=== PATIENT | male | born 1955 | race Caucasian/White ===

== ENCOUNTER 2023-03-04 07:37 | Outpatient (OUT) | payer MEDICARE, OTHER, SELFPAY ==
[2023-03-04 08:17] LABS: Calcium 8.6 mg/dL (8.5-10.1); Carbon Dioxide 27.1 mmol/L (21.0-32.0); Chloride 106 mmol/L (98-107); Estimated GFR (African America >60 (>=60); Estimated GFR (Non-African Ame >60 (>=60); Sodium 141 mmol/L (136-145); Uric Acid 5.5 mg/dL (3.5-7.2)
[2023-03-04 10:19] LABS: Calcium Urine Random 12.5 mg/dL (5.1-21.0); Creatinine Urine Random 100.63 mg/dL (20.00-300.00); Sodium Urine Random 119 mmol/L (30-90)
[2023-03-04 10:38] LABS: Calcium 24 Hour Urine 171.9 mg/24hr (100.0-300.0); Sodium 24 Hour Urine 164 mmol/24h (40-220); Total Volume 24 Hour Urine 1375 mL/24hr
[2023-03-05 07:08] LABS: Uric Acid, Urine 35.6 mg/dL (Not Estab.); Uric Acid,Urine 24hr 489.5 mg/24 hr (182.4-936.8)
[2023-03-05 09:12] LABS: Magnesium,Urine 24hr 82.5 mg/24 hr (12.0-293.0); Phosphorus, Urine 68.1 mg/dL (Not Estab.); Phosphorus,Urine 24h 936 mg/24 hr (390-1425)
[2023-03-05 11:12] LABS: PTH, Intact 25 pg/mL (15-65)
[2023-03-06 17:07] LABS: Citric Acid, U, 24hr 304 mg/24 hr (320-1240); Citric Acid, Urine 221 mg/L (Undefined); Oxalates, Urine 14 mg/L (Undefined); Oxalates, Urine 24hr 19 mg/24 hr (7-44)
== END 2023-03-04 07:38 | disposition home or self-care (01) ==
LOC: LAB 07:39
PROVIDERS: PCP Internal Medicine; Visit Provider Urology
DX: N20.0 Calculus of kidney (principal)
CPT/HCPCS: 36415; 82310; 82340; 82374; 82435; 82507; 82565; 82570; 83735; 83945; 83970; 84105; 84132; 84295; 84300; 84520; 84550; 84560

== ENCOUNTER 2023-04-15 10:35 | Outpatient (OUT) | payer MEDICARE, OTHER, SELFPAY ==
--- NOTE | 2023-04-15 10:41 | XR_ITS ---
The [address] [address] Patient Name: RADHAMES MARQUEZ MRN: [id number] date: 1955 Sex: M Assigned Patient Location: [facility] Current Patient Location: [facility] Accession/Order Number: [id number] Exam Date: 04/15/2023 10:43 Report Date: 04/15/2023 11:15 At the request of: ELDON CHAUDHARI Procedure: XR abdomen 1V EXAMINATION: XR abdomen 1V HISTORY: Kidney stone N20.0 COMPARISON: XR KUB 09/13/2022, 08/07/2022 FINDINGS: KIDNEY/URETER - RIGHT: 2 adjacent stones within inferior pole, largest is 5 mm. Right ureteral stent has been removed. KIDNEY/URETER - LEFT: 4 mm stone within superior pole of kidney. PELVIS: New collection of several calcifications within right pelvis. BOWEL: No abnormal dilation or deviation. BONES: No acute abnormality. Degenerative changes and moderate curvature of lumbar spine. OTHER: Negative. No abnormal gaseous collections. XR/XR abdomen 1V IMPRESSION: 1. Grossly stable bilateral nephrolithiasis. 2. New calcifications within lower right pelvis near the expected course of ureter; distal ureteral stones? Electronically authenticated by: TITUS TELLEZ Date: 04/15/2023 11:15
== END 2023-04-15 10:36 | disposition home or self-care (01) ==
LOC: RAD 10:36
PROVIDERS: PCP Internal Medicine; Visit Provider Urology
DX: N20.0 Calculus of kidney (principal)
CPT/HCPCS: 74018

== ENCOUNTER 2023-04-15 14:20 | Emergency (ER) | payer MEDICARE, OTHER, SELFPAY ==
[2023-04-15 14:53] VITALS: BP 129/77; PULSE 62; RESP 20; TEMP 36.6; O2SAT 95; BMI 25.3
--- NOTE | 2023-04-15 14:58 | XR_ITS ---
The [address] [address] Patient Name: RADHAMES MARQUEZ MRN: [id number] date: 1955 Sex: M Assigned Patient Location: ER Current Patient Location: ED.MAIN Accession/Order Number: [id number] Exam Date: 04/15/2023 16:40 Report Date: 04/15/2023 17:17 At the request of: KATHE LOO Procedure: XR hand LT min 3V TECHNIQUE: EXAM: XR hand LT min 3V HISTORY: injury COMPARISON: None. TECHNIQUE: 3 views of the left hand. FINDINGS: Mildly displaced fracture of the fifth distal phalangeal base and head/neck with surrounding soft tissue edema. No dislocation. XR/XR hand LT min 3V IMPRESSION: Mildly displaced fracture of the fifth distal phalangeal base and head/neck with surrounding soft tissue edema. Electronically authenticated by: RILEY ROONEY Date: 04/15/2023 17:17
--- NOTE | 2023-04-15 16:10 | ED.UPPEXIN1 ---
Documented by User: ZACKARY Gonzalez 04/15/23 17:22 HPI - Extremity Injury (Upper) General Chief Complaint: Extremity Injury, Upper Stated Complaint: UPPER EXTREMITY INJURY, LEFT HAND Time Seen by Provider: 04/15/23 16:06 Source: patient Mode of arrival: walk-in Limitations: no limitations History of Present Illness HPI narrative: patient is a 67-year-old male who presents to the emergency department for the evaluation of a laceration to the left 5th digit that occurred at home approximately two hours ago. Patient states a piece of sheet metal cut him on the left 5th finger. Last tetanus is greater than five years ago. Bleeding is well-controlled at this time. He is right-hand dominant. No medications taken prior to arrival. laceration occurred over the DIP joint of the dorsum of the left 5th finger, there is fingernail involvement. Related Data Home Medications Medication Instructions Recorded Confirmed nabumetone 750 mg tablet 750 mg PO BID 04/15/23 04/15/23 simvastatin 40 mg tablet 40 mg PO DAILY 04/15/23 04/15/23 tamsulosin 0.4 mg capsule 0.4 mg PO Q24H 04/15/23 04/15/23 Previous Rx's Medication Instructions Recorded cephalexin 500 mg capsule 500 mg PO Q8H 10 days #30 caps 04/15/23 hydrocodone 5 mg-acetaminophen 325 1 tab PO Q6H PRN pain #12 tabs 04/15/23 mg tablet ondansetron 4 mg disintegrating 4 mg PO Q6H PRN nausea and 04/15/23 tablet vomiting #12 tabs Allergies Allergy/AdvReac Type Severity Reaction Status Date / Time No Known Drug Allergies Allergy Verified 04/15/23 14:52 Review of Systems ROS Constitutional Denies: fever or chills Ears, nose, mouth, and throat Denies: throat pain Respiratory Denies: cough Gastrointestinal Denies: nausea or vomiting Genitourinary Denies: painful urination Musculoskeletal Reports: extremity pain; Denies: back pain Integumentary/Breast Denies: rash Neurological Denies: headache PFSH PFSH Social History Smoking status: Former smoker Exam Narrative Exam Narrative: Gen.: Awake, alert, in no distress Head: Normocephalic, atraumatic ENT: Moist mucous membranes Respiratory: No respiratory distress Extremities: 1 cm laceration adjacent to the left 5th fingernail with some extension to the fingernail, patient is unable to extend the fingertip at the DIP joint. No active bleeding at this time. Psych: Normal mood and affect Neuro: No focal neuro deficit Skin: Warm, dry Constitutional Vital Signs, click to edit/add: Last Vital Signs Temp 97.8 F 04/15/23 14:53 Pulse 62 04/15/23 14:53 Resp 20 04/15/23 14:53 BP 129/77 04/15/23 14:53 Pulse Ox 95 04/15/23 14:53 O2 Del Method Room Air 04/15/23 14:53 Course Vital Signs Vital signs: Vital Signs Temperature 97.8 F 04/15/23 14:53 Pulse Rate 62 04/15/23 14:53 Respiratory Rate 04/15/23 14:53 Blood Pressure 129/77 04/15/23 14:53 Pulse Oximetry 95 04/15/23 14:53 Oxygen Delivery Method Room Air 04/15/23 14:53 Temperature 97.8 F 04/15/23 14:53 Pulse Rate 04/15/23 14:53 Respiratory Rate 04/15/23 14:53 Blood Pressure 129/77 04/15/23 14:53 Pulse Oximetry 95 04/15/23 14:53 Oxygen Delivery Method Room Air 04/15/23 14:53 MDM - Extremity Injury (Upper) MDM Narrative Medical decision making narrative: x-ray show a fracture of the distal phalanx of the left 5th finger, the laceration was repaired without difficulty. Please see procedure note for details. Patient will be started on antibiotics, pain medication and referred to orthopedics for an open fracture of the left 5th finger. Sutures removed in 7-10 days with PCP or orthopedics. Laceration repair: Done under sterile conditions. The use of Shur-Clens prep the area. digital block with lidocaine 1% was used, approximately 5 cc. The wound was irrigated copiously with normal saline. The wound was explored there was no evidence of foreign material. the fingernail was able to be pushed back under the cuticle with improved alignment of the fingertip. The laceration was approximated with 3-0 nylon. Four simple interrupted sutures were placed, including one suture through the fingernail and nailbed to tack the fingernail in place. Patient tolerated the procedure well. The patient was neurovascularly intact post. the patient had bacitracin applied to the laceration and a dry sterile dressing was placed with finger splint. The patient will need to follow-up in the next 7-10 days for removal Medical Records Attestation: I reviewed the patient's medical records. Imaging Data XR finger: Radiologist's impression: Procedure: XR hand LT min 3V TECHNIQUE: EXAM: XR hand LT min 3V HISTORY: injury COMPARISON: None. TECHNIQUE: 3 views of the left hand. FINDINGS: Mildly displaced fracture of the fifth distal phalangeal base and head/neck with surrounding soft tissue edema. No dislocation. IMPRESSION: Mildly displaced fracture of the fifth distal phalangeal base and head/neck with surrounding soft tissue edema. Electronically authenticated by: RILEY ROONEY Date: 04/15/2023 17:17 Discharge Plan Discharge Chief Complaint: Extremity Injury, Upper Clinical Impression: Open fracture of distal phalanx of left little finger, Laceration of left little finger Patient Disposition: Home, Self-Care Time of Disposition Decision: 17:13 Condition: Good Prescriptions / Home Meds: New hydrocodone-acetaminophen 5-325 mg tablet 1 tab PO Q6H PRN (Reason: pain) Qty: 12 0RF Rx Instructions: DX S62.608 cephalexin 500 mg capsule 500 mg PO Q8H 10 Days Qty: 30 0RF ondansetron 4 mg tablet,disintegrating 4 mg PO Q6H PRN (Reason: nausea and vomiting) Qty: 12 0RF No Action simvastatin 40 mg tablet 40 mg PO DAILY tamsulosin 0.4 mg capsule 0.4 mg PO Q24H nabumetone 750 mg tablet 750 mg PO BID Instructions: Finger Fracture (ED), Finger Laceration (ED) Additional Instructions: [facility] ortho - [facility] ([phone]) [place] [facility] [place][phone][place] Sutures removed in 7-10 days with PCP or ortho Stand Alone Forms: Portal Instructions Referrals: Javi Seymour DO [Primary Care Provider] - 1 week Discharge Date/Time: 04/15/23 17:27 Documented by User: Mega Vigil MD 04/15/23 21:08 HPI - Extremity Injury (Upper) General Chief Complaint: Extremity Injury, Upper Stated Complaint: UPPER EXTREMITY INJURY, LEFT HAND Time Seen by Provider: 04/15/23 16:06 Related Data Home Medications Medication Instructions Recorded Confirmed nabumetone 750 mg tablet 750 mg PO BID 04/15/23 04/15/23 simvastatin 40 mg tablet 40 mg PO DAILY 04/15/23 04/15/23 tamsulosin 0.4 mg capsule 0.4 mg PO Q24H 04/15/23 04/15/23 Previous Rx's Medication Instructions Recorded cephalexin 500 mg capsule 500 mg PO Q8H 10 days #30 caps 04/15/23 hydrocodone 5 mg-acetaminophen 325 1 tab PO Q6H PRN pain #12 tabs 04/15/23 mg tablet ondansetron 4 mg disintegrating 4 mg PO Q6H PRN nausea and 04/15/23 tablet vomiting #12 tabs Allergies Allergy/AdvReac Type Severity Reaction Status Date / Time No Known Drug Allergies Allergy Verified 04/15/23 14:52 PFSH PFSH Social History Smoking status: Former smoker Exam Constitutional Vital Signs, click to edit/add: Last Vital Signs Temp 97.8 F 04/15/23 14:53 Pulse 62 04/15/23 14:53 Resp 20 04/15/23 14:53 BP 129/77 04/15/23 14:53 Pulse Ox 95 04/15/23 14:53 O2 Del Method Room Air 04/15/23 14:53 Course Vital Signs Vital signs: Vital Signs Temperature 97.8 F 04/15/23 14:53 Pulse Rate 62 04/15/23 14:53 Respiratory Rate 20 04/15/23 14:53 Blood Pressure 129/77 04/15/23 14:53 Pulse Oximetry 95 04/15/23 14:53 Oxygen Delivery Method Room Air 04/15/23 14:53 Temperature 97.8 F 04/15/23 14:53 Pulse Rate 62 04/15/23 14:53 Respiratory Rate 20 04/15/23 14:53 Blood Pressure 129/77 04/15/23 14:53 Pulse Oximetry 95 04/15/23 14:53 Oxygen Delivery Method Room Air 04/15/23 14:53 MDM - Extremity Injury (Upper) MDM Narrative Medical decision making narrative: x-ray show a fracture of the distal phalanx of the left 5th finger, the laceration was repaired without difficulty. Please see procedure note for details. Patient will be started on antibiotics, pain medication and referred to orthopedics for an open fracture of the left 5th finger. Sutures removed in 7-10 days with PCP or orthopedics. Laceration repair: Done under sterile conditions. The use of Shur-Clens prep the area. digital block with lidocaine 1% was used, approximately 5 cc. The wound was irrigated copiously with normal saline. The wound was explored there was no evidence of foreign material. the fingernail was able to be pushed back under the cuticle with improved alignment of the fingertip. The laceration was approximated with 3-0 nylon. Four simple interrupted sutures were placed, including one suture through the fingernail and nailbed to tack the fingernail in place. Patient tolerated the procedure well. The patient was neurovascularly intact post. the patient had bacitracin applied to the laceration and a dry sterile dressing was placed with finger splint. The patient will need to follow-up in the next 7-10 days for removal I, Dr Vigil, have reviewed the above progress note and course of action in the ER; agree with the above. I have personally seen and evaluated this patient, gone over history and physical, and discussed disposition and treatment plan with the patient. Discharge Plan Discharge Chief Complaint: Extremity Injury, Upper Clinical Impression: Open fracture of distal phalanx of left little finger, Laceration of left little finger Patient Disposition: Home, Self-Care Time of Disposition Decision: 17:13 Condition: Good Prescriptions / Home Meds: New hydrocodone-acetaminophen 5-325 mg tablet 1 tab PO Q6H PRN (Reason: pain) Qty: 12 0RF Rx Instructions: DX S62.608 cephalexin 500 mg capsule 500 mg PO Q8H 10 Days Qty: 30 0RF ondansetron 4 mg tablet,disintegrating 4 mg PO Q6H PRN (Reason: nausea and vomiting) Qty: 12 0RF No Action simvastatin 40 mg tablet 40 mg PO DAILY tamsulosin 0.4 mg capsule 0.4 mg PO Q24H nabumetone 750 mg tablet 750 mg PO BID Instructions: Finger Fracture (ED), Finger Laceration (ED) Additional Instructions: Follow [facility] ortho - [facility] ([phone]) or [facility] [place][phone]) Sutures removed in 7-10 days with PCP or ortho Stand Alone Forms: Portal Instructions Referrals: Javi Seymour DO [Primary Care Provider] - 1 week Discharge Date/Time: 04/15/23 17:27
[2023-04-15] MEDS: BACITRACIN 0.9 GM PACKET 1 PACKET TOPICAL (16:43)
[2023-04-15] MEDS: ADACEL DIPH,PERTUSS(ACELL),TET VAC/PF 0.5 ML ADULT SYRINGE IM (16:44)
[2023-04-15] MEDS: LIDOCAINE HCL 1% PF 20 MG/2 ML VIAL 10 ML INJ (17:13)
== END 2023-04-15 17:27 | disposition home or self-care (01) ==
PROVIDERS: Emergency Provider Emergency Medicine; PCP Internal Medicine
DX: N20.0 Calculus of kidney (principal); S62.637B Displaced fracture of distal phalanx of left little finger, initial encounter for open fracture; W26.8XXA Contact with other sharp object(s), not elsewhere classified, initial encounter; Z23 Encounter for immunization; Z79.899 Other long term (current) drug therapy; Z87.891 Personal history of nicotine dependence
CPT/HCPCS: 12001; 73130; 74018; 90471; 90715; 99284

== ENCOUNTER 2023-12-11 07:46 | Outpatient (OUT) | payer MEDICARE, OTHER, SELFPAY ==
[2023-12-11 09:24] LABS: Prostate Specific Antigen Scrn 4.56 ng/mL (<=4.00)
== END 2023-12-11 07:47 | disposition home or self-care (01) ==
LOC: LAB 07:47
PROVIDERS: PCP Internal Medicine; Visit Provider Internal Medicine
DX: Z12.5 Encounter for screening for malignant neoplasm of prostate (principal)
CPT/HCPCS: 36415; G0103

== ENCOUNTER 2024-02-05 14:30 | Emergency (ER) | payer MEDICARE, OTHER, SELFPAY ==
[2024-02-05 14:38] VITALS: BP 110/58; PULSE 68; TEMP 36.8; O2SAT 96; BMI 24.8
--- NOTE | 2024-02-05 14:50 | ED.GENADUL1 ---
HPI HPI - General Adult General Chief complaint: Abdominal Pain Stated complaint: LOWER LEFT BACK PAIN Time Seen by Provider: 02/05/24 14:39 Source: patient Mode of arrival: walk-in Limitations: no limitations History of Present Illness HPI narrative: Patient is a very pleasant 68-year-old male who presents to the emergency department for the evaluation of left flank pain that has been present for the last month intermittently but states it seems to be getting more frequent and more painful. He does have a history of kidney stones and previous lithotripsy. Dr. Grace is his urologist. Patient denies fevers, chills, nausea, vomiting, urinary symptoms. He states when the pain begins it is in the left low back radiating into the left lower quadrant. He has had no testing related to the symptoms recently. No medications taken prior to arrival. At time of my evaluation, the patient's pain is well-controlled and he denies the need for any pain medication at this time. Related Data Home Medications ?Medication ?Instructions ?Recorded ?Confirmed nabumetone 750 mg tablet 750 mg PO BID 04/15/23 02/05/24 simvastatin 40 mg tablet 40 mg PO DAILY 04/15/23 02/05/24 tamsulosin 0.4 mg capsule 0.4 mg PO Q24H 04/15/23 02/05/24 Previous Rx's ?Medication ?Instructions ?Recorded hydrocodone 5 mg-acetaminophen 325 1 tab PO Q6H PRN pain #12 tabs 04/15/23 mg tablet Allergies Allergy/AdvReac Type Severity Reaction Status Date / Time No Known Drug Allergies Allergy Verified 04/15/23 14:52 Opioid HPI Opioid Management Most Recent Opioid Data: No Data to Display Review of Systems ROS Constitutional Denies: fever or chills Ears, nose, mouth, and throat Denies: throat pain or nasal congestion Cardiovascular Denies: chest pain Respiratory Denies: shortness of breath Gastrointestinal Denies: nausea or vomiting Musculoskeletal Denies: back pain Integumentary/Breast Denies: rash Neurological Denies: headache Hematologic/Lymphatic Denies: easy bruising or easy bleeding PFSH PFSH Social History Smoking status: Former smoker Exam Narrative Exam Narrative: Gen.: Awake, alert, in no distress Head: Normocephalic, atraumatic ENT: Moist mucous membranes Respiratory: No respiratory distress, lungs clear bilaterally Cardio: Regular rate and rhythm Gastrointestinal: Abdomen is soft, nondistended and nontender to palpation Back: No midline lumbar tenderness, no CVA tenderness. Extremities: Moves extremities equally Psych: Normal mood and affect Neuro: No focal neuro deficit Skin: Warm, dry, intact Constitutional Vital Signs, click to edit/add: Last Vital Signs Temp 98.3 F 02/05/24 14:38 Pulse 68 02/05/24 14:38 Resp 20 02/05/24 14:38 BP 110/58 02/05/24 14:38 Pulse Ox 96 02/05/24 14:38 O2 Del Method Room Air 02/05/24 14:38 Course Vital Signs Vital signs: Vital Signs Temperature 98.3 F 02/05/24 14:38 Pulse Rate 68 02/05/24 14:38 Respiratory Rate 02/05/24 14:38 Blood Pressure 110/58 02/05/24 14:38 Pulse Oximetry 96 02/05/24 14:38 Oxygen Delivery Method Room Air 02/05/24 14:38 Temperature 98.3 F 02/05/24 14:38 Pulse Rate 68 02/05/24 14:38 Respiratory Rate 02/05/24 14:38 Blood Pressure 110/58 02/05/24 14:38 Pulse Oximetry 96 02/05/24 14:38 Oxygen Delivery Method Room Air 02/05/24 14:38 Medical Decision Making MDM Narrative Medical decision making narrative: Patient declined medication for pain in the ER. Labs are stable, patient is not diabetic, urine specimen with no evidence of UTI. I discussed the case with Dr. Grace, the patient has a 6 mm obstructing stone at the left proximal ureter. He requested the patient be n.p.o. after midnight and come to the hospital as an outpatient for surgical procedure for tomorrow. Patient was prescribed Vicodin this morning by his primary care provider. He will continue to take Vicodin until midnight, nothing to eat or drink after midnight, Dr. Grace office will contact the patient tomorrow morning with further instructions for surgery time. His will drive him to the hospital. Medical Records Medical records reviewed: Yes I reviewed the patient's medical records Lab Data Lab results reviewed: Yes I reviewed the patient's lab results Labs: Lab Results 02/05/24 02/05/24 Range/Units 14:54 15:54 WBC 12.0 H (4.0-11.0) 10^3/uL RBC 4.44 L (4.70-6.10) 10^6/uL Hgb 14.8 (14.0-18.0) g/dL Hct 43.1 (42.0-54.0) % MCV 97.1 H (80.0-94.0) fL MCH 33.3 (25.9-34.0) pg MCHC 34.3 (29.9-35.2) g/dL RDW 13.1 (11.0-15.0) % Plt Count 230 (150-450) 10^3/uL MPV 9.8 (9.5-13.5) fL Neut % (Auto) 86.6 H (43.0-75.0) % Lymph % (Auto) 8.1 L (20.5-60.0) % Towner % (Auto) 4.5 (1.7-12.0) % Eos % (Auto) 0.2 L (0.9-7.0) % Baso % (Auto) 0.3 (0.2-2.0) % Neut # (Auto) 10.4 H (1.4-6.5) 10^3/uL Lymph # (Auto) 1.0 L (1.2-3.8) 10^3/uL Towner # (Auto) 0.5 (0.3-0.8) 10^3/uL Eos # (Auto) 0.0 (0.0-0.7) 10^3/uL Baso # (Auto) 0.0 (0.0-0.1) 10^3/uL Abs Immat Gran (auto) 0.03 (0.00-0.03) 10^3/uL Imm/Tot Granulo (auto) 0.3 (0.0-0.5) % Sodium 142 (136-145) mmol/L Potassium 3.5 (3.5-5.1) mmol/L Chloride 106 (98-107) mmol/L Carbon Dioxide 25.6 (21.0-32.0) mmol/L Anion Gap 13.9 BUN 14.0 (7.0-18.0) mg/dL Creatinine 1.22 (0.70-1.30) mg/dL Est GFR ( Amer) >60 (>=60) Est GFR (Non-Af Amer) 59 L (>=60) BUN/Creatinine Ratio 11.5 Glucose 126 H (74-106) mg/dL Lactate 1.5 (0.4-2.0) mmol/L Calcium 9.3 (8.5-10.1) mg/dL Total Bilirubin 0.8 (0.2-1.0) mg/dL AST 21 (15-37) U/L ALT 27 (16-63) U/L Alkaline Phosphatase 89 (46-116) U/L Total Protein 7.5 (6.4-8.2) g/dL Albumin 3.7 (3.4-5.0) g/dL Globulin 3.8 g/dL Albumin/Globulin Ratio 1.0 Urine Color Yellow (YELLOW) Urine Clarity Clear (CLEAR) Urine pH 6.0 (5.0-9.0) Ur Specific [place] 1.020 (1.005-1.025) Urine Protein Negative (NEG/TRACE) mg/dL Urine Glucose (UA) Negative (NEGATIVE) mg/dL Urine Ketones Negative (NEGATIVE) mg/dL Urine Occult Blood Moderate A (NEGATIVE) Urine Nitrite Negative (NEGATIVE) Urine Bilirubin Negative (NEGATIVE) Urine Urobilinogen 0.2 (0.2-1.0) EU/dL Ur Leukocyte Esterase Negative (NEGATIVE) Urine RBC 2-5 A (0-2) #/HPF Urine WBC 0-2 A (NONE SEEN) #/HPF Ur Squamous Epith Cells Rare (NONE/RARE) #/LPF Urine Crystals None seen (None Seen) #/HPF Urine Bacteria None seen (NONE SEEN) #/HPF Urine Casts None seen (NONE SEEN) #/LPF Urine Mucus None seen (NONE SEEN) Ur Culture Indicated? No Imaging Data CT scan - abdomen: Attestation: I have reviewed the pertinent imaging results. Radiologist's impression: ITS Impressions Abdomen/Pelvis CT 02/05/24 15:12 IMPRESSION: Obstructing 6 mm left proximal ureteral stone resulting in mild hydronephrosis. Electronically authenticated by: SHARMAINE NUNN Date: 02/05/2024 15:40 Discharge Plan Discharge Stand Alone Forms: Portal Instructions Chief Complaint: Abdominal Pain Clinical Impression: Flank pain, Left ureteral stone Patient Disposition: Home, Self-Care Time of Disposition Decision: 16:12 Condition: Good Prescriptions / Home Meds: No Action simvastatin 40 mg tablet 40 mg PO DAILY tamsulosin 0.4 mg capsule 0.4 mg PO Q24H nabumetone 750 mg tablet 750 mg PO BID hydrocodone-acetaminophen 5-325 mg tablet 1 tab PO Q6H PRN (Reason: pain) Qty: 12 0RF Rx Instructions: DX S62.608 Print Language: [place] Instructions: Ureteral Stones (ED) Additional Instructions: Dr. Grace office will call you tomorrow am to give you your surgery time: -DO NOT eat or drink anything after midnight tonight -DO NOT take any ibuprofen or aspirin You MUST have a ride with you to take you home after your procedure Referrals: Javi Seymour DO [Primary Care Provider] - 1 week Emeka Grace MD [Physician] - 02/06/24
[2024-02-05 15:05] LABS: Basophils Percent Auto 0.3 % (0.2-2.0); Eosinophils Percent Auto 0.2 % (0.9-7.0); Hematocrit 43.1 % (42.0-54.0); Hemoglobin 14.8 g/dL (14.0-18.0); Immature Granulocytes Abs Auto 0.03 10^3/uL (0.00-0.03); Immature Granulocytes Pct Auto 0.3 % (0.0-0.5); Lymphocytes Percent Auto 8.1 % (20.5-60.0); Mean Corpuscular HGB Conc 34.3 g/dL (29.9-35.2); Mean Corpuscular Hemoglobin 33.3 pg (25.9-34.0); Mean Corpuscular Volume 97.1 fL (80.0-94.0); Mean Platelet Volume 9.8 fL (9.5-13.5); Monocytes Absolute Auto 0.5 10^3/uL (0.3-0.8); Monocytes Percent Auto 4.5 % (1.7-12.0); Neutrophils Absolute Auto 10.4 10^3/uL (1.4-6.5); Neutrophils Percent Auto 86.6 % (43.0-75.0); Platelet Count 230 10^3/uL (150-450); Red Blood Count 4.44 10^6/uL (4.70-6.10); Red Cell Distribution Width 13.1 % (11.0-15.0)
[2024-02-05] MEDS: 0.9 % SODIUM CHLORIDE 1,000 ML 999 ML IV (15:05)
--- NOTE | 2024-02-05 15:12 | CT_ITS ---
[address] [address] Patient Name: RADHAMES MARQUEZ MRN: [id number] date: 1955 Sex: M Assigned Patient Location: ER Current Patient Location: ER Accession/Order Number: [id number] Exam Date: 02/05/2024 15:10 Report Date: 02/05/2024 15:40 At the request of: MICHAEL DAVIDSON Procedure: CT abdomen pelvis wo con CT ABDOMEN/PELVIS WITHOUT IV CONTRAST. INDICATION: Left flank pain COMPARISON: 07/06/2022 TECHNIQUE: Contiguous axial images were obtained from the lung bases to the pelvic floor without intravenous or oral contrast. Coronal and sagittal reformations are provided. FINDINGS: LOWER LUNGS: Clear. LIVER/BILIARY TREE: No discrete lesion. No intrahepatic ductal dilatation. GALLBLADDER: No significant gallbladder wall thickening. No radiopaque stone. CBD: Normal CBD. SPLEEN: Normal in size. PANCREAS: No appreciable peripancreatic fluid. No pancreatic ductal dilatation. No discrete lesion. ADRENALS: Normal. KIDNEYS: There is an obstructing 5 x 6 mm stone in the proximal left ureter resulting in mild hydronephrosis. Right nephrolithiasis. . STOMACH AND BOWEL: Stomach is unremarkable. No dilated bowel loops. No bowel wall thickening. APPENDIX: Not visualized. PERITONEAL CAVITY: No fluid. No fat stranding. ABDOMINAL WALL: No subcutaneous stranding. No subcutaneous fluid collection. LYMPH NODES: No mesenteric or retroperitoneal lymphadenopathy by CT criteria. ABDOMINAL AORTA: No aneurysm. PELVIS: There are several stones in the bladder. Prostatomegaly. MUSCULOSKELETAL: No acute osseous abnormality. Stable grade 1 anterolisthesis at L5-S1 secondary to chronic L5 pars defects. CT/CT abdomen pelvis wo con IMPRESSION: Obstructing 6 mm left proximal ureteral stone resulting in mild hydronephrosis. Electronically authenticated by: SHARMAINE NUNN Date: 02/05/2024 15:40
[2024-02-05 15:22] LABS: Alanine Aminotransferase 27 U/L (16-63); Albumin Level 3.7 g/dL (3.4-5.0); Alkaline Phosphatase 89 U/L (46-116); Anion Gap 13.9; Aspartate Amino Transferase 21 U/L (15-37); BUN Creatinine Ratio 11.5; Bilirubin Total 0.8 mg/dL (0.2-1.0); Calcium 9.3 mg/dL (8.5-10.1); Carbon Dioxide 25.6 mmol/L (21.0-32.0); Chloride 106 mmol/L (98-107); Estimated GFR (African America >60 (>=60); Estimated GFR (Non-African Ame 59 (>=60); Globulin 3.8 g/dL; Glucose 126 mg/dL (74-106); Potassium 3.5 mmol/L (3.5-5.1); Sodium 142 mmol/L (136-145); Total Protein 7.5 g/dL (6.4-8.2)
[2024-02-05 15:27] LABS: Lactate/Lactic Acid 1.5 mmol/L (0.4-2.0)
[2024-02-05 15:59] LABS: Bilirubin Urine NEGATIVE (NEGATIVE); Blood Urine MODERATE (NEGATIVE); Clarity Urine CLEAR (CLEAR); Color Urine YELLOW (YELLOW); Glucose Urine UA NEGATIVE (NEGATIVE); Ketones Urine NEGATIVE (NEGATIVE); Leukocyte Esterase Urine NEGATIVE (NEGATIVE); Nitrite Urine NEGATIVE (NEGATIVE); Protein Urine NEGATIVE (NEG/TRACE); Urine Microscopic Indicated YES; Urobilinogen Urine 0.2 EU/dL (0.2-1.0)
[2024-02-05 16:03] LABS: Bacteria Urine NONE SEEN #/HPF (NONE SEEN); Cast Seen? NONE SEEN #/LPF (NONE SEEN); Crystals Seen? None Seen #/HPF (None Seen); Mucus Urine NONE SEEN (NONE SEEN); Squamous Epithelial Cell Urine RARE #/LPF (NONE/RARE); Urine Culture Indicated NO; WBC Urine 0-2 #/HPF (NONE SEEN)
== END 2024-02-05 16:26 | disposition home or self-care (01) ==
PROVIDERS: Physician Assistant; Emergency Provider Emergency Medicine; PCP Internal Medicine
DX: N13.2 Hydronephrosis with renal and ureteral calculous obstruction (principal); Z87.442 Personal history of urinary calculi; Z87.891 Personal history of nicotine dependence; R10.9 Unspecified abdominal pain
CPT/HCPCS: 36415; 74176; 80053; 81001; 83605; 85025; 99285

== ENCOUNTER 2024-02-06 09:32 | Day surgery (SDC) | payer MEDICARE, OTHER, SELFPAY ==
[2024-02-06] VITALS (13 sets, daily range): BP systolic 90–120; BP diastolic 55–77; PULSE 49–62; TEMP 35.9–36.3; O2SAT 93–98; BMI 24.6
--- NOTE | 2024-02-06 09:30 | XR_ITS ---
[address] [address] Patient Name: RADHAMES MARQUEZ MRN: [id number] date: 1955 Sex: M Assigned Patient Location: [facility] Current Patient Location: [facility] Accession/Order Number: [id number] Exam Date: 02/06/2024 09:50 Report Date: 02/06/2024 10:31 At the request of: ELDON CHAUDHARI Procedure: XR abdomen 1V EXAMINATION: XR abdomen 1V HISTORY: preop COMPARISON: 04/15/2023 FINDINGS: KIDNEY/URETER - RIGHT: No visible renal or ureteral calcifications. KIDNEY/URETER - LEFT: 4 mm calcification projects of the left L3 transverse process PELVIS: No visible ureteral calcifications. Any visible calcifications favor phleboliths. BOWEL: No abnormal dilation or deviation. Moderate stool in the transverse colon BONES: No acute abnormality. Rotatory levocurvature with degenerative change OTHER: Negative. No abnormal gaseous collections. XR/XR abdomen 1V IMPRESSION: Suspected left mid ureterolith Electronically authenticated by: QUINCY TOVAR Date: 02/06/2024 10:31
--- NOTE | 2024-02-06 09:30 | ECG_ITS ---
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
[2024-02-06 09:58] LABS: INR 1.02; Prothrombin Time 10.8 sec (9.0-11.6)
[2024-02-06 09:59] LABS: Partial Thromboplastin Time 26.7 sec (22.3-36.2)
[2024-02-06] MEDS: LACTATED RINGER'S SOLUTION 1,000 ML 50 ML IV (10:37)
[2024-02-06] MEDS: CEFAZOLIN SODIUM/DEXTROSE,ISO 1 GM/50 ML IV.SOLN IV (13:01)
--- NOTE | 2024-02-06 13:44 | PM.URSON ---
Urology Surgery Operative Note Operative Note Procedure Date: 02/06/24 Time Out Performed: yes Pre-op Diagnosis: Left ureteral calculus Post-op Diagnosis: same as pre-op Procedures performed: 1. Left ESWL. Anesthesia: General-LMA Primary Surgeon: Emeka Grace Complications: None Estimated blood loss (mL): 0 Findings: Left Proximal ureteral calculus Specimens: None Indications for Procedures: This gentleman has a 6 mm left proximal ureteral calculus that has been causing intermittent pain for the last month. He now presents for left ESWL and possible ureteroscopic stone manipulation and stent placement. He has signed an informed consent for these procedures after risks were explained.Some of these risks include bleeding, perinephric hematoma, infection, anesthesia just to name a few. Detailed description of Procedure: The patient was brought to the Operating Room and placed on Siemens electromagnetic lithotripsy treatment table in the supine position. SCDs were placed on their lower extremities and turned on and functioning during the entire case. Timeout was done by all parties in the room. We all agreed upon the patient's identification and the planned procedures for this patient. General Anesthesia was then administered via LMA. Treatment head was then brought to the patient's correct side. While using flourscopy the Left proximal ureteral stone was identified and lined up into the crosshairs. We then began applying shocks At power level 2.0 and increased to a maximum power level of 3.5. Intermittent fluoroscopy revealed that the stone rather quickly began fragmenting. By 500 shocks into the procedure the stone was over 50% fragmented. We applied a total of 2000 shocks to this stone and our last fluoroscopic image revealed no evidence of formed stone remaining. The procedure was then terminated. He was then transferred to a [facility] bed and wheeled to PACU in stable condition.
== END 2024-02-06 14:48 | disposition home or self-care (01) ==
PROVIDERS: PCP Internal Medicine; Visit Provider Urology
PROC: (CPT 50590; principal; 2024-02-06 11:10)
DX: N20.1 Calculus of ureter (principal); Z87.891 Personal history of nicotine dependence; R31.0 Gross hematuria; N40.1 Benign prostatic hyperplasia with lower urinary tract symptoms; R97.20 Elevated prostate specific antigen [PSA]; R33.9 Retention of urine, unspecified
CPT/HCPCS: 50590; 36415; 74018; 85610; 85730; 93005; J2704

== ENCOUNTER 2024-04-24 10:58 | Outpatient (OUT) | payer MEDICARE, OTHER, SELFPAY ==
--- NOTE | 2024-04-24 11:23 | XR_ITS ---
The [address] [address] Patient Name: RADHAMES MARQUEZ MRN: [id number] date: 1955 Sex: M Assigned Patient Location: LAB Current Patient Location: Accession/Order Number: [id number] Exam Date: 04/24/2024 11:18 Report Date: 04/28/2024 06:33 At the request of: ELDON CHAUDHARI Procedure: XR abdomen 1V EXAMINATION: XR abdomen 1V HISTORY: Kidney Stones, Benign prostatic hyperplasia COMPARISON: XR abdomen 02/06/2024 FINDINGS: KIDNEY/URETER - RIGHT: Several stones within lower pole up to 5 mm in size. KIDNEY/URETER - LEFT: 4 mm stone within lower pole. PELVIS: Numerous pelvic calcifications. New 6 x 5 mm stone within lower right pelvis. BOWEL: No abnormal dilation or deviation. BONES: Degenerative changes of lumbar spine. OTHER: Negative. No abnormal gaseous collections. XR/XR abdomen 1V IMPRESSION: 1. New 6 mm stone within right pelvis; possible distal ureteral stone. 2. Bilateral nephrolithiasis. Electronically authenticated by: TITUS TELLEZ Date: 04/28/2024 06:33
[2024-04-24 14:06] LABS: Prostate Specific Antigen Dx 4.37 ng/mL (<=4.00)
== END 2024-04-24 10:59 | disposition home or self-care (01) ==
LOC: LAB 10:58
PROVIDERS: PCP Internal Medicine; Visit Provider Urology
DX: N40.1 Benign prostatic hyperplasia with lower urinary tract symptoms (principal); N20.0 Calculus of kidney
CPT/HCPCS: 36415; 74018; 84153

== ENCOUNTER 2024-05-22 09:58 | Outpatient (OUT) | payer MEDICARE, OTHER, SELFPAY ==
--- NOTE | 2024-05-22 10:07 | CT_ITS ---
The [address] [address] Patient Name: RADHAMES MARQUEZ MRN: [id number] date: 1955 Sex: M Assigned Patient Location: CT Current Patient Location: CT Accession/Order Number: [id number] Exam Date: 05/22/2024 10:10 Report Date: 05/22/2024 11:09 At the request of: ELDON CHAUDHARI Procedure: CT abdomen pelvis wo con EXAM: CT abdomen pelvis wo con HISTORY: Kidney Stone, Right Ureteral Stone COMPARISON: CT abdomen and pelvis 02/05/2024. TECHNIQUE: Axial soft tissue windows of the abdomen and pelvis with coronal and sagittal reformats. CT dose reduction technique was used including Automated Exposure Control. FINDINGS: Lack of intravenous contrast limits evaluation. ABDOMEN: Stable segment 2 hepatic low-attenuation lesion, small to characterize. There is a similar stable low-attenuation lesion within segment 6. The gallbladder, spleen, pancreas, and adrenal glands are unremarkable. Mild noncystic bilateral perinephric fat stranding. Bilateral renal cysts. The largest is off the upper pole of the left kidney measuring approximately 2.5 cm. There are bilateral nonobstructing renal stones. The largest is within the lower pole of the right kidney measuring approximately 0.6 cm. The bilateral ureters are nondilated. Evaluation of the bowel is limited given the absence of oral contrast. No bowel obstruction. The appendix is not definitely identified. The aorta is normal caliber. Mild atherosclerotic disease. No enlarged abdominal lymph nodes or free abdominal fluid. Small fat-containing umbilicus hernia. Pelvis: The prostate is enlarged with hypertrophy of the median lobe and exerts aspect of the posterior bladder wall. There are bladder is no evidence. The largest measures approximately 0.7 cm. No enlarged pelvic lymph nodes or free pelvic fluid. No aggressive sclerotic or lytic osseous. Grade 2 anterolisthesis of L5 on S1 with bilateral pars interarticularis defects. Levoconvex scoliosis of the lumbar spine with multilevel degenerative spondylosis. Mild bilateral hip osteoarthritis. CT/CT abdomen pelvis wo con IMPRESSION: 1. Nonobstructing bilateral renal stones. 2. Bladder calculi. 3. Other nonemergent findings, as described above. FINDINGS: IMPRESSION: Electronically authenticated by: BLAYNE BAEZ Date: 05/22/2024 11:09
--- OUTSIDE RECORDS SUMMARY | 2024-05-22 10:15 | XMS_ITS | CCD ---
Author Organization [facility] Care Team Providers Care School Resource Officer Name Role Phone JAVI SEYMOUR Primary Care Physician [phone] LOIN, DR HALL Primary Care Unavailable CHAUDHARI, DR COLÓN Consulting Unavailable CHAUDHARI, DR COLÓN Admitting Unavailable CHAUDHARI, DR COLÓN Attending Unavailable BALL, DR HALL Primary Care Unavailable CHAUDHARI, DR COLÓN Admitting Unavailable CHAUDHARI, DR COLÓN Attending Unavailable CHAUDHARI, DR COLÓN Consulting Unavailable RIVERA, KAVYA Consulting Unavailable BALL, DR HALL Primary Care Unavailable CHAUDHARI, DR COLÓN Admitting Unavailable CHAUDHARI, DR COLÓN Attending Unavailable CHAUDHARI, DR COLÓN Consulting Unavailable REQUEST, DR BAL LISTED Attending Unavaila ble REQUEST, DR BAL LISTED Consulting Unavaila ble REQUEST, DR BAL LISTED Admitting Unavaila ble BALL, DR HALL Primary Care Unavailable CHAUDHARI, DR COLÓN Admitting Unavailable BALL, DR HALL Primary Care Unavailable CHAUDHARI, DR COLÓN Attending Unavailable CHAUDHARI, DR COLÓN Consulting Unavailable ALBERT, JEREMIAS Consulting Unavailable LADONNA, PHILLIP Consulting Unavailable KUCHIPUDI, DONNIE Consulting Unavailable BALL, DR HALL Primary Care Unavailable CHAUDHARI, DR COLÓN Admitting Unavailable CHAUDHARI, DR COLÓN Attending Unavailable CHAUDHARI, DR COLÓN Consulting Unavailable WEST, DR QUINCY Serrato Consulting Unavailable PALENCIA, NONA Consulting Unavailable GEMBUS, JHONATAN Consulting Unavailable BALL, DR HALL Primary Care Unavailable CHAUDHARI, DR COLÓN Attending Unavailable CHAUDHARI, DR COLÓN Consulting Unavailable CHAUDHARI, DR COLÓN Admitting Unavailable WEST, DR QUINCY Serrato Consulting Unavailable BALL, DR HALL Primary Care Unavailable CHAUDHARI, DR COLÓN Attending Unavailable CHAUDHARI, DR COLÓN Consulting Unavailable CHAUDHARI, DR COLÓN Admitting Unavailable WEST, DR QUINCY Serrato Consulting Unavailable BALL, DR HALL Primary Care Unavailable BALL, DR HALL Admitting Unavailable BALL, DR HALL Attending Unavailable BALL, DR HALL Consulting Unavailable WEST, DR QUINCY Serrato Consulting Unavailable BALL, DR HALL Primary Care Unavailable CHAUDHARI, DR COLÓN Admitting Unavailable CHAUDHARI, DR COLÓN Attending Unavailable CHAUDHARI, DR COLÓN Consulting Unavailable ZIEBER, DR TITUS Woods Consulting DR JAVI Fernandez Primary Care Unavailable CHAUDHARI, DR COLÓN Attending Unavailable FARA, DR COLÓN Consulting Unavailable FARA, DR COLÓN Admitting Unavailable Javi Seymour Unavailable Emeka CHAUDHARI Attending Emeka Guallpa Attending Unavailable Emeka CHAUDHARI Attending Unavailable Allergies Allergy Classification Reported Allergen(s) Allergy Type Date of Onset Reaction(s) Facility (1 source) patient allergy list reviewed by nurse or physicia Propensity to adverse reactions Comment:Done [facility] Other Medications Current Medications Medication Drug Class(es) Dates Sig (Normalized) Sig (Original) Ocuvite (4 sources) Vitamin C Start: 12-26-2020 Ocuvite Oral, Daily, Refill(s) 0 Start Date: 12/26/20 Status: Ordered Fish Oils (3 sources) Start: 12-26-2020 take 1 mg by mouth three times daily Fish Oil 1200 mg oral capsule mg cap(s), Oral, TID, Refills(s) 0 Start Date: 12/26/20 Status: Ordered nabumetone 750 mg oral tablet (20 sources) Nonsteroidal Anti-inflammatory Drug Start: 11-19-2023 take 1 tablet by mouth twice daily Nabumetone Active 0 .ROUTE .COMPLEX 180 November 19, 2023 5:48pm take 1 tablet by mouth twice a day Start: 10-10-2022 End: 11-19-2023 take 750 mg by mouth twice daily Nabumetone Discontinued 750 MG PO Twice daily November 19, 2023 1:00am November 19, 2023 5:57pm Start: 12-26-2020 Relafen DS mg, Daily, Refills(s) 0 Start Date: 12/26/20 Status: Ordered simvastatin 40 mg oral tablet (20 sources) HMG-CoA Reductase Inhibitor Start: 12-26-2020 take 40 mg by mouth once daily in the evening Simvastatin Active 40 MG PO Every evening November 19, 2023 1:00am tamsulosin hydrochloride 0.4 mg oral capsule (20 sources) alpha-Adrenergic Amanda Start: 12-25-2023 take 1 capsule by mouth once daily at dinner Tamsulosin Active 0 .ROUTE .COMPLEX 90 December 25, 2023 1:26pm take 1 capsule by mouth once daily after EVENING MEAL Start: 12-25-2023 End: 12-25-2023 take 0.4 mg by mouth once daily at bedtime Tamsulosin Discontinued 0.4 MG PO Daily at bedtime December 25, 2023 12:00am December 25, 2023 1:26pm Start: 12-13-2021 End: 11-21-2023 take 0.4 mg by mouth once daily Tamsulosin Discontinue d 0.4 MG PO Daily November 19, 2023 1:00am November 21, 2023 9:45am Completed/Discontinued Medications Medication Drug Class(es) Dates Sig (Normalized) Sig (Original) acetaminophen 325 mg / HYDROcodone bitartrate 5 mg oral tablet (20 sources) Opioid Agonist Start: 11-12-2023 End: 02-17-2024 take 1 tablet by mouth once daily at bedtime Hydrocodone-Acetami nophen Discontinued 1 TAB PO Daily at bedtime November 12, 2023 February 05, 2024 12:51pm Start: 09-20-2023 take 1 tablet by chester th once at bedtime HYDROcodone-Acetaminophen 5-325 MG 1 tablet Orally q HS for 30 days Sep, Active Start: 08-02-2023 take 1 tablet by chester th once at bedtime HYDROcodone-Acetaminophen 5-325 MG 1 tablet Orally q HS start 08/02Jul, Active Start: 06-28-2023 take 1 tablet by chester th once at bedtime HYDROcodone-Acetaminophen 5-325 MG 1 tablet Orally q HS for 30 days start 06/28Jun, Active Start: 05-14-2023 take 1 tablet by chester th once at bedtime HYDROcodone-Acetaminophen 5-325 MG 1 tablet Orally q HS for 30 days start 05/14Apr, Active Start: 03-08-2023 take 1 tablet by chester th once at bedtime HYDROcodone-Acetaminophen 5-325 MG 1 tablet Orally q HS for 30 days start 03/08Feb, Active Start: 01-30-2023 take 1 tablet by chester th once at bedtime HYDROcodone-Acetaminophen 5-325 MG 1 tablet Orally q HS for 30 days start January, Active Start: 12-19-2022 take 1 tablet by chester th once at bedtime HYDROcodone-Acetaminophen 5-325 MG 1 tablet Orally q HS for 30 days start 12/19Dec, Active Start: 11-06-2022 take 1 tablet by chester th once at bedtime HYDROcodone-Acetaminophen 5-325 MG 1 tablet Orally q HS for 30 days start 11/06Oct, Active cephalexin 500 mg oral capsule (10 sources) Cephalosporin Antibacterial Start: 06-11-2023 End: 11-21-2023 take 500 mg by mouth twice daily Cephalexin Discontinued 500 MG PO Twice daily November 19, 2023 1:00am November 21, 2023 9:44am Start: 04-26-2023 cephalexin 500 mg Cap Refills(s) 0 Start Date: 04/26/23 Status: Ordered ciprofloxacin 500 mg oral tablet (2 sources) Quinolone Antimicrobial Start: 06-15-2022 Cipro 500 mg Tab 500 mg = 1 tab(s), Oral, As Directed, Pt to take 1 tab the day before procedure and the 2nd tab the day of procedure once completed., # 2 tab(s), Refills(s) 0, Pharmacy: [id number], 175, cm, 06/15/22 8:46:00 EDT, Height/Length Dosing, 75.1, kg, 0... Start Date: 06/15/22 Status: Ordered predniSONE 20 mg oral tablet (9 sources) Start: 06-11-2023 End: 11-21-2023 take 20 mg by mouth twice daily Prednisone Discontinued 20 MG PO Twice daily November 19, 2023 1:00am November 21, 2023 9:45am traMADol hydrochloride 50 mg oral tablet (20 sources) Opioid Agonist Start: 08-19-2023 End: 02-17-2024 take 50 mg by mouth once daily Tramadol Discontinued 50 MG PO Daily November 19, 2023 1:00am November 19, 2023 5:57pm Start: 05-21-2023 take 1 tablet by chester th every twenty-four hours traMADol HCl 50 MG 1 tablet Orally Once a day for 30 days start 05/21May, Active Start: 09-28-2022 take 1 tablet by chester th every twenty-four hours traMADol HCl 50 MG 1 tablet Orally Once a day Sep, Active Start: 12-26-2020 take 1 mg by mouth every six h ours traMADOL 50 mg Tab mg tab(s), Oral, q6hr, Refills(s) 0 Start Date: 12/26/20 Status: Ordered Problems Active Problems Problem Classification Problem Date Documented Date Episodic/Chronic Calculus of urinary tract (20 sources) Kidney stone; 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: [Calculus of kidney] Onset: 06-15-2022 Episodic Disorders of lipid metabolism (20 sources) Hyperlipidemia; 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: [Hyperlipidemia, unspecified] Onset: 12-20-2017 01-10-2021 Chronic Genitourinary symptoms and ill-defined conditions (4 sources) Post-micturition incontinence 01-10-2021 Chronic Genitourinary symptoms and ill-defined conditions (20 sources) Retention of urine; 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: [Retention of urine, unspecified] Onset: 04-17-2018 Episodic Hyperplasia of prostate (20 sources) Benign prostatic hypertrophy with outflow obstruction; 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: [Benign prostatic hyperplasia with lower urinary tract symptoms] Onset: 06-02-2014 Chronic Immunizations and screening for infectious disease (1 source) Vaccination given; 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: [Encounter for immunization] Episodic Joint disorders and dislocations; trauma-related (20 sources) Traumatic arthropathy of the shoulder region; 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: [Traumatic arthropathy, unspecified shoulder] Onset: 06-02-2014 11-19-2023 Chronic Osteoarthritis (20 sources) Localized, primary osteoarthritis of the shoulder region; 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: [Primary osteoarthritis, left shoulder] Onset: 06-02-2014 11-19-2023 Chronic Other aftercare (1 source) alf (current) use of anticoagulants; 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: [LONG-TERM CURRNT USE ANTICOAGULANTS] Onset: 08-16-2022 Episodic Other aftercare (1 source) Other long-term (current) drug therapy; 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: [OTH LONG-TERM CURRENT DRUG THERAPY] Onset: 08-16-2022 Episodic Other aftercare (2 sources) termination clerk (current) use of opiate analgesic Episodic Other aftercare (1 source) High risk drug monitoring status; 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: [termination clerk (current) use of opiate analgesic] Episodic Other aftercare (1 source) Long-term current use of drug therapy; 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: [Other long-term (current) drug therapy] Episodic Other aftercare (1 source) Drug therapy finding; 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: [alf (current) use of opiate analgesic] 02-27-2024 Episodic Other connective tissue disease (9 sources) Lateral epicondylitis of left humerus; 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: [Lateral epicondylitis, left elbow] Episodic Other connective tissue disease (2 sources) Lateral epicondylitis, left elbow Episodic Other diseases of bladder and urethra (1 source) Unspecified urethral stricture, male, unspecified site; 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: [UNSP URETHRAL STRCT MALE UNSP SITE] Onset: 08-16-2022 Episodic Other injuries and conditions due to external causes (1 source) History of fall; 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: [History of falling] Episodic Other injuries and conditions due to external causes (1 source) Injury of unspecified nerve at shoulder and upper arm level, right arm, initial encounter; 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: [Injury of unspecified nerve at shoulder and upper arm level, right arm, initial encounter] Episodic Other non-traumatic joint disorders (1 source) Lower limb joint arthritis; 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: [Osteoarthrosis, unspecified whether generalized or localized, lower leg] Onset: 02-01-2015 Chronic Other non-traumatic joint disorders (2 sources) Pain in right shoulder Episodic Other nutritional; endocrine; and metabolic disorders (20 sources) Overweight; 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: [Overweight] Episodic Other nutritional; endocrine; and metabolic disorders (1 source) Overweight; 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: [Overweight (BMI 25.0-29.9)] Episodic Other screening for suspected conditions (not mental disorders or infectious disease) (20 sources) Raised prostate specific antigen; 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: [Elevated prostate specific antigen [PSA]] Onset: 06-26-2015 Resolved: 08-11-2021 Episodic Poisoning by nonmedicinal substances (1 source) Toxic effect of venom of bees, accidental (unintentional), initial encounter Episodic Skin and subcutaneous tissue infections (1 source) Cellulitis of right upper limb Episodic Spondylosis; intervertebral disc disorders; other back problems (20 sources) Spondylitis; 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, lumbar region] Resolved: 08-11-2021 Chronic Sprains and strains (1 source) Strain of muscle(s) and tendon(s) of the rotator cuff of unspecified shoulder, initial encounter Episodic Substance-related disorders (20 sources) Tobacco user; 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: [Nicotine dependence, cigarettes, in remission] Chronic Unclassified (1 source) CONTACT W/AND (SUSP) EXPOS COVID-19; 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: [CONTACT W/AND (SUSP) EXPOS COVID-19] Onset: 09-13-2022 Past or Other Problems Problem Classification Problem Date Documented Date Episodic/Chronic Bacterial infection; unspecified site (1 source) Bacterial infectious disease; 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: [Bacterial infection, unspecified, in conditions classified elsewhere and of unspecified site] Onset: 7 Episodic E Codes: Adverse effects of medical drugs (1 source) Lipid-lowering drug adverse reaction; 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: [Adverse effect of antihyperlipidemic and antiarteriosclerotic drugs, initial encounter] Onset: 8 Episodic Inflammatory conditions of male genital organs (1 source) Chronic prostatitis; 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: [Chronic prostatitis] Resolved: 1 Chronic Other connective tissue disease (1 source) Myalgia/myositis - multiple; 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: [Unspecified myalgia and myositis] Onset: 8 Episodic Other connective tissue disease (1 source) Full thickness rotator cuff tear; 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: [Complete rotator cuff tear or rupture of left shoulder, not specified as traumatic] Onset: 4 Episodic Other connective tissue disease (1 source) Lateral epicondylitis; 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: [Lateral epicondylitis, right elbow] Onset: 6 Episodic Other lower respiratory disease (1 source) Cough; 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: [Cough, unspecified] Resolved: 1 Episodic Other non-traumatic joint disorders (1 source) Shoulder joint pain; 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: [Pain in joint, shoulder region] Onset: 6 Episodic Other non-traumatic joint disorders (1 source) Arthralgia of the upper arm; 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: [Pain in joint, upper arm] Onset: 6 Episodic Other nutritional; endocrine; and metabolic disorders (1 source) Body mass index 25-29 - overweight; 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: [Body mass index (BMI) 26.0-26.9, adult] Onset: 7 Episodic Other upper respiratory infections (1 source) Acute maxillary sinusitis; 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: [Acute maxillary sinusitis, unspecified] Onset: 7 Episodic Screening and history of mental health and substance abuse codes (2 sources) Personal history of nicotine dependence; 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: [History of tobacco use] Onset: 7 Episodic Results Test Name Value Interpretation Reference Range Facility ECG 12-Leadon 02-07-2024 ECG 12-Lead [id number]# 1.00TIFF Normal [facility] Lab Reportson 02-07-2024 Lab Reports [id number]# 1.00TIFF Normal [facility] Operative Reporton Operative Report [id number] #1.00TIFF Normal [facility] Consent for Procedure/Surger yon 02-06-2024 Consent for Procedure/Surgery [id number]# 1.00TIFF Normal [facility] ED Note-Physicianon 02-06-20 ED Note-Physician [id number] #1.00TIFF Normal [facility] Lab Reportson 02-06-2024 Lab Reports [id number]# 1.00TIFF Normal [facility] RAD - CT Reporton 02-06-2024 RAD - CT Report [id number] #1.00TIFF Normal [facility] RAD - MISCon 02-06-2024 RAD - MISC [id number] #1.00TIFF Normal [facility] XR KUB 1 VIEWon 09-13-2022 XR KUB 1 VIEW EXAMINATION: XR KUB 1 VIEW HISTORY: Urolithiasis COMPARISON: No relevant comparison available. FINDINGS: KIDNEY/URETER - RIGHT: Right ureteral stent. Stable lower pole nephrolithiasis KIDNEY/URETER - LEFT: No visible renal or ureteral calcifications. PELVIS: No visible ureteral calcifications. Any visible calcifications favor phleboliths. BOWEL: No abnormal dilation or deviation. BONES: No acute abnormality. Rotatory levocurvature and degenerative change OTHER: Negative. No abnormal gaseous collections. IMPRESSION: Right nephrolithiasis with ureteral stent Electronically authenticated by: QUINCY TOVAR Date: 2022-09-13 11:13 Normal [facility] Covid-19 PCR (CVDTBH)on 08-17 SARS-CoV-2 (COVID-19) RNA MARY+probe Ql (Unsp spec) Not detected Normal NOT DETECTED [facility] Comment on above: Result Comment: This test is not yet approved or cleared by the [place] FDA. When there are no FDA-approved or cleared tests available, and other criteria are met, FDA can make tests available under an emergency access mechanism called an Emergency Use Authorization (EUA). The EUA for this test is supported by the Economic Geographer of Health and Human Service's (HHS's) declaration that circumstances exist to justify the emergency use of in vitro diagnostics for the detection and/or diagnosis of the virus that causes COVID-19. This EUA will remain in effect (meaning this test can be used) for the duration of the COVID-19 declaration justifying emergency of IVDs, unless it is terminated or revoked by FDA (after which the test may no longer be used). When diagnostic testing is negative, the possibility of a false negative should be considered in the context of a patient's recent exposures and the presence of clinical signs and symptoms consistent with SARS-CoV-2. Performed By: #### C VDTB #### [facility] [address] [place] [address] Dr. Paramjit Cheng CBC AUTO DIFFon 08-30-2022 BASO # 0.0 103/ul Normal 0.0-0.1 [facility] Comment on above: Performed By: #### C BC #### [facility] [address] [place] [address] Dr. Paramjit Cheng Basophils/100 WBC (Bld) 0.6 % Normal 0.2-2.0 [facility] Comment on above: Performed By: #### C BC #### [facility] [address] [place] [address] Dr. Paramjit Cheng EO # 0.2 103/ul Normal 0.0-0.7 [facility] Comment on above: Performed By: #### C BC #### [facility] [address] [place] [address] Dr. Paramjit Cheng Eosinophils/100 WBC (Bld) 3.7 % Normal 0.9-7.0 [facility] Comment on above: Performed By: #### C BC #### [facility] [address] [place] [address] Dr. Paramjit Cheng Erythrocyte distribution width (RBC) [Ratio] 13.2 % Normal 11.0-15.0 [facility] Comment on above: Performed By: #### C BC #### [facility] [address] [place] [address] Dr. Paramjit Cheng Hematocrit (Bld) [Volume fraction] 43.2 % Normal 42.0-54.0 [facility] Comment on above: Performed By: #### C BC #### [facility] [address] [place] [address] Dr. Paramjit Cheng Hemoglobin (Bld) [Mass/Vol] 14.7 g/dL Normal 14.0-18.0 [facility] Comment on above: Performed By: #### C BC #### [facility] [address] [place] [address] Dr. Paramjit Cheng IG # 0.01 10e3/ul Normal 0.00-0.03 [facility] Comment on above: Performed By: #### C BC #### [facility] [address] [place] [address] Dr. Paramjit Cheng IG % 0.2 % Normal 0.0-0.5 [facility] Comment on above: Performed By: #### C BC #### [facility] [address] [place] [address] Dr. Paramjit Cheng LYMPH # 1.7 103/ul Normal 1.2-3.8 [facility] Comment on above: Performed By: #### C BC #### [facility] [address] [place] [address] Dr. Paramjit Cheng Lymphocytes/100 WBC (Bld) 34.9 % Normal 20.5-60.0 [facility] Comment on above: Performed By: #### C BC #### [facility] [address] [place] [address] Dr. Paramjit Cheng MANUAL DIFF REQ NO Normal [facility] Comment on above: Performed By: #### C BC #### [facility] [address] [place] [address] Dr. Paramjit Cheng MCH (RBC) [Entitic mass] 32.3 pg Normal 25.9-34.0 [facility] Comment on above: Performed By: #### C BC #### [facility] [address] [place] [address] Dr. Paramjit Cheng MCHC (RBC) [Mass/Vol] 34.0 g/dL Normal 29.9-35.2 [facility] Comment on above: Performed By: #### C BC #### [facility] [address] [place] [address] Dr. Paramjit Cheng MCV (RBC) [Entitic vol] 94.9 fL Critically high 80.0-94.0 [facility] Comment on above: Performed By: #### C BC #### [facility] [address] [place] [address] Dr. Paramjit Cheng MONO # 0.5 103/ul Normal 0.3-0.8 [facility] Comment on above: Performed By: #### C BC #### [facility] [address] [place] [address] Dr. Paramjit Cheng Monocytes/100 WBC (Bld) 9.3 % Normal 1.7-12.0 [facility] Comment on above: Performed By: #### C BC #### [facility] [address] [place] [address] Dr. Paramjit Cheng NEUT # 2.5 103/ul Normal 1.4-6.5 [facility] Comment on above: Performed By: #### C BC #### [facility] [address] [place] [address] Dr. Paramjit Cheng Neutrophils/100 WBC (Bld) 51.3 % Normal 43.0-75.0 [facility] Comment on above: Performed By: #### C BC #### [facility] [address] [place] [address] Dr. Paramjit Cheng Platelet mean volume (Bld) [Entitic vol] 9.2 fL Critically low 9.5-13.5 [facility] Comment on above: Performed By: #### C BC #### [facility] [address] [address] [address] Paramjit Cheng PLT 251 103/ul Normal 150-450 [facility] Comment on above: Performed By: #### C BC #### [facility] [address] [address] [address] Paramjit Cheng RBC 4.55 106/ul Critically low 4.70-6.10 [facility] Comment on above: Performed By: #### C BC #### [facility] [address] [address] [address] Paramjit Cheng WBC 4.8 103/ul Normal 4.0-11.0 [facility] Comment on above: Performed By: #### C BC #### [facility] [address] [place] [address] Dr. Paramjit Cheng PROF CHEM 8 (BAS METB)on Anion gap [Moles/Vol] 13.7 mmol/L Normal [facility] Comment on above: Performed By: #### B MP #### [facility] [address] [place] [address] Dr. Paramjit Cheng Calcium [Mass/Vol] 8.9 mg/dL Normal 8.5-10.1 [facility] Comment on above: Performed By: #### B MP #### [facility] [address] [place] [address] Dr. Paramjit Cheng Chloride [Moles/Vol] 106 mmol/L Normal 98-107 [facility] Comment on above: Performed By: #### B MP #### [facility] [address] [place] [address] Dr. Paramjit Cheng CO2 [Moles/Vol] 27.2 mmol/L Normal 21.0-32.0 [facility] Comment on above: Performed By: #### B MP #### [facility] [address] [place] [address] Dr. Paramjit Cheng Creatinine [Mass/Vol] 0.89 mg/dL Normal 0.70-1.30 [facility] Comment on above: Performed By: #### B MP #### [facility] [address] [address] [address] Paramjit Cheng EGFR-AF ISRAELI >60 Normal >=60 [facility] Comment on above: Performed By: #### B MP #### [facility] [address] [place] [address] Dr. Paramjit Cheng EGFR-NON AF ISRAELI >60 Normal >=60 [facility] Comment on above: Performed By: #### B MP #### [facility] [address] [address] [address] Paramjit Cheng Glucose [Mass/Vol] 87 mg/dL Normal 74-106 [facility] Comment on above: Performed By: #### B MP #### [facility] [address] [place] [address] Dr. Paramjit Cheng Potassium [Moles/Vol] 3.9 mmol/L Normal 3.5-5.1 [facility] Comment on above: Performed By: #### B MP #### [facility] [address] [address] [address] Paramjit Cheng Sodium [Moles/Vol] 143 mmol/L Normal 136-145 [facility] Comment on above: Performed By: #### B MP #### [facility] [address] [address] [address] Paramjit Cheng Urea nitrogen [Mass/Vol] 12.0 mg/dL Normal 7.0-18.0 [facility] Comment on above: Performed By: #### B MP #### [facility] [address] [address] [address] Paramjit Cheng Urea nitrogen/Creatinine [Mass ratio] 13.5 mg/mg Normal [facility] Comment on above: Performed By: #### B MP #### [facility] [address] [address] [address] Paramjit Cheng PROTIMEon 08-30-2022 INR Coag (PPP) [Relative time] 0.97 {INR} Normal [facility] Comment on above: Performed By: #### P TT, PT #### [facility] [address] [place] [address] Dr. Paramjit Cheng INR GUIDELINES SEE BELOW Normal [facility] Comment on above: Result Comment: ROSE RED INR: 2.0 - 3.0 CONDITIONS NOT LISTED BELOW 2.5 - 3.5 FOR PROSTHETIC HEART VALVE REPLACEMENT 2.5 - 3.5 RECURRENT THROMBOSIS Performed By: #### P TT, PT #### [facility] [address] [place] [address] Dr. Paramjit Cheng PT Coag (PPP) [Time] 10.5 s Normal 9.0-11.6 [facility] Comment on above: Performed By: #### P TT, PT #### [facility] [address] [place] [address] Dr. Paramjit Cheng PTTon 08-30-2022 aPTT Coag (Bld) [Time] 25.6 s Normal 22.3-36.2 [facility] Comment on above: Performed By: #### P TT, PT #### [facility] [address] [place] [address] Dr. Paramjit Cheng CALCULI, URINARYon 2,8 Dihydroxyadenine Normal [facility] Comment on above: Performed By: #### C ALCULI #### [facility] [address] [place] [address] Dr. Paramjit Cheng Ammonium Acid Urate Normal [facility] Comment on above: Performed By: #### C ALCULI #### [facility] [address] [place] [address] Dr. Paramjit Cheng Bilirubin Ql (U) Normal [facility] Comment on above: Performed By: #### C ALCULI #### [facility] [address] [place] [address] Dr. Paramjit Cheng Ca Oxalate Dihydrate 20 % Normal [facility] Comment on above: Performed By: #### C ALCULI #### [facility] [address] [place] [address] Dr. Paramjit Cheng Ca Oxalate Dihydrate 30 % Normal [facility] Comment on above: Performed By: #### C ALCULI #### [facility] [address] [place] [address] Dr. Paramjit Cheng CaHPO4 (Brushite) Normal [facility] Comment on above: Performed By: #### C ALCULI #### [facility] [address] [address] [address] Paramjit Cheng Calcium Bilirubinate Normal [facility] Comment on above: Performed By: #### C ALCULI #### [facility] [address] [address] [address] Paramjit Cheng Calcium Carbonate Normal [facility] Comment on above: Performed By: #### C ALCULI #### [facility] [address] [address] [address] Paramjit Cheng Calcium Oxalate Monohydrate 80 % [facility] Comment on above: Performed By: #### C ALCULI #### [facility] [address] [address] [address] Paramjit Cheng Calcium Oxalate Monohydrate 70 % [facility] Comment on above: Performed By: #### C ALCULI #### [facility] [address] [address] [address] Paramjit Cheng Calcium Palmitate [facility] Comment on above: Performed By: #### C ALCULI #### [facility] [address] [address] [address] Paramjit Cheng Calcium Phosphate [facility] Comment on above: Performed By: #### C ALCULI #### [facility] [address] [address] [address] Paramjit Cheng Calcium Stearate Normal [facility] Comment on above: Performed By: #### C ALCULI #### [facility] [address] [address] [address] Paramjit Cheng Carbonate Apatite [facility] Comment on above: Performed By: #### C ALCULI #### [facility] [address] [address] [address] Paramjit Cheng Cellular Material [facility] Comment on above: Performed By: #### C ALCULI #### [facility] [address] [address] [address] Paramjit Cheng Cholesterol [facility] Comment on above: Performed By: #### C ALCULI #### [facility] [address] [place] [address] Dr. Paramjit Cheng Color (U) Brown Normal [facility] Comment on above: Performed By: #### C ALCULI #### [facility] [address] [place] [address] Dr. Paramjit Cheng Comment [facility] Comment on above: Performed By: #### C ALCULI #### [facility] [address] [place] [address] Dr. Paramjit Cheng Comment Comment Normal [facility] Comment on above: Result Comment: Calc ulus received wet. Wet calculi must be dried before analysis, which delays reporting of results. Leaving calculi wet (such as water, saline, blood, urine) may lead to changes in composition. Performed By: #### C ALCULI #### [facility] [address] [place] [address] Dr. Paramjit Cheng Result Comment: Sour ce provided- right [facility] Comment: Comment Normal [facility] Comment on above: Result Comment: Zohreh causey questions regarding Calculi Analysis contact [facility] at: [phone]. Performed By: #### C ALCULI #### [facility] [address] [place] [address] Dr. Paramjit Cheng Composition Comment [facility] Comment on above: Result Comment: Perc entage (Represents the % composition) Performed By: #### C ALCULI #### [facility] [address] [place] [address] Dr. Paramjit Cheng Cystine [facility] Comment on above: Performed By: #### C ALCULI #### [facility] [address] [place] [address] Dr. Paramjit Cheng Disclaimer: Comment [facility] Comment on above: Result Comment: This test was developed and its performance characteristics determined by [facility]. It has not been cleared or approved by the Food and Drug Administration. Performed By: #### C ALCULI #### [facility] [address] [place] [address] Dr. Paramjit Cheng Dried Blood [facility] Comment on above: Performed By: #### C ALCULI #### [facility] [address] [address] [address] Paramjit Cheng Drug or Metabolite Normal [facility] Comment on above: Performed By: #### C ALCULI #### [facility] [address] [address] [address] Paramjit Cheng Hydroxyapatite Normal [facility] Comment on above: Performed By: #### C ALCULI #### [facility] [address] [address] [address] Paramjit Cheng Mg NH4 PO4 (Struvite) [facility] Comment on above: Performed By: #### C ALCULI #### [facility] [address] [address] [address] Paramjit Cheng MgHPO4 ([place]ite) Normal [facility] Comment on above: Performed By: #### C ALCULI #### [facility] [address] [place] [address] Dr. Paramjit Cheng Other component(s) Normal [facility] Comment on above: Performed By: #### C ALCULI #### [facility] [address] [address] [address] Paramjit Cheng PDF . [facility] Comment on above: Performed By: #### C ALCULI #### [facility] [address] [place] [address] Dr. Paramjit Cheng Photo Comment Normal [facility] Comment on above: Result Comment: Phot ograph will follow under a separate cover Performed By: #### C ALCULI #### [facility] [address] [place] [address] Dr. Paramjit Cheng Please note: Comment Normal [facility] Comment on above: Result Comment: Calc diana report will follow via computer, mail or bait painter delivery. Performed By: #### C ALCULI #### [facility] [address] [place] [address] Dr. Paramjit Cheng Size 6x4 Normal [facility] Comment on above: Result Comment: Mult iple pieces received. Dimensions of the largest piece reported. Performed By: #### C ALCULI #### [facility] [address] [address] [address] Paramjit Cheng Size 3x2 Normal [facility] Comment on above: Result Comment: Mult iple pieces received. Dimensions of the largest piece reported. Performed By: #### C ALCULI #### [facility] [address] [address] [address] Paramjit Cheng Sodium Acid Urate [facility] Comment on above: Performed By: #### C ALCULI #### [facility] [address] [address] [address] Paramjit Cheng Source Comment [facility] Comment on above: Result Comment: Urin savage Bladder Performed By: #### C ALCULI #### [facility] [address] [address] [address] Paramjit Cheng Result Comment: Not provided [employer] [facility] Comment on above: Performed By: #### C ALCULI #### [facility] [address] [address] [address] Paramjit Cheng Uric Acid [facility] Comment on above: Performed By: #### C ALCULI #### [facility] [address] [address] [address] Paramjit Cheng Uric Acid Dihydrate Normal [facility] Comment on above: Performed By: #### C ALCULI #### [facility] [address] [address] [address] Paramjit Cheng Weight 636 mg Normal [facility] Comment on above: Performed By: #### C ALCULI #### [facility] [address] [address] [address] Paramjit Cheng Weight 18 mg [facility] Comment on above: Performed By: #### C ALCULI #### [facility] [address] [address] [address] Paramjit Cheng Xanthine [facility] Comment on above: Performed By: #### C ALCULI #### [facility] [address] [address] [address] Paramjit Cheng XR KUB 1 VIEWon 2022 XR KUB 1 VIEW EXAMINATION: XR KUB 1 VIEW HISTORY: Kidney stone follow-up COMPARISON: XR KUB 06/15/2022, CT abdomen pelvis 07/06/2022 FINDINGS: KIDNEY/URETER - RIGHT: Large calcifications project over inferior pole right kidney. Right ureteral stent placement with removal or displacement of previously seen renal pelvis calcification. KIDNEY/URETER - LEFT: No visible renal or ureteral calcifications. PELVIS: No visible ureteral stones. Large bladder calcification now projects over left side of bladder. BOWEL: No abnormal dilation or deviation. BONES: No acute abnormality. OTHER: Negative. No abnormal gaseous collections. IMPRESSION: 1. Right ureteral stent without appreciable ureteral stones. 2. Right nephrolithiasis. Suspect removal of previously seen right renal pelvis calcification. 3. Large bladder calcification. Electronically authenticated by: TITUS TELLEZ Date: 2022 06:37 Normal [facility] Covid-19 PCR (CVDTBH)on 07-17 SARS-CoV-2 (COVID-19) RNA MARY+probe Ql (Unsp spec) Not detected Normal NOT DETECTED [facility] Comment on above: Result Comment: This test is not yet approved or cleared by the [place] FDA. When there are no FDA-approved or cleared tests available, and other criteria are met, FDA can make tests available under an emergency access mechanism called an Emergency Use Authorization (EUA). The EUA for this test is supported by the [place] of Health and Human Service's (HHS's) declaration that circumstances exist to justify the emergency use of in vitro diagnostics for the detection and/or diagnosis of the virus that causes COVID-19. This EUA will remain in effect (meaning this test can be used) for the duration of the COVID-19 declaration justifying emergency of IVDs, unless it is terminated or revoked by FDA (after which the test may no longer be used). When diagnostic testing is negative, the possibility of a false negative should be considered in the context of a patient's recent exposures and the presence of clinical signs and symptoms consistent with SARS-CoV-2. Performed By: #### P TT, PT #### [facility] [address] [address] [address] Paramjit Cheng CBC AUTO DIFFon 11-07-2022 BASO # 0.0 103/ul Normal 0.0-0.1 [facility] Comment on above: Performed By: #### P TT, PT #### [facility] [address] [place] [address] Dr. Paramjit Cheng Basophils/100 WBC (Bld) 0.4 % Normal 0.2-2.0 [facility] Comment on above: Performed By: #### P TT, PT #### [facility] [address] [place] [address] Dr. Paramjit Cheng EO # 0.1 103/ul Normal 0.0-0.7 [facility] Comment on above: Performed By: #### P TT, PT #### [facility] [address] [place] [address] Dr. Paramjit Cheng Eosinophils/100 WBC (Bld) 2.5 % Normal 0.9-7.0 [facility] Comment on above: Performed By: #### P TT, PT #### [facility] [address] [place] [address] Dr. Paramjit Cheng Erythrocyte distribution width (RBC) [Ratio] 13.0 % Normal 11.0-15.0 [facility] Comment on above: Performed By: #### P TT, PT #### [facility] [address] [place] [address] Dr. Paramjit Cheng Hematocrit (Bld) [Volume fraction] 41.7 % Critically low 42.0-54.0 [facility] Comment on above: Performed By: #### P TT, PT #### [facility] [address] [place] [address] Dr. Paramjit Cheng Hemoglobin (Bld) [Mass/Vol] 14.5 g/dL Normal 14.0-18.0 [facility] Comment on above: Performed By: #### P TT, PT #### [facility] [address] [place] [address] Dr. Paramjit Cheng IG # 0.01 10e3/ul Normal 0.00-0.03 [facility] Comment on above: Performed By: #### P TT, PT #### [facility] [address] [place] [address] Dr. Paramjit Cheng IG % 0.2 % Normal 0.0-0.5 [facility] Comment on above: Performed By: #### P TT, PT #### [facility] [address] [place] [address] Dr. Paramjit Cheng LYMPH # 1.6 103/ul Normal 1.2-3.8 [facility] Comment on above: Performed By: #### P TT, PT #### [facility] [address] [place] [address] Dr. Paramjit Cheng Lymphocytes/100 WBC (Bld) 27.6 % Normal 20.5-60.0 [facility] Comment on above: Performed By: #### P TT, PT #### [facility] [address] [place] [address] Dr. Paramjit Cheng MANUAL DIFF REQ NO Normal [facility] Comment on above: Performed By: #### P TT, PT #### [facility] [address] [place] [address] Dr. Paramjit Cheng MCH (RBC) [Entitic mass] 32.8 pg Normal 25.9-34.0 [facility] Comment on above: Performed By: #### P TT, PT #### [facility] [address] [place] [address] Dr. Paramjit Cheng MCHC (RBC) [Mass/Vol] 34.8 g/dL Normal 29.9-35.2 [facility] Comment on above: Performed By: #### P TT, PT #### [facility] [address] [place] [address] Dr. Paramjit Cheng MCV (RBC) [Entitic vol] 94.3 fL Critically high 80.0-94.0 [facility] Comment on above: Performed By: #### P TT, PT #### [facility] [address] [place] [address] Dr. Paramjit Cheng MONO # 0.5 103/ul Normal 0.3-0.8 [facility] Comment on above: Performed By: #### P TT, PT #### [facility] [address] [place] [address] Dr. Paramjit Cheng Monocytes/100 WBC (Bld) 8.0 % Normal 1.7-12.0 [facility] Comment on above: Performed By: #### P TT, PT #### [facility] [address] [place] [address] Dr. Paramjit Cheng NEUT # 3.5 103/ul Normal 1.4-6.5 [facility] Comment on above: Performed By: #### P TT, PT #### [facility] [address] [place] [address] Dr. Paramjit Cheng Neutrophils/100 WBC (Bld) 61.3 % Normal 43.0-75.0 [facility] Comment on above: Performed By: #### P TT, PT #### [facility] [address] [place] [address] Dr. Paramjit Cheng Platelet mean volume (Bld) [Entitic vol] 9.5 fL Normal 9.5-13.5 [facility] Comment on above: Performed By: #### P TT, PT #### [facility] [address] [place] [address] Dr. Paramjit Cheng PLT 252 103/ul Normal 150-450 [facility] Comment on above: Performed By: #### P TT, PT #### [facility] [address] [place] [address] Dr. Paramjit Cheng RBC 4.42 106/ul Critically low 4.70-6.10 [facility] Comment on above: Performed By: #### P TT, PT #### [facility] [address] [place] [address] Dr. Paramjit Cheng WBC 5.6 103/ul Normal 4.0-11.0 [facility] Comment on above: Performed By: #### P TT, PT #### [facility] [address] [place] [address] Dr. Paramjit Cheng PROF CHEM 8 (BAS METB)on Anion gap [Moles/Vol] 9.6 mmol/L Normal [facility] Comment on above: Performed By: #### D ATCBC #### [facility] [address] [address] [address] Paramjit Cheng Calcium [Mass/Vol] 8.6 mg/dL Normal 8.5-10.1 [facility] Comment on above: Performed By: #### D ATCBC #### [facility] [address] [address] [address] Paramjit Cheng Chloride [Moles/Vol] 107 mmol/L Normal 98-107 [facility] Comment on above: Performed By: #### D ATCBC #### [facility] [address] [address] [address] Paramjit Cheng CO2 [Moles/Vol] 28.0 mmol/L Normal 21.0-32.0 [facility] Comment on above: Performed By: #### D ATCBC #### [facility] [address] [place] [address] Dr. Paramjit Cheng Creatinine [Mass/Vol] 0.98 mg/dL Normal 0.70-1.30 [facility] Comment on above: Performed By: #### D ATCBC #### [facility] [address] [address] [address] Paramjit Cheng EGFR-AF ISRAELI >60 Normal >=60 [facility] Comment on above: Performed By: #### D ATCBC #### [facility] [address] [place] [address] Dr. Paramjit Cheng EGFR-NON AF ISRAELI >60 Normal >=60 [facility] Comment on above: Performed By: #### D ATCBC #### [facility] [address] [address] [address] Paramjit Cheng Glucose [Mass/Vol] 90 mg/dL Normal 74-106 [facility] Comment on above: Performed By: #### D ATCBC #### [facility] [address] [address] [address] Paramjit Cheng Potassium [Moles/Vol] 3.6 mmol/L Normal 3.5-5.1 [facility] Comment on above: Performed By: #### D ATCBC #### [facility] [address] [address] [address] Paramjit Cheng Sodium [Moles/Vol] 141 mmol/L Normal 136-145 [facility] Comment on above: Performed By: #### D ATCBC #### [facility] [address] [place] [address] Dr. Paramjit Cheng Urea nitrogen [Mass/Vol] 12.0 mg/dL Normal 7.0-18.0 [facility] Comment on above: Performed By: #### D ATCBC #### [facility] [address] [place] [address] Dr. Paramjit Cheng Urea nitrogen/Creatinine [Mass ratio] 12.2 mg/mg Normal [facility] Comment on above: Performed By: #### D ATCBC #### [facility] [address] [place] [address] Dr. Paramjit Cheng PROTIMEon 07-23-2022 INR Coag (PPP) [Relative time] 1.04 {INR} Normal [facility] Comment on above: Performed By: #### P TT, PT #### [facility] [address] [place] [address] Dr. Paramjit Cheng INR GUIDELINES SEE BELOW Normal [facility] Comment on above: Result Comment: ROSE RED INR: 2.0 - 3.0 CONDITIONS NOT LISTED BELOW 2.5 - 3.5 FOR PROSTHETIC HEART VALVE REPLACEMENT 2.5 - 3.5 RECURRENT THROMBOSIS Performed By: #### P TT, PT #### [facility] [address] [place] [address] Dr. Paramjit Cheng PT Coag (PPP) [Time] 11.2 s Normal 9.0-11.6 [facility] Comment on above: Performed By: #### P TT, PT #### [facility] [address] [place] [address] Dr. Paramjit Cheng PTTon 07-23-2022 aPTT Coag (Bld) [Time] 25.1 s Normal 22.3-36.2 Th [facility] Comment on above: Performed By: #### P TT, PT #### [facility] [address] [place] [address] ABD/PELVIS WO CONon 07-06 CT ABD/PELVIS WO CON EXAMINATION: CT ABD/PELVIS WO CON, 07/06/2022 8:08 AM EDT HISTORY: Blood in urine COMPARISON: 04/25/2022 TECHNIQUE: CT scan of the abdomen and pelvis was performed without IV contrast. CT dose reduction technique was used, including Automated Exposure Control. FINDINGS: LUNG BASES: No visible pulmonary or pleural disease. LIVER: No enlargement, atrophy, abnormal density, or significant focal lesion. BILIARY: No dilatation or calcification. PANCREAS: No lesion, fluid collection, ductal dilatation, or atrophy. SPLEEN: No enlargement or focal lesion. ADRENALS: No mass or enlargement. KIDNEYS: Bilateral nonobstructing nephrolithiasis. 9.7 mm stone at the right ureteral pelvic junction axial image 48 BOWEL/MESENTERY: No visible mass, obstruction, or bowel wall thickening. AORTA/VASCULAR: No aneurysm or dissection. RETROPERITONEUM: No mass or adenopathy. LYMPH NODES: No adenopathy. URINARY BLADDER: Irregular 1.4 x 1.1 cm calcification right posterior urinary bladder. Additional dependent punctate calcifications with soft tissue density in the posterior urinary bladder PELVIC ORGANS: Enlarged heterogeneous prostate gland measuring 5.3 cm transversely ABDOMINAL WALL: No mass or hernia. BONES: No bony lesion or fracture. Levocurvature with degenerative changes OTHER: Negative. IMPRESSION: 9.7 mm right ureteral pelvic junction stone without hydronephrosis. Intermittent ball-valve obstruction should be considered Enlarged heterogeneous prostate gland Urinary bladder right posterior 1.4 cm calcification, consider direct visualization Electronically authenticated by: QUINCY TOVAR Date: 2022-07-06 08:48 Normal [facility] XR KUB 1 VIEWon 06-17-2022 XR KUB 1 VIEW EXAMINATION: XR KUB 1 VIEW HISTORY: Kidney stone COMPARISON: No relevant comparison available. FINDINGS: KIDNEY/URETER - RIGHT: Nephrolithiasis. 7.7 mm calcification projects between the right L2 and L3 transverse processes possibly proximal ureterolith KIDNEY/URETER - LEFT: No visible renal or ureteral calcifications. PELVIS: No visible ureteral calcifications. Any visible calcifications favor phleboliths. BOWEL: No abnormal dilation or deviation. BONES: No acute abnormality. OTHER: Negative. No abnormal gaseous collections. IMPRESSION: Right nephrolithiasis with possible proximal right ureterolith Electronically authenticated by: QUINCY TOVAR Date: 2022-06-17 11:24 Normal [facility] CREATININEon 04-25-2022 Creatinine [Mass/Vol] 0.99 mg/dL Normal 0.70-1.30 [facility] Comment on above: Performed By: #### C APRIL #### [facility] [address] [address] [address] Paramjit Cheng EGFR-AF ISRAELI >60 Normal >=60 [facility] Comment on above: Performed By: #### C APRIL #### [facility] [address] [address] [address] Paramjit Cheng EGFR-NON AF ISRAELI >60 Normal >=60 [facility] Comment on above: Performed By: #### C APRIL #### [facility] [address] [address] [address] ABD/PELV WO W CONon 04-25 CT ABD/PELV WO W CON EXAMINATION: CT ABD/PELV WO W CON, 04/25/2022 6:54 AM EDT HISTORY: [place] hematuria COMPARISON: None. TECHNIQUE: CT scan of the abdomen and pelvis was performed without and with IV contrast. CT dose reduction technique was used, including Automated Exposure Control. FINDINGS: LUNG BASES: No visible pulmonary or pleural disease. LIVER: Scattered subcentimeter hypodensities, cysts are favored BILIARY: No dilatation or calcification. PANCREAS: No lesion, fluid collection, ductal dilatation, or atrophy. SPLEEN: No enlargement or focal lesion. ADRENALS: No mass or enlargement. KIDNEYS: Bilateral renal cortical hypodensities. Cysts are favored. Bilateral nonobstructing nephrolithiasis. No hydronephrosis BOWEL/MESENTERY: No visible mass, obstruction, or bowel wall thickening. AORTA/VASCULAR: No aortic aneurysm. Mild to moderate atherosclerosis RETROPERITONEUM: No mass or adenopathy. LYMPH NODES: No adenopathy. URINARY BLADDER: No visible focal wall thickening, lesion, or calculus. PELVIC ORGANS: Enlarged mildly heterogeneous prostate with calcifications. The prostate measures 5.4 cm transversely. The prostate gland deforming the inferior urinary bladder ABDOMINAL WALL: No mass or hernia. BONES: No bony lesion or fracture. OTHER: Negative. IMPRESSION: Enlarged heterogeneous prostate gland deforming the inferior urinary bladder Bilateral nonobstructing nephroliths. No obstructive uropathy or enhancing urinary system mass Electronically authenticated by: QUINCY TOVAR Date: 2022-04-25 12:01 Normal [facility] CBC AUTO DIFFon 12-01-2021 BASO # 0.0 103/ul Normal 0.0-0.1 [facility] Comment on above: Performed By: #### D ATCBC #### [facility] [address] [address] [address] Paramjit Cheng Basophils/100 WBC (Bld) 0.4 % Normal 0.2-2.0 [facility] Comment on above: Performed By: #### D ATCBC #### [facility] [address] [address] [address] Paramjit Cheng EO # 0.2 103/ul Normal 0.0-0.7 [facility] Comment on above: Performed By: #### D ATCBC #### [facility] [address] [place] [address] Dr. Paramjit Cheng Eosinophils/100 WBC (Bld) 3.8 % Normal 0.9-7.0 [facility] Comment on above: Performed By: #### D ATCBC #### [facility] [address] [address] [address] Paramjit Cheng Erythrocyte distribution width (RBC) [Ratio] 13.7 % Normal 11.0-15.0 [facility] Comment on above: Performed By: #### D ATCBC #### [facility] [address] [place] [address] Dr. Paramjit Cheng Hematocrit (Bld) [Volume fraction] 44.1 % Normal 42.0-54.0 [facility] Comment on above: Performed By: #### D ATCBC #### [facility] [address] [address] [address] Paramjit Cheng Hemoglobin (Bld) [Mass/Vol] 14.9 g/dL Normal 14.0-18.0 [facility] Comment on above: Performed By: #### D ATCBC #### [facility] [address] [address] [address] Paramjit Cheng IG # 0.01 10e3/ul Normal 0.00-0.03 [facility] Comment on above: Performed By: #### D ATCBC #### [facility] [address] [address] [address] Paramjit Cheng IG % 0.2 % Normal 0.0-0.5 [facility] Comment on above: Performed By: #### D ATCBC #### [facility] [address] [address] [address] Paramjit Cheng LYMPH # 2.1 103/ul Normal 1.2-3.8 [facility] Comment on above: Performed By: #### D ATCBC #### [facility] [address] [place] [address] Dr. Paramjit Cheng Lymphocytes/100 WBC (Bld) 37.9 % Normal 20.5-60.0 [facility] Comment on above: Performed By: #### D ATCBC #### [facility] [address] [place] [address] Dr. Paramjit Cheng MCH (RBC) [Entitic mass] 31.9 pg Normal 25.9-34.0 [facility] Comment on above: Performed By: #### D ATCBC #### [facility] [address] [place] [address] Dr. Paramjit Cheng MCHC (RBC) [Mass/Vol] 33.8 g/dL Normal 29.9-35.2 [facility] Comment on above: Performed By: #### D ATCBC #### [facility] [address] [place] [address] Dr. Paramjit Cheng MCV (RBC) [Entitic vol] 94.4 fL Critically high 80.0-94.0 [facility] Comment on above: Performed By: #### D ATCBC #### [facility] [address] [place] [address] Dr. Paramjit Cheng MONO # 0.5 103/ul Normal 0.3-0.8 [facility] Comment on above: Performed By: #### D ATCBC #### [facility] [address] [place] [address] Dr. Paramjit Cheng Monocytes/100 WBC (Bld) 9.7 % Normal 1.7-12.0 [facility] Comment on above: Performed By: #### D ATCBC #### [facility] [address] [address] [address] Paramjit Cheng NEUT # 2.6 103/ul Normal 1.4-6.5 [facility] Comment on above: Performed By: #### D ATCBC #### [facility] [address] [address] [address] Paramjit Cheng Neutrophils/100 WBC (Bld) 48.0 % Normal 43.0-75.0 [facility] Comment on above: Performed By: #### D ATCBC #### [facility] [address] [place] [address] Dr. Paramjit Cheng Platelet mean volume (Bld) [Entitic vol] 9.6 fL Normal 9.5-13.5 [facility] Comment on above: Performed By: #### D ATCBC #### [facility] [address] [place] [address] Dr. Paramjit Cheng PLT 254 103/ul Normal 150-450 [facility] Comment on above: Performed By: #### D ATCBC #### [facility] [address] [place] [address] Dr. Paramjit Cheng RBC 4.67 106/ul Critically low 4.70-6.10 [facility] Comment on above: Performed By: #### D ATCBC #### [facility] [address] [address] [address] Paramjit Cheng WBC 5.5 103/ul Normal 4.0-11.0 [facility] Comment on above: Performed By: #### D ATCBC #### [facility] [address] [address] [address] Paramjit Cheng FLORENTIN- BMP WITH LIPIDon 2021 Anion gap [Moles/Vol] 12.5 mmol/L Normal [facility] Comment on above: Performed By: #### P TT, PT #### [facility] [address] [place] [address] Dr. Paramjit Cheng Calcium [Mass/Vol] 8.8 mg/dL Normal 8.5-10.1 [facility] Comment on above: Performed By: #### P TT, PT #### [facility] [address] [place] [address] Dr. Paramjit Cheng Chloride [Moles/Vol] 104 mmol/L Normal 98-107 [facility] Comment on above: Performed By: #### P TT, PT #### [facility] [address] [address] [address] Paramjit Cheng Cholesterol [Mass/Vol] 220 mg/dL Critically high <=200 [facility] Comment on above: Performed By: #### P TT, PT #### [facility] [address] [address] [address] Paramjit Cheng Cholesterol in HDL [Mass/Vol] 65 mg/dL Critically high 40-60 [facility] Comment on above: Performed By: #### P TT, PT #### [facility] [address] [place] [address] Dr. Paramjit Cheng Cholesterol in LDL [Mass/Vol] 133.0 mg/dL Normal [facility] Comment on above: Performed By: #### P TT, PT #### [facility] [address] [place] [address] Dr. Paramjit Cheng CO2 [Moles/Vol] 27.6 mmol/L Normal 22.0-30.0 [facility] Comment on above: Performed By: #### P TT, PT #### [facility] [address] [place] [address] Dr. Paramjit Cheng Creatinine [Mass/Vol] 0.97 mg/dL Normal 0.66-1.25 [facility] Comment on above: Performed By: #### P TT, PT #### [facility] [address] [place] [address] Dr. Paramjit Cheng EGFR-AF ISRAELI >60 Normal >=60 [facility] Comment on above: Performed By: #### P TT, PT #### [facility] [address] [address] [address] Paramjit Cheng EGFR-NON AF ISRAELI >60 Normal >=60 [facility] Comment on above: Performed By: #### P TT, PT #### [facility] [address] [address] [address] Paramjit Cheng Glucose [Mass/Vol] 98 mg/dL Normal 74-106 [facility] Comment on above: Performed By: #### P TT, PT #### [facility] [address] [address] [address] Paramjit Cheng HDL NORMAL > or = 60 mg/dl - LOW CARDIOVASCULAR RISK <40 mg/dl - HIGH CARDIOVASCULAR RISK Normal [facility] Comment on above: Performed By: #### P TT, PT #### [facility] [address] [address] [address] Paramjit Cheng LDL CALC NORMAL SEE BELOW Normal [facility] Comment on above: Result Comment: <100 mg/dl OPTIMAL 100 - 129 mg/dl NEAR OR ABOVE OPTIMAL 130 - 159 mg/dl BORDERLINE HIGH 160 - 189 mg/dl HIGH >190 mg/dl VERY HIGH Performed By: #### P TT, PT #### [facility] [address] [address] [address] Paramjit Cheng Potassium [Moles/Vol] 4.1 mmol/L Normal 3.4-5.0 [facility] Comment on above: Performed By: #### P TT, PT #### [facility] [address] [address] [address] Paramjit Cheng Sodium [Moles/Vol] 140 mmol/L Normal 137-145 [facility] Comment on above: Performed By: #### P TT, PT #### [facility] [address] [address] [address] Paramjit Cheng Triglyceride [Mass/Vol] 110 mg/dL Normal <=150 [facility] Comment on above: Performed By: #### P TT, PT #### [facility] [address] [address] [address] Paramjit Cheng Urea nitrogen [Mass/Vol] 13.0 mg/dL Normal 7.0-18.0 [facility] Comment on above: Performed By: #### P TT, PT #### [facility] [address] [address] [address] Paramjit Cheng Urea nitrogen/Creatinine [Mass ratio] 13.4 mg/mg Normal [facility] Comment on above: Performed By: #### P TT, PT #### [facility] [address] [address] [address] Paramjit Cheng VLDL CALC 22.0 mg/dL Normal [facility] Comment on above: Performed By: #### P TT, PT #### [facility] [address] [address] [address] Paramjit Cheng Vital Signs Date Time Vital Sign Value Performing Clinician Facility 02-27-2024 14:30-0400 Body height 177.8 cm [facility] 02-27-2024 14:30-0400 Body mass index (BMI) [Ratio] 24.7 kg/m2 [facility] 02-27-2024 14:30-0400 Body weight 78.18 kg [facility] 02-27-2024 14:30-0400 Diastolic blood pressure 60 mm[Hg] [facility] 02-27-2024 14:30-0400 Heart rate 70 /min [facility] 02-27-2024 14:30-0400 Respiratory rate 12 /min [facility] 02-27-2024 14:30-0400 Systolic blood pressure 100 mm[Hg] [facility] 02-11-2024 13:37-0400 Body height 177.8 cm [facility] 02-11-2024 13:37-0400 Body mass index (BMI) [Ratio] 24.7 kg/m2 [facility] 02-11-2024 13:37-0400 Body weight 78.13 kg [facility] 02-11-2024 13:37-0400 Diastolic blood pressure 74 mm[Hg] [facility] 02-11-2024 13:37-0400 Heart rate 66 /min [facility] 02-11-2024 13:37-0400 Respiratory rate 12 /min [facility] 02-11-2024 13:37-0400 Systolic blood pressure 120 mm[Hg] [facility] 11-21-2023 08:47-0500 Body height 177.8 cm [facility] 11-21-2023 08:47-0500 Body mass index (BMI) [Ratio] 24.8 kg/m2 [facility] 11-21-2023 08:47-0500 Body weight 78.52 kg [facility] 11-21-2023 08:47-0500 Diastolic blood pressure 71 mm[Hg] [facility] 11-21-2023 08:47-0500 Heart rate 60 /min [facility] 11-21-2023 08:47-0500 Respiratory rate 12 /min [facility] 11-21-2023 08:47-0500 Systolic blood pressure 119 mm[Hg] [facility] 08-21-2023 08:30-0500 Body height 177.8 cm Javi Ball Other [facility] [employer] Other 08-21-2023 08:30-0500 Body mass index (BMI) [Ratio] 24.82 kg/m2 Javi Ball Other [facility] [employer] Other 08-21-2023 08:30-0500 Body weight 78.47 kg Javi Ball Other [facility] [employer] Other 08-21-2023 08:30-0500 Diastolic blood pressure 71 mm[Hg] Javi Ball Other [facility] [employer] Other 08-21-2023 08:30-0500 Respiratory rate 12 /min Javi Ball Other [facility] [employer] Other 08-21-2023 08:30-0500 Systolic blood pressure 116 mm[Hg] Javi Ball Other [facility] [employer] Other 06-11-2023 15:30-0400 Body height 177.8 cm Javi Ball Other [facility] [employer] Other 06-11-2023 15:30-0400 Body mass index (BMI) [Ratio] 24.96 kg/m2 Javi Ball Other [facility] Other 06-11-2023 15:30-0400 Body weight 78.93 kg Javi Ball Other [facility] Other 06-11-2023 15:30-0400 Diastolic blood pressure 64 mm[Hg] Javi Ball Other [facility] Other 06-11-2023 15:30-0400 Respiratory rate 12 /min Javi Ball Other [facility] Other 06-11-2023 15:30-0400 Systolic blood pressure 122 mm[Hg] Javi Ball Other [facility] Other 05-21-2023 08:30-0400 Body height 177.8 cm Javi Ball Other [facility] Other 05-21-2023 08:30-0400 Body mass index (BMI) [Ratio] 24.68 kg/m2 Javi Ball Other [facility] Other 05-21-2023 08:30-0400 Body weight 78.02 kg Javi Ball Other [facility] Other 05-21-2023 08:30-0400 Diastolic blood pressure 78 mm[Hg] Javi Ball Other [facility] Other 05-21-2023 08:30-0400 Respiratory rate 12 /min Javi Ball Other [facility] Other 05-21-2023 08:30-0400 Systolic blood pressure 119 mm[Hg] Javi Ball Other [facility] Other 04-26-2023 09:06-0400 Blood Pressure Location Emeka CHAUDHARI [facility] 04-26-2023 09:06-0400 Diastolic blood pressure 78 mm[Hg] Emeka CHAUDHARI [facility] 04-26-2023 09:06-0400 Heart rate 74 /min Emeka CHAUDHARI [facility] 04-26-2023 09:06-0400 Respiratory rate 16 /min Emeka CHAUDHARI [facility] 04-26-2023 09:06-0400 Systolic blood pressure 118 mm[Hg] Emeka CHAUDHARI [facility] 02-14-2023 08:30-0400 Body height 177.8 cm Javi Ball Other [facility] [employer] Other 02-14-2023 08:30-0400 Body mass index (BMI) [Ratio] 25.28 kg/m2 Javi Ball Other [facility] [employer] Other 02-14-2023 08:30-0400 Body weight 79.92 kg Javi Ball Other [facility] [employer] Other 02-14-2023 08:30-0400 Diastolic blood pressure 70 mm[Hg] Javi Ball Other [facility] Other 02-14-2023 08:30-0400 Respiratory rate 12 /min Javi Ball Other [facility] Other 02-14-2023 08:30-0400 Systolic blood pressure 115 mm[Hg] Javi Ball Other [facility] Other 11-06-2022 08:30-0500 Body height 177.8 cm Javi Ball Other [facility] Other 11-06-2022 08:30-0500 Body mass index (BMI) [Ratio] 25.51 kg/m2 Javi Ball Other [facility] Other 11-06-2022 08:30-0500 Body weight 80.65 kg Javi Ball Other [facility] Other 11-06-2022 08:30-0500 Diastolic blood pressure 70 mm[Hg] Javi Ball Other [facility] Other 11-06-2022 08:30-0500 Respiratory rate 12 /min Javi Ball Other [facility] Other 11-06-2022 08:30-0500 Systolic blood pressure 102 mm[Hg] Javi Ball Other [facility] Other 06-15-2022 08:43-0400 Blood Pressure Location Emeka CHAUDHARI [facility] 06-15-2022 08:43-0400 Diastolic blood pressure 80 mm[Hg] Emeka CHAUDHARI [facility] 06-15-2022 08:43-0400 Systolic blood pressure 133 mm[Hg] Emeka CHAUDHARI [facility] 04-02-2022 10:11-0400 Blood Pressure Location Emeka CHAUDHARI [facility] 04-02-2022 10:11-0400 Diastolic blood pressure 78 mm[Hg] Emeka [facility]AUDHARI [facility] 04-02-2022 10:11-0400 Heart rate 81 /min [facility]me[facility]HARI [facility] 04-02-2022 10:11-0400 Respiratory rate 16 /min Emeka CHAUDHARI [facility] 04-02-2022 10:11-0400 Systolic blood pressure 117 mm[Hg] Emeka CHAUDHARI [facility] Encounters Encounter Date Encounter Type Care Provider Facility Start: 05-22-2024 ambulatory Emeka CHAUDHARI Fac[facility] [place] Start: 05-01-2024 ambulatory Emeka CHAUDHARI Facili ty:[facility] Start: 02-27-2024 End: 02-27-2024 ambulatory [facility] Work Phone: Start: 02-27-2024 End: 02-27-2024 Patient encounter procedure [facility] Work Phone: Start: 02-11-2024 End: 02-11-2024 ambulatory [facility] Work Phone: Start: 02-11-2024 End: 02-11-2024 Patient encounter procedure [facility] Work Phone: Start: 02-06-2024 End: 02-06-2024 ambulatory Emeka CHAUDHARI Facility:[id number] Start: 11-21-2023 End: 11-21-2023 Patient encounter procedure [facility] Work Phone: Start: 11-19-2023 End: 11-19-2023 ambulatory Javi Seymour Other [facility] Other Start: 11-19-2023 Telephone encounter Javi Ball [facility] Start: 09-20-2023 End: 09-20-2023 ambulatory Javi Ball Other [facility] Other Start: 09-20-2023 Telephone encounter Javi Ball [facility] Start: 08-21-2023 End: 08-21-2023 ambulatory Javi Ball Other [facility] Other Start: 08-21-2023 Office outpatient vi sit 15 minutes Javi Ball [facility] Start: 08-19-2023 End: 08-19-2023 ambulatory Javi Ball Other [facility] Other Start: 08-19-2023 Telephone encounter Javi Ball [facility] Start: 08-02-2023 End: 08-02-2023 ambulatory Javi Ball Other [facility] Other Start: 08-02-2023 Telephone encounter Javi Ball [facility] Start: 06-28-2023 End: 06-28-2023 ambulatory Javi Ball Other [facility] Other Start: 06-28-2023 Telephone encounter Javi Ball [facility] Start: 06-11-2023 End: 06-11-2023 ambulatory Javi Ball Other [facility] Other Start: 06-11-2023 Office outpatient vi sit 15 minutes Javi Ball [facility] Start: 05-21-2023 End: 05-21-2023 ambulatory Javi Ball Other [facility] Other Start: 05-21-2023 Office outpatient vi sit 15 minutes Javi Ball [facility] Start: 05-14-2023 End: 05-14-2023 ambulatory Javi Ball Other [facility] Other Start: 05-14-2023 Telephone encounter Javi Ball [facility] Start: 04-26-2023 End: 04-26-2023 Patient encounter procedure Emeka Woods [facility] Start: 03-08-2023 End: 03-08-2023 ambulatory Javi Seymour Other [facility] Other Start: 03-08-2023 Telephone encounter Javi Seymour [facility] Start: 02-19-2023 End: 02-19-2023 ambulatory Javi Ball Other [facility] Other Start: 02-19-2023 Telephone encounter Javi Seymour [facility] Start: 02-14-2023 End: 02-14-2023 ambulatory Javi Lion Other [facility] Other Start: 02-14-2023 Office outpatient vi sit 15 minutes Javi Lion [facility] Start: 02-12-2023 End: 02-12-2023 ambulatory Javi Ball Other [facility] Other Start: 02-12-2023 Telephone encounter Javi Seymour [facility] Start: 01-19-2023 End: 01-19-2023 ambulatory Javi Ball Other [facility] Other Start: 01-19-2023 Telephone encounter Javi Seymour [facility] Start: 01-08-2023 End: 01-08-2023 ambulatory Javi Ball Other [facility] Other Start: 01-08-2023 Telephone encounter Javi Seymour [facility] Start: 12-19-2022 End: 12-19-2022 ambulatory Javi Ball Other [facility] Other Start: 12-19-2022 Telephone encounter Javi Ball [facility] Start: 11-06-2022 End: 11-06-2022 ambulatory Javi Ball Other [facility] Other Start: 11-06-2022 Patient encounter procedure Javi KRISHNAMURTHY [facility] Start: 10-21-2022 End: 10-21-2022 ambulatory Javi Seymour Other [facility] Other Start: 10-21-2022 Telephone encounter Javi ABARCA Alonso [facility] Start: 10-10-2022 End: 10-10-2022 ambulatory Javi Seymour Other [facility] Other Start: 10-10-2022 Telephone encounter Javi ABARCA Alonso [facility] Start: 09-28-2022 End: 09-28-2022 ambulatory Javi Seymour Other [facility] Other Start: 09-28-2022 Telephone encounter Javi ABARCA Alonso [facility] Start: 09-13-2022 Encounter for preprocedural laboratory examination DR EMEKA CHAUDHARI [facility] Start: 09-13-2022 End: 09-13-[address] JAVI SEYMOUR Facility:[facility] Start: 09-10-2022 End: 09-11-[address] JAVI SEYMOUR Facility:[facility] Start: 09-10-2022 End: 09-11-2022 Encounter for preprocedural laboratory examination DR JAVI SEYMOUR Facility:[facility] Start: 08-30-2022 End: 08-31-[address] JAVI SEYMOUR Facility:[facility] Start: 08-07-2022 End: [address] JAVI SEYMOUR Facility:[facility] Start: 08-06-2022 End: 08-06-2022 Patient encounter procedure Emeka CHAUDHARI [facility] Start: 08-02-2022 End: 08-02-[address] EMEKA CHAUDHARI Facility:[facility] Start: 07-30-2022 End: 07-31-[address] JAVI SEYMOUR Facility:[facility] Start: 07-28-2022 Encounter for preprocedural cardiovascular examination DR EMEKA CHAUDHARI [facility] Start: 07-24-2022 Pre-procedure evalua tion check Javi Lion Other [facility] Other Start: 07-23-2022 End: 07-24-[address] JAVI SEYMOUR Facility:[facility] Start: 07-06-2022 End: 07-07-[address] JAVI SEYMOUR Facility:[facility] Start: 06-15-2022 End: 06-16-[address] JAVI SEYMOUR Facility:[facility] Start: 06-15-2022 End: 06-15-2022 Patient encounter procedure Emeka R FARA [facility] Start: 04-25-2022 End: 04-26-[address] JAVI SEYMOUR Facility:[facility] Start: 04-02-2022 End: 04-02-2022 Patient encounter procedure Emeka R FARA [facility] Start: 12-01-2021 End: 12-02-[address] VALERIANO KERR REQUEST Facility:[facility] Start: 11-02-2021 Adult health examination Joseph Seymour Other [facility] Other Procedures Date Procedure Procedure Detail Performing Clinician Start: 01-10-2021 Transrectal biopsy o f prostate using ultrasound guidance Emeka CHAUDHARI Start: 01-06-2019 Screening for malign ant neoplasm of colon Javi Seymour Other Start: 06-02-2014 General examination of patient Javi Seymour Other Appendectomy Emekalauri CHAUDHARI Arthroscopic repair of rotator cuff Emeka CHAUDHARI Colonoscopy Emekalauri CHAUDHARI Depression screening Herminio Seymour Other Screening for malign ant neoplasm of prostate aJvi Seymour Other Plan of Treatment Date Care Activity Detail Author [facility] Immunizations Immunization Date Immunization Notes Care Provider Soha mcintosh 07-24-2022 influenza virus vaccine, split virus (incl. purified surface antigen) Javi Seymour Other [facility] [employer] Other 07-24-2022 influenza virus vaccine, unspecified formulation [facility] 07-24-2022 influenza, high dose seasonal, preservative-free Javi Seymour Other [facility] [employer] Other 2021 COVID-19 Vaccine Moderna - Documentation Purposes Only Javi Seymour Other [facility] 12-12-2020 SARS-CoV-2 (COVID-19 ) mRNA-1273 vaccine Emeka CHAUDHARI [facility] 11-22-2020 COVID-19 Vaccine Moderna - Documentation Purposes Only Javi Seymour Other [facility] 11-14-2020 SARS-CoV-2 (COVID-19 ) mRNA-1273 vaccine Emeka CHAUDHARI [facility] 10-24-2020 COVID-19 Vaccine Moderna - Documentation Purposes Only Javi Seymour Other [facility] 07-05-2020 influenza virus vaccine, split virus (incl. purified surface antigen) Javi Seymour Other [facility] [employer] Other 07-05-2020 influenza virus vaccine, unspecified formulation [facility] 07-05-2020 pneumococcal polysaccharide vaccine, 23 valent Javi Seymour Other [facility] 07-05-2020 Prevnar 20 Javi Seymour Other [facility] 01-06-2019 pneumococcal conjuga te vaccine, 13 valent Javi Seymour Other [facility] 01-06-2019 pneumococcal Conjuga te, unspecified formulation; 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: [Need for prophylactic vaccination against Streptococcus pneumoniae (pneumococcus)] Javi Seymour Other [facility] Other Payers Date Payer Category Payer Medicare [id number] 1961 Self-pay [id number] 1961 Unknown [id number] 1955 Unknown [id number] 2.16.84 [id number] 1953 Unknown [id number] 2.16.84 [id number] 1953 Unknown [id number] 2.16.84 [id number] 1953 Unknown [id number] 2.16.84 [id number] 1953 Unknown [id number] 2.16.84 [id number] 1953 Unknown [id number] 2.16.84 [id number] 1953 Unknown [id number] 2.16.84 [id number] 1953 Unknown [id number] 2.16.84 [id number] 1953 Unknown [id number] 2.16.84 0.1.867024.3.579.2.593 1953 Unknown [id number] 2.16.84 [id number] 1953 Unknown [id number] 2.16.8 [id number] 1953 Unknown [id number] 2.16.8 [id number] 1953 Unknown [id number] 2.16.8 [id number] Unknown [id number] 2.16.84 [id number] Social History Date Type Detail Facility Start: 04-02-2022 End: 06-15-2022 Tobacco smoking status Ex-smoker (finding) [facility] [employer] Sex Assigned At Male [facility] Start: 1955 Sex Assigned At Male F [facility] Functional Status Date Assessment Result Facility 04-26-2023 Functional Status N/A [facility] 06-15-2022 Functional Status N/A [facility] 04-02-2022 Functional Status N/A [facility] [employer] Clinical Notes 04-02-2022 to 11-19-2023 Note Date & Type Note Facility 11-19-2023 Evaluation note Encounter Date Diagnosis Assessment Notes Nov, Cervical spondylosis (ICD-10 - M47.812) [facility] Other 01-05-2024 Evaluation note* Encounter Date Diagnosis Assessment Notes Treatment Notes Treatment Clinical Notes Sep, Cervical spondylosis (ICD-10 - M47.812) [facility] Other 12-06-2023 Evaluation note* Encounter Date Diagnosis Assessment Notes Treatment Notes Treatment Clinical Notes Aug, Cervical spondylosis (ICD-10 - M47.812) ROM exercises, heat/ice and Tramadol as needed. Aug, Lumbar spondylitis (ICD-10 - M46.96) The patient is instructed to avoid bending, twisting or lifting. They are to use intermittent heat and ice as needed. They may schedule a massage or gentle manipulation. They may safely use Tylenol as needed. Aug, Right shoulder pain (ICD-10 - M25.511) ROM exercises, heat/ice and Tramadol Aug, Rotator cuff strain (ICD-10 - S46.019A) Discussed treatment choices: - PT - subacromial injection - MRI w/ referral to Orthopedics Aug, Elevated PSA (ICD-10 - R97.20) Recheck PSA at Wellness examination. f/u Urology Aug, Benign prostatic hyperplasia with lower urinary tract symptoms (ICD-10 - N40.1) Symptoms tolerable at this time. No change in medical therapy Aug, Nocturia (ICD-10 - R35.1) [facility] Other 12-04-2023 Evaluation note* Encounter Date Diagnosis Assessment Notes Treatment Notes Treatment Clinical Notes Aug, Lumbar spondylitis (ICD-10 - M46.96) [facility] Other 11-17-2023 Evaluation note* Encounter Date Diagnosis Assessment Notes Treatment Notes Treatment Clinical Notes Jul, Lumbar spondylitis (ICD-10 - M46.96) [facility] Other 10-13-2023 Evaluation note* Encounter Date Diagnosis Assessment Notes Treatment Notes Treatment Clinical Notes Jun, Lumbar spondylitis (ICD-10 - M46.96) [facility] Other 09-26-2023 Evaluation note* Encounter Date Diagnosis Assessment Notes Treatment Notes Treatment Clinical Notes May, Bee sting, accidental or unintentional, initial encounter (ICD-10 - T63.441A) Cool compresses and elevation. Monitor for s/s increased pain, swelling May, Cellulitis of right upper extremity (ICD-10 - L03.113) Elevate and begin antibiotics. Monitor for increased swelling, pain or fever [facility] Other 09-05-2023 Evaluation note* Encounter Date Diagnosis Assessment Notes Treatment Notes Treatment Clinical Notes May, Cervical spondylosis (ICD-10 - M47.812) ROM exercises, heat/ice and Tylenol Tramadol and Hydrocodone used for added pain relief May, Lumbar spondylitis (ICD-10 - M46.96) ROM exercises, stretching exercises, heat/ice and Tylenol. Tramadol and Hydrocodone for added pain relief to allow him to continue w ADL and sleep. May, Benign prostatic hyperplasia with lower urinary tract symptoms (ICD-10 - N40.1) Symptoms tolerable Yearly PSA f/u May, Nocturia (ICD-10 - R35.1) May, Acute pain of right shoulder (ICD-10 - M25.511) Ice/heat and ROM exercises. COntinue Tylenol and Tramadol as prescribed Has Orthopedic appt later this month [facility] Other 08-29-2023 Evaluation note* Encounter Date Diagnosis Assessment Notes Treatment Notes Treatment Clinical Notes Apr, Lumbar spondylitis (ICD-10 - M46.96) [facility] Other 08-11-2023 Hospital Discharge instructions Patient Education 04/26/2023 10:07:15 Prostate Cancer Screening Prostate Cancer Screening Prostate cancer screening is testing that is done to check for the presence of prostate cancer in men. The prostate gland is a walnut-sized gland that is located below the bladder and in front of therectum in males. The function of the prostate is to add fluid to semen during ejaculation. Prostatecancer is one of the most common types of cancer in men. Who should have prostate cancer screening? Screening recommendations vary based on age and other risk factors, as well as between the professional organizations who make the recommendations. In general, screening is recommended if: You are age 50 to 70 and have an average risk for prostate cancer. You should talk with your healthcare provider about your need for screening and how often screening should be done. Because most prostate cancers are slow growing and will not cause , screening in this age group is generally reserved for men who have a 10- to 15-year life expectancy. You are younger than age 50, and you have these risk factors: ?Having a father, brother, or uncle who has been diagnosed with prostate cancer. The risk is higherif your family member's cancer occurred at an early age or if you have multiple family members withprostate cancer at an early age. ?Being a male who is Black or is of [place] or sub-Saharan descent. In general, screening is not recommended if: You are younger than age 40. You are between the ages of 40 and 49 and you have no risk factors. You are 70 years of age or older. At this age, the risks that screening can cause are greater than the benefits that it may provide. If you are at high risk for prostate cancer, your health care provider may recommend that you have screenings more often or that you start screening at a younger age. How is screening for prostate cancer done? The recommended prostate cancer screening test is a blood test called the prostate-specific antigen(PSA) test. PSA is a protein that is made in the prostate. As you age, your prostate naturally produces more PSA. Abnormally high PSA levels may be caused by: Prostate cancer. An enlarged prostate that is not caused by cancer (benign prostatic hyperplasia, or BPH). This condition is very common in older men. A prostate gland infection (prostatitis) or urinary tract infection. Certain medicines such as male hormones (like testosterone) or other medicines that raise testosterone levels. A rectal exam may be done as part of prostate cancer screening to help provide information about the size of your prostate gland. When a rectal exam is performed, it should be done after the PSA level is drawn to avoid any effect on the results. Depending on the PSA results, you may need more tests, such as: A physical exam to check the size of your prostate gland, if not done as part of screening. Blood and imaging tests. A procedure to remove tissue samples from your prostate gland for testing (biopsy). This is the only way to know for certain if you have prostate cancer. What are the benefits of prostate cancer screening? Screening can help to identify cancer at an early stage, before symptoms start and when the cancer can be treated more easily. There is a small chance that screening may lower your risk of dying from prostate cancer. The chance is small because prostate cancer is a slow-growing cancer, and most men with prostate cancer from a different cause. What are the risks of prostate cancer screening? The main risk of prostate cancer screening is diagnosing and treating prostate cancer that would never have caused any symptoms or problems. This is called overdiagnosisand overtreatment. PSA screening cannot tell you if your PSA is high due to cancer or a different cause. A prostate biopsy is the only procedure to diagnose prostate cancer. Even the results of a biopsy may not tell you if your cancer needs to be treated. Slow-growing prostate cancer may not need any treatment other than monitoring, so diagnosing and treating it may cause unnecessary stress or other side effects. Questions to ask your health care provider When should I start prostate cancer screening? What is my risk for prostate cancer? How often do I need screening? What type of screening tests do I need? How do I get my test results? What do my results mean? Do I need treatment? Where to find more information The [place] [employer]: www.cancer.org [place] [employer]: www.auanet.org Contact a health care provider if: You have difficulty urinating. You have pain when you urinate or ejaculate. You have blood in your urine or semen. You have pain in your back or in the area of your prostate. Summary Prostate cancer is a common type of cancer in men. The prostate gland is located below the bladder and in front of the rectum. This gland adds fluid to semen during ejaculation. Prostate cancer screening may identify cancer at an early stage, when the cancer can be treated more easily and is less likely to have spread to other areas of the body. The prostate-specific antigen (PSA) test is the recommended screening test for prostate cancer, butit has associated risks. Discuss the risks and benefits of prostate cancer screening with your health care provider. If you are age 70 or older, the risks that screening can cause are greater than the benefits that it may provide. This information is not intended to replace advice given to you by your health care provider. Make sure you discuss any questions you have with your health care provider. Document Revised: 02/26/2022 Document Reviewed: 02/26/2022 [employer] Patient Education 2022 [employer] Follow Up Care 04/02/2022 10:42:42 With:FARA SANDHU, Emeka Woods, URL Address: [facility] [address] , [place] [address]- When:Within 1 Year(s) Comments:w/PSA and KUB [facility] 06-23-2023 Evaluation note* Encounter Date Diagnosis Assessment Notes Treatment Notes Treatment Clinical Notes Feb, Lumbar spondylitis (ICD-10 - M46.96) [facility] Other 06-01-2023 Evaluation note* Encounter Date Diagnosis Assessment Notes Treatment Notes Treatment Clinical Notes Feb, Elevated cholesterol (ICD-10 - E78.00) Instructed on diet and exercise with continued statin therapy.Discussed the beneficial effects of lowering cholesterol in reducing the risk for cerebrovascular and cardiovascular disease. Feb, Cervical spondylosis (ICD-10 - M47.812) ROM exercises, heat/ice and Tramadol as needed. 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 Feb, Lumbar spondylitis (ICD-10 - M46.96) The patient is instructed to avoid bending, twisting or lifting. They are to use intermittent heat and ice as needed. They may schedule a massage or gentle manipulation. They may safely use Tylenol as needed. Feb, Elevated PSA (ICD-10 - R97.20) Stable at 5 s/p TRUS/bx w/o cancer f/u Urology Feb, Benign prostatic hyperplasia with lower urinary tract symptoms (ICD-10 - N40.1) Symptoms tolerable, continue medical treatment Feb, Nocturia (ICD-10 - R35.1) [facility] Other 04-25-2023 Evaluation note* Encounter Date Diagnosis Assessment Notes Treatment Notes Treatment Clinical Notes Dec, Benign prostatic hyperplasia with lower urinary tract symptoms (ICD-10 - N40.1) [facility] Other 04-05-2023 Evaluation note* Encounter Date Diagnosis Assessment Notes Treatment Notes Treatment Clinical Notes Dec, Lumbar spondylitis (ICD-10 - M46.96) [facility] Other 02-21-2023 Evaluation note* Encounter Date Diagnosis Assessment Notes Treatment Notes Treatment Clinical Notes Oct, Medicare annual wellness visit, subsequent (ICD-10 - Z00.00) Personalized health advice was given to the beneficiary including a written plan for screenings discussed and provided. Advanced care planning reviewed and/or information given as requested. Additional counseling was provided here today in regards to, [ ]. The above visit was performed by [ ], under direct supervision of [ ]. Document reviewed and amended by provider signed below. Oct, Lateral epicondyliti s of left elbow (ICD-10 - M77.12) Stretching, ice, Voltaren Gel and splinting Oct, Elevated cholesterol (ICD-10 - E78.00) Diet and exercise with continued statin therapy. Oct, Nocturia (ICD-10 - R35.1) Oct, Benign prostatic hyperplasia with lower urinary tract symptoms (ICD-10 - N40.1) f/u , yearly RADHA and PSA Oct, Elevated PSA (ICD-10 - R97.20) Oct, Cervical spondylosis with myelopathy (ICD-10 - M47.12) ROM exercises, ice/heat and Tramadol Oct, Lumbar spondylitis (ICD-10 - M46.96) The patient is instructed to avoid bending, twisting or lifting. They are to use intermittent heat and ice as needed. They may schedule a massage or gentle manipulation. They may safely use Tylenol as needed. Oct, Chronic prescription opiate use (ICD-10 - Z79.891) Oct, History of nephrolithiasis (ICD-10 - Z87.442) Push fluids Oct, Screening for colon cancer (ICD-10 - Z12.11) [facility] Other 01-13-2023 Evaluation note* Encounter Date Diagnosis Assessment Notes Treatment Notes Treatment Clinical Notes Sep, Cervical spondylosis (ICD-10 - M47.812) [facility] Other 11-17-2022 NoteOP Note OPERATION DATE: 08/02/2022 PREOPERATIVE DIAGNOSIS: Right UPJ calculus, bladder calculus and possible urethral stricture. POSTOPERATIVE DIAGNOSIS: Right UPJ calculus, bladder calculus and urethral stricture. ANESTHESIA: General by LMA. PROCEDURE: 1. Cystoscopy. 2. Right retrograde pyelogram. 3. Rigid ureteral dilation. 4. Right ureteroscopy. 5. Holmium laser lithotripsy of ureteral calculus. 6. Stone basket extraction. 7. Right pyeloscopy. 8. Right retrograde pyelogram. 9. Placement of right sided 6-Paraguayan variable length stent. 10. Cystolitholapaxy of 2 cm stone. INDICATIONS: This gentleman has gross hematuria and was found to have a 2 cm bladder calculus and a 1 cm right UPJ calculus. He now presents for cystoscopy, possible dilation of urethral stricture, cystolitholapaxy, ureteroscopy, pyeloscopy, laser lithotripsy and stent placement. He has signed an informed consent for these procedures after all the risks were explained to him in great detail. PROCEDURE: Patient was brought to the operating room and placed on the operating table in the supine position. SCDs were placed on his lower extremities and turned on and functioning during the entire case. General anesthesia was administered via LMA after a time out was done by all parties in the room. He was then repositioned into the modified dorsolithotomy position. All pressure points were satisfactorily padded. Genitalia were sterilely prepped and draped in the usual fashion. I started by passing a 22-Paraguayan Olympus cystoscope per urethra and I arrived at a significant sequential stricture at the bulb. I passed a wire through the scope and was able to cannulate the strictured area and get it into the bladder. The scope was removed. I then used Padilla sounds and dilated the stricture from 20-Paraguayan up to 30-Paraguayan. The wire was removed and I then passed the cystoscope and was able to get it through the bulb and into the bladder. The bladder calculus was identified on the floor. I then passed a Glidewire through the scope and cannulated the right ureter. The wire was unable to pass up the tight J-hooking. I used an 8-Paraguayan dilator to help, but I could not get it up the ureter. I then removed the scope and wire. I then passed a semi- rigid ureteroscope through the urethra, into the bladder and into the right ureter. I was able to negotiate it through the J-hooking and get it up the ureter. A wire was then passed through the scope, up into the kidney, and the scope was then removed. I then used the 10-Paraguayan dilator to dilate the distal ureter. I then passed an 07/29 Navigator ureteral access sheath over the wire and up to the L5 level. The stylette and wire were then removed. I then passed the flexible ureteroscope through the access sheath in the ureter and got up to the stone. I then used a 200 angstrom Holmium laser fiber and passed it through the scope and made contact with the stone. Laser lithotripsy was done at 10 elise continuously in the dusting mode. I cracked the stone up into multiple pieces and ablated quite a bit of the stone. These pieces slid into the kidney. I then continued laser lithotripsy in the renal pelvis. I then used a Zero-Trip Nitinol basket and engaged pieces and extracted them down and out and these were sent for stone analysis. I went up and down the ureter numerous times, getting pieces out, and then the UPJ became edematous and it was very difficult to pass the scope through it. I did a retrograde pyelogram through the scope and decided that, at this point, it was unsafe to continue and I then passed a Glidewire through the scope and got it up into the kidney and removed the scope and sheath. I then backloaded the cystoscope over the wire and passed it into the bladder and then slid a 6-Paraguayan variable length stent over the wire, up into the kidney. The wire was removed and there were good curls in the kidney and in the bladder. I then passed a nephroscope per urethra, into the bladder, and then used the shock pulse device. I passed the probe through the scope and made contact with the stone. I then fully fragmented the stone and extracted most of the stone with the shock pulse and suction. I then passed a rigid grasper and plucked out the remaining pieces. The [employer] evacuator was used to get blood clots out of the bladder. The nephroscope was removed and the 22-Paraguayan cystoscope was passed back in the bladder. The bladder looked fine. There were no pieces remaining in the bladder. The scope was then removed. The previously strictured area in the urethra was evaluated and it looked fine. I then placed a 20-Paraguayan 2-way Almeida catheter in the bladder. It was irrigated manually and it irrigated clear. 10 cc of fluid was placed in the balloon. He was then transferred to a gurney bed and wheeled to PACU in stable condition. He will be discharged to home with a script for (more content not included)...[id number] Discharge instructions Patient Education 06/15/2022 09:27:58 Hematuria, Adult Hematuria, Adult Hematuria is blood in the urine. Blood may be visible in the urine, or it may be identified with a test. This condition can be caused by infections of the bladder, urethra, kidney, or prostate. Otherpossible causes include: Kidney stones. Cancer of the urinary tract. Too much calcium in the urine. Conditions that are passed from parent to child (inherited conditions). Exercise that requires a lot of energy. Infections can usually be treated with medicine, and a kidney stone usually will pass through your urine. If neither of these is the cause of your hematuria, more tests may be needed to identify the cause of your symptoms. It is very important to tell your health care provider about any blood in your urine, even if it ispainless or the blood stops without treatment. Blood in the urine, when it happens and then stops and then happens again, can be a symptom of a very serious condition, including cancer. There is no pain in the initial stages of many urinary cancers. Follow these instructions at home: Medicines Take ixbs-eur-lkicwzn and prescription medicines only as told by your health care provider. If you were prescribed an antibiotic medicine, take it as told by your health care provider. Do notstop taking the antibiotic even if you start to feel better. Eating and drinking Drink enough fluid to keep your urine clear or pale yellow. It is recommended that you drink 3 4 quarts (2.8 3.8 L) a day. If you have been diagnosed with an infection, it is recommended that you drink cranberry juice in addition to large amounts of water. Avoid caffeine, tea, and carbonated beverages. These tend to irritate the bladder. Avoid alcohol because it may irritate the prostate (men). General instructions If you have been diagnosed with a kidney stone, follow your health care provider's instructions about straining your urine to catch the stone. Empty your bladder often. Avoid holding urine for long periods of time. If you are female: ?After a bowel movement, wipe from front to back and use each piece of toilet paper only once. ?Empty your bladder before and after sex. Pay attention to any changes in your symptoms. Tell your health care provider about any changes or any new symptoms. It is your responsibility to get your test results. Ask your health care provider, or the department performing the test, when your results will be ready. Keep all follow-up visits as told by your health care provider. This is important. Contact a health care provider if: You develop back pain. You have a fever. You have nausea or vomiting. Your symptoms do not improve after 3 days. Your symptoms get worse. Get help right away if: You develop severe vomiting and are unable take medicine without vomiting. You develop severe pain in your back or abdomen even though you are taking medicine. You pass a large amount of blood in your urine. You pass blood clots in your urine. You feel very weak or like you might faint. You faint. Summary Hematuria is blood in the urine. It has many possible causes. It is very important that you tell your health care provider about any blood in your urine, even ifit is painless or the blood stops without treatment. Take pifw-app-zoyqcxr and prescription medicines only as told by your health care provider. Drink enough fluid to keep your urine clear or pale yellow. This information is not intended to replace advice given to you by your health care provider. Make sure you discuss any questions you have with your health care provider. Document Released: 09/02/2006 Document Revised: 01/27/2020 Document Reviewed: 10/05/2017 [employer] Patient Education 2019 [employer]. Follow Up Care 05/10/2022 10:28:16 With:FARA SANDHU, Emeka Woods, URL Address: [address] [place], [place] [id number]- When: Unknown [facility] 07-18-2022 Hospital Discharge instructions Patient Education 04/02/2022 10:32:09 Benign Prostatic Hyperplasia Benign Prostatic Hyperplasia Benign prostatic hyperplasia (BPH) is an enlarged prostate gland that is caused by the normal agingprocess and not by cancer. The prostate is a walnut-sized gland that is involved in the production of semen. It is located in front of the rectum and below the bladder. The bladder stores urine and the urethra is the tube that carries the urine out of the body. The prostate may get bigger as a man gets older. An enlarged prostate can press on the urethra. This can make it harder to pass urine. The build-up of urine in the bladder can cause infection. Back pressure and infection may progress to bladder damage and kidney (renal) failure. What are the causes? This condition is part of a normal aging process. However, not all men develop problems from this condition. If the prostate enlarges away from the urethra, urine flow will not be blocked. If it enlarges toward the urethra and compresses it, there will be problems passing urine. What increases the risk? This condition is more likely to develop in men over the age of 50 years. What are the signs or symptoms? Symptoms of this condition include: Getting up often during the night to urinate. Needing to urinate frequently during the day. Difficulty starting urine flow. Decrease in size and strength of your urine stream. Leaking (dribbling) after urinating. Inability to pass urine. This needs immediate treatment. Inability to completely empty your bladder. Pain when you pass urine. This is more common if there is also an infection. Urinary tract infection (UTI). How is this diagnosed? This condition is diagnosed based on your medical history, a physical exam, and your symptoms. Tests will also be done, such as: A post-void bladder scan. This measures any amount of urine that may remain in your bladder after you finish urinating. A digital rectal exam. In a rectal exam, your health care provider checks your prostate by putting a lubricated, gloved finger into your rectum to feel the back of your prostate gland. This exam detects the size of your gland and any abnormal lumps or growths. An exam of your urine (urinalysis). A prostate specific antigen (PSA) screening. This is a blood test used to screen for prostate cancer. An ultrasound. This test uses sound waves to electronically produce a picture of your prostate gland. Your health care provider may refer you to a specialist in kidney and prostate diseases (urologist). How is this treated? Once symptoms begin, your health care provider will monitor your condition (active surveillance or watchful waiting). Treatment for this condition will depend on the severity of your condition. Treatment may include: Observation and yearly exams. This may be the only treatment needed if your condition and symptoms are mild. Medicines to relieve your symptoms, including: ?Medicines to shrink the prostate. ?Medicines to relax the muscle of the prostate. Surgery in severe cases. Surgery may include: ?Prostatectomy. In this procedure, the prostate tissue is removed completely through an open incision or with a laparoscope or robotics. ?Transurethral resection of the prostate (TURP). In this procedure, a tool is inserted through the opening at the tip of the penis (urethra). It is used to cut away tissue of the inner core of the prostate. The pieces are removed through the same opening of the penis. This removes the blockage. ?Transurethral incision (TUIP). In this procedure, small cuts are made in the prostate. This lessens the prostate's pressure on the urethra. ?Transurethral microwave thermotherapy (TUMT). This procedure uses microwaves to create heat. The heat destroys and removes a small amount of prostate tissue. ?Transurethral needle ablation (TUNA). This procedure uses radio frequencies to destroy and remove a small amount of prostate tissue. ?Interstitial laser coagulation (ILC). This procedure uses a laser to destroy and remove a small amount of prostate tissue. ?Transurethral electrovaporization (TUVP). This procedure uses electrodes to destroy and remove a small amount of prostate tissue. ?Prostatic urethral lift. This procedure inserts an implant to push the lobes of the prostate away from the urethra. Follow these instructions at home: Take burh-aml-puhiisu and prescription medicines only as told by your health care provider. Monitor your symptoms for any changes. Contact your health care provider with any changes. Avoid drinking large amounts of liquid before going to bed or out in public. Avoid or reduce how much caffeine or alcohol you drink. Give yourself time when you urinate. Keep all follow-up visits as told by your health care provider. This is important. Contact a health care provider if: You have unexplained back pain. Your symptoms do not get better with treatment. You develop side effects from the medicine you are taking. Your urine becomes very dark or has a bad smell. Your lower abdomen becomes distended and you have trouble passing your urine. Get help right away if: You have a fever or chills. You suddenly cannot urinate. You feel lightheaded, or very dizzy, or you faint. There are large amounts of blood or clots in the urine. Your urinary problems become hard to manage. You develop moderate to severe low back or flank pain. The flank is the side of your body between the ribs and the hip. These symptoms may represent a serious problem that is an emergency. Do not wait to see if the symptoms will go away. Get medical help right away. Call your local emergency services (911 in the [place] Do not drive yourself to the hospital. Summary Benign prostatic hyperplasia (BPH) is an enlarged prostate that is caused by the normal aging process and not by cancer. An enlarged prostate can press on the urethra. This can make it hard to pass urine. This condition is part of a normal aging process and is more likely to develop in men over the age of 50 years. Get help right away if you suddenly cannot urinate. This information is not intended to replace advice given to you by your health care provider. Make sure you discuss any questions you have with your health care provider. Document Released: 09/02/2006 Document Revised: 07/28/2019 Document Reviewed: 10/07/2017 [employer] Patient Education 2020 [employer] Follow Up Care 09/29/2021 08:39:40 With:Emeka CHAUDHARI MD, URL Address: [facility] [address], [place] [address] [phone] When:Within 1 Year(s) Comments:1 year f/u with PSA [facility] evaluation + Plan note Future Appointments Appointment Date:04/12/2023 08:00:00 AM Scheduled Provider:Emeka CHAUDHARI MD Location:[facility] Appointment Type:URO Office Visit Diagnostic Tests Pending * PSA Total 04/02/22 [facility] evaluation + Plan note Future Appointments Appointment Date:04/12/2023 08:00:00 AM Scheduled Provider:Emeka CHAUDHARI MD Location:[facility] Appointment Type:URO Office Visit Diagnostic Tests Pending * Urine Cytology ([facility]) 06/15/22 [facility] evaluation + Plan note Future Appointments Appointment Date:04/12/2023 08:00:00 AM Scheduled Provider:Emeka CHAUDHARI MD Location:[facility] Appointment Type:URO Office Visit [facility] evaluation + Plan note Future Appointments Appointment Date:05/01/2024 08:15:00 AM Scheduled Provider:Emeka CHAUDHARI MD Location:[facility] Appointment Type:URO Office Visit Diagnostic Tests Pending * PSA Total 04/26/23 [facility] evaluation noteNo [employer] Other evaluation note* Diagnosis Onset Date Resolution Status Benign prostatic hyperplasia with lower urinary tract symptoms acute Cervical spondylosis acute Elevated PSA acute Lumbar spondylosis acute Medicare annual wellness visit, subsequent noneactive Screening PSA (prostate specific antigen) noneactive Cervical spondylosis acute Elevated PSA acute Lumbar spondylosis acute [facility] Work Phone: Evaluation note* Diagnosis Onset Date Resolution Status Cervical spondylosis acute Left ureteral calculus acute Lumbar spondylosis acute Benign prostatic hyperplasia with lower urinary tract symptoms acute Cervical spondylosis acute Lumbar spondylosis acute [facility] Work Phone: History general Narrative - Reported* Type Description Date Medical History Overweight (BMI 25.0-29.9) Medical History Hyperlipidemia type II Medical History Nicotine dependence, cigarettes, in remission Medical History Traumatic arthropathy, unspecifi ed shoulder Medical History Primary osteoarthritis of right knee Medical History Primary osteoarthritis of left s ulder Medical History Cervical spondylosis with myelop athy Surgical History ESWL, cystoscopy, removal of ri ght ureteral stent 09/13/22 Surgical History TOTAL KNEE ARTHROPLASTY right 1 10-30-2020 Surgical History US TRANSRECTAL 01-10-2021 Surgical History fasciotomy right thigh 03-06-20 Surgical History left shoulder arthroscopy 10-05 Hospitalization History see surgical history [facility] Other Hospital course Narrative No data available for this section [facility] Hospital Discharge instructions No data available for this section [facility] progress note No data available for this section [facility] Summary Purpose Family History No Family History Records FoundNo Family History Records Found Advance Directives No Advanced Directives Records Found Advance Directive Response Recorded Date/ Time Advance Directives No October 07, 2023 2:57pm Chief Complaint and Reason for Visit Chief Complaint [facility] Wellness back pain Reason for Visit Benign prostatic hyp erplasia with lower urinary tract symptoms Cervical spondylosis Elevated PSA Lumbar spondylosis Medicare annual wellness visit, subsequent Screening PSA (prostate specific antigen) Cervical spondylosis Elevated PSA Lumbar spondylosis Chief Complaint back pain 3 month follow up Reason for Visit Cervical spondylosis Left ureteral calculus Lumbar spondylosis Benign prostatic hyperplasia with lower urinary tract symptoms Cervical spondylosis Lumbar spondylosis Additional Source Comments Care Team (unrecognized sect ion and content) Team Status: Active Member Role Status Cori Seymour DO Primary Care Provider Active Team Status: Inactive Member Role Status Dates Javi Seymour , Primary Care Provide r, Attending Provider Active Start: November 21, 2023 End: November 21, 2023 Team Status: Inactive Member Role Status Dates Javi Seymour DO Primary Care Provide r, Attending Provider Active Start: February 11, 2024 End: February 11, 2024 Team Status: Inactive Member Role Status Dates Javi Seymour DO Primary Care Provide r, Attending Provider Active Start: February 27, 2024 End: February 27, 2024 (unrecognized sect ion and content) No Status Records FoundNo Status Records Found INFORMATION SOURCE (unrecogn ized section and content) DATE CREATED AUTHOR 09/13/2022 [facility] DATE CREATED AUTHOR AUTHOR'S ORGANIZ ATION 05/21/2024 [facility] REASON FOR VISIT (unrecogniz ed section and content) prescription refillprescript ion refillNo InformationNo InformationWELLNESSWELLNESSrefillrefillNo InformationLab Results3 month Follow upNo InformationNo Informationrefill3 month Follow upsting/swollen armrefillrefillNo Information3 month Follow upRefillNo Information Goals (unrecognized section and content) Goals may be documented in a n alternate section FOR RECORDS PERTAINING TO PATIENTS WHO ARE OR HAVE BEEN ENROLLED IN A CHEMICAL DEPENDENCY/SUBSTANCEABUSE PROGRAM, SOME INFORMATION MAY BE OMITTED. This clinical summary was aggregated from multiple sources. Caution should be exercised in using it in the provision of clinical care. This summary normalizes information from multiple sources, and as a consequence, information in this document may materially change the coding, format and clinical context of patient data. In addition, data may be omitted in some cases. CLINICAL DECISIONS SHOULD BE BASED ON THE PRIMARY CLINICAL RECORDS. [facility]. provides no warranty or guarantee of the accuracy or completeness of information in this document.
== END 2024-05-22 09:59 | disposition home or self-care (01) ==
LOC: CT 10:00
PROVIDERS: PCP Internal Medicine; Visit Provider Urology
DX: N20.0 Calculus of kidney (principal); N20.1 Calculus of ureter
CPT/HCPCS: 74176

== ENCOUNTER 2024-06-04 08:44 | Outpatient (OUT) | payer MEDICARE, OTHER, SELFPAY ==
--- OUTSIDE RECORDS SUMMARY | 2024-06-04 08:52 | XMS_ITS | CCD ---
Author Organization [facility] Care Team Providers Care Weather Anchor Name Role Phone JAVI SEYMOUR Primary Care Physician LION, DR HALL Primary Care Unavailable GRACE, DR COLÓN Consulting Unavailable GRACE, DR COLÓN Admitting Unavailable GRACE, DR COLÓN Attending Unavailable BALL, DR HALL Primary Care Unavailable GRACE, DR COLÓN Admitting Unavailable GRACE, DR COLÓN Attending Unavailable GRACE, DR COLÓN Consulting Unavailable RIVERA, KAVYA Consulting Unavailable BALL, DR HALL Primary Care Unavailable GRACE, DR COLÓN Admitting Unavailable GRACE, DR COLÓN Attending Unavailable GRACE, DR COLÓN Consulting Unavailable REQUEST, DR BAL LISTED Attending Unavaila ble REQUEST, DR BAL LISTED Consulting Unavaila ble REQUEST, DR BAL LISTED Admitting Unavaila ble BALL, DR HALL Primary Care Unavailable GRACE, DR COLÓN Admitting Unavailable BALL, DR HALL Primary Care Unavailable GRACE, DR COLÓN Attending Unavailable GRACE, DR COLÓN Consulting Unavailable ALBERT, JEREMIAS Consulting Unavailable LADONNA, PHILLIP Consulting Unavailable KUCHIPUDI, DONNIE Consulting Unavailable BALL, DR HALL Primary Care Unavailable GRACE, DR COLÓN Admitting Unavailable GRACE, DR COLÓN Attending Unavailable GRACE, DR COLÓN Consulting Unavailable WEST, DR QUINCY Serrato Consulting Unavailable PALENCIA, NONA Consulting Unavailable GEMBUS, JHONATAN Consulting Unavailable BALL, DR HALL Primary Care Unavailable GRACE, DR COLÓN Attending Unavailable GRACE, DR COLÓN Consulting Unavailable GRACE, DR COLÓN Admitting Unavailable WEST, DR QUINCY Serrato Consulting Unavailable BALL, DR HALL Primary Care Unavailable GRACE, DR COLÓN Attending Unavailable GRACE, DR COLÓN Consulting Unavailable GRACE, DR COLÓN Admitting Unavailable WEST, DR QUINCY Serrato Consulting Unavailable BALL, DR HALL Primary Care Unavailable BALL, DR HALL Admitting Unavailable BALL, DR HALL Attending Unavailable BALL, DR HALL Consulting Unavailable WEST, DR QUINCY Serrato Consulting Unavailable BALL, DR HALL Primary Care Unavailable GRACE, DR COLÓN Admitting Unavailable GRACE, DR COLÓN Attending Unavailable GRACE, DR COLÓN Consulting Unavailable ZIEBER, DR TITUS Woods Consulting Unavailable BALL, DR HALL Primary Care Unavailable FARA, DR COLÓN Attending Unavailable FARA, DR COLÓN Consulting Unavailable FARA, DR COLÓN Admitting Javi Clark Unavailable Emeka GRACE Attending Emeka Guallpa Attending Unavailable Emeka GRACE Attending Emeka Guallpa Attending Unavailable Allergies Allergy Classification Reported Allergen(s) Allergy Type Date of Onset Reaction(s) Facility (1 source) patient allergy list reviewed by nurse or physicia Propensity to adverse reactions 4 Comment:Done Lumiy Other Medications Current Medications Medication Drug Class(es) Dates Sig (Normalized) Sig (Original) Ocuvite (5 sources) Vitamin C Start: 12-26-2020 Ocuvite Oral, [...] sources) HMG-CoA Reductase Inhibitor Start: 12-26-2020 take 1 mg by mouth once daily at bedtime simvastatin 40 mg Tab mg tab(s), Oral, Once a day (at bedtime), Refills(s) 0 Start Date: 12/26/20 Status: Ordered tamsulosin hydrochloride 0.4 mg oral capsule (20 sources) alpha-Adrenergic Amanda Start: 12-25-2023 take 1 capsule by mouth once daily at dinner Tamsulosin Active 0 .ROUTE .COMPLEX 90 December 25, 2023 1:26pm take 1 capsule by mouth once daily after EVENING MEAL Start: 12-13-2021 End: 12-25-2023 take 0.4 mg by mouth once daily at bedtime Tamsulosin Discontinued 0.4 MG PO Daily at bedtime December 25, 2023 12:00am December 25, 2023 1:26pm Completed/Discontinued Medications Medication Drug Class(es) Dates Sig [...] completed., # 2 tab(s), Refills(s) 0, Pharmacy: [facility] [employer] [facility] #[id number], 175, cm, 06/15/22 8:46:00 EDT, Height/Length Dosing, [...] Problem Classification Problem Date Documented Date Episodic/Chronic Abdominal pain (2 sources) Abdominal pain; 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: [Unspecified abdominal pain] Onset: 05-22-2024 Episodic Calculus of urinary tract (20 sources) Kidney stone; 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: [Calculus of kidney] Onset: 06-15-2022 Episodic Disorders of lipid metabolism (20 sources) Hyperlipidemia; 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: [Hyperlipidemia, unspecified] Onset: 12-20-2017 01-10-2021 Chronic Genitourinary symptoms and ill-defined conditions (5 sources) Post-micturition incontinence 01-10-2021 Chronic Genitourinary symptoms [...] 06-02-2014 11-19-2023 Chronic Other aftercare (1 source) long term care administrator (current) use of anticoagulants; 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: [SHELTER CURRNT USE ANTICOAGULANTS] Onset: 08-16-2022 Episodic Other aftercare (1 source) Other snf (current) drug therapy; 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: [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 CURRENT DRUG THERAPY] Onset: 08-16-2022 Episodic Other aftercare (2 sources) long term care administrator (current) use of opiate analgesic Episodic Other aftercare (1 source) High risk drug monitoring status; 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: [long term care administrator (current) use of opiate analgesic] Episodic Other aftercare (1 source) Long-term current use of drug therapy; 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: [Other snf (current) drug therapy] Episodic Other aftercare (1 source) Drug therapy finding; 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: [snf (current) use of opiate analgesic] 02-27-2024 Episodic [...] Test Name Value Interpretation Reference Range Facility Ambulatory Visit Summaryon 0 05-22-2024 Ambulatory Visit Summary Ambulatory Visit Summary RADHAMES MARQUEZ :1955 Visit Date:05/22/2024 Ambulatory Visit Instructions Your Diagnosis Kidney stone Right ureteral stone Flank pain Elevated PSA BPH with urinary obstruction Tests Performed CT Abdomen/Pelvis w/o Contrast -- Results Pending -- Please visit your patient portal for your results or contact your primary care physician. Your Care Team Attending Physician - Emeka GRACE MD Primary Care Physician - JAVI SEYMOUR DO This Is Your Medications List Contact prescribing physician if questions or concerns multivitamin with minerals (Ocuvite) nabumetone (Relafen DS) simvastatin (simvastatin 40 mg Tab) tamsulosin (Flomax 0.4 mg Cap) tramadol (traMADOL 50 mg Tab) Procedures Performed ESWL (extracorporeal shockwave lithotripsy) of ureteric calculus (02/06/2024), Transrectal biopsy of prostate using ultrasound (US) guidance (01/10/2021), Appendectomy, Arthroscopic repair of rotator cuff, Colonoscopy, Knee replacement. Discharge Vitals Heart Rate (Peripheral) 61 Respiratory Rate 18 Blood Pressure 116/80 Height 176 cm Height 69 in Weight 78.1 kg Weight 171.82 lb BMI 25.21 What to do next You Need to Schedule the Following Appointments Follow Up with FARA SANDHU, Emeka Woods, LAURI When: Where: [facility] [address] , [place] [address]- [phone] Medications What How Much When Instructions Unchanged multivitamin with minerals (Ocuvite) By Mouth Every day Contact prescribing physician if questions or concerns Unchanged nabumetone (Relafen DS) Every day Contact prescribing physician if questions or concerns Unchanged simvastatin (simvastatin 40 mg Tab) By Mouth Once a day (at bedtime) Contact prescribing physician if questions or concerns Unchanged tamsulosin (Flomax 0.4 mg Cap) 1 Capsules By Mouth Every day Contact prescribing physician if questions or concerns Unchanged tramadol (traMADOL 50 mg Tab) By Mouth Every 6 hours Contact prescribing physician if questions or concerns Allergies No Known Allergies Problems Ongoing - Any problem that you are currently receiving treatment for. Benign localized hyperplasia of prostate with urinary obstruction and lower urinary tract symptoms BPH with urinary obstruction Elevated PSA Flank pain Gross hematuria Hyperlipidemia Incomplete bladder emptying Kidney stone Nocturia Post-void dribbling Urinary hesitancy Patient Survey You may receive a survey via text or e-mail asking about your office visit. Please share your experience with us by completing your survey. We appreciate your feedback and thank you for choosing us for your care. Education Materials Kidney Stones Kidney stones are solid, rock-like deposits that form inside of the kidneys. The kidneys are a pair of organs that make urine. A kidney stone may form in a kidney and move into other parts of the urinary tract, including the tubes that connect the kidneys to the bladder (ureters), the bladder, and the tube that carries urine out of the body (urethra). As the stone moves through these areas, it can cause intense pain and block the flow of urine. Kidney stones are created when high levels of certain minerals are found in the urine. The stones are usually passed out of the body through urination, but in some cases, medical treatment may be needed to remove them. What are the causes? Kidney stones may be caused by: ? A condition in which certain glands produce too much parathyroid hormone (primary hyperparathyroidism) , which causes too much calcium buildup in the blood. ? A buildup of uric acid crystals in the bladder (hyperuricosuria). Uric acid is a chemical that the body produces when you eat certain foods. It usually leaves the body in the urine. ? Narrowing (stricture) of one or both of the ureters. ? A kidney blockage that is present at (congenital obstruction). ? Past surgery on the kidney or the ureters. What increases the risk? The following factors may make you more likely to develop this condition: ? Having had a kidney stone in the past. ? Having a family history of kidney stones. ? Not drinking enough water. ? Eating a diet that is high in protein, salt (sodium), or sugar. ? Being overweight or obese. What are the signs or symptoms? Symptoms of a kidney stone may include: ? Pain in the side of the abdomen, right below the ribs (flank pain). Pain usually spreads (radiates) to the groin. ? Needing to urinate often or urgently. ? Painful urination. ? Blood in the urine (hematuria). ? Nausea. ? Vomiting. ? Fever and chills. How is this diagnosed? This condition may be diagnosed based on: ? Your symptoms and medical history. ? A physical exam. ? Blood tests. ? Urine tests. These may be done before and after the stone passes out of your body thro (more content not included)... [facility]rology Office/Clinic Noteon 05-22-2024 Urology Office/Clinic Note Urology Office/Clinic Note Chief Complaint Patient is here for follow up to KUB and PSA HPI Staff 1 yr w/ KUB and PSA. Previous DX: Gross hematuria, Kidney Stone, Elevated PSA, Benign Localized Hyperplasia of Prostate w/Urinary Obstruction and LUTS, and Incomplete Bladder Emptying. *Tamsulosin 0.4mg QD [facility] ER 02/05/24 CC: Left flank pain CT AP wo con showed obstructing 6mm left proximal ureteral stone with mild hydro. S/p L ESWL 02/06/24. KUB 04/24/24 [facility] showed new 6mm stone in right renal pelvis. -pt was not having any sxs of stone passage per EMR message from 04/28/24. PSA 02/08/23 - 5.45 04/24/24 - 4.37 Dysuria: Denies Incomplete bladder emptying: mild, sometimes has to do double voids (infrequent) Hematuria: Denies Frequency: every 2 hours, mild Urgency: Denies Nocturia: mild, 1 time per night for years Stream: Weak stream, does not stop and start. Sometimes hesitancy if he hold urine too long. Leaking: Denies Post void dripping: Denies Wearing pads/ Depends: Denies Urge incontinence: Denies Stress incontinence: Denies Incontinence without Sensory Awareness: Denies Abdominal pain: Denies Flank pain: Denies Sexual complaints: Denies History of Present Illness Tests reviewed: reviewed UA, KUB, operative report I have reviewed the previous health record information and history for this patient from Dr. Grace. I have reviewed and verified the staff HPI to be accurate for this encounter. Review of Systems PHQ Score Initial Depression Screen Score: 0 SCORE ROS - Provider Constitutional: denies weight loss, denies hot flashes. Eyes: denies eye problems. Gastrointestinal: denies nausea, denies vomiting. Cardiovascular: denies chest pain or angina. Integumentary: no dryness Musculoskeletal: denies musculoskeletal symptoms. ENMT: denies otolaryngeal symptoms. Respiratory: no shortness of breath. Heme/Lymph: denies easy bleeding tendency, denies easy bruising tendency. Psychiatric: no confusion, no anxiety. Genitourinary: See HPI. Physical Exam Vitals & Measurements HR: 61(Peripheral) RR: 18 BP: 116/80 HT: 69 in HT: 176 cm WT: 78.1 kg WT: 171.82 lb BMI: 25.21 General Appearance: alert, no distress, well nourished, well developed male. Genitourinary: normal scrotum, normal testes, normal urethra, normal epididymis, normal vas deferens/spermatic cord. Flank Pain: moderate on right. Bladder: nonpalpable. Assessment/Plan 1. Kidney stone (N20.0: Calculus of kidney) CT 04/25/22 - Bilateral nonobstructing nephrolithiasis CT AP w/o Con 07/06/22 - 9.7mm Rt ureteral stone KUB 08/07/22 - Rt ureteral stent w/o ureteral stones, Rt nephro, large bladder calcification S/p Cysto/Rt ESWL/Rt Stent Removal 09/13/22 KUB 04/15/23 - 2 adjacent stones within the Rt inferior pole, largest being 5mm, and a 4 mm stone within the superior pole of the Lt kidney CT AP wo con 02/05/24 [facility] - Obstructing 5x6 mm L proximal ureteral stone with mild hydro. R nephrolithiasis. KUB 02/06/24 [facility] - 4mm calcification projects over left L3 transverse process. No ureteral calcifications. S/p L ESWL 02/06/24. KUB 04/24/24 [facility] - New 6x5 mm stone in lower R pelvis. 4 mm stone in LLP. Several stones in RLP measuring up to 5mm. -no sxs of stone passage per EMR message from 04/28/24. States he has had a weaker stream recently despite mildly weak stream at baseline. Denies flank pain or gross hematuria. However does have some mildly tender right flank pain upon palpation. Reviewed imaging results. Advised pt it is unclear if stone is in ureter or still in kidney. Discussed STAT imaging study to better evaluate for stone and consideration of intervention. Pt wishes to proceed as he wants to prevent having pain again. Has not eaten/drank since 5am this morning. -Obtain CT AP wo con now. If stone is in ureter, will schedule Cysto with ESWL which may be followed by Right Ureteroscopy, Right Laser Litho, Right Stone Basket, Right possible stent placement. The procedure risks, benefits, alternatives and complications have been discussed with the patient. These include but are not limited to bleeding, pain, infection, ureteral perforation, extravasation, stricture formation, sepsis, obstruction, inability to reach the stone, inability to fragment the stone, and inability to retrieve all stone fragments. The need for ancillary procedures such as stent placement and removal, retrograde urography, and percutaneous nephrostomy were also discussed. The patient also understood that a ureteral stent may be placed and removal of the stent is critical. Failure to follow up for stent removal can result in recurrent UTIs, encrustation of the stent, loss of kidney function and need for nephrectomy. All of their questions and concerns have been addressed. Full informed consent has been obtained. Will order General anesthesia. 2. Right ureteral stone (N20.1: Calculus of ureter) See #1. 3. Flank pain (R10.9: Unspecified abdominal pain) (more content not included)... [facility] Comment on above: Result Comment: Elec tronically Signed By: Emeka GRACE MD\.br\Date and Time Signed: 05/22/24 09:36 EDT\.br\Electronically Co-Signed By: Divine Monae\.br\Date and Time Co-Signed: 05/22/24 09:34 EDT ECG 12-Leadon 02-07-2024 ECG 12-Lead [id number]# 1.00TIFF [facility] Lab Reportson 02-07-2024 Lab Reports [id number]# 1.00TIFF [facility] Operative Reporton Operative Report [id number] #1.00TIFF [facility] Consent for Procedure/Surger yon 02-06-2024 Consent for Procedure/Surgery [id number]# 1.00TIFF [facility] ED Note-Physicianon 02-06-20 ED Note-Physician [id number] #1.00TIFF [facility] Lab Reportson 02-06-2024 Lab Reports [id number]# 1.00TIFF [facility] RAD - CT Reporton 02-06-2024 RAD - CT Report [id number] #1.00TIFF [facility] RAD - MISCon 02-06-2024 RAD - MISC [id number] #1.00TIFF [facility] XR KUB 1 VIEWon 09-13-2022 XR KUB [...] QUINCY TOVAR Date: 2022-09-13 11:13 Normal [facility] 08-17 SARS-CoV-2 (COVID-19) RNA MARY+probe Ql (Unsp spec) Not detected Normal NOT DETECTED [facility] Comment on above: Result Comment: This test is not yet approved or cleared by the [place] FDA. When there are no FDA-approved or cleared tests available, and other criteria are met, FDA can make tests available under an emergency access mechanism called an Emergency Use Authorization (EUA). The EUA for this test is supported by the [employer] of Health and Human Service's (HHS's) declaration [...] SARS-CoV-2. Performed By: #### C VDTB #### [facility] [address] [place] [address] Dr. Paramjit Cheng CBC AUTO DIFFon 08-30-2022 BASO # 0.0 103/ul Normal 0.0-0.1 [facility] Comment on above: Performed By: #### C BC #### [facility] [address] [place] [address] Dr. Paramjit Cheng Basophils/100 WBC (Bld) 0.6 % Normal 0.2-2.0 [facility] Comment on above: Performed By: #### C BC #### [facility] [address] [place] [address] Dr. Paramjit Cheng EO # 0.2 103/ul Normal 0.0-0.7 [facility] Comment on above: Performed By: #### C BC #### [facility] [address] [place] [address] Dr. Paramjit Cheng Eosinophils/100 WBC (Bld) 3.7 % Normal 0.9-7.0 [facility] Comment on above: Performed By: #### C BC #### [facility] [address] [place] [address] Dr. Paramjit Cheng Erythrocyte distribution width (RBC) [Ratio] 13.2 % Normal 11.0-15.0 [facility] Comment on above: Performed By: #### C BC #### [facility] [address] [place] [address] Dr. Paramjit Cheng Hematocrit (Bld) [Volume fraction] 43.2 % Normal 42.0-54.0 [facility] Comment on above: Performed By: #### C BC #### [facility] [address] [place] [address] Dr. Paramjit Cheng Hemoglobin (Bld) [Mass/Vol] 14.7 g/dL Normal 14.0-18.0 [facility] Comment on above: Performed By: #### C BC #### [facility] [address] [place] [address] Dr. Paramjit Cheng IG # 0.01 10e3/ul Normal 0.00-0.03 [facility] Comment on above: Performed By: #### C BC #### [facility] [address] [place] [address] Dr. Paramjit Cheng IG % 0.2 % Normal 0.0-0.5 [facility] Comment on above: Performed By: #### C BC #### [facility] [address] [place] [address] Dr. Paramjit Cheng LYMPH # 1.7 103/ul Normal 1.2-3.8 [facility] Comment on above: Performed By: #### C BC #### [facility] [address] [place] [address] Dr. Paramjit Cheng Lymphocytes/100 WBC (Bld) 34.9 % Normal 20.5-60.0 [facility] Comment on above: Performed By: #### C BC #### [facility] [address] [place] [address] Dr. Paramjit Cheng MANUAL DIFF REQ NO Normal [facility] Comment on above: Performed By: #### C BC #### [facility] [address] [place] [address] Dr. Paramjit Cheng MCH (RBC) [Entitic mass] 32.3 pg Normal 25.9-34.0 [facility] Comment on above: Performed By: #### C BC #### [facility] [address] [place] [address] Dr. Paramjit Cheng MCHC (RBC) [Mass/Vol] 34.0 g/dL Normal 29.9-35.2 [facility] Comment on above: Performed By: #### C BC #### [facility] [address] [place] [address] Dr. Paramjit Cheng MCV (RBC) [Entitic vol] 94.9 fL Critically high 80.0-94.0 [facility] Comment on above: Performed By: #### C BC #### [facility] [address] [address] [address] Paramjit Cheng MONO # 0.5 103/ul Normal 0.3-0.8 [facility] Comment on above: Performed By: #### C BC #### [facility] [address] [place] [address] Dr. Paramjit Cheng Monocytes/100 WBC (Bld) 9.3 % Normal 1.7-12.0 [facility] Comment on above: Performed By: #### C BC #### [facility] [address] [place] [address] Dr. Paramjit Cheng NEUT # 2.5 103/ul Normal 1.4-6.5 [facility] Comment on above: Performed By: #### C BC #### [facility] [address] [place] [address] Dr. Paramjit Cheng Neutrophils/100 WBC (Bld) 51.3 % Normal 43.0-75.0 [facility] Comment on above: Performed By: #### C BC #### [facility] [address] [place] [address] Dr. Paramjit Cheng Platelet mean volume (Bld) [Entitic vol] 9.2 fL Critically low 9.5-13.5 [facility] Comment on above: Performed By: #### C BC #### [facility] [address] [place] [address] Dr. Paramjit Cheng PLT 251 103/ul Normal 150-450 [facility] Comment on above: Performed By: #### C BC #### [facility] [address] [place] [address] Dr. Paramjit Cheng RBC 4.55 106/ul Critically low 4.70-6.10 [facility] Comment on above: Performed By: #### C BC #### [facility] [address] [place] [address] Dr. Paramjit Cheng WBC 4.8 103/ul Normal 4.0-11.0 [facility] Comment on above: Performed By: #### C BC #### [facility] [address] [place] [address] Dr. Paramjit Cheng PROF CHEM 8 (BAS METB)on Anion gap [Moles/Vol] 13.7 mmol/L Normal [facility] Comment on above: Performed By: #### B MP #### [facility] [address] [address] [address] Paramjit Cheng Calcium [Mass/Vol] 8.9 mg/dL Normal 8.5-10.1 [facility] Comment on above: Performed By: #### B MP #### [facility] [address] [address] [address] Paramjit Cheng Chloride [Moles/Vol] 106 mmol/L Normal 98-107 [facility] Comment on above: Performed By: #### B MP #### [facility] [address] [address] [address] Paramjit Cheng CO2 [Moles/Vol] 27.2 mmol/L Normal 21.0-32.0 [facility] Comment on above: Performed By: #### B MP #### [facility] [address] [address] [address] Paramjit Cheng Creatinine [Mass/Vol] 0.89 mg/dL Normal 0.70-1.30 [facility] Comment on above: Performed By: #### B MP #### [facility] [address] [place] [address] Dr. Paramjit Cheng EGFR-AF ARMENIAN >60 Normal >=60 [facility] Comment on above: Performed By: #### B MP #### [facility] [address] [address] [address] Paramjit Cheng EGFR-NON AF ARMENIAN >60 Normal >=60 [facility] Comment on above: Performed By: #### B MP #### [facility] [address] [address] [address] Paramjit Cheng Glucose [Mass/Vol] 87 mg/dL Normal 74-106 [facility] Comment on above: Performed By: #### B MP #### [facility] [address] [place] [address] Dr. Paramjit Cheng Potassium [Moles/Vol] 3.9 mmol/L Normal 3.5-5.1 [facility] Comment on above: Performed By: #### B MP #### [facility] [address] [place] [address] Dr. Paramjit Cheng Sodium [Moles/Vol] 143 mmol/L Normal 136-145 [facility] Comment on above: Performed By: #### B MP #### [facility] [address] [place] [address] Dr. Paramjit Cheng Urea nitrogen [Mass/Vol] 12.0 mg/dL Normal 7.0-18.0 [facility] Comment on above: Performed By: #### B MP #### [facility] Laboratory [address] [place] [address] Dr. Paramjit Cheng Urea nitrogen/Creatinine [Mass ratio] 13.5 mg/mg Normal [facility] Comment on above: Performed By: #### B MP #### [facility] [address] [place] [address] Dr. Paramjit Cheng PROTIMEon 08-30-2022 INR Coag (PPP) [Relative time] 0.97 {INR} Normal [facility] Comment on above: Performed By: #### P TT, PT #### [facility] [address] [place] [address] Dr. Paramjit Cheng INR GUIDELINES SEE BELOW Normal [facility] Comment on above: Result Comment: ROSE RED INR: 2.0 - 3.0 CONDITIONS NOT LISTED BELOW 2.5 - 3.5 FOR PROSTHETIC HEART VALVE REPLACEMENT 2.5 - 3.5 RECURRENT THROMBOSIS Performed By: #### P TT, PT #### [facility] [address] [place] [address] Dr. Paramjit Cheng PT Coag (PPP) [Time] 10.5 s Normal 9.0-11.6 [facility] Comment on above: Performed By: #### P TT, PT #### [facility] [address] [place] [address] Dr. Paramjit Cheng PTTon 08-30-2022 aPTT Coag (Bld) [Time] 25.6 s Normal 22.3-36.2 [facility] Comment on above: Performed By: #### P TT, PT #### [facility] [address] [address] [address] Paramjit Cheng CALCULI, URINARYon 2 2,8 Dihydroxyadenine Normal [facility] Comment on above: Performed By: #### C ALCULI #### [facility] [address] [address] [address] Paramjit Cheng Ammonium Acid Urate Normal [facility] Comment on above: Performed By: #### C ALCULI #### [facility] [address] [address] [address] Paramjit Cheng Bilirubin Ql (U) Normal [facility] Comment on above: Performed By: #### C ALCULI #### [facility] [address] [address] [address] Paramjit Cheng Ca Oxalate Dihydrate 20 % [facility] Comment on above: Performed By: #### C ALCULI #### [facility] [address] [address] [address] Paramjit Cheng Ca Oxalate Dihydrate 30 % Normal [facility] Comment on above: Performed By: #### C ALCULI #### [facility] [address] [address] [address] Paramjit Cheng CaHPO4 (Brushite) [facility] Comment on above: Performed By: #### C ALCULI #### [facility] [address] [address] [address] Paramjit Cheng Calcium Bilirubinate Normal [facility] Comment on above: Performed By: #### C ALCULI #### [facility] [address] [address] [address] Paramjit Cheng Calcium Carbonate [facility] Comment on above: Performed By: #### C ALCULI #### [facility] [address] [address] [address] Paramjit Cheng Calcium Oxalate Monohydrate 80 % Normal [facility] Comment on above: Performed By: #### C ALCULI #### [facility] [address] [address] [address] Paramjit Cheng Calcium Oxalate Monohydrate 70 % Normal [facility] Comment on above: Performed By: #### C ALCULI #### [facility] [address] [address] [address] Paramjit Cheng Calcium Palmitate [facility] Comment on above: Performed By: #### C ALCULI #### [facility] [address] [address] [address] Paramjit Cheng Calcium Phosphate [facility] Comment on above: Performed By: #### C ALCULI #### [facility] [address] [address] [address] Paramjit Cheng Calcium Stearate [facility] Comment on above: Performed By: #### C ALCULI #### [facility] [address] [address] [address] Paramjit Cheng Carbonate Apatite [facility] Comment on above: Performed By: #### C ALCULI #### [facility] [address] [address] [address] Paramjit Cheng Cellular Material [facility] Comment on above: Performed By: #### C ALCULI #### [facility] [address] [address] [address] Paramjit Cheng Cholesterol [facility] Comment on above: Performed By: #### C ALCULI #### [facility] [address] [address] [address] Paramjit Cheng Color (U) Brown Normal [facility] Comment on above: Performed By: #### C ALCULI #### [facility] [address] [address] [address] Paramjit Cheng Comment [facility] Comment on above: Performed By: #### C ALCULI #### [facility] [address] [address] [address] Paramjit Cheng Comment Comment [facility] Comment on above: Result Comment: Calc ulus received wet. Wet calculi must be dried before analysis, which delays reporting of results. Leaving calculi wet (such as water, saline, blood, urine) may lead to changes in composition. Performed By: #### C ALCULI #### [facility] [address] [address] [address] Paramjit Cheng Result Comment: Sour ce provided- right [facility] Comment: Comment Normal [facility] Comment on above: Result Comment: Zohreh causey questions regarding Calculi Analysis [facility] at: [phone]. Performed By: #### C ALCULI #### [facility] [address] [address] [address] Paramjit Cheng Composition Comment Normal [facility] Comment on above: Result Comment: Perc entage (Represents the % composition) Performed By: #### C ALCULI #### [facility] [address] [address] [address] Paramjit Cheng Cystine [facility] Comment on above: Performed By: #### C ALCULI #### [facility] [address] [address] [address] Paramjit Cheng Disclaimer: Comment Normal [facility] Comment on above: Result Comment: This test was developed and its performance characteristics determined by [facility]. It has not been cleared or approved by the Food and Drug Administration. Performed By: #### C ALCULI #### [facility] [address] [address] [address] Paramjit Cheng Dried Blood [facility] Comment on above: Performed By: #### C ALCULI #### [facility] [address] [place] [address] Dr. Paramjit Cheng Drug or Metabolite Normal [facility] Comment on above: Performed By: #### C ALCULI #### [facility] [address] [address] [address] Paramjit Cheng Hydroxyapatite Normal [facility] Comment on above: Performed By: #### C ALCULI #### [facility] [address] [address] [address] Paramjit Cheng Mg NH4 PO4 (Struvite) [facility] Comment on above: Performed By: #### C ALCULI #### [facility] [address] [address] [address] Paramjit Cheng MgHPO4 (New[place]ite) Normal [facility] Comment on above: Performed By: #### C ALCULI #### [facility] [address] [address] [address] Paramjit Cheng Other component(s) Normal [facility] Comment on above: Performed By: #### C ALCULI #### [facility] [address] [address] [address] Paramjit Cheng PDF . Normal [facility] Comment on above: Performed By: #### C ALCULI #### [facility] [address] [address] [address] Paramjit Cheng Photo Comment [facility] Comment on above: Result Comment: Phot ograph will follow under a separate cover Performed By: #### C ALCULI #### [facility] [address] [address] [address] Paramjit Cheng Please note: Comment [facility] Comment on above: Result Comment: Calc diana report will follow via computer, mail or cost and sales record supervisor delivery. Performed By: #### C ALCULI #### [facility] [address] [address] [address] Paramjit Cheng Size 6x4 [facility] Comment on above: Result Comment: Mult iple pieces received. Dimensions of the largest piece reported. Performed By: #### C ALCULI #### [facility] [address] [address] [address] Paramjit Cheng Size 3x2 [facility] Comment on above: Result Comment: Mult iple pieces received. Dimensions of the largest piece reported. Performed By: #### C ALCULI #### [facility] [address] [address] [address] Paramjit Cheng Sodium Acid Urate [facility] Comment on above: Performed By: #### C ALCULI #### [facility] [address] [address] [address] Paramjit Cheng Source Comment [facility] Comment on above: Result Comment: Urin savage Bladder Performed By: #### C ALCULI #### [facility] [address] [address] [address] Paramjit Cheng Result Comment: Not provided Triamterene Normal [facility] Comment on above: Performed By: #### C ALCULI #### [facility] [address] [address] [address] Paramjit Cheng Uric Acid Normal [facility] Comment on above: Performed By: #### C ALCULI #### [facility] [address] [address] [address] Paramjit Cheng Uric Acid Dihydrate Normal [facility] Comment on above: Performed By: #### C ALCULI #### [facility] [address] [address] [address] Paramjit Cheng Weight 636 mg Normal [facility] Comment on above: Performed By: #### C ALCULI #### [facility] [address] [address] [address] Paramjit Cheng Weight 18 mg Normal [facility] Comment on above: Performed By: #### C ALCULI #### [facility] [address] [address] [address] Paramjit Cheng Xanthine Normal [facility] Comment on above: Performed By: #### C ALCULI #### [facility] [address] [address] [address] Paramjit Cheng XR KUB 1 VIEWon [...] by: TITUS TELLEZ Date: 2022 06:37 Normal [facility] Covid-19 PCR (CVDTBH)on 07-17 SARS-CoV-2 (COVID-19) RNA MARY+probe Ql (Unsp spec) Not detected Normal NOT DETECTED [facility] Comment on above: Result Comment: This test is not yet approved or cleared by the [place] FDA. When there are no FDA-approved or cleared tests available, and other criteria are met, FDA can make tests available under an emergency access mechanism called an Emergency Use Authorization (EUA). The EUA for this test is supported by the [place] of Health and Human Service's (HHS's) declaration [...] Performed By: #### P TT, PT #### [facility] [address] [place] [address] Dr. Paramjit Cheng CBC AUTO DIFFon 07-23-2022 BASO # 0.0 103/ul Normal 0.0-0.1 [facility] Comment on above: Performed By: #### P TT, PT #### [facility] [address] [place] [address] Dr. Paramjit Cheng Basophils/100 WBC (Bld) 0.4 % Normal 0.2-2.0 [facility] Comment on above: Performed By: #### P TT, PT #### [facility] [address] [place] [address] Dr. Paramjit Cheng EO # 0.1 103/ul Normal 0.0-0.7 [facility] Comment on above: Performed By: #### P TT, PT #### [facility] [address] [place] [address] Dr. Paramjit Cheng Eosinophils/100 WBC (Bld) 2.5 % Normal 0.9-7.0 [facility] Comment on above: Performed By: #### P TT, PT #### [facility] [address] [place] [address] Dr. Paramjit Cheng Erythrocyte distribution width (RBC) [Ratio] 13.0 % Normal 11.0-15.0 [facility] Comment on above: Performed By: #### P TT, PT #### [facility] [address] [place] [address] Dr. Paramjit Cheng Hematocrit (Bld) [Volume fraction] 41.7 % Critically low 42.0-54.0 [facility] Comment on above: Performed By: #### P TT, PT #### [facility] [address] [place] [address] Dr. Paramjit Cheng Hemoglobin (Bld) [Mass/Vol] 14.5 g/dL Normal 14.0-18.0 [facility] Comment on above: Performed By: #### P TT, PT #### [facility] [address] [place] [address] Dr. Paramjit Cheng IG # 0.01 10e3/ul Normal 0.00-0.03 [facility] Comment on above: Performed By: #### P TT, PT #### [facility] [address] [place] [address] Dr. Paramjit Cheng IG % 0.2 % Normal 0.0-0.5 [facility] Comment on above: Performed By: #### P TT, PT #### [facility] [address] [place] [address] Dr. Paramjit Cheng LYMPH # 1.6 103/ul Normal 1.2-3.8 [facility] Comment on above: Performed By: #### P TT, PT #### [facility] [address] [place] [address] Dr. Paramjit Cheng Lymphocytes/100 WBC (Bld) 27.6 % Normal 20.5-60.0 [facility] Comment on above: Performed By: #### P TT, PT #### [facility] [address] [place] [address] Dr. Paramjit Cheng MANUAL DIFF REQ NO Normal [facility] Comment on above: Performed By: #### P TT, PT #### [facility] [address] [place] [address] Dr. Paramjit Cheng MCH (RBC) [Entitic mass] 32.8 pg Normal 25.9-34.0 [facility] Comment on above: Performed By: #### P TT, PT #### [facility] [address] [place] [address] Dr. Paramjit Cheng MCHC (RBC) [Mass/Vol] 34.8 g/dL Normal 29.9-35.2 [facility] Comment on above: Performed By: #### P TT, PT #### [facility] [address] [place] [address] Dr. Paramjit Cheng MCV (RBC) [Entitic vol] 94.3 fL Critically high 80.0-94.0 [facility] Comment on above: Performed By: #### P TT, PT #### [facility] [address] [place] [address] Dr. Paramjit Cheng MONO # 0.5 103/ul Normal 0.3-0.8 [facility] Comment on above: Performed By: #### P TT, PT #### [facility] [address] [place] [address] Dr. Paramjit Cheng Monocytes/100 WBC (Bld) 8.0 % Normal 1.7-12.0 [facility] Comment on above: Performed By: #### P TT, PT #### [facility] [address] [place] [address] Dr. Paramjit Cheng NEUT # 3.5 103/ul Normal 1.4-6.5 [facility] Comment on above: Performed By: #### P TT, PT #### [facility] [address] [place] [address] Dr. Paramjit Cheng Neutrophils/100 WBC (Bld) 61.3 % Normal 43.0-75.0 [facility] Comment on above: Performed By: #### P TT, PT #### [facility] [address] [place] [address] Dr. Paramjit Cheng Platelet mean volume (Bld) [Entitic vol] 9.5 fL Normal 9.5-13.5 [facility] Comment on above: Performed By: #### P TT, PT #### [facility] [address] [place] [address] Dr. Paramjit Cheng PLT 252 103/ul Normal 150-450 [facility] Comment on above: Performed By: #### P TT, PT #### [facility] [address] [address] [address] Paramjit Cheng RBC 4.42 106/ul Critically low 4.70-6.10 [facility] Comment on above: Performed By: #### P TT, PT #### [facility] [address] [place] [address] Dr. Paramjit Cheng WBC 5.6 103/ul Normal 4.0-11.0 [facility] Comment on above: Performed By: #### P TT, PT #### [facility] [address] [place] [address] Dr. Paramjit Cheng PROF CHEM 8 (BAS METB)on Anion gap [Moles/Vol] 9.6 mmol/L Normal [facility] Comment on above: Performed By: #### D ATCBC #### [facility] [address] [place] [address] Dr. Paramjit Cheng Calcium [Mass/Vol] 8.6 mg/dL Normal 8.5-10.1 [facility] Comment on above: Performed By: #### D ATCBC #### [facility] [address] [place] [address] Dr. Paramjit Cheng Chloride [Moles/Vol] 107 mmol/L Normal 98-107 [facility] Comment on above: Performed By: #### D ATCBC #### [facility] [address] [place] [address] Dr. Paramjit Cheng CO2 [Moles/Vol] 28.0 mmol/L Normal 21.0-32.0 [facility] Comment on above: Performed By: #### D ATCBC #### [facility] [address] [place] [address] Dr. Paramjit hCeng Creatinine [Mass/Vol] 0.98 mg/dL Normal 0.70-1.30 [facility] Comment on above: Performed By: #### D ATCBC #### [facility] [address] [place] [address] Dr. Paramjit Cheng EGFR-AF ARMENIAN >60 Normal >=60 [facility] Comment on above: Performed By: #### D ATCBC #### [facility] [address] [place] [address] Dr. Paramjit Cheng EGFR-NON AF ARMENIAN >60 Normal >=60 [facility] Comment on above: Performed By: #### D ATCBC #### [facility] [address] [place] [address] Dr. Paramjit Cheng Glucose [Mass/Vol] 90 mg/dL Normal 74-106 [facility] Comment on above: Performed By: #### D ATCBC #### [facility] [address] [place] [address] Dr. Paramjit Cheng Potassium [Moles/Vol] 3.6 mmol/L Normal 3.5-5.1 [facility] Comment on above: Performed By: #### D ATCBC #### [facility] [address] [place] [address] Dr. Paramjit Cheng Sodium [Moles/Vol] 141 mmol/L Normal 136-145 [facility] Comment on above: Performed By: #### D ATCBC #### [facility] [address] [place] [address] Dr. Paramjit Cheng Urea nitrogen [Mass/Vol] 12.0 mg/dL Normal 7.0-18.0 [facility] Comment on above: Performed By: #### D ATCBC #### [facility] [address] [place] [address] Dr. Paramjit Cheng Urea nitrogen/Creatinine [Mass ratio] 12.2 mg/mg Normal [facility] Comment on above: Performed By: #### D ATCBC #### [facility] [address] [place] [address] Dr. Paramjit Cheng PROTIMEon 07-23-2022 INR Coag (PPP) [Relative time] 1.04 {INR} Normal [facility] Comment on above: Performed By: #### P TT, PT #### [facility] [address] [place] [address] Dr. Paramjit Cheng INR GUIDELINES SEE BELOW Normal [facility] Comment on above: Result Comment: ROSE RED INR: 2.0 - 3.0 CONDITIONS NOT LISTED BELOW 2.5 - 3.5 FOR PROSTHETIC HEART VALVE REPLACEMENT 2.5 - 3.5 RECURRENT THROMBOSIS Performed By: #### P TT, PT #### [facility] [address] [address] [address] Paramjit Cheng PT Coag (PPP) [Time] 11.2 s Normal 9.0-11.6 [facility] Comment on above: Performed By: #### P TT, PT #### [facility] [address] [place] [address] Dr. Paramjit Cheng PTTon 07-23-2022 aPTT Coag (Bld) [Time] 25.1 s Normal 22.3-36.2 [facility] Comment on above: Performed By: #### P TT, PT #### [facility] [address] [place] [address] ABD/PELVIS WO CONon [...] by: QUINCY TOVAR Date: 2022-07-06 08:48 Normal [facility] XR KUB 1 VIEWon 06-17-2022 XR KUB [...] by: QUINCY TOVAR Date: 2022-06-17 11:24 Normal [facility] CREATININEon 04-25-2022 Creatinine [Mass/Vol] 0.99 mg/dL Normal 0.70-1.30 [facility] Comment on above: Performed By: #### C APRIL #### [facility] [address] [place] [address] Dr. Paramjit Cheng EGFR-AF ARMENIAN >60 Normal >=60 [facility] Comment on above: Performed By: #### C APRIL #### [facility] [address] [address] [address] Paramjit Cheng EGFR-NON AF ARMENIAN >60 Normal >=60 [facility] Comment on above: Performed By: #### C APRIL #### [facility] [address] [place] [address] ABD/PELV WO W [...] QUINCY TOVAR Date: 2022-04-25 12:01 Normal [facility] CBC AUTO DIFFon 12-01-2021 BASO # 0.0 103/ul Normal 0.0-0.1 [facility] Comment on above: Performed By: #### D ATCBC #### [facility] [address] [address] [address] Paramjit Cheng Basophils/100 WBC (Bld) 0.4 % Normal 0.2-2.0 [facility] Comment on above: Performed By: #### D ATCBC #### [facility] [address] [place] [address] Dr. Paramjit Cheng EO # 0.2 103/ul Normal 0.0-0.7 [facility] Comment on above: Performed By: #### D ATCBC #### [facility] [address] [place] [address] Dr. Paramjit Cheng Eosinophils/100 WBC (Bld) 3.8 % Normal 0.9-7.0 [facility] Comment on above: Performed By: #### D ATCBC #### [facility] [address] [place] [address] Dr. Paramjit Cheng Erythrocyte distribution width (RBC) [Ratio] 13.7 % Normal 11.0-15.0 [facility] Comment on above: Performed By: #### D ATCBC #### [facility] [address] [place] [address] Dr. Paramjit Cheng Hematocrit (Bld) [Volume fraction] 44.1 % Normal 42.0-54.0 [facility] Comment on above: Performed By: #### D ATCBC #### [facility] [address] [place] [address] Dr. Paramjit Cheng Hemoglobin (Bld) [Mass/Vol] 14.9 g/dL Normal 14.0-18.0 [facility] Comment on above: Performed By: #### D ATCBC #### [facility] [address] [place] [address] Dr. Paramjit Cheng IG # 0.01 10e3/ul Normal 0.00-0.03 [facility] Comment on above: Performed By: #### D ATCBC #### [facility] [address] [place] [address] Dr. Paramjit Cheng IG % 0.2 % Normal 0.0-0.5 [facility] Comment on above: Performed By: #### D ATCBC #### [facility] [address] [place] [address] Dr. Paramjit Cheng LYMPH # 2.1 103/ul Normal 1.2-3.8 [facility] Comment on above: Performed By: #### D ATCBC #### [facility] [address] [place] [address] Dr. Paramjit Cheng Lymphocytes/100 WBC (Bld) 37.9 % Normal 20.5-60.0 [facility] Comment on above: Performed By: #### D ATCBC #### [facility] [address] [address] [address] Paramjit Cheng MCH (RBC) [Entitic mass] 31.9 pg Normal 25.9-34.0 [facility] Comment on above: Performed By: #### D ATCBC #### [facility] [address] [place] [address] Dr. Paramjit Cheng MCHC (RBC) [Mass/Vol] 33.8 g/dL Normal 29.9-35.2 [facility] Comment on above: Performed By: #### D ATCBC #### [facility] [address] [place] [address] Dr. Paramjit Cheng MCV (RBC) [Entitic vol] 94.4 fL Critically high 80.0-94.0 [facility] Comment on above: Performed By: #### D ATCBC #### [facility] [address] [place] [address] Dr. Paramjit Cheng MONO # 0.5 103/ul Normal 0.3-0.8 [facility] Comment on above: Performed By: #### D ATCBC #### [facility] [address] [place] [address] Dr. Paramjit Cheng Monocytes/100 WBC (Bld) 9.7 % Normal 1.7-12.0 [facility] Comment on above: Performed By: #### D ATCBC #### [facility] [address] [place] [address] Dr. Paramjit Cheng NEUT # 2.6 103/ul Normal 1.4-6.5 [facility] Comment on above: Performed By: #### D ATCBC #### [facility] [address] [place] [address] Dr. Paramjit Cheng Neutrophils/100 WBC (Bld) 48.0 % Normal 43.0-75.0 [facility] Comment on above: Performed By: #### D ATCBC #### [facility] [address] [place] [address] Dr. Paramjit Cheng Platelet mean volume (Bld) [Entitic vol] 9.6 fL Normal 9.5-13.5 [facility] Comment on above: Performed By: #### D ATCBC #### [facility] [address] [address] [address] Paramjit Cheng PLT 254 103/ul Normal 150-450 [facility] Comment on above: Performed By: #### D ATCBC #### [facility] [address] [place] [address] Dr[address] Paramjit Cheng RBC 4.67 106/ul Critically low 4.70-6.10 [facility] Comment on above: Performed By: #### D ATCBC #### [facility] [address] [place] [address] [address] Paramjit Cheng WBC 5.5 103/ul Normal 4.0-11.0 [facility] Comment on above: Performed By: #### D ATCBC #### [facility] [address] [place] [address] [address] Paramjit Cheng FLORENTIN- BMP WITH LIPIDon 2021 Anion gap [Moles/Vol] 12.5 mmol/L Normal [facility] Comment on above: Performed By: #### P TT, PT #### [facility] [address] [place] [address] [address] Paramjit Cheng Calcium [Mass/Vol] 8.8 mg/dL Normal 8.5-10.1 [facility] Comment on above: Performed By: #### P TT, PT #### [facility] [address] [place] [address] [address] Paramjit Cheng Chloride [Moles/Vol] 104 mmol/L Normal 98-107 [facility] Comment on above: Performed By: #### P TT, PT #### [facility] [address] [place] [address] [address] Paramjit Cheng Cholesterol [Mass/Vol] 220 mg/dL Critically high <=200 [facility] Comment on above: Performed By: #### P TT, PT #### [facility] [address] [place] [address] [address] Paramjit Cheng Cholesterol in HDL [Mass/Vol] 65 mg/dL Critically high 40-60 [facility] Comment on above: Performed By: #### P TT, PT #### [facility] [address] [place] [address] [address] Paramjit Cheng Cholesterol in LDL [Mass/Vol] 133.0 mg/dL Normal [facility] Comment on above: Performed By: #### P TT, PT #### [facility] [address] [place] [address] [address] Paramjit Cheng CO2 [Moles/Vol] 27.6 mmol/L Normal 22.0-30.0 [facility] Comment on above: Performed By: #### P TT, PT #### [facility] [address] [place] [address] [address] Paramjit Cheng Creatinine [Mass/Vol] 0.97 mg/dL Normal 0.66-1.25 [facility] Comment on above: Performed By: #### P TT, PT #### [facility] [address] [place] [address] [address] Paramjit Cheng EGFR-AF ARMENIAN >60 Normal >=60 [facility] Comment on above: Performed By: #### P TT, PT #### [facility] [address] [place] [address] [address] Paramjit Cheng EGFR-NON AF ARMENIAN >60 Normal >=60 [facility] Comment on above: Performed By: #### P TT, PT #### [facility] [address] [place] [address] [address] Paramjit Cheng Glucose [Mass/Vol] 98 mg/dL Normal 74-106 [facility] Comment on above: Performed By: #### P TT, PT #### [facility] [address] [place] [address] [address] Paramjit Cheng HDL NORMAL > or = 60 mg/dl - LOW CARDIOVASCULAR RISK <40 mg/dl - HIGH CARDIOVASCULAR RISK Normal [facility] Comment on above: Performed By: #### P TT, PT #### [facility] [address] [place] [address] [address] Paramjit Cheng LDL CALC NORMAL SEE BELOW Normal [facility] Comment on above: Result Comment: <100 mg/dl OPTIMAL 100 - 129 mg/dl NEAR OR ABOVE OPTIMAL 130 - 159 mg/dl BORDERLINE HIGH 160 - 189 mg/dl HIGH >190 mg/dl VERY HIGH Performed By: #### P TT, PT #### [facility] [address] [place] [address] Dr. Paramjit Cheng Potassium [Moles/Vol] 4.1 mmol/L Normal 3.4-5.0 [facility] Comment on above: Performed By: #### P TT, PT #### [facility] [address] [place] [address] [address] Paramjit Cheng Sodium [Moles/Vol] 140 mmol/L Normal 137-145 [facility] Comment on above: Performed By: #### P TT, PT #### [facility] [address] [place] [address] Dr. Paramjit Cheng Triglyceride [Mass/Vol] 110 mg/dL Normal <=150 [facility] Comment on above: Performed By: #### P TT, PT #### [facility] [address] [place] [address] Dr. Paramjit Cheng Urea nitrogen [Mass/Vol] 13.0 mg/dL Normal 7.0-18.0 [facility] Comment on above: Performed By: #### P TT, PT #### [facility] [address] [place] [address] Dr. Paramjit Cheng Urea nitrogen/Creatinine [Mass ratio] 13.4 mg/mg Normal [facility] Comment on above: Performed By: #### P TT, PT #### [facility] [address] [place] [address] Dr. Paramjit Cheng VLDL CALC 22.0 mg/dL Normal [facility] Comment on above: Performed By: #### P TT, PT #### [facility] [address] [place] [address] Dr. Paramjit Cheng Vital Signs Date Time Vital Sign Value Performing Clinician Facility 05-22-2024 08:47-0400 Blood Pressure Location Emeka GRACE [facility] 05-22-2024 08:47-0400 Diastolic blood pressure 80 mm[Hg] Emeka GRACE [facility] 05-22-2024 08:47-0400 Heart rate 61 /min Emeka GRACE [facility] 05-22-2024 08:47-0400 Respiratory rate 18 /min Emeka GRACE [facility] 05-22-2024 08:47-0400 Systolic blood pressure 116 mm[Hg] Emeka GRACE [facility] 02-27-2024 14:30-0400 Body height 177.8 cm [facility] 02-27-2024 14:30-0400 Body mass index (BMI) [Ratio] 24.7 kg/m2 [facility] 02-27-2024 14:30-0400 Body weight 78.18 kg [facility] 02-27-2024 14:30-0400 Diastolic blood pressure 60 mm[Hg] [facility] 02-27-2024 14:30-0400 Heart rate 70 /min [facility] 02-27-2024 14:30-0400 Respiratory rate 12 /min [facility] 02-27-2024 14:30-0400 Systolic blood pressure 100 mm[Hg] [facility] 02-11-2024 13:37-0400 Body height 177.8 cm [facility] 02-11-2024 13:37-0400 Body mass index (BMI) [Ratio] 24.7 kg/m2 [facility] 02-11-2024 13:37-0400 Body weight 78.13 kg [facility] 02-11-2024 13:37-0400 Diastolic blood pressure 74 mm[Hg] [facility] 02-11-2024 13:37-0400 Heart rate 66 /min [facility] 02-11-2024 13:37-0400 Respiratory rate 12 /min [facility] 02-11-2024 13:37-0400 Systolic blood pressure 120 mm[Hg] [facility] 11-21-2023 08:47-0500 Body height 177.8 cm [facility] 11-21-2023 08:47-0500 Body mass index (BMI) [Ratio] 24.8 kg/m2 [facility] 11-21-2023 08:47-0500 Body weight 78.52 kg [facility] 11-21-2023 08:47-0500 Diastolic blood pressure 71 mm[Hg] [facility] 11-21-2023 08:47-0500 Heart rate 60 /min [facility] 11-21-2023 08:47-0500 Respiratory rate 12 /min [facility] 11-21-2023 08:47-0500 Systolic blood pressure 119 mm[Hg] [facility] 08-21-2023 08:30-0500 Body height 177.8 cm Javi Ball Other [facility] Other 08-21-2023 08:30-0500 Body mass index (BMI) [Ratio] 24.82 kg/m2 Javi Ball Other [facility] Other 08-21-2023 08:30-0500 Body weight 78.47 kg Javi Ball Other [facility] Other 08-21-2023 08:30-0500 Diastolic blood pressure 71 mm[Hg] Javi Ball Other [facility] Other 08-21-2023 08:30-0500 Respiratory rate 12 /min Javi Ball Other [facility] Other 08-21-2023 08:30-0500 Systolic blood pressure 116 mm[Hg] Javi Ball Other [facility] Other 06-11-2023 15:30-0400 Body height 177.8 cm Javi Ball Other [facility] Other 06-11-2023 15:30-0400 Body mass index (BMI) [Ratio] 24.96 kg/m2 Javi Ball Other [facility] Other 06-11-2023 15:30-0400 Body weight 78.93 kg Javi Ball Other [facility] Other 06-11-2023 15:30-0400 Diastolic blood pressure 64 mm[Hg] Javi Ball Other [facility] Other 06-11-2023 15:30-0400 Respiratory rate 12 /min Javi Ball Other [facility] Other 06-11-2023 15:30-0400 Systolic blood pressure 122 mm[Hg] Javi Ball Other [facility] Other 05-21-2023 08:30-0400 Body height 177.8 cm Javi Ball Other [facility] Other 05-21-2023 08:30-0400 Body mass index (BMI) [Ratio] 24.68 kg/m2 Javi Ball Other [facility] Other 05-21-2023 08:30-0400 Body weight 78.02 kg Javi Ball Other [facility] Other 05-21-2023 08:30-0400 Diastolic blood pressure 78 mm[Hg] Javi Ball Other [facility] Other 05-21-2023 08:30-0400 Respiratory rate 12 /min Javi Ball Other [facility] Other 05-21-2023 08:30-0400 Systolic blood pressure 119 mm[Hg] Javi Ball Other [facility] Other 04-26-2023 09:06-0400 Blood Pressure Location Emeka GRACE [facility] 04-26-2023 09:06-0400 Diastolic blood pressure 78 mm[Hg] Emeka GRACE [facility] 04-26-2023 09:06-0400 Heart rate 74 /min Emeka GRACE [facility] 04-26-2023 09:06-0400 Respiratory rate 16 /min Emeka GRACE [facility] 04-26-2023 09:06-0400 Systolic blood pressure 118 mm[Hg] Emeka GRACE [facility] 02-14-2023 08:30-0400 Body height 177.8 cm Javi Ball Other [facility] Other 02-14-2023 08:30-0400 Body mass index (BMI) [Ratio] 25.28 kg/m2 Javi Ball Other [facility] Other 02-14-2023 08:30-0400 Body weight 79.92 kg Javi Ball Other [facility] Other 02-14-2023 08:30-0400 Diastolic blood pressure 70 mm[Hg] Javi Ball Other [facility] Other 02-14-2023 08:30-0400 Respiratory rate 12 /min Javi Ball Other [facility] Other 02-14-2023 08:30-0400 Systolic blood pressure 115 mm[Hg] Javi Ball Other [facility] Other 11-06-2022 08:30-0500 Body height 177.8 cm Javi Ball Other [facility] Other 11-06-2022 08:30-0500 Body mass index (BMI) [Ratio] 25.51 kg/m2 Javi Ball Other [facility] Other 11-06-2022 08:30-0500 Body weight 80.65 kg Javi Ball Other [facility] Other 11-06-2022 08:30-0500 Diastolic blood pressure 70 mm[Hg] Javi Ball Other [facility] Other 11-06-2022 08:30-0500 Respiratory rate 12 /min Javi Ball Other [facility] Other 11-06-2022 08:30-0500 Systolic blood pressure 102 mm[Hg] Javi Ball Other [facility] Other 06-15-2022 08:43-0400 Blood Pressure Location Emeka GRACE [facility] 06-15-2022 08:43-0400 Diastolic blood pressure 80 mm[Hg] Emekalauri GRACE [facility] 06-15-2022 08:43-0400 Systolic blood pressure 133 mm[Hg] Emeka GRACE [facility] 04-02-2022 10:11-0400 Blood Pressure Location Emeka GRACE [facility] 04-02-2022 10:11-0400 Diastolic blood pressure 78 mm[Hg] Emeka GRACE [facility] 04-02-2022 10:11-0400 Heart rate 81 /min Emeka GRACE [facility] 04-02-2022 10:11-0400 Respiratory rate 16 /min Emeka GRACE [facility] 04-02-2022 10:11-0400 Systolic blood pressure 117 mm[Hg] Emeka GRACE [facility] Encounters Encounter Date Encounter Type Care Provider Facility Start: 06-11-2024 ambulatory Emeka Rangeli ty:[id number] Start: 05-22-2024 End: 05-22-2024 ambulatory Emeka Peggy GRACE Facility:[facility] Start: 05-22-2024 End: 05-22-2024 Patient encounter procedure Emeka GRACE [facility] Start: 05-01-2024 ambulatory Emeka Rangeli ty:[facility] Start: 02-27-2024 End: 02-27-[address] [facility] Work Phone: Start: 02-27-2024 End: 02-27-2024 Patient encounter procedure [facility] Work Phone: Start: 02-11-2024 End: 02-11-[address] [facility] Work Phone: Start: 02-11-2024 End: 02-11-2024 Patient encounter procedure [facility] Work Phone: Start: 02-06-2024 End: 02-06-2024 ambulatory Emeka GRACE Facility:[id number] Start: 11-21-2023 End: 11-21-2023 Patient encounter procedure [facility] Work Phone: Start: 11-19-2023 End: 11-19-2023 ambulatory Javi Seymour Other [facility] Other Start: 11-19-2023 Telephone encounter Javi Ball FP [facility] Start: 09-20-2023 End: 09-20-2023 ambulatory Javi Ball Other [facility] Other Start: 09-20-2023 Telephone encounter Javi Ball FP [facility] Start: 08-21-2023 End: 08-21-2023 ambulatory Javi Ball Other [facility] Other Start: 08-21-2023 Office outpatient vi sit 15 minutes Javi Ball [facility] Start: 08-19-2023 End: 08-19-2023 ambulatory Javi Ball Other [facility] Other Start: 08-19-2023 Telephone encounter Javi Ball FP [facility] Start: 08-02-2023 End: 08-02-2023 ambulatory Javi Ball Other [facility] Other Start: 08-02-2023 Telephone encounter Javi Ball FP [facility] Start: 06-28-2023 End: 06-28-2023 ambulatory Javi Ball Other [facility] Other Start: 06-28-2023 Telephone encounter Javi Ball FP [facility] Start: 06-11-2023 End: 06-11-2023 ambulatory Javi Ball Other [facility] Other Start: 06-11-2023 Office outpatient vi sit 15 minutes Javi Ball [facility] Start: 05-21-2023 End: 05-21-2023 ambulatory Javi Ball Other [facility] Other Start: 05-21-2023 Office outpatient vi sit 15 minutes Javi Ball [facility] Start: 05-14-2023 End: 05-14-2023 ambulatory Javi Ball Other [facility] Other Start: 05-14-2023 Telephone encounter Javi Ball FP [facility] Start: 04-26-2023 End: 04-26-2023 Patient encounter procedure Emeka Woods FARA [facility] Start: 03-08-2023 End: 03-08-2023 ambulatory Javi Ball Other [facility] Other Start: 03-08-2023 Telephone encounter Javi Ball FP [facility] Start: 02-19-2023 End: 02-19-2023 ambulatory Javi Ball Other [facility] Other Start: 02-19-2023 Telephone encounter Javi Ball FP [facility] Start: 02-14-2023 End: 02-14-2023 ambulatory Javi Ball Other [facility] Other Start: 02-14-2023 Office outpatient vi sit 15 minutes Javi Ball [facility] Start: 02-12-2023 End: 02-12-2023 ambulatory Javi Ball Other [facility] Other Start: 02-12-2023 Telephone encounter Javi Ball FP [facility] Start: 01-19-2023 End: 01-19-2023 ambulatory Javi Ball Other [facility] Other Start: 01-19-2023 Telephone encounter Javi Ball FP [facility] Start: 01-08-2023 End: 01-08-2023 ambulatory Javi Ball Other [facility] Other Start: 01-08-2023 Telephone encounter Javi Seymour FP [facility] Start: 12-19-2022 End: 12-19-2022 ambulatory Javi Lion Other [facility] Other Start: 12-19-2022 Telephone encounter Javi Seymour FP [facility] Start: 11-06-2022 End: 11-06-2022 ambulatory Javi Seymour Other [facility] Other Start: 11-06-2022 Patient encounter procedure [facility] Start: 10-21-2022 End: 10-21-2022 ambulatory Javi Lion Other [facility] Other Start: 10-21-2022 Telephone encounter Javi Seymour FP [facility] Start: 10-10-2022 End: 10-10-2022 ambulatory Javi Seymour Other [facility] Other Start: 10-10-2022 Telephone encounter Javi Seymour FP [facility] Start: 09-28-2022 End: 09-28-2022 ambulatory Javi Seymour Other [facility] Other Start: 09-28-2022 Telephone encounter Javi Seymour RIMA [facility] Start: 09-13-2022 Encounter for preprocedural laboratory examination DR EMEKA GRACE [facility] Start: 09-13-2022 End: 09-13-[address] JAVI SEYMOUR Facility:[facility] Start: 09-10-2022 End: 09-11-[address] JAVI SEYMOUR Facility:[facility] Start: 09-10-2022 End: 09-11-2022 Encounter for preprocedural laboratory examination DR JAVI SEYMOUR Facility:[facility] Start: 08-30-2022 End: 08-31-[address] JAVI SEYMOUR Facility:[facility] Start: 08-07-2022 End: [address] JAVI SEYMOUR Facility:[facility] Start: 08-06-2022 End: 08-06-2022 Patient encounter procedure Emeka GRACE [facility] Start: 08-02-2022 End: 08-02-[address] EMEKA GRACE Facility:[facility] Start: 07-30-2022 End: 07-31-[address] JAVI SEYMOUR Facility:[facility] Start: 07-28-2022 Encounter for preprocedural cardiovascular examination DR EMEKA GRACE [facility] Start: 07-24-2022 Pre-procedure evalua tion conrado Seymour Other [facility] Other Start: 07-23-2022 End: 07-24-[address] JAVI SEYMOUR Facility:[facility] Start: 07-06-2022 End: 07-07-[address] JAVI SEYMOUR Facility:[facility] Start: 06-15-2022 End: 06-16-[address] JAVI SEYMOUR Facility:[facility] Start: 06-15-2022 End: 06-15-2022 Patient encounter procedure Emeka GRACE [facility] Start: 04-25-2022 End: 04-26-[address] JAVI SEYMOUR Facility:[facility] Start: 04-02-2022 End: 04-02-2022 Patient encounter procedure Emeka GRACE [facility] Start: 12-01-2021 End: 12-02-[address] VALERIANO KERR REQUEST Facility:[facility] Start: 11-02-2021 Adult health examination Joseph Seymour Other [facility] Other Procedures Date Procedure Procedure Detail Performing Clinician Start: 02-06-2024 Extracorporeal shock wave lithotripsy of ureter Emeka GRACE Start: 01-10-2021 Transrectal biopsy o f prostate using ultrasound guidance Emeka GRACE Start: 01-06-2019 Screening for malign ant neoplasm of colon Javi Seymour Other Start: 06-02-2014 General examination of patient Javi Seymour Other Appendectomy Emeka GRACE Arthroplasty of knee Emeka GRACE Arthroscopic repair of rotator cuff Emeka GRACE Colonoscopy Emeka GRACE Depression screening Herminio Seymour Other Screening for malign ant neoplasm of prostate Javi Seymour Other Plan of Treatment Date Care Activity Detail Author [facility] Immunizations Immunization Date Immunization Notes Care Provider Soha [email or web address] 07-24-2022 influenza virus vaccine, split virus (incl. purified surface antigen) Javi Seymour Other [facility] Other 07-24-2022 influenza virus vaccine, unspecified formulation [facility] 07-24-2022 influenza, high dose seasonal, preservative-free Javi Seymour Other [facility] Other 2021 COVID-19 Vaccine Moderna - Documentation Purposes Only Jaiv Seymour Other [facility] 12-12-2020 SARS-CoV-2 (COVID-19 ) mRNA-1273 vaccine Emeka GRACE [facility] 11-22-2020 COVID-19 Vaccine Moderna - Documentation Purposes Only Javi Seymour Other [facility] 11-14-2020 SARS-CoV-2 (COVID-19 ) mRNA-1273 vaccine Emeka GRACE [facility] 10-24-2020 COVID-19 Vaccine Moderna - Documentation Purposes Only Javi Seymour Other [facility] 07-05-2020 influenza virus vaccine, split virus (incl. purified surface antigen) Javi Seymour Other [facility] Other 07-05-2020 influenza virus vaccine, unspecified formulation [facility] 07-05-2020 pneumococcal polysaccharide vaccine, 23 valent Javi Seymour Other [facility] 07-05-2020 Prevnar 20 Javi Seymour Other [facility] 01-06-2019 pneumococcal conjuga te vaccine, 13 valent Javi Seymour Other [facility] 01-06-2019 pneumococcal Conjuga te, unspecified formulation; 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: [Need for prophylactic vaccination against Streptococcus pneumoniae (pneumococcus)] Javi Seymour Other [facility] Other Payers Date Payer Category Payer Medicare [id number] 1961 Self-pay [id number] 1961 Unknown [id number] 1955 Unknown [id number] 2.16.84 [id number] 1953 Unknown [id number] 2.16.84 [id number] 1953 Unknown [id number] 2.16.84 [id number] 1953 Unknown [id number] 2.16.84 [id number] 1953 Unknown [id number] 2.16.84 [id number] 1953 Unknown [id number] 2.16.84 [id number] 1953 Unknown [id number] 2.16.84 [id number] 1953 Unknown [id number] 2.16.84 [id number] 1953 Unknown [id number] 2.16.84 [id number] 1953 Unknown [id number] 2.16.84 [id number] 1953 Unknown [id number] 2.16.8 [id number] 1953 Unknown [id number] 2.16.8 [id number] 1953 Unknown [id number] 2.16.8 [id number] Unknown [id number] 2.16.84 [id number] Social History Date Type Detail Facility Start: 04-02-2022 End: 06-15-2022 Tobacco smoking status Ex-smoker (finding) [facility] Sex Assigned At Male [facility] Start: 1955 Sex Assigned At Male [facility] Functional Status Date Assessment Result Facility 05-22-2024 Functional Status N/A [facility] 04-26-2023 Functional Status N/A [facility] 06-15-2022 Functional Status N/A [facility] 04-02-2022 Functional Status N/A [facility] Clinical Notes 04-02-2022 to 05-22-2024 Note Date & Type Note Facility 05-22-2024 Hospital Discharg e instructions Patient Education 05/22/2024 09:30:18 Kidney Stones Kidney Stones Kidney stones are solid, rock-like deposits that form inside of the kidneys. The kidneys are a pair of organs that make urine. A kidney stone may form in a kidney and move into other parts of the urinary tract, including the tubes that connect the kidneys to the bladder (ureters), the bladder, and the tube that carries urine out of the body (urethra). As the stone moves through these areas, it can cause intense pain and block the flow of urine. Kidney stones are created when high levels of certain minerals are found in the urine. The stones are usually passed out of the body through urination, but in some cases, medical treatment may be needed to remove them. What are the causes? Kidney stones may be caused by: A condition in which certain glands produce too much parathyroid hormone (primary hyperparathyroidism), which causes too much calcium buildup in the blood. A buildup of uric acid crystals in the bladder (hyperuricosuria). Uric acid is a chemical that the body produces when you eat certain foods. It usually leaves the body in the urine. Narrowing (stricture) of one or both of the ureters. A kidney blockage that is present at (congenital obstruction). Past surgery on the kidney or the ureters. What increases the risk? The following factors may make you more likely to develop this condition: Having had a kidney stone in the past. Having a family history of kidney stones. Not drinking enough water. Eating a diet that is high in protein, salt (sodium), or sugar. Being overweight or obese. What are the signs or symptoms? Symptoms of a kidney stone may include: Pain in the side of the abdomen, right below the ribs (flank pain). Pain usually spreads (radiates) to the groin. Needing to urinate often or urgently. Painful urination. Blood in the urine (hematuria). Nausea. Vomiting. Fever and chills. How is this diagnosed? This condition may be diagnosed based on: Your symptoms and medical history. A physical exam. Blood tests. Urine tests. These may be done before and after the stone passes out of your body through urination. Imaging tests, such as a CT scan, abdominal X-ray, or ultrasound. A procedure to examine the inside of the bladder (cystoscopy). How is this treated? Treatment for kidney stones depends on the size, location, and makeup of the stones. Kidney stones will often pass out of the body through urination. You may need to: Increase your fluid intake to help pass the stone. In some cases, you may be given fluids through an IV and may need to be monitored in the hospital. Take medicine for pain. Make changes in your diet to help prevent kidney stones from coming back. Sometimes, procedures are needed to remove a kidney stone. This may involve: A procedure to break up kidney stones using: ?A focused beam of light (laser therapy). ?Shock waves (extracorporeal shock wave lithotripsy). Surgery to remove kidney stones. This may be needed if you have severe pain or have stones that block your urinary tract. Follow these instructions at home: Medicines Take [id number] and prescription medicines only as told by your health care provider. Ask your health care provider if the medicine prescribed to you requires you to avoid driving or using heavy machinery. Eating and drinking Drink enough fluid to keep your urine pale yellow. You may be instructed to drink at least 8 10 glasses of water each day. This will help you pass the kidney stone. If directed, change your diet. This may include: ?Limiting how much sodium you eat. ?Eating more fruits and vegetables. ?Limiting how much animal protein you eat. Animal proteins include red meat, poultry, fish, and eggs. ?Eating a normal amount of calcium (1,000 1,300 mg per day). Follow instructions from your health care provider about eating or drinking restrictions. General instructions Collect urine samples as told by your health care provider. You may need to collect a urine sample: ?24 hours after you pass the stone. ?8 12 weeks after you pass the kidney stone, and every 6 12 months after that. Strain your urine every time you urinate, for as long as directed. Use the strainer that your health care provider recommends. Do not throw out the kidney stone after passing it. Keep the stone so it can be tested by your health care provider. Testing the makeup of your kidney stone may help prevent you from getting kidney stones in the future. Keep all follow-up visits. You may need follow-up X-rays or ultrasounds to make sure that your stone has passed. How is this prevented? To prevent another kidney stone: Drink enough fluid to keep your urine pale yellow. This is the best way to prevent kidney stones. Eat a healthy diet. Follow recommendations from your health care provider about foods to avoid. Recommendations vary depending on the type of kidney stone that you have. You may be instructed to eat a low-protein diet. Maintain a healthy weight. Where to find more information National Kidney Foundation (NKF): www.kidney.org [employer] (UCF): www.urologyhealth.org Contact a health care provider if: You have pain that gets worse or does not get better with medicine. Get help right away if: You have a fever or chills. You develop severe pain. You develop new abdominal pain. You faint. You are unable to urinate. Summary Kidney stones are solid, rock-like deposits that form inside of the kidneys. Kidney stones can cause nausea, vomiting, blood in the urine, abdominal pain, and the urge to urinate often. Treatment for kidney stones depends on the size, location, and makeup of the stones. Kidney stones will often pass out of the body through urination. Kidney stones can be prevented by drinking enough fluids, eating a healthy diet, and maintaining a healthy weight. This information is not intended to replace advice given to you by your health care provider. Make sure you discuss any questions you have with your health care provider. Document Revised: 12/12/2022 Document Reviewed: 12/12/2022 [employer] Patient Education 2023 [employer]. Follow Up Care 02/11/2024 16:06:25 With:FARA SANDHU, Emeka Woods, URL Address: [facility] [address] , [place] [address]- [phone] When: Unknown [facility] 05-22-2024 Note Patient Education Urology Kidney Stones Kidney stones are solid, rock-like deposits that form inside of the kidneys. The kidneys are a pair of organs that make urine. A kidney stone may form in a kidney and move into other parts of the urinary tract, including the tubes that connect the kidneys to the bladder (ureters), the bladder, and the tube that carries urine out of the body (urethra). As the stone moves through these areas, it can cause intense pain and block the flow of urine. Kidney stones are created when high levels of certain minerals are found in the urine. The stones are usually passed out of the body through urination, but in some cases, medical treatment may be needed to remove them. What are the causes? Kidney stones may be caused by: ? A condition in which certain glands produce too much parathyroid hormone (primary hyperparathyroidism), which causes too much calcium buildup in the blood. ? A buildup of uric acid crystals in the bladder (hyperuricosuria). Uric acid is a chemical that the body produces when you eat certain foods. It usually leaves the body in the urine. ? Narrowing (stricture) of one or both of the ureters. ? A kidney blockage that is present at (congenital obstruction). ? Past surgery on the kidney or the ureters. What increases the risk? The following factors may make you more likely to develop this condition: ? Having had a kidney stone in the past. ? Having a family history of kidney stones. ? Not drinking enough water. ? Eating a diet that is high in protein, salt (sodium), or sugar. ? Being overweight or obese. What are the signs or symptoms? Symptoms of a kidney stone may include: ? Pain in the side of the abdomen, right below the ribs (flank pain). Pain usually spreads (radiates) to the groin. ? Needing to urinate often or urgently. ? Painful urination. ? Blood in the urine (hematuria). ? Nausea. ? Vomiting. ? Fever and chills. How is this diagnosed? This condition may be diagnosed based on: ? Your symptoms and medical history. ? A physical exam. ? Blood tests. ? Urine tests. These may be done before and after the stone passes out of your body through urination. ? Imaging tests, such as a CT scan, abdominal X-ray, or ultrasound. ? A procedure to examine the inside of the bladder (cystoscopy). How is this treated? Treatment for kidney stones depends on the size, location, and makeup of the stones. Kidney stones will often pass out of the body through urination. You may need to: ? Increase your fluid intake to help pass the stone. In some cases, you may be given fluids through an IV and may need to be monitored in the hospital. ? Take medicine for pain. ? Make changes in your diet to help prevent kidney stones from coming back. Sometimes, procedures are needed to remove a kidney stone. This may involve: ? A procedure to break up kidney stones using: ? A focused beam of light (laser therapy). ? Shock waves (extracorporeal shock wave lithotripsy). ? Surgery to remove kidney stones. This may be needed if you have severe pain or have stones that block your urinary tract. Follow these instructions at home: Medicines ? Take vlbm-ujm-pdpwatx and prescription medicines only as told by your health care provider. ? Ask your health care provider if the medicine prescribed to you requires you to avoid driving or using heavy machinery. Eating and drinking ? Drink enough fluid to keep your urine pale yellow. You may be instructed to drink at least 8?10 glasses of water each day. This will help you pass the kidney stone. ? If directed, change your diet. This may include: ? Limiting how much sodium you eat. ? Eating more fruits and vegetables. ? Limiting how much animal protein you eat. Animal proteins include red meat, poultry, fish, and eggs. ? Eating a normal amount of calcium (1,000?1,300 mg per day). ? Follow instructions from your health care provider about eating or drinking restrictions. General instructions ? Collect urine samples as told by your health care provider. You may need to collect a urine sample: ? 24 hours after you pass the stone. ? 8?12 weeks after you pass the kidney stone, and every 6?12 months after that. ? Strain your urine every time you urinate, for as long as directed. Use the strainer that your health care provider recommends. ? Do not throw out the kidney stone after passing it. Keep the stone so it can be tested by your health care provider. Testing the makeup of your kidney stone may help prevent you from getting kidney stones in the future. ? Keep all follow-up visits. You may need follow-up X-rays or ultrasounds to make sure that your stone has passed. How is this prevented? To prevent another kidney stone: ? Drink enough fluid to keep your urine pale yellow. This is the best way to prevent kidney stones. ? Eat a healthy diet. Follow r (more content not included)... [facility] 11-19-2023 Evaluation note Encounter Date Diagnosis Assessment Notes Nov, Cervical spondylosis (ICD-10 - M47.812) [facility] Other 01-05-2024 Evaluation note* Encounter Date Diagnosis Assessment Notes Treatment Notes Treatment Clinical Notes Sep, Cervical spondylosis (ICD-10 - M47.812) [facility] Other 12-06-2023 Evaluation note* Encounter Date Diagnosis [...] medical therapy Aug, Nocturia (ICD-10 - R35.1) [facility] Other 12-04-2023 Evaluation note* Encounter Date Diagnosis Assessment Notes Treatment Notes Treatment Clinical Notes Aug, Lumbar spondylitis (ICD-10 - M46.96) [facility] Other 11-17-2023 Evaluation note* Encounter Date Diagnosis Assessment Notes Treatment Notes Treatment Clinical Notes Jul, Lumbar spondylitis (ICD-10 - M46.96) [facility] Other 10-13-2023 Evaluation note* Encounter Date Diagnosis Assessment Notes Treatment Notes Treatment Clinical Notes Jun, Lumbar spondylitis (ICD-10 - M46.96) [facility] Other 09-26-2023 Evaluation note* Encounter Date Diagnosis Assessment Notes Treatment Notes Treatment Clinical Notes May, Bee sting, accidental or unintentional, initial encounter (ICD-10 - T63.441A) Cool compresses and elevation. Monitor for s/s increased pain, swelling May, Cellulitis of right upper extremity (ICD-10 - L03.113) Elevate and begin antibiotics. Monitor for increased swelling, pain or fever [facility] Other 09-05-2023 Evaluation note* Encounter Date Diagnosis [...] prescribed Has Orthopedic appt later this month [facility] Other 08-29-2023 Evaluation note* Encounter Date Diagnosis Assessment Notes Treatment Notes Treatment Clinical Notes Apr, Lumbar spondylitis (ICD-10 - M46.96) [facility] Other 08-11-2023 Hospital Discharge instructions Patient Education [...] treatment? Where to find more information [employer] [place] [employer]: www.cancer.org [employer] [employer]: www.auanet.org Contact a health care [...] provider. Document Revised: 02/26/2022 Document Reviewed: 02/26/2022 [employer] Patient Education 2022 [employer] Follow Up Care 04/02/2022 10:42:42 With:FARA SANDHU, Emeka Woods, URL Address: [facility] [address] [place] [address]- When:Within 1 Year(s) Comments:w/PSA and GWEN [facility]ie 06-23-2023 Evaluation note* Encounter Date Diagnosis Assessment Notes Treatment Notes Treatment Clinical Notes Feb, Lumbar spondylitis (ICD-10 - M46.96) [facility] Other 06-01-2023 Evaluation note* Encounter Date Diagnosis [...] medical treatment Feb, Nocturia (ICD-10 - R35.1) [facility] Other 04-25-2023 Evaluation note* Encounter Date Diagnosis Assessment Notes Treatment Notes Treatment Clinical Notes Dec, Benign prostatic hyperplasia with lower urinary tract symptoms (ICD-10 - N40.1) [facility] Other 04-05-2023 Evaluation note* Encounter Date Diagnosis Assessment Notes Treatment Notes Treatment Clinical Notes Dec, Lumbar spondylitis (ICD-10 - M46.96) [facility] Other 02-21-2023 Evaluation note* Encounter Date Diagnosis [...] Screening for colon cancer (ICD-10 - Z12.11) [facility] Other 01-13-2023 Evaluation note* Encounter Date Diagnosis Assessment Notes Treatment Notes Treatment Clinical Notes Sep, Cervical spondylosis (ICD-10 - M47.812) [facility] Other 11-17-2022 NoteOP Note OPERATION DATE: 08/02/2022 [...] retrograde pyelogram. 9. Placement of right sided 6-Citizen [place] variable length stent. 10. Cystolitholapaxy of 2 [...] usual fashion. I started by passing a 22-Citizen [place] Olympus cystoscope per urethra and I arrived at a significant sequential stricture at the bulb. I passed a wire through the scope and was able to cannulate the strictured area and get it into the bladder. The scope was removed. I then used Padilla sounds and dilated the stricture from 20-Citizen Of [place] up to 30-Citizen [place]. The wire was removed and I then passed the cystoscope and was able to get it through the bulb and into the bladder. The bladder calculus was identified on the floor. I then passed a Glidewire through the scope and cannulated the right ureter. The wire was unable to pass up the tight J-hooking. I used an 8-Citizen Of [place] dilator to help, but I could not [...] was then removed. I then used the 10-Citizen [place] dilator to dilate the distal ureter. I [...] into the bladder and then slid a 6-Citizen [place] variable length stent over the wire, up [...] and plucked out the remaining pieces. The Ellik evacuator was used to get blood clots out of the bladder. The nephroscope was removed and the 22-Citizen [place] cystoscope was passed back in the bladder. The bladder looked fine. There were no pieces remaining in the bladder. The scope was then removed. The previously strictured area in the urethra was evaluated and it looked fine. I then placed a 20-Citizen [place] 2-way Almeida catheter in the bladder. It was irrigated manually and it irrigated clear. 10 cc of fluid was placed in the balloon. He was then transferred to a gurney bed and wheeled to PACU in stable condition. He will be discharged to home with a script for (more content not included)...[id number]charge [facility] Patient Education 06/15/2022 09:27:58 [...] Follow these instructions at home: Medicines Take plzr-tbx-yjcomqn and prescription medicines only as told by [...] or the blood stops without treatment. Take wmqs-snw-ngxsycd and prescription medicines only as told by your health care provider. Drink enough fluid to keep your urine clear or pale yellow. This information is not intended to replace advice given to you by your health care provider. Make sure you discuss any questions you have with your health care provider. Document Released: 09/02/2006 Document Revised: 01/27/2020 Document Reviewed: 10/05/2017 [employer] Patient Education 2020 [employer]. Follow Up Care 05/10/2022 10:28:16 With:FARA SANDHU, Emeka Woods, URL Address: [address] [place] [address]- When: Unknown [facility] 07-18-2022 Hospital Discharge instructions Patient [...] urethra. Follow these instructions at home: Take tyab-scb-nglxusr and prescription medicines only as told by [...] 09/02/2006 Document Revised: 07/28/2019 Document Reviewed: 10/07/2017 [employer] Patient Education 2020 [employer]. Follow Up Care 09/29/2021 08:39:40 With:Emeka GRACE MD, URL Address: [facility] [address], [place] [address] [phone] When:Within 1 Year(s) Comments:1 year f/u with PSA [facility] evaluation + Plan note Future Appointments Appointment Date:04/12/2023 08:00:00 AM Scheduled Provider:Emeka GRACE MD Location:[facility] Appointment Type:URO Office Visit Diagnostic Tests Pending * PSA Total 04/02/22 [facility] evaluation + Plan note Future Appointments Appointment Date:04/12/2023 08:00:00 AM Scheduled Provider:Eme[facility] GRACE MD [facility] App[facility] Type:URO Office Visit Diagnostic Tests Pending * Urine Cytology ([facility]) 06/15/22 [facility] evaluation + Plan note Future Appointments Appointment Date:04/12/2023 08:00:00 AM Scheduled Provider:Emeka GRACE MD Location:[facility] Appointment Type:URO Office Visit [facility] evaluation + Plan note Future Appointments Appointment Date:05/01/2024 08:15:00 AM Scheduled Provider:Emeka GRACE MD Location:[facility] Appointment Type:URO Office Visit Diagnostic Tests Pending * PSA Total 04/26/23 [facility] evaluation [facility]No [facility] Other Evaluation note* Diagnosis Onset Date Resolution Status Benign prostatic hyperplasia with lower urinary tract symptoms acute Cervical spondylosis acute Elevated PSA acute Lumbar spondylosis acute Medicare annual wellness visit, subsequent noneactive Screening PSA (prostate specific antigen) noneactive Cervical spondylosis acute Elevated PSA acute Lumbar spondylosis acute [facility] Work Phone: Evaluation note* Diagnosis Onset Date Resolution Status Cervical spondylosis acute Left ureteral calculus acute Lumbar spondylosis acute Benign prostatic hyperplasia with lower urinary tract symptoms acute Cervical spondylosis acute Lumbar spondylosis acute [facility] Work Phone: History general Narrative - Reported* Type Description Date Medical History Overweight (BMI 25.0-29.9) Medical History Hyperlipidemia type II Medical History Nicotine dependence, cigarettes, in remission Medical History Traumatic arthropathy, unspecifi ed shoulder Medical History Primary osteoarthritis of right knee Medical History Primary osteoarthritis of left s [place] Medical History Cervical spondylosis with myelop athy Surgical History ESWL, cystoscopy, removal of ri ght ureteral stent 09/13/22 Surgical History TOTAL KNEE ARTHROPLASTY right 1 10-30-2020 Surgical History US TRANSRECTAL 01-10-2021 Surgical History fasciotomy right thigh 03-06-20 Surgical History left shoulder arthroscopy 10-05 Hospitalization History see surgical history [facility] 2[facility] Other Hospital course Narrative No data available for this section [facility] Hospital Discharge instructions No data available for this section [facility] progress note No data available for this section [facility] Summary Purpose Family History No Family History Records Found No data available for this section No Family History Records Found Advance Directives No [...] content) Team Status: Active Member Role Status Dates Javi Seymour DO Primary Care Provider Active Team [...] pital DATE CREATED AUTHOR AUTHOR'S ORGANIZ ATION 06/03/2024 [facility] REASON FOR VISIT (unrecogniz ed [...] BE BASED ON THE PRIMARY CLINICAL RECORDS. [facility]. provides no warranty or guarantee of the accuracy or completeness of information in this document.
--- NOTE | 2024-06-04 09:35 | P.GSHP_ITS ---
History of Present Illness History of Present Illness Chief complaint: RIGHT KIDNEY STONE Narrative: Patient presents for preadmission testing. Please see HPI from Dr. Grace dated May 22, 2024. Review of Systems ROS Narrative Please see ROS from Dr. Grace dated May 22, 2024. [facility] Medical History (Updated 06/04/24 @ 09:37 by Maria Eugenia Bennett NP) Nocturia ?R35.1 - Nocturia (ICD-10) Hematuria ?R31.9 - Hematuria, unspecified (ICD-10) BPH with obstruction/lower urinary tract symptoms ?N40.1 - Benign prostatic hyperplasia with lower urinary tract symptoms (ICD- 10) ?N13.8 - Other obstructive and reflux uropathy (ICD-10) Back pain ?M54.9 - Dorsalgia, unspecified (ICD-10) Arthritis ?M19.90 - Unspecified osteoarthritis, unspecified site (ICD-10) Kidney stones ?N20.0 - Calculus of kidney (ICD-10) High cholesterol ?E78.00 - Pure hypercholesterolemia, unspecified (ICD-10) S/P extracorporeal shock wave therapy (02/06/24) ?Z98.890 - Other specified postprocedural states (ICD-10) Hyperlipemia ?E78.5 - Hyperlipidemia, unspecified (ICD-10) Elevated PSA ?R97.20 - Elevated prostate specific antigen [PSA] (ICD-10) Open fracture of distal phalanx of left little finger ?S62.637B - Displaced fracture of distal phalanx of left little finger, initial encounter for open fracture (ICD-10) Laceration of left little finger ?S61.217A - Laceration without foreign body of left little finger without damage to nail, initial encounter (ICD-10) Flank pain ?R10.9 - Unspecified abdominal pain (ICD-10) Left ureteral stone ?N20.1 - Calculus of ureter (ICD-10) Surgical History (Updated 02/06/24 @ 10:19 by Luly Villalba) History of arthroplasty of right knee ?Z96.651 - Presence of right artificial knee joint (ICD-10) H/O colonoscopy ?Z98.890 - Other specified postprocedural states (ICD-10) History of repair of rotator cuff ?Z98.890 - Other specified postprocedural states (ICD-10) History of appendectomy ?Z90.49 - Acquired absence of other specified parts of digestive tract (ICD- 10) H/O prostate biopsy ?Z98.890 - Other specified postprocedural states (ICD-10) Family History (Updated 02/06/24 @ 10:21 by Luly Villalba) Sister Family history of diabetes mellitus Father High cholesterol Hyperlipidemia Kidney stones Social History (Updated 06/04/24 @ 09:18 by Maria Eugenia Bennett NP) Within the past year, how often did you have a drink containing alcohol: never Score interpretation: A score less than 4 is consistent with normal alcohol consumption. Smoking status: Former smoker Non-prescribed substance use: denies use Highest level of school completed/degree received: high school graduate Meds Home Medications and Allergies Home Medications ?Medication ?Instructions ?Recorded ?Confirmed ?Type nabumetone 750 mg tablet 750 mg PO BID 04/15/23 06/04/24 History simvastatin 40 mg tablet 40 mg PO DAILY 04/15/23 06/04/24 History tamsulosin 0.4 mg capsule 0.4 mg PO Q24H 04/15/23 06/04/24 History tramadol 50 mg tablet 50 mg PO DAILY 06/04/24 06/04/24 History Allergies Allergy/AdvReac Type Severity Reaction Status Date / Time No Known Drug Allergies Allergy Verified 06/04/24 09:13 Exam Narrative Exam Narrative: Constitutional: Awake, alert, comfortable, well-appearing, nontoxic, interactive, vital signs as charted Head: Normocephalic, atraumatic Neck: Supple, normal appearance, normal range of motion, no meningeal signs, no lymphadenopathy Respiratory: No respiratory distress, breath sounds clear Cardiovascular: Regular rate and rhythm, strong and regular heart tones Musculoskeletal: Normal gait, no swelling or edema Skin: No rashes or induration, no lesions, only visible skin inspected Neuro: No neurological deficits, normal sensation Psychiatric: Oriented ?3, normal affect Assessment and Plan Assessment and Plan (1) Kidney stones: (2) Hematuria: Plan Right ESWL scheduled with Dr. Grace June 05, 2024.
[2024-06-04 09:51] LABS: Basophils Percent Auto 0.6 % (0.2-2.0); Eosinophils Absolute Auto 0.2 10^3/uL (0.0-0.7); Eosinophils Percent Auto 4.1 % (0.9-7.0); Hematocrit 43.4 % (42.0-54.0); Hemoglobin 15.3 g/dL (14.0-18.0); Immature Granulocytes Abs Auto 0.01 10^3/uL (0.00-0.03); Immature Granulocytes Pct Auto 0.2 % (0.0-0.5); Lymphocytes Absolute Auto 1.6 10^3/uL (1.2-3.8); Lymphocytes Percent Auto 33.7 % (20.5-60.0); Mean Corpuscular HGB Conc 35.3 g/dL (29.9-35.2); Mean Corpuscular Hemoglobin 33.8 pg (25.9-34.0); Mean Platelet Volume 9.8 fL (9.5-13.5); Monocytes Absolute Auto 0.4 10^3/uL (0.3-0.8); Monocytes Percent Auto 8.8 % (1.7-12.0); Neutrophils Absolute Auto 2.6 10^3/uL (1.4-6.5); Neutrophils Percent Auto 52.6 % (43.0-75.0); Platelet Count 246 10^3/uL (150-450); Red Blood Count 4.52 10^6/uL (4.70-6.10); Red Cell Distribution Width 13.1 % (11.0-15.0); White Blood Count 4.9 10^3/uL (4.0-11.0)
[2024-06-04 09:52] LABS: Anion Gap 12.7; BUN Creatinine Ratio 10.8; Carbon Dioxide 26.5 mmol/L (21.0-32.0); Chloride 107 mmol/L (98-107); Estimated GFR (African America >60 (>=60); Estimated GFR (Non-African Ame >60 (>=60); Glucose 89 mg/dL (74-106); Potassium 4.2 mmol/L (3.5-5.1); Sodium 142 mmol/L (136-145)
[2024-06-04 10:12] LABS: INR 1.03; Partial Thromboplastin Time 26.1 sec (22.3-36.2); Prothrombin Time 10.9 sec (9.0-11.6)
== END 2024-06-04 08:45 | disposition home or self-care (01) ==
LOC: PST 08:45
PROVIDERS: PCP Internal Medicine; Visit Provider Urology
DX: Z01.812 Encounter for preprocedural laboratory examination (principal); Z01.818 Encounter for other preprocedural examination; N20.0 Calculus of kidney
CPT/HCPCS: 80048; 85025; 85610; 85730; G0463

== ENCOUNTER 2024-06-05 12:02 | Day surgery (SDC) | payer MEDICARE, OTHER, SELFPAY ==
[2024-06-04 09:33] VITALS: BP 126/74; PULSE 61; TEMP 36.3; O2SAT 98; BMI 24.7
[2024-06-05] VITALS (10 sets, daily range): BP systolic 114–138; BP diastolic 67–92; PULSE 55–73; TEMP 36.1–36.2; O2SAT 94–97; BMI 24.4
--- NOTE | 2024-06-05 12:12 | XR_ITS ---
The [address] [address] Patient Name: RADHAMES MARQUEZ MRN: [id number] date: 1955 Sex: M Assigned Patient Location: [facility] Current Patient Location: Accession/Order Number: [id number] Exam Date: 06/05/2024 12:20 Report Date: 06/08/2024 13:28 At the request of: ELDON CHAUDHARI Procedure: XR abdomen 1V EXAMINATION: XR abdomen 1V HISTORY: kidney stones COMPARISON: 04/24/2024 FINDINGS: KIDNEY/URETER - RIGHT: Punctate lower pole nephrolith KIDNEY/URETER - LEFT: Lower pole nephrolith PELVIS: No visible ureteral calcifications. Any visible calcifications favor phleboliths. BOWEL: No abnormal dilation or deviation. BONES: No acute abnormality. Moderate degenerative changes OTHER: Negative. No abnormal gaseous collections. XR/XR abdomen 1V IMPRESSION: Bilateral nephrolithiasis Electronically authenticated by: QUINCY TOVAR Date: 06/08/2024 13:28
[2024-06-05] MEDS: LACTATED RINGER'S SOLUTION 1,000 ML 50 ML IV (12:47)
[2024-06-05] MEDS: CEFAZOLIN SODIUM 1 GM/50 ML D5W PREMIX IV (13:21)
--- NOTE | 2024-06-05 13:48 | PM.URSON ---
Urology Surgery Operative Note Operative Note Procedure Date: 06/05/24 Time Out Performed: yes Pre-op Diagnosis: Right nephrolithiasis Post-op Diagnosis: same as pre-op Procedures performed: 1. Right ESWL. Anesthesia: General-LMA Primary Surgeon: Emeka Grace Complications: None Estimated blood loss (mL): 0 Findings: 3 lower pole stones; 5 mm or less Specimens: None Drains: None Indications for Procedures: This gentleman has recurrent right nephrolithiasis. He has 3 stones in the lower pole each is 5 mm or less. He now presents for right ESWL. He has signed an informed consent after risks were explained. Some of these risks include bleeding, perinephric hematoma, infection and anesthesia to name a few. Detailed description of Procedure: The patient was brought to the Operating Room and placed on Siemens electromagnetic lithotripsy treatment table in the supine position. SCDs were placed on their lower extremities and turned on and functioning during the entire case. Timeout was done by all parties in the room. We all agreed upon the patient's identification and the planned procedures for this patient. General Anesthesia was then administered via LMA. Treatment head was then brought to the patient's right side. While using flourscopy the cluster of stones was identified and lined up into the crosshairs. We then began applying shocks. We started at power level 2.0 and increased to a maximum power level of 3.5. Intermittent fluoroscopy revealed that the stones began fragmenting within the first 600 shocks. We had continued fragmentation while 3000 shocks were delivered. After our 3000 shocks, we could not identify any formed stone remaining via fluoroscopy. The procedure was then terminated. He was then transferred to a [facility] bed and wheeled to PACU in stable condition.
== END 2024-06-05 15:10 | disposition home or self-care (01) ==
PROVIDERS: PCP Internal Medicine; Visit Provider Urology
PROC: (CPT 50590; principal; 2024-06-05 13:15)
DX: N20.0 Calculus of kidney (principal); N40.1 Benign prostatic hyperplasia with lower urinary tract symptoms; R31.9 Hematuria, unspecified; E78.5 Hyperlipidemia, unspecified; Z87.442 Personal history of urinary calculi; Z87.891 Personal history of nicotine dependence
CPT/HCPCS: 50590; 36415; 74018; J0690; J2250; J2704; J3010

== ENCOUNTER 2024-06-06 06:09 | Emergency (ER) | payer MEDICARE, OTHER, SELFPAY ==
[2024-06-06 06:13] VITALS: BP 146/86; PULSE 55; TEMP 36.6; O2SAT 98; BMI 24.7
--- OUTSIDE RECORDS SUMMARY | 2024-06-06 06:15 | XMS_ITS | CCD ---
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 Name Role Phone JAVI SEYMOUR Primary Care Physician [phone] LION, DR HALL Primary Care Unavailable GRACE, DR COLÓN Consulting Unavailable GRACE, DR COLÓN Admitting Unavailable GRACE, DR COLÓN Attending Unavailable BALL, DR HALL Primary Care Unavailable GRACE, DR COLÓN Admitting Unavailable GRACE, DR COLÓN Attending Unavailable GRACE, DR COLÓN Consulting Unavailable RIVERA, KAVYA Consulting Unavailable BALL, DR HALL Primary Care Unavailable GRACE, DR COLÓN Admitting Unavailable GRACE, DR COLÓN Attending Unavailable GARCE, DR COLÓN Consulting Unavailable REQUEST, DR BAL [...] GRACE, DR COLÓN Consulting Unavailable GRACE, DR CLOÓN Admitting Unavailable WEST, DR QUINCY Serrato Consulting Unavailable BALL, DR HALL Primary Care Unavailable GRACE, DR COÓLN Attending Unavailable GRACE, DR COLÓN Consulting Unavailable [...] physicia Propensity to adverse reactions 4 Comment:Done Network Chemistry Other Medications Current Medications Medication Drug Class(es) [...] 12:51pm Start: 09-20-2023 take 1 tablet by chesetr th once at bedtime HYDROcodone-Acetaminophen 5-325 MG [...] Refills(s) 0, Pharmacy: [facility] #[id number], 175, cm, 06/15/22 8:46:00 EDT, Height/Length Dosing, [...] 06-02-2014 11-19-2023 Chronic Other aftercare (1 source) director long term care (current) use of anticoagulants; 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: [JAIL CURRNT USE ANTICOAGULANTS] Onset: 08-16-2022 Episodic Other aftercare (1 source) Other fdc (current) drug therapy; 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: [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] Onset: 08-16-2022 Episodic Other aftercare (2 sources) director long term care (current) use of opiate analgesic Episodic Other aftercare (1 source) High risk drug monitoring status; 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: [director long term care (current) use of opiate analgesic] Episodic Other aftercare (1 source) Long-term current use of drug therapy; 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: [Other fdc (current) drug therapy] Episodic Other aftercare (1 source) Drug therapy finding; 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: [FCI (current) use of opiate analgesic] 02-27-2024 Episodic [...] [facility] [address] , [place] [phone]- [phone] Medications What How Much When Instructions Unchanged [...] body thro (more content not included)... Normal [facility] Urology Office/Clinic Noteon 05-22-2024 Urology Office/Clinic Note [...] Unspecified abdominal pain) (more content not included)... [facility] Comment on above: Result Comment: Elec tronically Signed By: Emeka GRACE MD\.br\Date and Time Signed: 05/22/24 09:36 EDT\.br\Electronically Co-Signed By: Divine Monae\.br\Date and Time Co-Signed: 05/22/24 09:34 EDT ECG 12-Leadon 02-07-2024 ECG 12-Lead [id number]# 1.00TIFF [facility] Lab Reportson 02-07-2024 Lab Reports [id number]# 1.00TIFF [facility] Operative Reporton Operative Report [id number] #1.00TIFF [facility] Consent for Procedure/Surger yon 02-06-2024 Consent for Procedure/Surgery [id number]# 1.00TIFF [facility] ED Note-Physicianon 02-06-20 ED Note-Physician [id number] #1.00TIFF [facility] Lab Reportson 02-06-2024 Lab Reports [id number]# 1.00TIFF Normal [facility] RAD - CT Reporton 02-06-2024 RAD - CT Report [id number] #1.00TIFF Normal [facility] RAD - MISCon 02-06-2024 RAD - MISC [id number] #1.00TIFF Normal [facility] XR KUB 1 VIEWon 09-13-2022 XR KUB [...] QUINCY TOVAR Date: 2022-09-13 11:13 Normal [facility]17 SARS-CoV-2 (COVID-19) RNA MARY+probe Ql (Unsp spec) Not detected Normal NOT DETECTED [facility] Comment on above: Result Comment: This test is not yet approved or cleared by the [place] FDA. When there are no FDA-approved or cleared tests available, and other criteria are met, FDA can make tests available under an emergency access mechanism called an Emergency Use Authorization (EUA). The EUA for this test is supported by the Power System Dispatcher of Health and Human Service's (HHS's) declaration [...] SARS-CoV-2. Performed By: #### C VDTB #### [facility] [address] [place] [address] Dr. Paramjit Cheng CBC AUTO DIFFon 08-30-2022 BASO # 0.0 103/ul Normal 0.0-0.1 [facility] Comment on above: Performed By: #### C BC #### [facility] [address] [place] [address] Dr. Paramjit Cheng Basophils/100 WBC (Bld) 0.6 % Normal 0.2-2.0 [facility] Comment on above: Performed By: #### C BC #### [facility] [address] [place] [address] Dr. Paramjit Cheng EO # 0.2 103/ul Normal 0.0-0.7 [facility] Comment on above: Performed By: #### C BC #### [facility] [address] [place] [address] Dr. Paramjit Cheng Eosinophils/100 WBC (Bld) 3.7 % Normal 0.9-7.0 [facility] Comment on above: Performed By: #### C BC #### [facility] [address] [place] [address] Dr. Paramjit Cheng Erythrocyte distribution width (RBC) [Ratio] 13.2 % Normal 11.0-15.0 [facility] Comment on above: Performed By: #### C BC #### [facility] [address] [place] [address] Dr. Paramjit Cheng Hematocrit (Bld) [Volume fraction] 43.2 % Normal 42.0-54.0 [facility] Comment on above: Performed By: #### C BC #### [facility] [address] [place] [address] Dr. Paramjit Cheng Hemoglobin (Bld) [Mass/Vol] 14.7 g/dL Normal 14.0-18.0 [facility] Comment on above: Performed By: #### C BC #### [facility] [address] [place] [address] Dr. Paramjit Cheng IG # 0.01 10e3/ul Normal 0.00-0.03 [facility] Comment on above: Performed By: #### C BC #### [facility] [address] [place] [address] Dr. Paramjit Cheng IG % 0.2 % Normal 0.0-0.5 [facility] Comment on above: Performed By: #### C BC #### [facility] [address] [place] [address] Dr. Paramjit Cheng LYMPH # 1.7 103/ul Normal 1.2-3.8 [facility] Comment on above: Performed By: #### C BC #### [facility] [address] [place] [address] Dr. Paramjit Cheng Lymphocytes/100 WBC (Bld) 34.9 % Normal 20.5-60.0 [facility] Comment on above: Performed By: #### C BC #### [facility] [address] [place] [address] Dr. Paramjit Cheng MANUAL DIFF REQ NO Normal [facility] Comment on above: Performed By: #### C BC #### [facility] [address] [place] [address] Dr. Paramjit Cheng MCH (RBC) [Entitic mass] 32.3 pg Normal 25.9-34.0 [facility] Comment on above: Performed By: #### C BC #### [facility] [address] [place] [address] Dr. Paramjit Cheng MCHC (RBC) [Mass/Vol] 34.0 g/dL Normal 29.9-35.2 [facility] Comment on above: Performed By: #### C BC #### [facility] [address] [place] [address] Dr. Paramjit Cheng MCV (RBC) [Entitic vol] 94.9 fL Critically high 80.0-94.0 [facility] Comment on above: Performed By: #### C BC #### [facility] [address] [address] [address] Paramjit Cheng MONO # 0.5 103/ul Normal 0.3-0.8 [facility] Comment on above: Performed By: #### C BC #### [facility] [address] [place] [address] Dr. Paramjit Cheng Monocytes/100 WBC (Bld) 9.3 % Normal 1.7-12.0 [facility] Comment on above: Performed By: #### C BC #### [facility] [address] [place] [address] Dr. Paramjit Cheng NEUT # 2.5 103/ul Normal 1.4-6.5 [facility] Comment on above: Performed By: #### C BC #### [facility] [address] [place] [address] Dr. Paramjit Cheng Neutrophils/100 WBC (Bld) 51.3 % Normal 43.0-75.0 [facility] Comment on above: Performed By: #### C BC #### [facility] [address] [place] [address] Dr. Paramjit Cheng Platelet mean volume (Bld) [Entitic vol] 9.2 fL Critically low 9.5-13.5 [facility] Comment on above: Performed By: #### C BC #### [facility] [address] [place] [address] Dr. Paramjit Cheng PLT 251 103/ul Normal 150-450 [facility] Comment on above: Performed By: #### C BC #### [facility] [address] [place] [address] Dr. Paramjit Cheng RBC 4.55 106/ul Critically low 4.70-6.10 The [facility] Comment on above: Performed By: #### C BC #### [facility] [address] [place] [address] Dr. Paramjit Cheng WBC 4.8 103/ul Normal 4.0-11.0 [facility] Comment on above: Performed By: #### C BC #### [facility] [address] [place] [address] Dr. Paramjit Cheng PROF CHEM 8 (BAS METB)on Anion gap [Moles/Vol] 13.7 mmol/L Normal Th [facility] Comment on above: Performed By: #### B MP #### [facility] [address] [address] [address] Paramjit Cheng Calcium [Mass/Vol] 8.9 mg/dL Normal 8.5-10.1 [facility] Comment on above: Performed By: #### B MP #### [facility] [address] [address] [address] Paramjit Cheng Chloride [Moles/Vol] 106 mmol/L Normal 98-107 [facility] Comment on above: Performed By: #### B MP #### [facility] [address] [address] [address] Paramjit Cheng CO2 [Moles/Vol] 27.2 mmol/L Normal 21.0-32.0 [facility] Comment on above: Performed By: #### B MP #### [facility] [address] [address] [address] Paramjit Cheng Creatinine [Mass/Vol] 0.89 mg/dL Normal 0.70-1.30 [facility] Comment on above: Performed By: #### B MP #### [facility] [address] [place] [address] Dr. Paramjit Cheng EGFR-AF COMORAN >60 Normal >=60 [facility] Comment on above: Performed By: #### B MP #### [facility] [address] [address] [address] Paramjit Cheng EGFR-NON AF COMORAN >60 Normal >=60 [facility] Comment on above: Performed By: #### B MP #### [facility] [address] [address] [address] Paramjit Cheng Glucose [Mass/Vol] 87 mg/dL Normal 74-106 [facility] Comment on above: Performed By: #### B MP #### [facility] [address] [place] [address] Dr. Paramjit Cheng Potassium [Moles/Vol] 3.9 mmol/L Normal 3.5-5.1 [facility] Comment on above: Performed By: #### B MP #### [facility] [address] [place] [address] Dr. Paramjit Cheng Sodium [Moles/Vol] 143 mmol/L Normal 136-145 [facility] Comment on above: Performed By: #### B MP #### [facility] [address] [place] [address] Dr. Paramjit Cheng Urea nitrogen [Mass/Vol] 12.0 mg/dL Normal 7.0-18.0 [facility] Comment on above: Performed By: #### B MP #### [facility] [address] [place] [address] Dr. Paramjit Cheng Urea nitrogen/Creatinine [Mass ratio] 13.5 mg/mg Normal [facility] Comment on above: Performed By: #### B MP #### [facility] [address] [place] [address] Dr. Paramjit Cheng PROTIMEon 08-30-2022 INR Coag (PPP) [Relative time] 0.97 {INR} Normal [facility] Comment on above: Performed By: #### P TT, PT #### [facility] [address] [place] [address] Dr. Paramjit Cheng INR GUIDELINES SEE BELOW Normal [facility] Comment on above: Result Comment: ROSE RED INR: 2.0 - 3.0 CONDITIONS NOT LISTED BELOW 2.5 - 3.5 FOR PROSTHETIC HEART VALVE REPLACEMENT 2.5 - 3.5 RECURRENT THROMBOSIS Performed By: #### P TT, PT #### [facility] [address] [place] [address] Dr. Paramjit Cheng PT Coag (PPP) [Time] 10.5 s Normal 9.0-11.6 [facility] Comment on above: Performed By: #### P TT, PT #### [facility] [address] [place] [address] Dr. Paramjit Cheng PTTon 08-30-2022 aPTT Coag (Bld) [Time] 25.6 s Normal 22.3-36.2 [facility] Comment on above: Performed By: #### P TT, PT #### [facility] [address] [address] [address] Paramjit Cheng CALCULI, URINARYon 2 2,8 Dihydroxyadenine Normal [facility] Comment on above: Performed By: #### C ALCULI #### [facility] [address] [address] [address] Paramjit Cheng Ammonium Acid Urate Normal [facility] Comment on above: Performed By: #### C ALCULI #### [facility] [address] [address] [address] Paramjit Cheng Bilirubin Ql (U) Normal [facility] Comment on above: Performed By: #### C ALCULI #### [facility] [address] [address] [address] Paramjit Cheng Ca Oxalate Dihydrate 20 % [facility] Comment on above: Performed By: #### C ALCULI #### [facility] [address] [address] [address] Paramjit Cheng Ca Oxalate Dihydrate 30 % Normal [facility] Comment on above: Performed By: #### C ALCULI #### [facility] [address] [address] [address] Paramjit Cheng CaHPO4 (Brushite) [facility] Comment on above: Performed By: #### C ALCULI #### [facility] [address] [address] [address] Paramjit Cheng Calcium Bilirubinate Normal [facility] Comment on above: Performed By: #### C ALCULI #### [facility] [address] [address] [address] Paramjit Cheng Calcium Carbonate Normal [facility] Comment on above: Performed By: #### C ALCULI #### [facility] [address] [address] [address] Paramjit Cheng Calcium Oxalate Monohydrate 80 % Normal [facility] Comment on above: Performed By: #### C ALCULI #### [facility] [address] [address] [address] Paramjit Cheng Calcium Oxalate Monohydrate 70 % Normal [facility] Comment on above: Performed By: #### C ALCULI #### [facility] [address] [address] [address] Paramjit Cheng Calcium Palmitate Normal [facility] Comment on above: Performed By: #### C ALCULI #### [facility] [address] [address] [address] Paramjit Cheng Calcium Phosphate Normal [facility] Comment on above: Performed By: #### C ALCULI #### [facility] [address] [address] [address] Paramjit Cheng Calcium Stearate [facility] Comment on above: Performed By: #### C ALCULI #### [facility] [address] [address] [address] Paramjit Cheng Carbonate Apatite Normal [facility] Comment on above: Performed By: #### C ALCULI #### [facility] [address] [address] [address] Paramjit Cheng Cellular Material [facility] Comment on above: Performed By: #### C ALCULI #### [facility] [address] [address] [address] Paramjit Cheng Cholesterol [facility] Comment on above: Performed By: #### C ALCULI #### [facility] [address] [address] [address] Paramjit Cheng Color (U) Brown Normal [facility] Comment on above: Performed By: #### C ALCULI #### [facility] [address] [address] [address] Paramjit Cheng Comment [facility] Comment on above: Performed By: #### C ALCULI #### [facility] [address] [address] [address] Paramjit Cheng Comment Comment [facility] Comment on above: Result Comment: Calc ulus received wet. Wet calculi must be dried before analysis, which delays reporting of results. Leaving calculi wet (such as water, saline, blood, urine) may lead to changes in composition. Performed By: #### C ALCULI #### [facility] [address] [address] [address] Paramjit Cheng Result Comment: Sour ce provided- right [facility] Comment: Comment Normal [facility] Comment on above: Result Comment: Zohreh causey questions regarding Calculi Analysis [facility] at: [phone]. Performed By: #### C ALCULI #### [facility] [address] [address] [address] Paramjit Cheng Composition Comment Normal [facility] Comment on above: Result Comment: Perc entage (Represents the % composition) Performed By: #### C ALCULI #### [facility] [address] [address] [address] Paramjit Cheng Cystine [facility] Comment on above: Performed By: #### C ALCULI #### [facility] [address] [address] [address] Paramjit Cheng Disclaimer: Comment Normal [facility] Comment on above: Result Comment: This test was developed and its performance characteristics determined by [facility]. It has not been cleared or approved by the Food and Drug Administration. Performed By: #### C ALCULI #### [facility] [address] [address] [address] Paramjit Cheng Dried Blood [facility] Comment on above: Performed By: #### C ALCULI #### [facility] [address] [place] [address] Dr. Paramjit Cheng Drug or Metabolite Normal [facility] Comment on above: Performed By: #### C ALCULI #### [facility] [address] [address] [address] Paramjit Cheng Hydroxyapatite Normal [facility] Comment on above: Performed By: #### C ALCULI #### [facility] [address] [address] [address] Paramjit Cheng Mg NH4 PO4 (Struvite) [facility] Comment on above: Performed By: #### C ALCULI #### [facility] [address] [address] [address] Paramjit Cheng MgHPO4 (Newberyite) Normal [facility] Comment on above: Performed By: #### C ALCULI #### [facility] [address] [address] [address] Paramjit Cheng Other component(s) Normal [facility] Comment on above: Performed By: #### C ALCULI #### [facility] [address] [address] [address] Paramjit Cheng PDF . Normal [facility] Comment on above: Performed By: #### C ALCULI #### [facility] [address] [address] [address] Paramjit Cheng Photo Comment [facility] Comment on above: Result Comment: Phot ograph will follow under a separate cover Performed By: #### C ALCULI #### [facility] [address] [address] [address] Paramjit Cheng Please note: Comment [facility] Comment on above: Result Comment: Calc diana report will follow via computer, mail or galley boy delivery. Performed By: #### C ALCULI #### [facility] [address] [address] [address] Paramjit Cheng Size 6x4 [facility] Comment on above: Result Comment: Mult iple pieces received. Dimensions of the largest piece reported. Performed By: #### C ALCULI #### [facility] [address] [address] [address] Paramjit Cheng Size 3x2 [facility] Comment on above: Result Comment: Mult iple pieces received. Dimensions of the largest piece reported. Performed By: #### C ALCULI #### [facility] [address] [address] [address] Paramjit Cheng Sodium Acid Urate Normal [facility] Comment on above: Performed By: #### C ALCULI #### [facility] [address] [address] [address] Paramjit Cheng Source Comment [facility] Comment on above: Result Comment: Urin saavge Bladder Performed By: #### C ALCULI #### [facility] [address] [address] [address] Paramjit Cheng Result Comment: Not provided Triamterene Normal [facility] Comment on above: Performed By: #### C ALCULI #### [facility] [address] [address] [address] Paramjit Cheng Uric Acid Normal [facility] Comment on above: Performed By: #### C ALCULI #### [facility] [address] [address] [address] Paramjit Cheng Uric Acid Dihydrate Normal [facility] Comment on above: Performed By: #### C ALCULI #### [facility] [address] [address] [address] Paramjit Cheng Weight 636 mg Normal [facility] Comment on above: Performed By: #### C ALCULI #### [facility] [address] [address] [address] Paramjit Cheng Weight 18 mg Normal [facility] Comment on above: Performed By: #### C ALCULI #### [facility] [address] [address] [address] Paramjit Cheng Xanthine Normal [facility] Comment on above: Performed By: #### C ALCULI #### [facility] [address] [address] [address] Paramjit Cheng XR KUB 1 VIEWon [...] by: TITUS TELLEZ Date: 2022 06:37 Normal [facility] Covid-19 PCR (CVDTBH)on 07-17 SARS-CoV-2 (COVID-19) RNA MARY+probe Ql (Unsp spec) Not detected Normal NOT DETECTED [facility] Comment on above: Result Comment: This test is not yet approved or cleared by the [place] FDA. When there are no FDA-approved or cleared tests available, and other criteria are met, FDA can make tests available under an emergency access mechanism called an Emergency Use Authorization (EUA). The EUA for this test is supported by the [place] of Health and Human Service's (HHS's) declaration [...] Performed By: #### P TT, PT #### [facility] [address] [place] [address] Dr. Paramjit Cheng CBC AUTO DIFFon 07-23-2022 BASO # 0.0 103/ul Normal 0.0-0.1 [facility] Comment on above: Performed By: #### P TT, PT #### [facility] [address] [place] [address] Dr. Paramjit Cheng Basophils/100 WBC (Bld) 0.4 % Normal 0.2-2.0 [facility] Comment on above: Performed By: #### P TT, PT #### [facility] [address] [place] [address] Dr. Paramjit Cheng EO # 0.1 103/ul Normal 0.0-0.7 [facility] Comment on above: Performed By: #### P TT, PT #### [facility] [address] [place] [address] Dr. Paramjit Cheng Eosinophils/100 WBC (Bld) 2.5 % Normal 0.9-7.0 [facility] Comment on above: Performed By: #### P TT, PT #### [facility] [address] [place] [address] Dr. Paramjit Cheng Erythrocyte distribution width (RBC) [Ratio] 13.0 % Normal 11.0-15.0 [facility] Comment on above: Performed By: #### P TT, PT #### [facility] [address] [place] [address] Dr. Paramjit Cheng Hematocrit (Bld) [Volume fraction] 41.7 % Critically low 42.0-54.0 [facility] Comment on above: Performed By: #### P TT, PT #### [facility] [address] [place] [address] Dr. Paramjit Cheng Hemoglobin (Bld) [Mass/Vol] 14.5 g/dL Normal 14.0-18.0 [facility] Comment on above: Performed By: #### P TT, PT #### [facility] [address] [place] [address] Dr. Paramjit Cheng IG # 0.01 10e3/ul Normal 0.00-0.03 [facility] Comment on above: Performed By: #### P TT, PT #### [facility] [address] [place] [address] Dr. Paramjit Cheng IG % 0.2 % Normal 0.0-0.5 [facility] Comment on above: Performed By: #### P TT, PT #### [facility] [address] [place] [address] Dr. Paramjit Cheng LYMPH # 1.6 103/ul Normal 1.2-3.8 [facility] Comment on above: Performed By: #### P TT, PT #### [facility] [address] [place] [address] Dr. Paramjit Cehng Lymphocytes/100 WBC (Bld) 27.6 % Normal 20.5-60.0 [facility] Comment on above: Performed By: #### P TT, PT #### [facility] [address] [place] [address] Dr. Paramjit Cheng MANUAL DIFF REQ NO Normal [facility] Comment on above: Performed By: #### P TT, PT #### [facility] [address] [place] [address] Dr. Paramjit Cheng MCH (RBC) [Entitic mass] 32.8 pg Normal 25.9-34.0 [facility] Comment on above: Performed By: #### P TT, PT #### [facility] [address] [place] [address] Dr. Paramjit Cheng MCHC (RBC) [Mass/Vol] 34.8 g/dL Normal 29.9-35.2 [facility] Comment on above: Performed By: #### P TT, PT #### [facility] [address] [place] [address] Dr. Paramjit Cheng MCV (RBC) [Entitic vol] 94.3 fL Critically high 80.0-94.0 [facility] Comment on above: Performed By: #### P TT, PT #### [facility] [address] [place] [address] Dr. Paramjit Cheng MONO # 0.5 103/ul Normal 0.3-0.8 [facility] Comment on above: Performed By: #### P TT, PT #### [facility] [address] [place] [address] Dr. Paramjit Cheng Monocytes/100 WBC (Bld) 8.0 % Normal 1.7-12.0 [facility] Comment on above: Performed By: #### P TT, PT #### [facility] [address] [place] [address] Dr. Paramjit Cheng NEUT # 3.5 103/ul Normal 1.4-6.5 [facility] Comment on above: Performed By: #### P TT, PT #### [facility] [address] [place] [address] Dr. Paramjit Cheng Neutrophils/100 WBC (Bld) 61.3 % Normal 43.0-75.0 [facility] Comment on above: Performed By: #### P TT, PT #### [facility] [address] [place] [address] Dr. Paramjit Cheng Platelet mean volume (Bld) [Entitic vol] 9.5 fL Normal 9.5-13.5 [facility] Comment on above: Performed By: #### P TT, PT #### [facility] [address] [place] [address] Dr. Paramjit Cheng PLT 252 103/ul Normal 150-450 [facility] Comment on above: Performed By: #### P TT, PT #### [facility] [address] [address] [address] Paramjit Cheng RBC 4.42 106/ul Critically low 4.70-6.10 [facility] Comment on above: Performed By: #### P TT, PT #### [facility] [address] [place] [address] Dr. Paramjit Cheng WBC 5.6 103/ul Normal 4.0-11.0 [facility] Comment on above: Performed By: #### P TT, PT #### [facility] [address] [place] [address] Dr. Paramjit Cheng PROF CHEM 8 (BAS METB)on Anion gap [Moles/Vol] 9.6 mmol/L Normal [facility] Comment on above: Performed By: #### D ATCBC #### [facility] [address] [place] [address] Dr. Paramjit Cheng Calcium [Mass/Vol] 8.6 mg/dL Normal 8.5-10.1 [facility] Comment on above: Performed By: #### D ATCBC #### [facility] [address] [place] [address] Dr. Paramjit Cheng Chloride [Moles/Vol] 107 mmol/L Normal 98-107 [facility] Comment on above: Performed By: #### D ATCBC #### [facility] [address] [place] [address] Dr. Paramjit Cheng CO2 [Moles/Vol] 28.0 mmol/L Normal 21.0-32.0 [facility] Comment on above: Performed By: #### D ATCBC #### [facility] [address] [place] [address] Dr. Paramjit Cheng Creatinine [Mass/Vol] 0.98 mg/dL Normal 0.70-1.30 [facility] Comment on above: Performed By: #### D ATCBC #### [facility] [address] [place] [address] Dr. Paramjit Cheng EGFR-AF COMORAN >60 Normal >=60 [facility] Comment on above: Performed By: #### D ATCBC #### [facility] [address] [place] [address] Dr. Paramjit Cheng EGFR-NON AF COMORAN >60 Normal >=60 [facility] Comment on above: Performed By: #### D ATCBC #### [facility] [address] [place] [address] Dr. Paramjit Cheng Glucose [Mass/Vol] 90 mg/dL Normal 74-106 [facility] Comment on above: Performed By: #### D ATCBC #### [facility] [address] [place] [address] Dr. Paramjit Cheng Potassium [Moles/Vol] 3.6 mmol/L Normal 3.5-5.1 [facility] Comment on above: Performed By: #### D ATCBC #### [facility] [address] [place] [address] Dr. Paramjit Cheng Sodium [Moles/Vol] 141 mmol/L Normal 136-145 [facility] Comment on above: Performed By: #### D ATCBC #### [facility] [address] [place] [address] Dr. Paramjit Cheng Urea nitrogen [Mass/Vol] 12.0 mg/dL Normal 7.0-18.0 [facility] Comment on above: Performed By: #### D ATCBC #### [facility] [address] [place] [address] Dr. Paramjit Cheng Urea nitrogen/Creatinine [Mass ratio] 12.2 mg/mg Normal [facility] Comment on above: Performed By: #### D ATCBC #### [facility] [address] [place] [address] Dr. Paramjit Cheng PROTIMEon 07-23-2022 INR Coag (PPP) [Relative time] 1.04 {INR} Normal [facility] Comment on above: Performed By: #### P TT, PT #### [facility] [address] [place] [address] Dr. Paramjit Cheng INR GUIDELINES SEE BELOW Normal [facility] Comment on above: Result Comment: ROSE RED INR: 2.0 - 3.0 CONDITIONS NOT LISTED BELOW 2.5 - 3.5 FOR PROSTHETIC HEART VALVE REPLACEMENT 2.5 - 3.5 RECURRENT THROMBOSIS Performed By: #### P TT, PT #### [facility] [address] [address] [address] Paramjit Cheng PT Coag (PPP) [Time] 11.2 s Normal 9.0-11.6 [facility] Comment on above: Performed By: #### P TT, PT #### [facility] [address] [place] [address] Dr. Paramjit Cheng PTTon 07-23-2022 aPTT Coag (Bld) [Time] 25.1 s Normal 22.3-36.2 [facility] Comment on above: Performed By: #### P TT, PT #### [facility] [address] [place] [address] ABD/PELVIS WO CONon [...] by: QUINCY TOVAR Date: 2022-07-06 08:48 Normal [facility] XR KUB 1 VIEWon 06-17-2022 [...] by: QUINCY TOVAR Date: 2022-06-17 11:24 Normal [facility] CREATININEon 04-25-2022 Creatinine [Mass/Vol] 0.99 mg/dL Normal 0.70-1.30 [facility] Comment on above: Performed By: #### C APRIL #### [facility] [address] [place] [address] Dr. Paramjit Cheng EGFR-AF COMORAN >60 Normal >=60 [facility] Comment on above: Performed By: #### C APRIL #### [facility] [address] [address] [address] Paramjit Cheng EGFR-NON AF COMORAN >60 Normal >=60 [facility] Comment on above: Performed By: #### C APRIL #### [facility] [address] [place] [address] ABD/PELV WO W [...] QUINCY TOVAR Date: 2022-04-25 12:01 Normal [facility] CBC AUTO DIFFon 12-01-2021 BASO # 0.0 103/ul Normal 0.0-0.1 [facility] Comment on above: Performed By: #### D ATCBC #### [facility] [address] [address] [address] Paramjit Cheng Basophils/100 WBC (Bld) 0.4 % Normal 0.2-2.0 [facility] Comment on above: Performed By: #### D ATCBC #### [facility] [address] [place] [address] Dr. Paramjit Cheng EO # 0.2 103/ul Normal 0.0-0.7 [facility] Comment on above: Performed By: #### D ATCBC #### [facility] [address] [place] [address] Dr. Paramjit Cheng Eosinophils/100 WBC (Bld) 3.8 % Normal 0.9-7.0 [facility] Comment on above: Performed By: #### D ATCBC #### [facility] [address] [place] [address] Dr. Paramjit Cheng Erythrocyte distribution width (RBC) [Ratio] 13.7 % Normal 11.0-15.0 [facility] Comment on above: Performed By: #### D ATCBC #### [facility] [address] [place] [address] Dr. Paramjit Cheng Hematocrit (Bld) [Volume fraction] 44.1 % Normal 42.0-54.0 [facility] Comment on above: Performed By: #### D ATCBC #### [facility] [address] [place] [address] Dr. Paramjit Cheng Hemoglobin (Bld) [Mass/Vol] 14.9 g/dL Normal 14.0-18.0 [facility] Comment on above: Performed By: #### D ATCBC #### [facility] [address] [place] [address] Dr. Paramjit Cheng IG # 0.01 10e3/ul Normal 0.00-0.03 [facility] Comment on above: Performed By: #### D ATCBC #### [facility] [address] [place] [address] Dr. Paramjit Cheng IG % 0.2 % Normal 0.0-0.5 [facility] Comment on above: Performed By: #### D ATCBC #### [facility] [address] [place] [address] Dr. Paramjit Cheng LYMPH # 2.1 103/ul Normal 1.2-3.8 [facility] Comment on above: Performed By: #### D ATCBC #### [facility] [address] [place] [address] Dr. Paramjit Cheng Lymphocytes/100 WBC (Bld) 37.9 % Normal 20.5-60.0 [facility] Comment on above: Performed By: #### D ATCBC #### [facility] [address] [address] [address] Paramjit Cheng MCH (RBC) [Entitic mass] 31.9 pg Normal 25.9-34.0 [facility] Comment on above: Performed By: #### D ATCBC #### [facility] [address] [place] [address] Dr. Paramjit Cheng MCHC (RBC) [Mass/Vol] 33.8 g/dL Normal 29.9-35.2 [facility] Comment on above: Performed By: #### D ATCBC #### [facility] [address] [place] [address] Dr. Paramjit Cheng MCV (RBC) [Entitic vol] 94.4 fL Critically high 80.0-94.0 [facility] Comment on above: Performed By: #### D ATCBC #### [facility] [address] [place] [address] Dr. Paramjit Cheng MONO # 0.5 103/ul Normal 0.3-0.8 [facility] Comment on above: Performed By: #### D ATCBC #### [facility] [address] [place] [address] Dr. Paramjit Cheng Monocytes/100 WBC (Bld) 9.7 % Normal 1.7-12.0 [facility] Comment on above: Performed By: #### D ATCBC #### [facility] [address] [place] [address] Dr. Paramjit Cheng NEUT # 2.6 103/ul Normal 1.4-6.5 [facility] Comment on above: Performed By: #### D ATCBC #### [facility] [address] [place] [address] Dr. Paramjit Cheng Neutrophils/100 WBC (Bld) 48.0 % Normal 43.0-75.0 [facility] Comment on above: Performed By: #### D ATCBC #### [facility] [address] [place] [address] Dr. Paramjit Cheng Platelet mean volume (Bld) [Entitic vol] 9.6 fL Normal 9.5-13.5 [facility] Comment on above: Performed By: #### D ATCBC #### [facility] [address] [address] [address] Paramjit Cheng PLT 254 103/ul Normal 150-450 [facility] Comment on above: Performed By: #### D ATCBC #### [facility] [address] [address] [address] Paramjit Cheng RBC 4.67 106/ul Critically low 4.70-6.10 [facility] Comment on above: Performed By: #### D ATCBC #### [facility] [address] [address] [address] Paramjit Cheng WBC 5.5 103/ul Normal 4.0-11.0 [facility] Comment on above: Performed By: #### D ATCBC #### [facility] [address] [address] [address] Paramjit Cheng FLORENTIN- BMP WITH LIPIDon 2021 Anion gap [Moles/Vol] 12.5 mmol/L Normal [facility] Comment on above: Performed By: #### P TT, PT #### [facility] [address] [address] [address] Paramjit Cheng Calcium [Mass/Vol] 8.8 mg/dL Normal 8.5-10.1 [facility] Comment on above: Performed By: #### P TT, PT #### [facility] [address] [address] [address] Paramjit Cheng Chloride [Moles/Vol] 104 mmol/L Normal 98-107 [facility] Comment on above: Performed By: #### P TT, PT #### [facility] [address] [address] [address] Paramjit Cheng Cholesterol [Mass/Vol] 220 mg/dL Critically high <=200 [facility] Comment on above: Performed By: #### P TT, PT #### [facility] [address] [address] [address] Paramjit Cheng Cholesterol in HDL [Mass/Vol] 65 mg/dL Critically high 40-60 [facility] Comment on above: Performed By: #### P TT, PT #### [facility] [address] [address] [address] Paramjit Cheng Cholesterol in LDL [Mass/Vol] 133.0 mg/dL Normal [facility] Comment on above: Performed By: #### P TT, PT #### [facility] [address] [address] [address] Paramjit Cheng CO2 [Moles/Vol] 27.6 mmol/L Normal 22.0-30.0 [facility] Comment on above: Performed By: #### P TT, PT #### [facility] [address] [address] [address] Paramjit Cheng Creatinine [Mass/Vol] 0.97 mg/dL Normal 0.66-1.25 [facility] Comment on above: Performed By: #### P TT, PT #### [facility] [address] [address] [address] Paramjit Cheng EGFR-AF COMORAN >60 Normal >=60 [facility] Comment on above: Performed By: #### P TT, PT #### [facility] [address] [address] [address] Paramjit Cheng EGFR-NON AF COMORAN >60 Normal >=60 [facility] Comment on above: Performed By: #### P TT, PT #### [facility] [address] [address] [address] Paramjit Cheng Glucose [Mass/Vol] 98 mg/dL Normal 74-106 [facility] Comment on above: Performed By: #### P TT, PT #### [facility] [address] [address] [address] Paramjit Cheng HDL NORMAL > or = 60 mg/dl - LOW CARDIOVASCULAR RISK <40 mg/dl - HIGH CARDIOVASCULAR RISK Normal [facility] Comment on above: Performed By: #### P TT, PT #### [facility] [address] [address] [address] Paramjit Cheng LDL CALC NORMAL SEE BELOW Normal [facility] Comment on above: Result Comment: <100 mg/dl OPTIMAL 100 - 129 mg/dl NEAR OR ABOVE OPTIMAL 130 - 159 mg/dl BORDERLINE HIGH 160 - 189 mg/dl HIGH >190 mg/dl VERY HIGH Performed By: #### P TT, PT #### [facility] [address] [place] [address] Dr. Paramjit Cheng Potassium [Moles/Vol] 4.1 mmol/L Normal 3.4-5.0 [facility] Comment on above: Performed By: #### P TT, PT #### [facility] [address] [address] [address] Paramjit Cheng Sodium [Moles/Vol] 140 mmol/L Normal 137-145 [facility] Comment on above: Performed By: #### P TT, PT #### [facility] [address] [place] [address] Dr. Paramjit Cheng Triglyceride [Mass/Vol] 110 mg/dL Normal <=150 [facility] Comment on above: Performed By: #### P TT, PT #### [facility] [address] [place] [address] Dr. Paramjit Cheng Urea nitrogen [Mass/Vol] 13.0 mg/dL Normal 7.0-18.0 [facility] Comment on above: Performed By: #### P TT, PT #### [facility] [address] [place] [address] Dr. Paramjit Cheng Urea nitrogen/Creatinine [Mass ratio] 13.4 mg/mg Normal [facility] Comment on above: Performed By: #### P TT, PT #### [facility] [address] [place] [address] Dr. Paramjit Cheng VLDL CALC 22.0 mg/dL Normal [facility] Comment on above: Performed By: #### P TT, PT #### [facility] [address] [place] [address] Dr. Paramjit Cheng Vital Signs Date Time Vital Sign Value Performing Clinician Facility 05-22-2024 08:47-0400 Blood Pressure Location Emeak GRACE [facility] 05-22-2024 08:47-0400 Diastolic blood pressure 80 mm[Hg] Emeka GRACE [facility] 05-22-2024 08:47-0400 Heart rate 61 /min Emeka GRACE [facility] 05-22-2024 08:47-0400 Respiratory rate 18 /min Emeka GRACE [facility] 05-22-2024 08:47-0400 Systolic blood pressure 116 mm[Hg] Emeka GRACE [facility] 02-27-2024 14:30-0400 Body height 177.8 cm [facility] 02-27-2024 14:30-0400 Body mass index (BMI) [Ratio] 24.7 kg/m2 [facility] 02-27-2024 14:30-0400 Body weight 78.18 kg [facility] 02-27-2024 14:30-0400 Diastolic blood pressure 60 mm[Hg] [facility] 02-27-2024 14:30-0400 Heart rate 70 /min [facility] 02-27-2024 14:30-0400 Respiratory rate 12 /min [facility] 02-27-2024 14:30-0400 Systolic blood pressure 100 mm[Hg] [facility] 02-11-2024 13:37-0400 Body height 177.8 cm [facility] 02-11-2024 13:37-0400 Body mass index (BMI) [Ratio] 24.7 kg/m2 [facility] 02-11-2024 13:37-0400 Body weight 78.13 kg [facility] 02-11-2024 13:37-0400 Diastolic blood pressure 74 mm[Hg] [facility] 02-11-2024 13:37-0400 Heart rate 66 /min [facility] 02-11-2024 13:37-0400 Respiratory rate 12 /min [facility] 02-11-2024 13:37-0400 Systolic blood pressure 120 mm[Hg] [facility] 11-21-2023 08:47-0500 Body height 177.8 cm [facility] 11-21-2023 08:47-0500 Body mass index (BMI) [Ratio] 24.8 kg/m2 [facility] 11-21-2023 08:47-0500 Body weight 78.52 kg [facility] 11-21-2023 08:47-0500 Diastolic blood pressure 71 mm[Hg] [facility] 11-21-2023 08:47-0500 Heart rate 60 /min [facility] 11-21-2023 08:47-0500 Respiratory rate 12 /min [facility] 11-21-2023 08:47-0500 Systolic blood pressure 119 mm[Hg] [facility] 08-21-2023 08:30-0500 Body height 177.8 cm Javi Ball Other [facility] Other 08-21-2023 08:30-0500 Body mass index (BMI) [Ratio] 24.82 kg/m2 Javi Ball Other [facility] Other 08-21-2023 08:30-0500 Body weight 78.47 kg Javi Ball Other [facility] Other 08-21-2023 08:30-0500 Diastolic blood pressure 71 mm[Hg] Javi Ball Other [facility] Other 08-21-2023 08:30-0500 Respiratory rate 12 /min Javi Ball Other [facility] Other 08-21-2023 08:30-0500 Systolic blood pressure 116 mm[Hg] Javi Ball Other [facility] Other 06-11-2023 15:30-0400 Body height 177.8 cm Javi Ball Other [employer] Other 06-11-2023 15:30-0400 Body mass index (BMI) [Ratio] 24.96 kg/m2 Javi Ball Other [employer] Other 06-11-2023 15:30-0400 Body weight 78.93 kg Javi Ball Other [employer] Other 06-11-2023 15:30-0400 Diastolic blood pressure 64 mm[Hg] Javi Ball Other [employer] Other 06-11-2023 15:30-0400 Respiratory rate 12 /min Javi Ball Other [employer] Other 06-11-2023 15:30-0400 Systolic blood pressure 122 mm[Hg] Javi Ball Other [employer] Other 05-21-2023 08:30-0400 Body height 177.8 cm Javi Ball Other [employer] Other 05-21-2023 08:30-0400 Body mass index (BMI) [Ratio] 24.68 kg/m2 Javi Ball Other [employer] Other 05-21-2023 08:30-0400 Body weight 78.02 kg Javi Ball Other [employer] Other 05-21-2023 08:30-0400 Diastolic blood pressure 78 mm[Hg] Javi Ball Other [employer] Other 05-21-2023 08:30-0400 Respiratory rate 12 /min Javi Ball Other [employer] Other 05-21-2023 08:30-0400 Systolic blood pressure 119 mm[Hg] Javi Ball Other [facility] [employer] Other 04-26-2023 09:06-0400 Blood Pressure Location Emeka GRACE [facility] 04-26-2023 09:06-0400 Diastolic blood pressure 78 mm[Hg] Emeka GRACE [facility] 04-26-2023 09:06-0400 Heart rate 74 /min Emeka GRACE [facility] 04-26-2023 09:06-0400 Respiratory rate 16 /min Emeka GRACE [facility] 04-26-2023 09:06-0400 Systolic blood pressure 118 mm[Hg] Emeka GRACE [facility] 02-14-2023 08:30-0400 Body height 177.8 cm Javi Ball Other [facility] imagine Other 02-14-2023 08:30-0400 Body mass index (BMI) [Ratio] 25.28 kg/m2 Javi Ball Other [facility] Other 02-14-2023 08:30-0400 Body weight 79.92 kg Javi Ball Other [facility] imagine Other 02-14-2023 08:30-0400 Diastolic blood pressure 70 mm[Hg] Javi Ball Other [employer] Other 02-14-2023 08:30-0400 Respiratory rate 12 /min Javi Ball Other [facility] [employer] Other 02-14-2023 08:30-0400 Systolic blood pressure 115 mm[Hg] Javi Ball Other [facility] Other 11-06-2022 08:30-0500 Body height 177.8 cm Javi Ball Other [facility] [employer] Other 11-06-2022 08:30-0500 Body mass index (BMI) [Ratio] 25.51 kg/m2 Javi Ball Other [facility] [employer] Other 11-06-2022 08:30-0500 Body weight 80.65 kg Javi Ball Other [facility] [employer] Other 11-06-2022 08:30-0500 Diastolic blood pressure 70 mm[Hg] Javi Ball Other [facility] [employer] Other 11-06-2022 08:30-0500 Respiratory rate 12 /min Javi Ball Other [facility] [employer] Other 11-06-2022 08:30-0500 Systolic blood pressure 102 mm[Hg] Javi Ball Other [facility] [employer] Other 06-15-2022 08:43-0400 Blood Pressure Location Emeka GRACE [facility] 06-15-2022 08:43-0400 Diastolic blood pressure 80 mm[Hg] Emekalauri GRACE [facility] 06-15-2022 08:43-0400 Systolic blood pressure 133 mm[Hg] Emeka GRACE [facility] 04-02-2022 10:11-0400 Blood Pressure Location Emeka GRACE [facility] 04-02-2022 10:11-0400 Diastolic blood pressure 78 mm[Hg] Emeka GRACE [facility] 04-02-2022 10:11-0400 Heart rate 81 /min Emeka GRACE [facility] 04-02-2022 10:11-0400 Respiratory rate 16 /min Emeka GRACE [facility] 04-02-2022 10:11-0400 Systolic blood pressure 117 mm[Hg] Emeka GRACE [facility] Encounters Encounter Date Encounter Type Care Provider Facility Start: 06-11-2024 ambulatory Emeka Rangeli ty:[id number] Start: 05-22-2024 End: 05-22-2024 ambulatory Emeka Peggy RGACE [facility] Start: 05-22-2024 End: 05-22-2024 Patient encounter procedure Emeka GRACE [facility] Start: 05-01-2024 ambulatory Emeka Rangeli ty:[facility] [place] Start: 02-27-2024 End: 02-27-2024 ambulatory [facility] Work Phone: Start: 02-27-2024 End: 02-27-2024 Patient encounter procedure [facility] Work Phone: Start: 02-11-2024 End: 02-11-2024 ambulatory [facility] Work Phone: Start: 02-11-2024 End: 02-11-2024 Patient encounter procedure [facility] Work Phone: Start: 02-06-2024 End: 02-06-2024 ambulatory Emeka GRACE Facility:[id number] Start: 11-21-2023 End: 11-21-2023 Patient encounter procedure [facility] Work Phone: Start: 11-19-2023 End: 11-19-2023 ambulatory Javi Seymour Other [employer] Other Start: 11-19-2023 Telephone encounter Javi Ball FP [facility] Start: 09-20-2023 End: 09-20-2023 ambulatory Javi Ball Other [facility] [employer] Other Start: 09-20-2023 Telephone encounter Javi Ball FP [facility] Start: 08-21-2023 End: 08-21-2023 ambulatory Javi Ball Other [facility] [employer] Other Start: 08-21-2023 Office outpatient vi sit 15 minutes Javi Ball [facility] Start: 08-19-2023 End: 08-19-2023 ambulatory Javi Ball Other [employer] Other Start: 08-19-2023 Telephone encounter Javi Ball FP [facility] Start: 08-02-2023 End: 08-02-2023 ambulatory Javi Ball Other [employer] Other Start: 08-02-2023 Telephone encounter Javi Ball FP [facility] Start: 06-28-2023 End: 06-28-2023 ambulatory Javi Ball Other [facility] [employer] Other Start: 06-28-2023 Telephone encounter Javi Ball FP [facility] Start: 06-11-2023 End: 06-11-2023 ambulatory Javi Ball Other [facility] [employer] Other Start: 06-11-2023 Office outpatient vi sit 15 minutes Javi Ball [facility] Start: 05-21-2023 End: 05-21-2023 ambulatory Javi Ball Other [facility] [employer] Other Start: 05-21-2023 Office outpatient vi sit 15 minutes Javi Ball [facility] Start: 05-14-2023 End: 05-14-2023 ambulatory Javi Ball Other [facility] [employer] Other Start: 05-14-2023 Telephone encounter Javi Ball FP [facility] Start: 04-26-2023 End: 04-26-2023 Patient encounter procedure Emeka Woods FARA [facility] Start: 03-08-2023 End: 03-08-2023 ambulatory Javi Ball Other [facility] [employer] Other Start: 03-08-2023 Telephone encounter Javi Ball FP [facility] Start: 02-19-2023 End: 02-19-2023 ambulatory Javi Ball Other [facility] [employer] Other Start: 02-19-2023 Telephone encounter Javi Ball FP [facility] Start: 02-14-2023 End: 02-14-2023 ambulatory Javi Ball Other [facility] [employer] Other Start: 02-14-2023 Office outpatient vi sit 15 minutes Javi Ball [facility] Start: 02-12-2023 End: 02-12-2023 ambulatory Javi Ball Other [facility] Other Start: 02-12-2023 Telephone encounter Javi Ball FP [facility] Start: 01-19-2023 End: 01-19-2023 ambulatory Javi Ball Other [facility] [employer] Other Start: 01-19-2023 Telephone encounter Javi Ball FP [facility] Start: 01-08-2023 End: 01-08-2023 ambulatory Javi Ball Other [facility] [employer] Other Start: 01-08-2023 Telephone encounter Javi Seymour FP [facility] Start: 12-19-2022 End: 12-19-2022 ambulatory Javi Lion Other [facility] [employer] Other Start: 12-19-2022 Telephone encounter Javi Seymour FP [facility] Start: 11-06-2022 End: 11-06-2022 ambulatory Javi Seymour Other [facility] [employer] Other Start: 11-06-2022 Patient encounter procedure [facility] Start: 10-21-2022 End: 10-21-2022 ambulatory Javi Lion Other [facility] Other Start: 10-21-2022 Telephone encounter Javi Seymour FP [facility] Start: 10-10-2022 End: 10-10-2022 ambulatory Javi Seymour Other [facility] [employer] Other Start: 10-10-2022 Telephone encounter Javi Seymour FP [facility] Start: 09-28-2022 End: 09-28-2022 ambulatory Javi Seymour Other [facility] [employer] Other Start: 09-28-2022 Telephone encounter Javi Seymour RIMA [facility] Start: 09-13-2022 Encounter for preprocedural laboratory examination DR EMEKA GRACE [facility] Start: 09-13-2022 End: 09-13-[address] JAVI SEYMOUR Facility:[facility] Start: 09-10-2022 End: 09-11-[address] JAVI SEYMOUR Facility:[facility] Start: 09-10-2022 End: 09-11-2022 Encounter for preprocedural laboratory examination DR JAVI SEYMOUR Facility:[facility] Start: 08-30-2022 End: 08-31-[address] JAVI SEYMOUR Facility:[facility] Start: 08-07-2022 End: [address] JAVI SEYMOUR Facility:[facility] Start: 08-06-2022 End: 08-06-2022 Patient encounter procedure Emeka GRACE [facility] Start: 08-02-2022 End: 08-02-[address] EMEKA GRACE Facility:[facility] Start: 07-30-2022 End: 07-31-[address] JAVI SEYMOUR Facility:[facility] Start: 07-28-2022 Encounter for preprocedural cardiovascular examination DR EMEKA GRACE [facility] Start: 07-24-2022 Pre-procedure evalua tion conrado Seymour Other [facility] [employer] Other Start: 07-23-2022 End: 07-24-[address] JAVI SEYMOUR Facility:[facility] Start: 07-06-2022 End: 07-07-[address] JAVI SEYMOUR Facility:[facility] Start: 06-15-2022 End: 06-16-[address] JAVI SEYMOUR Facility:[facility] Start: 06-15-2022 End: 06-15-2022 Patient encounter procedure Emeka GRACE [facility] Start: 04-25-2022 End: 04-26-[address] JAVI SEYMOUR Facility:[facility] Start: 04-02-2022 End: 04-02-2022 Patient encounter procedure Emeka GRACE [facility] Start: 12-01-2021 End: 12-02-[address] VALERIANO KERR REQUEST Facility:[facility] Start: 11-02-2021 Adult health examination Joseph Seymour Other [facility] [employer] Other Procedures Date Procedure Procedure Detail Performing [...] of Treatment Date Care Activity Detail Author [facility] Immunizations Immunization Date Immunization Notes Care Provider Soha [email or web address] 07-24-2022 influenza virus vaccine, split virus (incl. purified surface antigen) Javi Seymour Other [facility] Other 07-24-2022 influenza virus vaccine, unspecified formulation [facility] 07-24-2022 influenza, high dose seasonal, preservative-free Javi Seymour Other [facility] imagine Other 2021 COVID-19 Vaccine Moderna - Documentation Purposes Only Javi Seymour Other [facility] 12-12-2020 SARS-CoV-2 (COVID-19 ) mRNA-1273 vaccine Emeka GRACE [facility] 11-22-2020 COVID-19 Vaccine Moderna - Documentation Purposes Only Javi Seymour Other [facility] 11-14-2020 SARS-CoV-2 (COVID-19 ) mRNA-1273 vaccine Emeka GRACE [facility] 10-24-2020 COVID-19 Vaccine Moderna - Documentation Purposes Only Javi Seymour Other [facility] 07-05-2020 influenza virus vaccine, split virus (incl. purified surface antigen) Javi Seymour Other [facility] Other 07-05-2020 influenza virus vaccine, unspecified formulation [facility] 07-05-2020 pneumococcal polysaccharide vaccine, 23 valent Javi Seymour Other [facility] 07-05-2020 Prevnar 20 Javi Seymour Other [facility] 01-06-2019 pneumococcal conjuga te vaccine, 13 valent Javi Seymour Other [facility] 01-06-2019 pneumococcal Conjuga te, unspecified formulation; 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: [Need for prophylactic vaccination against Streptococcus pneumoniae (pneumococcus)] Javi Seymour Other [facility] [employer] Other Payers Date Payer Category Payer Medicare [id number] 1961 Self-pay [id number] 1961 Unknown [id number] 1955 Unknown [id number] 2.16.84 [id number] 1955 Unknown [id number] 2.16.84 [id number] 1953 Unknown [id number] 2.16.84 0.1.077559.3.579.2.593 1953 Unknown [id number] 2.16.84 0.1.836114.3.579.2.593 1953 Unknown [id number] 2.16.84 0.1.394031.3.579.2.593 1953 Unknown [id number] 2.16.84 0.1.653908.3.579.2.593 1953 Unknown [id number] 2.16.84 0.1.714798.3.579.2.593 1953 Unknown [id number] 2.16.84 0.1.456397.3.579.2.593 1953 Unknown [id number] 2.16.84 0.1.472364.3.579.2.593 1953 Unknown [id number] 2.16.84 0.1.477786.3.579.2.593 1953 Unknown [id number] 2.16.8 40.1.930650.3.579.2.727 1953 Unknown [id number] 2.16.8 40.1.720613.3.579.2.727 1953 Unknown [id number] 2.16.8 [id number] Unknown [id number] 2.16.84 [id number] Social History Date Type Detail Facility Start: 04-02-2022 End: 06-15-2022 Tobacco smoking status Ex-smoker (finding) [facility] Sex Assigned At Male [facility] Start: 1955 Sex Assigned At Male [facility] Functional Status Date Assessment Result Facility 05-22-2024 Functional Status N/A [facility] 04-26-2023 Functional Status N/A [facility] 06-15-2022 Functional Status N/A [facility] 04-02-2022 Functional Status N/A [facility] Clinical Notes 04-02-2022 to 05-22-2024 Note Date [...] Follow these instructions at home: Medicines Take aqon-ocz-qdctknh and prescription medicines only as told by [...] provider. Document Revised: 12/12/2022 Document Reviewed: 12/12/2022 [employer] Patient Education 2023 Cross Current. Follow Up Care 02/11/2024 16:06:25 With:FARA SANDHU, Emeka Woods, URL Address: [facility] [address] , [place] [address]- [phone] When: Unknown [facility] 05-22-2024 Note Patient Education Urology Kidney Stones [...] these instructions at home: Medicines ? Take fyvh-llp-ldykigx and prescription medicines only as told by [...] diet. Follow r (more content not included)... [facility] 11-19-2023 Evaluation note Encounter Date Diagnosis Assessment Notes Nov, Cervical spondylosis (ICD-10 - M47.812) [facility] Other 01-05-2024 Evaluation note* Encounter Date Diagnosis Assessment Notes Treatment Notes Treatment Clinical Notes Sep, Cervical spondylosis (ICD-10 - M47.812) [facility] Other 12-06-2023 Evaluation note* Encounter Date Diagnosis [...] medical therapy Aug, Nocturia (ICD-10 - R35.1) [facility] Other 12-04-2023 Evaluation note* Encounter Date Diagnosis Assessment Notes Treatment Notes Treatment Clinical Notes Aug, Lumbar spondylitis (ICD-10 - M46.96) [facility] Other 11-17-2023 Evaluation note* Encounter Date Diagnosis Assessment Notes Treatment Notes Treatment Clinical Notes Jul, Lumbar spondylitis (ICD-10 - M46.96) [facility] Other 10-13-2023 Evaluation note* Encounter Date Diagnosis Assessment Notes Treatment Notes Treatment Clinical Notes Jun, Lumbar spondylitis (ICD-10 - M46.96) [facility] Other 09-26-2023 Evaluation note* Encounter Date Diagnosis Assessment Notes Treatment Notes Treatment Clinical Notes May, Bee sting, accidental or unintentional, initial encounter (ICD-10 - T63.441A) Cool compresses and elevation. Monitor for s/s increased pain, swelling May, Cellulitis of right upper extremity (ICD-10 - L03.113) Elevate and begin antibiotics. Monitor for increased swelling, pain or fever [facility] Other 09-05-2023 Evaluation note* Encounter Date Diagnosis [...] prescribed Has Orthopedic appt later this month [facility] Other 08-29-2023 Evaluation note* Encounter Date Diagnosis Assessment Notes Treatment Notes Treatment Clinical Notes Apr, Lumbar spondylitis (ICD-10 - M46.96) [facility] Other 08-11-2023 Hospital Discharge instructions Patient Education [...] treatment? Where to find more information [employer]: www.cancer.org [employer]: www.auanet.org Contact a health care [...] provider. Document Revised: 02/26/2022 Document Reviewed: 02/26/2022 [employer] Patient Education 2022 [employer] Follow Up Care 04/02/2022 10:42:42 With:FARA SANDHU, Emeka Woods, URL Address: [facility] [address] [place] [address]- When:Within 1 Year(s) Comments:w/PSA and GWEN [facility]ie 06-23-2023 Evaluation note* Encounter Date Diagnosis Assessment Notes Treatment Notes Treatment Clinical Notes Feb, Lumbar spondylitis (ICD-10 - M46.96) [facility] Other 06-01-2023 Evaluation note* Encounter Date Diagnosis [...] medical treatment Feb, Nocturia (ICD-10 - R35.1) [facility] Other 04-25-2023 Evaluation note* Encounter Date Diagnosis Assessment Notes Treatment Notes Treatment Clinical Notes Dec, Benign prostatic hyperplasia with lower urinary tract symptoms (ICD-10 - N40.1) [facility] Other 04-05-2023 Evaluation note* Encounter Date Diagnosis Assessment Notes Treatment Notes Treatment Clinical Notes Dec, Lumbar spondylitis (ICD-10 - M46.96) [facility] Other 02-21-2023 Evaluation note* Encounter Date Diagnosis [...] Screening for colon cancer (ICD-10 - Z12.11) [facility] Other 01-13-2023 Evaluation note* Encounter Date Diagnosis Assessment Notes Treatment Notes Treatment Clinical Notes Sep, Cervical spondylosis (ICD-10 - M47.812) [facility] Other 11-17-2022 NoteOP Note OPERATION DATE: 08/02/2022 [...] retrograde pyelogram. 9. Placement of right sided 6-[place]ese variable length stent. 10. Cystolitholapaxy of 2 [...] usual fashion. I started by passing a 22-[place] Olympus cystoscope per urethra and I arrived at a significant sequential stricture at the bulb. I passed a wire through the scope and was able to cannulate the strictured area and get it into the bladder. The scope was removed. I then used Padilla sounds and dilated the stricture from 20-[place]ese up to 30-[place]ese. The wire was removed and I then passed the cystoscope and was able to get it through the bulb and into the bladder. The bladder calculus was identified on the floor. I then passed a Glidewire through the scope and cannulated the right ureter. The wire was unable to pass up the tight J-hooking. I used an 8-[place]ese dilator to help, but I could not [...] was then removed. I then used the 10-[place] dilator to dilate the distal ureter. I [...] into the bladder and then slid a 6-[place] variable length stent over the wire, up [...] bladder. The nephroscope was removed and the 22-[place] cystoscope was passed back in the bladder. The bladder looked fine. There were no pieces remaining in the bladder. The scope was then removed. The previously strictured area in the urethra was evaluated and it looked fine. I then placed a 20-[place] 2-way Almeida catheter in the bladder. It was irrigated manually and it irrigated clear. 10 cc of fluid was placed in the balloon. He was then transferred to a gurney bed and wheeled to PACU in stable condition. He will be discharged to home with a script for (more content not included)...[id number] Patient Education 06/15/2022 09:27:58 [...] Follow these instructions at home: Medicines Take vssf-ijv-dwudwlq and prescription medicines only as told by [...] or the blood stops without treatment. Take xeof-uam-zxxgwmo and prescription medicines only as told by your health care provider. Drink enough fluid to keep your urine clear or pale yellow. This information is not intended to replace advice given to you by your health care provider. Make sure you discuss any questions you have with your health care provider. Document Released: 09/02/2006 Document Revised: 01/27/2020 Document Reviewed: 10/05/2017 [employer] Patient Education 2020 Cross Current. Follow Up Care 05/10/2022 10:28:16 With:FARA SANDHU, Emeka Woods, URL Address: [address] [place] [address]- When: Unknown [facility] 07-18-2022 Hospital Discharge instructions Patient Education 04/02/2022 [...] urethra. Follow these instructions at home: Take oipc-xuf-vfkxkrv and prescription medicines only as told by [...] 09/02/2006 Document Revised: 07/28/2019 Document Reviewed: 10/07/2017 [employer] Patient Education 2020 Cross Current. Follow Up Care 09/29/2021 08:39:40 With:Emeka GRACE MD, URL Address: [facility] [address], [place] [address]- [phone] When:Within 1 Year(s) Comments:1 year f/u with PSA [facility] evaluation + Plan note Future Appointments Appointment Date:04/12/2023 08:00:00 AM Scheduled Provider:Emeka GRACE MD Location:[facility] Appointment Type:URO Office Visit Diagnostic Tests Pending * PSA Total 04/02/22 [facility] evaluation + Plan note Future Appointments Appointment Date:04/12/2023 08:00:00 AM Scheduled Provider:Emeka GRACE MD [facility] App[facility] Type:URO Office Visit Diagnostic Tests Pending * Urine Cytology ([facility]) 06/15/22 [facility] evaluation + Plan note Future Appointments Appointment Date:04/12/2023 08:00:00 AM Scheduled Provider:Emeka GRACE MD Location:[facility] Appointment Type:URO Office Visit [facility] evaluation + Plan note Future Appointments Appointment Date:05/01/2024 08:15:00 AM Scheduled Provider:Emeka GRACE MD Location:[facility] Appointment Type:URO Office Visit Diagnostic Tests Pending * PSA Total 04/26/23 [facility]* Diagnosis Onset Date Resolution Status Benign prostatic hyperplasia with lower urinary tract symptoms acute Cervical spondylosis acute Elevated PSA acute Lumbar spondylosis acute Medicare annual wellness visit, subsequent noneactive Screening PSA (prostate specific antigen) noneactive Cervical spondylosis acute Elevated PSA acute Lumbar spondylosis acute [facility] Work Phone: Evaluation note* Diagnosis Onset Date Resolution Status Cervical spondylosis acute Left ureteral calculus acute Lumbar spondylosis acute Benign prostatic hyperplasia with lower urinary tract symptoms acute Cervical spondylosis acute Lumbar spondylosis acute [facility] Work Phone: History general Narrative - Reported* [...] arthroscopy 10-05 Hospitalization History see surgical history [facility] imagine Other Hospital course Narrative No data available for this section [facility] Hospital Discharge instructions No data available for this section [facility] progress note No data available for this section [facility] Summary Purpose Family History No Family History [...] DATE CREATED AUTHOR AUTHOR'S ORGANIZ ATION 06/03/2024 [facility] REASON FOR VISIT (unrecogniz ed section [...] BE BASED ON THE PRIMARY CLINICAL RECORDS. [employer]. provides no warranty or guarantee of the accuracy or completeness of information in this document.
[2024-06-06 06:38] LABS: Bilirubin Urine NEGATIVE (NEGATIVE); Blood Urine LARGE (NEGATIVE); Clarity Urine CLEAR (CLEAR); Color Urine LT. YELLOW (YELLOW); Glucose Urine UA NEGATIVE (NEGATIVE); Ketones Urine NEGATIVE (NEGATIVE); Leukocyte Esterase Urine NEGATIVE (NEGATIVE); Nitrite Urine NEGATIVE (NEGATIVE); Protein Urine NEGATIVE (NEG/TRACE); Urobilinogen Urine 0.2 EU/dL (0.2-1.0)
[2024-06-06 06:39] LABS: Urine Microscopic Indicated YES
[2024-06-06 06:45] LABS: Bacteria Urine NONE SEEN #/HPF (NONE SEEN); Cast Seen? NONE SEEN #/LPF (NONE SEEN); Crystals Seen? None Seen #/HPF (None Seen); Mucus Urine NONE SEEN (NONE SEEN); Squamous Epithelial Cell Urine NONE SEEN #/LPF (NONE/RARE); Urine Culture Indicated NO; WBC Urine NONE SEEN #/HPF (NONE SEEN)
--- NOTE | 2024-06-06 06:46 | ED_ITS ---
HPI - Male Genitourinary General Chief complaint: Urogenital-Male Stated complaint: urine retension Time Seen by Provider: 06/06/24 06:34 Source: patient Mode of arrival: walk-in Limitations: no limitations History of Present Illness HPI Narrative: lithotripsy yesterday by Dr Grace. Went home and was able to urinate a few times. Woke up around 10:30p and was not able to urinate. Discomfort continued all night and now he presents to ER. 500+ cc urine on bladder scan. no fever or chills or nausea Related Data Home Medications ?Medication ?Instructions ?Recorded ?Confirmed nabumetone 750 mg tablet 750 mg PO BID 04/15/23 06/06/24 simvastatin 40 mg tablet 40 mg PO DAILY 04/15/23 06/06/24 tamsulosin 0.4 mg capsule 0.4 mg PO Q24H 04/15/23 06/06/24 tramadol 50 mg tablet 50 mg PO DAILY 06/04/24 06/06/24 Allergies Allergy/AdvReac Type Severity Reaction Status Date / Time No Known Drug Allergies Allergy Verified 06/06/24 06:13 Review of Systems ROS Status of ROS 10 or more systems reviewed and unremark able except as noted in history and below [facility] Medical History (Updated 06/06/24 @ 06:51 by Bimal Carrasco MD) Nocturia ?R35.1 - Nocturia (ICD-10) Hematuria ?R31.9 - Hematuria, unspecified (ICD-10) BPH with obstruction/lower urinary tract symptoms ?N40.1 - Benign prostatic hyperplasia with lower urinary tract symptoms (ICD- 10) ?N13.8 - Other obstructive and reflux uropathy (ICD-10) Back pain ?M54.9 - Dorsalgia, unspecified (ICD-10) Arthritis ?M19.90 - Unspecified osteoarthritis, unspecified site (ICD-10) Kidney stones ?N20.0 - Calculus of kidney (ICD-10) High cholesterol ?E78.00 - Pure hypercholesterolemia, unspecified (ICD-10) S/P extracorporeal shock wave therapy (02/06/24) ?Z98.890 - Other specified postprocedural states (ICD-10) Hyperlipemia ?E78.5 - Hyperlipidemia, unspecified (ICD-10) Elevated PSA ?R97.20 - Elevated prostate specific antigen [PSA] (ICD-10) Open fracture of distal phalanx of left little finger ?S62.637B - Displaced fracture of distal phalanx of left little finger, initial encounter for open fracture (ICD-10) Laceration of left little finger ?S61.217A - Laceration without foreign body of left little finger without damage to nail, initial encounter (ICD-10) Flank pain ?R10.9 - Unspecified abdominal pain (ICD-10) Left ureteral stone ?N20.1 - Calculus of ureter (ICD-10) Surgical History (Updated 02/06/24 @ 10:19 by Luly Villalba) History of arthroplasty of right knee ?Z96.651 - Presence of right artificial knee joint (ICD-10) H/O colonoscopy ?Z98.890 - Other specified postprocedural states (ICD-10) History of repair of rotator cuff ?Z98.890 - Other specified postprocedural states (ICD-10) History of appendectomy ?Z90.49 - Acquired absence of other specified parts of digestive tract (ICD- 10) H/O prostate biopsy ?Z98.890 - Other specified postprocedural states (ICD-10) Family History (Updated 02/06/24 @ 10:21 by Luly Villalba) Sister Family history of diabetes mellitus Father High cholesterol Hyperlipidemia Kidney stones Social History (Updated 06/05/24 @ 12:35 by Stephanie Quintero RN) Within the past year, how often did you have a drink containing alcohol: never Score interpretation: A score less than 4 is consistent with normal alcohol consumption. 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 Highest level of school completed/degree received: Associate degree: occupational, technical, vocational program Exam Constitutional Vital Signs, click to edit/add: Last Vital Signs Temp 97.9 F 06/06/24 06:13 Pulse 55 L 06/06/24 06:13 Resp 18 06/06/24 06:13 BP 146/86 H 06/06/24 06:13 Pulse Ox 98 06/06/24 06:13 O2 Del Method Room Air 06/06/24 06:13 Common normals: no apparent distress, average body habitus, oriented x3, no limitations, healthy appearing, alert and well nourished HENMT Common normals: normocephalic Eye Common normals: PERRL and EOMs intact bilaterally Respiratory Common normals: normal respiratory effort, no retractions, no use of accessory muscles and clear to auscultation bilaterally Cardio Common normals: regular rate, regular rhythm, S1 normal heart sound and S2 normal heart sound GI Common normals: Normal to inspection, nondistended, normoactive bowel sounds present, soft to palpation and non-tender Extremity Common normals: normal to inspection and full ROM Neuro Common normals: oriented x3, CN's II-XII intact bilaterally, moves all extremities and no focal motor deficits Psych Appearance: grossly normal Course Vital Signs Vital signs: Vital Signs Temperature 97.9 F 06/06/24 06:13 Pulse Rate 55 L 06/06/24 06:13 Respiratory Rate 18 06/06/24 06:13 Blood Pressure 146/86 H 06/06/24 06:13 Pulse Oximetry 98 06/06/24 06:13 Oxygen Delivery Method Room Air 06/06/24 06:13 Temperature 97.9 F 06/06/24 06:13 Pulse Rate 55 L 06/06/24 06:13 Respiratory Rate 18 06/06/24 06:13 Blood Pressure 146/86 H 06/06/24 06:13 Pulse Oximetry 98 06/06/24 06:13 Oxygen Delivery Method Room Air 06/06/24 06:13 MDM - Male Genitourinary MDM Narrative Medical decision making narrative: patient presents with urinary retention after urogenital procedure lithotripsy yesterday. 500+ cc of urine on bladder scan. victor placed by nursing and patient is feeling better. Clear urine draining. UA ordered. UA returns without sign of infection Patient discharged with victor and leg bag to follow up with Urology Lab Data Labs: Lab Results 06/06/24 Range/Units 06:30 Urine Color Lt. yellow (YELLOW) Urine Clarity Clear (CLEAR) Urine pH 6.0 (5.0-9.0) Ur Specific [place] 1.010 (1.005-1.025) Urine Protein Negative (NEG/TRACE) mg/dL Urine Glucose (UA) Negative (NEGATIVE) mg/dL Urine Ketones Negative (NEGATIVE) mg/dL Urine Occult Blood Large A (NEGATIVE) Urine Nitrite Negative (NEGATIVE) Urine Bilirubin Negative (NEGATIVE) Urine Urobilinogen 0.2 (0.2-1.0) EU/dL Ur Leukocyte Esterase Negative (NEGATIVE) Urine RBC 5-10 A (0-2) #/HPF Urine WBC None seen (NONE SEEN) #/HPF Ur Squamous Epith Cells None seen (NONE/RARE) #/LPF Urine Crystals None seen (None Seen) #/HPF Urine Bacteria None seen (NONE SEEN) #/HPF Urine Casts None seen (NONE SEEN) #/LPF Urine Mucus None seen (NONE SEEN) Ur Culture Indicated? No Discharge Plan Discharge Chief Complaint: Urogenital-Male Clinical Impression: Acute urinary retention Patient Disposition: Home, Self-Care Prescriptions / Home Meds: No Action simvastatin 40 mg tablet 40 mg PO DAILY tamsulosin 0.4 mg capsule 0.4 mg PO Q24H nabumetone 750 mg tablet 750 mg PO BID tramadol 50 mg tablet 50 mg PO DAILY Print Language: Polish Instructions: Urinary Retention in Men (ED) Additional Instructions: follow up with Dr Grace next week Referrals: Javi Seymour DO [Primary Care Provider] - 1 week
== END 2024-06-06 07:07 | disposition home or self-care (01) ==
PROVIDERS: Emergency Provider Internal Medicine; PCP Internal Medicine
DX: R33.9 Retention of urine, unspecified (principal); Z87.891 Personal history of nicotine dependence
CPT/HCPCS: 51702; 81001; 99284

== ENCOUNTER 2024-12-09 07:02 | Outpatient (OUT) | payer MEDICARE, OTHER, SELFPAY ==
--- OUTSIDE RECORDS SUMMARY | 2024-12-09 07:07 | XMS_ITS | CCD ---
Author Organization [facility] CliniSyfl Care Team Providers Care Wet Pan Operator Name Role Phone JAVI SEYMOUR Primary Care Physician [phone] LION, DR HALL Primary Care Unavailable GRACE, [...] BAL LISTED Admitting Unavaila ble BALL, DR HLAL Primary Care Unavailable GRACE, DR COLÓN Admitting [...] Care Unavailable GRACE, DR COLÓN Attending Unavailable FARA, DR COLÓN Consulting Unavailable FARA, DR COLÓN Admitting Unavailable Javi Seymour Unavailable Emeka GRACE Attending Emeka Guallpa Attending Emeka Guallpa Attending Unavailable Emeka GRACE Referring Unavailable Emeka GRACE Attending Emeka Guallpa Attending Unavailable Allergies Allergy Classification Reported Allergen(s) Allergy Type Date of Onset Reaction(s) Facility (1 source) patient allergy list reviewed by nurse or physicia Propensity to adverse reactions 4 Comment:Done [facility] Other Medications Current Medications Medication Drug Class(es) Dates Sig (Normalized) Sig (Original) acetaminophen 325 mg / HYDROcodone bitartrate 5 mg oral tablet (20 sources) Opioid Agonist Start: 06-18-2024 take 0.5 tablet by mouth once daily at bedtime Hydrocodone-Aceta minophen Active 0.5 TAB PO Daily at bedtime June 18, 2024 Start: 11-12-2023 End: 02-17-2024 take 1 tablet by mouth once daily at bedtime Hydrocodone-Acetaminophen Discontinued 1 TAB PO Daily at bedtime [...] HS for 30 days start 11/06Oct, Active Ocuvite (5 sources) Vitamin C Start: 12-26-2020 [...] tablet (20 sources) HMG-CoA Reductase Inhibitor Start: 04-10-2024 take 1 tablet by mouth once daily in the evening Simvastatin Active 0 .ROUTE .COMPLEX 90 April 10, 2024 11:20am take 1 tablet by mouth every evening Start: 12-26-2020 End: 04-10-2024 take 40 mg by mouth once daily in the evening Simvastatin Discontinued 40 MG PO Every evening November 19, 2023 1:00am April 10, 2024 11:20am tamsulosin hydrochloride 0.4 mg oral capsule (20 [...] Drug Class(es) Dates Sig (Normalized) Sig (Original) cephalexin 500 mg oral capsule (11 sources) Cephalosporin Antibacterial Start: 06-11-2023 End: 11-21-2023 [...] completed., # 2 tab(s), Refills(s) 0, Pharmacy: [id number], 175, cm, 06/15/22 8:46:00 EDT, Height/Length Dosing, 75.1, kg, 0... 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] Onset: 08-16-2022 Episodic Other aftercare (1 source) Other terminal superintendent (current) drug therapy; 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: [OTH SHELTER CURRENT DRUG THERAPY] Onset: 08-16-2022 Episodic Other aftercare (3 sources) intermediate designer (current) use of opiate analgesic; 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: [Long-term (current) use of other medications] Episodic Other aftercare (1 source) High risk drug monitoring status; 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: [intermediate designer (current) use of opiate analgesic] Episodic Other aftercare (1 source) Long-term current use of drug therapy; 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: [Other terminal superintendent (current) drug therapy] Episodic Other aftercare (2 sources) Drug therapy finding; 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: [care home (current) use of opiate analgesic] 02-27-2024 Episodic [...] Ambulatory Visit Summary Ambulatory Visit Summary RADHAMES FRAGA :1955 Visit Date:05/22/2024 Ambulatory Visit Instructions Your Diagnosis Kidney stone Right ureteral stone Flank pain Elevated PSA BPH with urinary obstruction Tests Performed CT Abdomen/Pelvis w/o Contrast -- Results Pending -- Please visit your patient portal for your results or contact your primary care physician. Your Care Team Attending Physician - Emeka GRACE MD Primary Care Physician - LION WINTERS, JAVI This Is Your Medications List Contact prescribing [...] Follow Up with FARA SANDHU, Emeka Woods, URL When: Where: [facility] [address] , [place] [address]- [phone] Medications What How Much When Instructions Unchanged [...] body thro (more content not included)... Normal [facility] Urology Office/Clinic Noteon 05-22-2024 Urology [...] Unspecified abdominal pain) (more content not included)... Normal [facility] Comment on above: Result Comment: Elec tronically Signed By: Emeak GRACE MD\.br\Date and Time Signed: 05/22/24 09:36 EDT\.br\Electronically Co-Signed By: Divine Monae\.br\Date and Time Co-Signed: 05/22/24 09:34 EDT ECG 12-Leadon 02-07-2024 ECG 12-Lead [id number]# 1.00TIFF [facility] Lab Reportson 02-07-2024 Lab Reports [id number]# 1.00TIFF [facility] Operative Reporton Operative Report [id number] #1.00TIFF Normal [facility] Consent for Procedure/Surger yon 02-06-2024 Consent for Procedure/Surgery [id number]# 1.00TIFF Normal [facility] ED Note-Physicianon 02-06-20 ED Note-Physician [id number] #1.00TIFF Normal [facility] Lab Reportson 02-06-2024 Lab Reports [id number]# 1.00TIFF Normal [facility] RAD - CT Reporton 02-06-2024 RAD - CT Report [id number] #1.00TIFF Normal [facility] RAD - MISCon 02-06-2024 RAD - MISC [id number] #1.00TIFF Normal [facility] XR KUB 1 VIEWon 09-13-2022 XR [...] QUINCY TOVAR Date: 2022-09-13 11:13 Normal [facility] Covid-19 PCR (CVDTB)on 08-17 SARS-CoV-2 (COVID-19) RNA MARY+probe Ql (Unsp spec) Not detected Normal NOT DETECTED [facility] Comment on above: Result Comment: This test is not yet approved or cleared by the [place] FDA. When there are no FDA-approved or cleared tests available, and other criteria are met, FDA can make tests available under an emergency access mechanism called an Emergency Use Authorization (EUA). The EUA for this test is supported by the Subway Train Operator of Health and Human Service's (HHS's) declaration [...] SARS-CoV-2. Performed By: #### C VDTB #### [facility] [address] [place] [address] Dr. Paramjit Cheng CBC AUTO DIFFon 08-30-2022 BASO # 0.0 103/ul Normal 0.0-0.1 [facility] Comment on above: Performed By: #### C BC #### [facility] [address] [place] [address] Dr. Paramjit Cheng Basophils/100 WBC (Bld) 0.6 % Normal 0.2-2.0 [facility] Comment on above: Performed By: #### C BC #### [facility] [address] [place] [address] Dr. Paramjit Cheng EO # 0.2 103/ul Normal 0.0-0.7 [facility] Comment on above: Performed By: #### C BC #### [facility] [address] [place] [address] Dr. Paramjit Cheng Eosinophils/100 WBC (Bld) 3.7 % Normal 0.9-7.0 [facility] Comment on above: Performed By: #### C BC #### [facility] [address] [place] [address] Dr. Paramjit Cheng Erythrocyte distribution width (RBC) [Ratio] 13.2 % Normal 11.0-15.0 [facility] Comment on above: Performed By: #### C BC #### [facility] [address] [place] [address] Dr. Paramjit Cheng Hematocrit (Bld) [Volume fraction] 43.2 % Normal 42.0-54.0 [facility] Comment on above: Performed By: #### C BC #### [facility] [address] [place] [address] Dr. Paramjit Cheng Hemoglobin (Bld) [Mass/Vol] 14.7 g/dL Normal 14.0-18.0 [facility] Comment on above: Performed By: #### C BC #### [facility] [address] [place] [address] Dr. Paramjit Cheng IG # 0.01 10e3/ul Normal 0.00-0.03 [facility] Comment on above: Performed By: #### C BC #### [facility] [address] [place] [address] Dr. Paramjit Cheng IG % 0.2 % Normal 0.0-0.5 [facility] Comment on above: Performed By: #### C BC #### [facility] [address] [place] [address] Dr. Paramjit Cheng LYMPH # 1.7 103/ul Normal 1.2-3.8 [facility] Comment on above: Performed By: #### C BC #### [facility] [address] [place] [address] Dr. Paramjit Cheng Lymphocytes/100 WBC (Bld) 34.9 % Normal 20.5-60.0 [facility] Comment on above: Performed By: #### C BC #### [facility] [address] [place] [address] Dr. Paramjit Cheng MANUAL DIFF REQ NO Normal [facility] Comment on above: Performed By: #### C BC #### [facility] [address] [place] [address] Dr. Paramjit Cheng MCH (RBC) [Entitic mass] 32.3 pg Normal 25.9-34.0 [facility] Comment on above: Performed By: #### C BC #### [facility] [address] [place] [address] Dr. Paramjit Cheng MCHC (RBC) [Mass/Vol] 34.0 g/dL Normal 29.9-35.2 [facility] Comment on above: Performed By: #### C BC #### [facility] [address] [address] [address] Paramjit Cheng MCV (RBC) [Entitic vol] 94.9 fL Critically high 80.0-94.0 [facility] Comment on above: Performed By: #### C BC #### [facility] [address] [address] [address] Paramjit Cheng MONO # 0.5 103/ul Normal 0.3-0.8 [facility] Comment on above: Performed By: #### C BC #### [facility] [address] [address] [address] Paramjit Cheng Monocytes/100 WBC (Bld) 9.3 % Normal 1.7-12.0 [facility] Comment on above: Performed By: #### C BC #### [facility] [address] [place] [address] Dr. Paramjit Cheng NEUT # 2.5 103/ul Normal 1.4-6.5 [facility] Comment on above: Performed By: #### C BC #### [facility] [address] [place] [address] Dr. Paramjit Cheng Neutrophils/100 WBC (Bld) 51.3 % Normal 43.0-75.0 [facility] Comment on above: Performed By: #### C BC #### [facility] [address] [address] [address] Paramjit Cheng Platelet mean volume (Bld) [Entitic vol] 9.2 fL Critically low 9.5-13.5 [facility] Comment on above: Performed By: #### C BC #### [facility] [address] [address] [address] Paramjit Cheng PLT 251 103/ul Normal 150-450 [facility] Comment on above: Performed By: #### C BC #### [facility] [address] [place] [address] Dr. Paramjit Cheng RBC 4.55 106/ul Critically low 4.70-6.10 [facility] Comment on above: Performed By: #### C BC #### [facility] [address] [address] [address] Paramjit Cheng WBC 4.8 103/ul Normal 4.0-11.0 [facility] Comment on above: Performed By: #### C BC #### [facility] [address] [address] [address] Paramjit Cheng PROF CHEM 8 (BAS METB)on Anion gap [Moles/Vol] 13.7 mmol/L Normal [facility] Comment on above: Performed By: #### B MP #### [facility] [address] [address] [address] Paramjit Cheng Calcium [Mass/Vol] 8.9 mg/dL Normal 8.5-10.1 [facility] Comment on above: Performed By: #### B MP #### [facility] [address] [place] [address] Dr. Paramjit Cheng Chloride [Moles/Vol] 106 mmol/L Normal 98-107 [facility] Comment on above: Performed By: #### B MP #### [facility] [address] [address] [address] Paramjit Cheng CO2 [Moles/Vol] 27.2 mmol/L Normal 21.0-32.0 [facility] Comment on above: Performed By: #### B MP #### [facility] [address] [address] [address] Paramjit Cheng Creatinine [Mass/Vol] 0.89 mg/dL Normal 0.70-1.30 [facility] Comment on above: Performed By: #### B MP #### [facility] [address] [place] [address] Dr. Paramjit Cheng EGFR-AF ALGERIAN >60 Normal >=60 [facility] Comment on above: Performed By: #### B MP #### [facility] [address] [place] [address] Dr. Paramjit Cheng EGFR-NON AF ALGERIAN >60 Normal >=60 [facility] Comment on above: Performed By: #### B MP #### [facility] [address] [address] [address] Paramjit Cheng Glucose [Mass/Vol] 87 mg/dL Normal 74-[address] [facility] Comment on above: Performed By: #### B MP #### [facility] [address] [address] [address] Paramjit Cheng Potassium [Moles/Vol] 3.9 mmol/L Normal 3.5-5.1 [facility] Comment on above: Performed By: #### B MP #### [facility] [address] [address] [address] Paramjit Cheng Sodium [Moles/Vol] 143 mmol/L Normal 136-145 [facility] Comment on above: Performed By: #### B MP #### [facility] [address] [address] [address] Paramjit Cheng Urea nitrogen [Mass/Vol] 12.0 mg/dL Normal 7.0-18.0 [facility] Comment on above: Performed By: #### B MP #### [facility] [address] [address] [address] Paramjit Cheng Urea nitrogen/Creatinine [Mass ratio] 13.5 mg/mg Normal [facility] Comment on above: Performed By: #### B MP #### [facility] [address] [place] [address] Dr. Paramjit Cheng PROTIMEon 08-30-2022 INR Coag (PPP) [Relative time] 0.97 {INR} Normal [facility] Comment on above: Performed By: #### P TT, PT #### [facility] [address] [place] [address] Dr. Paramjit Cheng INR GUIDELINES SEE BELOW Normal [facility] Comment on above: Result Comment: ROSE RED INR: 2.0 - 3.0 CONDITIONS NOT LISTED BELOW 2.5 - 3.5 FOR PROSTHETIC HEART VALVE REPLACEMENT 2.5 - 3.5 RECURRENT THROMBOSIS Performed By: #### P TT, PT #### [facility] [address] [place] [address] Dr. Paramjit Cheng PT Coag (PPP) [Time] 10.5 s Normal 9.0-11.6 [facility] Comment on above: Performed By: #### P TT, PT #### [facility] [address] [place] [address] Dr. Paramjit Cheng PTTon 08-30-2022 aPTT Coag (Bld) [Time] 25.6 s Normal 22.3-36.2 [facility] Comment on above: Performed By: #### P TT, PT #### [facility] [address] [place] [address] Dr. Paramjit Cheng CALCULI, URINARYon 2,8 Dihydroxyadenine Normal [facility] Comment on above: Performed By: #### C ALCULI #### [facility] [address] [place] [address] Dr. Paramjit Cheng Ammonium Acid Urate Normal [facility] Comment on above: Performed By: #### C ALCULI #### [facility] [address] [place] [address] Dr. Paramjit Cheng Bilirubin Ql (U) Normal [facility] Comment on above: Performed By: #### C ALCULI #### [facility] [address] [place] [address] Dr. Paramjit Cheng Ca Oxalate Dihydrate 20 % Normal [facility] Comment on above: Performed By: #### C ALCULI #### [facility] [address] [place] [address] Dr. Paramjit Cheng Ca Oxalate Dihydrate 30 % Normal [facility] Comment on above: Performed By: #### C ALCULI #### [facility] [address] [place] [address] Dr. Paramjit Cheng CaHPO4 (Brushite) Normal [facility] Comment on above: Performed By: #### C ALCULI #### [facility] [address] [place] [address] Dr. Paramjit Cheng Calcium Bilirubinate Normal [facility] Comment on above: Performed By: #### C ALCULI #### [facility] [address] [place] [address] Dr. Paramjit Cheng Calcium Carbonate Normal [facility] Comment on above: Performed By: #### C ALCULI #### [facility] [address] [address] [address] Paramjit Cheng Calcium Oxalate Monohydrate 80 % [facility] Comment on above: Performed By: #### C ALCULI #### [facility] [address] [address] [address] Paramjit Cheng Calcium Oxalate Monohydrate 70 % [facility] Comment on above: Performed By: #### C ALCULI #### [facility] [address] [address] [address] Paramjit Cheng Calcium Palmitate Normal [facility] Comment on above: Performed By: #### C ALCULI #### [facility] [address] [address] [address] Paramjit Cheng Calcium Phosphate [facility] Comment on above: Performed By: #### C ALCULI #### [facility] [address] [address] [address] Paramjit Cheng Calcium Stearate [facility] Comment on above: Performed By: #### C ALCULI #### [facility] [address] [address] [address] Paramjit Cheng Carbonate Apatite [facility] Comment on above: Performed By: #### C ALCULI #### [facility] [address] [address] [address] Paramjit Cheng Cellular Material [facility] Comment on above: Performed By: #### C ALCULI #### [facility] [address] [address] [address] Paramjit Cheng Cholesterol [facility] Comment on above: Performed By: #### C ALCULI #### [facility] [address] [address] [address] Paramjit DoyleU) Sen [facility] Comment on above: Performed By: #### C ALCULI #### [facility] [address] [address] [address] Paramjit Cheng Comment [facility] Comment on above: Performed By: #### C ALCULI #### [facility] [address] [place] [address] Dr. Paramjit Cheng Comment Comment Normal [facility] Comment on above: Result Comment: Calc ulus received wet. Wet calculi must be dried before analysis, which delays reporting of results. Leaving calculi wet (such as water, saline, blood, urine) may lead to changes in composition. Performed By: #### C ALCULI #### [facility] [address] [address] [address] Paramjit Cheng Result Comment: Sour ce provided- right UPJ Comment: Comment Normal [facility] Comment on above: Result Comment: Phys mary joan questions regarding Calculi Analysis contact [facility] ([facility]) at: [phone]. Performed By: #### C ALCULI #### [facility] [address] [place] [address] Dr. Paramjit Cheng Composition Comment Normal [facility] Comment on above: Result Comment: Perc entage (Represents the % composition) Performed By: #### C ALCULI #### [facility] [address] [place] [address] Dr. Par[address] [facility] Comment on above: Performed By: #### C ALCULI #### [facility] [address] [place] [address] Dr. Paramjit Cheng Disclaimer: Comment Normal [facility] Comment on above: Result Comment: This test was developed and its performance characteristics determined by [facility]. It has not been cleared or approved by the Food and Drug Administration. Performed By: #### C ALCULI #### [facility] [address] [place] [address] Dr. Paramjit Cheng Dried Blood [facility] Comment on above: Performed By: #### C ALCULI #### [facility] [address] [place] [address] Dr. Paramjit Cheng Drug or Metabolite Normal [facility] Comment on above: Performed By: #### C ALCULI #### [facility] [address] [place] [address] Dr. Paramjit Cheng Hydroxyapatite [facility] Comment on above: Performed By: #### C ALCULI #### [facility] [address] [address] [address] Paramjit Cheng Mg NH4 PO4 (Struvite) [facility] Comment on above: Performed By: #### C ALCULI #### [facility] [address] [address] [address] Paramjit Cheng MgHPO4 (Newberyite) Normal [facility] Comment on above: Performed By: #### C ALCULI #### [facility] [address] [address] [address] Paramjit Cheng Other component(s) Normal [facility] Comment on above: Performed By: #### C ALCULI #### [facility] [address] [address] [address] Paramjit Cheng PDF . Normal [facility] Comment on above: Performed By: #### C ALCULI #### [facility] [address] [place] [address] Dr. Paramjit Cheng Photo Comment [facility] Comment on above: Result Comment: Phot ograph will follow under a separate cover Performed By: #### C ALCULI #### [facility] [address] [place] [address] Dr. Paramjit Cheng Please note: Comment [facility] Comment on above: Result Comment: Calc diana report will follow via computer, mail or concrete engineering technician delivery. Performed By: #### C ALCULI #### [facility] [address] [place] [address] Dr. Paramjit Cheng Size 6x4 Normal [facility] Comment on above: Result Comment: Mult iple pieces received. Dimensions of the largest piece reported. Performed By: #### C ALCULI #### [facility] [address] [place] [address] Dr. Paramjit Cheng Size 3x2 [facility] Comment on above: Result Comment: Mult iple pieces received. Dimensions of the largest piece reported. Performed By: #### C ALCULI #### [facility] [address] [place] [address] Dr. Paramjit Cheng Sodium Acid Urate Normal [facility] Comment on above: Performed By: #### C ALCULI #### [facility] [address] [address] [address] Paramjit Cheng Source Comment Normal [facility] Comment on above: Result Comment: Urin savage Bladder Performed By: #### C ALCULI #### [facility] [address] [address] [address] Paramjit Cheng Result Comment: Not provided Triamterene Normal [facility] Comment on above: Performed By: #### C ALCULI #### [facility] [address] [address] [address] Paramjit Cheng Uric Acid [facility] Comment on above: Performed By: #### C ALCULI #### [facility] [address] [address] [address] Paramjit Cheng Uric Acid Dihydrate Normal [facility] Comment on above: Performed By: #### C ALCULI #### [facility] [address] [address] [address] Paramjit Cheng Weight 636 mg Normal [facility] Comment on above: Performed By: #### C ALCULI #### [facility] [address] [address] [address] Paramjit Cheng Weight 18 mg Normal [facility] Comment on above: Performed By: #### C ALCULI #### [facility] [address] [address] [address] Paramjit Cheng Xanthine [facility] Comment on above: Performed By: #### C ALCULI #### [facility] [address] [address] [address] Paramjit Cheng XR KUB 1 VIEWon [...] TITUS TELLEZ Date: 2022 06:37 Normal [facility]id-19 [facility]on 07-17 SARS-CoV-2 (COVID-19) RNA MARY+probe Ql (Unsp spec) Not detected Normal NOT DETECTED [facility] Comment on above: Result Comment: This test is not yet approved or cleared by the [place] FDA. When there are no FDA-approved or cleared tests available, and other criteria are met, FDA can make tests available under an emergency access mechanism called an Emergency Use Authorization (EUA). The EUA for this test is supported by the [place] of Health and Human Service's (HHS's) declaration [...] Performed By: #### P TT, PT #### [facility] [address] [address] [address] Paramjit Cheng CBC AUTO DIFFon 07-23-2022 BASO # 0.0 103/ul Normal 0.0-0.1 [facility] Comment on above: Performed By: #### P TT, PT #### [facility] [address] [address] [address] Paramjit Cheng Basophils/100 WBC (Bld) 0.4 % Normal 0.2-2.0 [facility] Comment on above: Performed By: #### P TT, PT #### [facility] [address] [place] [address] Dr. Paramjit Cheng EO # 0.1 103/ul Normal 0.0-0.7 [facility] Comment on above: Performed By: #### P TT, PT #### [facility] [address] [place] [address] Dr. Paramjit Cheng Eosinophils/100 WBC (Bld) 2.5 % Normal 0.9-7.0 [facility] Comment on above: Performed By: #### P TT, PT #### [facility] [address] [place] [address] Dr. Paramjit Cheng Erythrocyte distribution width (RBC) [Ratio] 13.0 % Normal 11.0-15.0 [facility] Comment on above: Performed By: #### P TT, PT #### [facility] [address] [place] [address] Dr. Paramjit Cheng Hematocrit (Bld) [Volume fraction] 41.7 % Critically low 42.0-54.0 [facility] Comment on above: Performed By: #### P TT, PT #### [facility] [address] [place] [address] Dr. Paramjit Cheng Hemoglobin (Bld) [Mass/Vol] 14.5 g/dL Normal 14.0-18.0 [facility] Comment on above: Performed By: #### P TT, PT #### [facility] [address] [place] [address] Dr. Paramjit Cheng IG # 0.01 10e3/ul Normal 0.00-0.03 [facility] Comment on above: Performed By: #### P TT, PT #### [facility] [address] [place] [address] Dr. Paramjit Cheng IG % 0.2 % Normal 0.0-0.5 [facility] Comment on above: Performed By: #### P TT, PT #### [facility] [address] [place] [address] Dr. Paramjit Cheng LYMPH # 1.6 103/ul Normal 1.2-3.8 [facility] Comment on above: Performed By: #### P TT, PT #### [facility] [address] [place] [address] Dr. Paramjit Cheng Lymphocytes/100 WBC (Bld) 27.6 % Normal 20.5-60.0 [facility] Comment on above: Performed By: #### P TT, PT #### [facility] [address] [place] [address] Dr. Paramjit Cheng MANUAL DIFF REQ NO Normal [facility] Comment on above: Performed By: #### P TT, PT #### [facility] [address] [place] [address] Dr. Paramjit Cheng MCH (RBC) [Entitic mass] 32.8 pg Normal 25.9-34.0 [facility] Comment on above: Performed By: #### P TT, PT #### [facility] [address] [place] [address] Dr. Paramjit Cheng MCHC (RBC) [Mass/Vol] 34.8 g/dL Normal 29.9-35.2 [facility] Comment on above: Performed By: #### P TT, PT #### [facility] [address] [place] [address] Dr. Paramjit Cheng MCV (RBC) [Entitic vol] 94.3 fL Critically high 80.0-94.0 [facility] Comment on above: Performed By: #### P TT, PT #### [facility] [address] [place] [address] Dr. Paramjit Cheng MONO # 0.5 103/ul Normal 0.3-0.8 [facility] Comment on above: Performed By: #### P TT, PT #### [facility] [address] [place] [address] Dr. Paramjit Cheng Monocytes/100 WBC (Bld) 8.0 % Normal 1.7-12.0 [facility] Comment on above: Performed By: #### P TT, PT #### [facility] [address] [place] [address] Dr. Paramjit Cheng NEUT # 3.5 103/ul Normal 1.4-6.5 [facility] Comment on above: Performed By: #### P TT, PT #### [facility] [address] [address] [address] Paramjit Cheng Neutrophils/100 WBC (Bld) 61.3 % Normal 43.0-75.0 [facility] Comment on above: Performed By: #### P TT, PT #### [facility] [address] [address] [address] Paramjit Cheng Platelet mean volume (Bld) [Entitic vol] 9.5 fL Normal 9.5-13.5 [facility] Comment on above: Performed By: #### P TT, PT #### [facility] [address] [address] [address] Paramjit Cheng PLT 252 103/ul Normal 150-450 [facility] Comment on above: Performed By: #### P TT, PT #### [facility] [address] [address] [address] Paramjit Cheng RBC 4.42 106/ul Critically low 4.70-6.10 [facility] Comment on above: Performed By: #### P TT, PT #### [facility] [address] [address] [address] Paramjit Cheng WBC 5.6 103/ul Normal 4.0-11.0 [facility] Comment on above: Performed By: #### P TT, PT #### [facility] [address] [address] [address] Paramjit Cheng PROF CHEM 8 (BAS METB)on Anion gap [Moles/Vol] 9.6 mmol/L Normal [facility] Comment on above: Performed By: #### D ATCBC #### [facility] [address] [address] [address] Paramjit Cheng Calcium [Mass/Vol] 8.6 mg/dL Normal 8.5-10.1 [facility] Comment on above: Performed By: #### D ATCBC #### [facility] [address] [address] [address] Paramjit Cheng Chloride [Moles/Vol] 107 mmol/L Normal 98-107 [facility] Comment on above: Performed By: #### D ATCBC #### [facility] [address] [address] [address] Paramjit Cheng CO2 [Moles/Vol] 28.0 mmol/L Normal 21.0-32.0 [facility] Comment on above: Performed By: #### D ATCBC #### [facility] [address] [address] [address] Paramjit Cheng Creatinine [Mass/Vol] 0.98 mg/dL Normal 0.70-1.30 [facility] Comment on above: Performed By: #### D ATCBC #### [facility] [address] [place] [address] Dr. Paramjit Cheng EGFR-AF ALGERIAN >60 Normal >=60 [facility] Comment on above: Performed By: #### D ATCBC #### [facility] [address] [place] [address] Dr. Paramjit Cheng EGFR-NON AF ALGERIAN >60 Normal >=60 [facility] Comment on above: Performed By: #### D ATCBC #### [facility] [address] [address] [address] Paramjit Cheng Glucose [Mass/Vol] 90 mg/dL Normal 74-[address] [facility] Comment on above: Performed By: #### D ATCBC #### [facility] [address] [address] [address] Paramjit Cheng Potassium [Moles/Vol] 3.6 mmol/L Normal 3.5-5.1 [facility] Comment on above: Performed By: #### D ATCBC #### [facility] [address] [address] [address] Paramjit Cheng Sodium [Moles/Vol] 141 mmol/L Normal 136-[address] [facility] Comment on above: Performed By: #### D ATCBC #### [facility] [address] [address] [address] Paramjit Cheng Urea nitrogen [Mass/Vol] 12.0 mg/dL Normal 7.0-18.0 [facility] Comment on above: Performed By: #### D ATCBC #### [facility] [address] [place] [address] Dr. Paramjit Cheng Urea nitrogen/Creatinine [Mass ratio] 12.2 mg/mg Normal [facility] Comment on above: Performed By: #### D ATCBC #### [facility] [address] [place] [address] Dr. Paramjit Cheng PROTIMEon 07-23-2022 INR Coag (PPP) [Relative time] 1.04 {INR} Normal [facility] Comment on above: Performed By: #### P TT, PT #### [facility] [address] [place] [address] Dr. Paramjit Cheng INR GUIDELINES SEE BELOW Normal [facility] Comment on above: Result Comment: ROSE RED INR: 2.0 - 3.0 CONDITIONS NOT LISTED BELOW 2.5 - 3.5 FOR PROSTHETIC HEART VALVE REPLACEMENT 2.5 - 3.5 RECURRENT THROMBOSIS Performed By: #### P TT, PT #### [facility] [address] [place] [address] Dr. Paramjit Cheng PT Coag (PPP) [Time] 11.2 s Normal 9.0-11.6 [facility] Comment on above: Performed By: #### P TT, PT #### [facility] [address] [place] [address] Dr. Paramjit Cheng PTTon 07-23-2022 aPTT Coag (Bld) [Time] 25.1 s Normal 22.3-36.2 [facility] Comment on above: Performed By: #### P TT, PT #### [facility] [address] [place] [address] ABD/PELVIS WO CONon [...] above: Performed By: #### C APRIL #### [facility] [address] [address] [address] Paramjit Cheng EGFR-AF ALGERIAN >60 Normal >=60 [facility] Comment on above: Performed By: #### C APRIL #### [facility] [address] [place] [address] Dr. Paramjit Cheng EGFR-NON AF ALGERIAN >60 Normal >=60 [facility] Comment on above: Performed By: #### C APRIL #### [facility] [address] [place] [address] ABD/PELV WO W [...] QUINCY TOVAR Date: 2022-04-25 12:01 Normal [facility] CBC AUTO DIFFon 12-01-2021 BASO # 0.0 103/ul Normal 0.0-0.1 [facility] Comment on above: Performed By: #### D ATCBC #### [facility] [address] [place] [address] Dr. Paramjit Cheng Basophils/100 WBC (Bld) 0.4 % Normal 0.2-2.0 [facility] Comment on above: Performed By: #### D ATCBC #### [facility] [address] [place] [address] Dr. Paramjit Cheng EO # 0.2 103/ul Normal 0.0-0.7 [facility] Comment on above: Performed By: #### D ATCBC #### [facility] [address] [place] [address] Dr. Paramjit Cheng Eosinophils/100 WBC (Bld) 3.8 % Normal 0.9-7.0 [facility] Comment on above: Performed By: #### D ATCBC #### [facility] [address] [place] [address] Dr. Paramjit Cheng Erythrocyte distribution width (RBC) [Ratio] 13.7 % Normal 11.0-15.0 [facility] Comment on above: Performed By: #### D ATCBC #### [facility] [address] [place] [address] Dr. Paramjit Cheng Hematocrit (Bld) [Volume fraction] 44.1 % Normal 42.0-54.0 [facility] Comment on above: Performed By: #### D ATCBC #### [facility] [address] [place] [address] Dr. Paramjit Cheng Hemoglobin (Bld) [Mass/Vol] 14.9 g/dL Normal 14.0-18.0 [facility] Comment on above: Performed By: #### D ATCBC #### [facility] [address] [place] [address] Dr. Paramjit Cheng IG # 0.01 10e3/ul Normal 0.00-0.03 [facility] Comment on above: Performed By: #### D ATCBC #### [facility] [address] [place] [address] Dr. Paramjit Cheng IG % 0.2 % Normal 0.0-0.5 [facility] Comment on above: Performed By: #### D ATCBC #### [facility] [address] [place] [address] Dr. Paramjit Cheng LYMPH # 2.1 103/ul Normal 1.2-3.8 [facility] Comment on above: Performed By: #### D ATCBC #### [facility] [address] [place] [address] Dr. Paramjit Cheng Lymphocytes/100 WBC (Bld) 37.9 % Normal 20.5-60.0 [facility] Comment on above: Performed By: #### D ATCBC #### [facility] [address] [place] [address] Dr. Paramjit Cheng MCH (RBC) [Entitic mass] 31.9 pg Normal 25.9-34.0 [facility] Comment on above: Performed By: #### D ATCBC #### [facility] [address] [place] [address] Dr. Paramjit Cheng MCHC (RBC) [Mass/Vol] 33.8 g/dL Normal 29.9-35.2 [facility] Comment on above: Performed By: #### D ATCBC #### [facility] [address] [place] [address] Dr. Paramjit Cheng MCV (RBC) [Entitic vol] 94.4 fL Critically high 80.0-94.0 [facility] Comment on above: Performed By: #### D ATCBC #### [facility] [address] [place] [address] Dr. Paramjit Cheng MONO # 0.5 103/ul Normal 0.3-0.8 [facility] Comment on above: Performed By: #### D ATCBC #### [facility] [address] [place] [address] Dr. Paramjit Cheng Monocytes/100 WBC (Bld) 9.7 % Normal 1.7-12.0 [facility] Comment on above: Performed By: #### D ATCBC #### [facility] [address] [place] [address] Dr. Paramjit Cheng NEUT # 2.6 103/ul Normal 1.4-6.5 [facility] Comment on above: Performed By: #### D ATCBC #### [facility] [address] [address] [address] Paramjit Cheng Neutrophils/100 WBC (Bld) 48.0 % Normal 43.0-75.0 [facility] Comment on above: Performed By: #### D ATCBC #### [facility] [address] [place] [address] Dr. Paramjit Cheng Platelet mean volume (Bld) [Entitic vol] 9.6 fL Normal 9.5-13.5 [facility] Comment on above: Performed By: #### D ATCBC #### [facility] [address] [place] [address] Dr. Paramjit Cheng PLT 254 103/ul Normal 150-450 [facility] Comment on above: Performed By: #### D ATCBC #### [facility] [address] [place] [address] Dr. Paramjit Cheng RBC 4.67 106/ul Critically low 4.70-6.10 [facility] Comment on above: Performed By: #### D ATCBC #### [facility] [address] [place] [address] Dr. Paramjit Cheng WBC 5.5 103/ul Normal 4.0-11.0 [facility] Comment on above: Performed By: #### D ATCBC #### [facility] [address] [place] [address] Dr. Paramjit Cheng FLORENTIN- BMP WITH LIPIDon 2021 Anion gap [Moles/Vol] 12.5 mmol/L Normal [facility] Comment on above: Performed By: #### P TT, PT #### [facility] [address] [place] [address] Dr. Paramjit Cheng Calcium [Mass/Vol] 8.8 mg/dL Normal 8.5-10.1 [facility] Comment on above: Performed By: #### P TT, PT #### [facility] [address] [place] [address] Dr. Paramjit Cheng Chloride [Moles/Vol] 104 mmol/L Normal 98-107 [facility] Comment on above: Performed By: #### P TT, PT #### [facility] [address] [address] [address] Paramjit Cheng Cholesterol [Mass/Vol] 220 mg/dL Critically high <=200 [facility] Comment on above: Performed By: #### P TT, PT #### [facility] [address] [place] [address] Dr. Paramjit Cheng Cholesterol in HDL [Mass/Vol] 65 mg/dL Critically high 40-60 [facility] Comment on above: Performed By: #### P TT, PT #### [facility] [address] [place] [address] Dr. Paramjit Cheng Cholesterol in LDL [Mass/Vol] 133.0 mg/dL Normal [facility] Comment on above: Performed By: #### P TT, PT #### [facility] [address] [place] [address] Dr. Paramjit Cheng CO2 [Moles/Vol] 27.6 mmol/L Normal 22.0-30.0 [facility] Comment on above: Performed By: #### P TT, PT #### [facility] [address] [place] [address] Dr. Paramjit Cheng Creatinine [Mass/Vol] 0.97 mg/dL Normal 0.66-1.25 [facility] Comment on above: Performed By: #### P TT, PT #### [facility] [address] [place] [address] Dr. Paramjit Cheng EGFR-AF ALGERIAN >60 Normal >=60 [facility] Comment on above: Performed By: #### P TT, PT #### [facility] [address] [place] [address] Dr. Paramjit Cheng EGFR-NON AF ALGERIAN >60 Normal >=60 [facility] Comment on above: Performed By: #### P TT, PT #### [facility] [address] [place] [address] Dr. Paramjit Cheng Glucose [Mass/Vol] 98 mg/dL Normal 74-[address] [facility] Comment on above: Performed By: #### P TT, PT #### [facility] [address] [place] [address] Dr. Paramjit Cheng HDL NORMAL > or = 60 mg/dl - LOW CARDIOVASCULAR RISK <40 mg/dl - HIGH CARDIOVASCULAR RISK Normal [facility] Comment on above: Performed By: #### P TT, PT #### [facility] [address] [address] [address] Paramjit Cheng LDL CALC NORMAL SEE BELOW Normal [facility] Comment on above: Result Comment: <100 mg/dl OPTIMAL 100 - 129 mg/dl NEAR OR ABOVE OPTIMAL 130 - 159 mg/dl BORDERLINE HIGH 160 - 189 mg/dl HIGH >190 mg/dl VERY HIGH Performed By: #### P TT, PT #### [facility] [address] [address] [address] Paramjit Cheng Potassium [Moles/Vol] 4.1 mmol/L Normal 3.4-5.0 [facility] Comment on above: Performed By: #### P TT, PT #### [facility] [address] [address] [address] Paramjit Cheng Sodium [Moles/Vol] 140 mmol/L Normal 137-145 [facility] Comment on above: Performed By: #### P TT, PT #### [facility] [address] [address] [address] Paramjit Cheng Triglyceride [Mass/Vol] 110 mg/dL Normal <=150 [facility] Comment on above: Performed By: #### P TT, PT #### [facility] [address] [address] [address] Paramjit Cheng Urea nitrogen [Mass/Vol] 13.0 mg/dL Normal 7.0-18.0 [facility] Comment on above: Performed By: #### P TT, PT #### [facility] [address] [address] [address] Paramjit Cheng Urea nitrogen/Creatinine [Mass ratio] 13.4 mg/mg Normal [facility] Comment on above: Performed By: #### P TT, PT #### [facility] [address] [address] [address] Paramjit Cheng VLDL CALC 22.0 mg/dL Normal [facility] Comment on above: Performed By: #### P TT, PT #### [facility] [address] [address] [address] Paramjit Cheng Vital Signs Date Time Vital Sign Value Performing Clinician Facility 06-18-2024 09:27-0400 Body height 177.8 cm [facility] 06-18-2024 09:27-0400 Body mass index (BMI) [Ratio] 24.4 kg/m2 [facility] 06-18-2024 09:27-0400 Body weight 77.16 kg [facility] 06-18-2024 09:27-0400 Diastolic blood pressure 67 mm[Hg] [facility] 06-18-2024 09:27-0400 Heart rate 64 /min [facility] 06-18-2024 09:27-0400 Respiratory rate 12 /min [facility] 06-18-2024 09:27-0400 Systolic blood pressure 105 mm[Hg] [facility] 05-22-2024 08:47-0400 Blood Pressure Location Emeka GRACE [facility] 05-22-2024 08:47-0400 Diastolic blood pressure 80 mm[Hg] Emeka GRACE [facility] 05-22-2024 08:47-0400 Heart rate 61 /min Emeka GRACE [facility] 05-22-2024 08:47-0400 Respiratory rate 18 /min Emeka GRACE [facility] 05-22-2024 08:47-0400 Systolic blood pressure 116 mm[Hg] Emeka GRACE [facility] 02-27-2024 14:30-0400 Body height 177.8 cm [facility] 02-27-2024 14:30-0400 Body mass index (BMI) [Ratio] 24.7 kg/m2 [facility] 02-27-2024 14:30-0400 Body weight 78.18 kg [facility] 02-27-2024 14:30-0400 Diastolic blood pressure 60 mm[Hg] [facility] 02-27-2024 14:30-0400 Heart rate 70 /min [facility] 02-27-2024 14:30-0400 Respiratory rate 12 /min [facility] 02-27-2024 14:30-0400 Systolic blood pressure 100 mm[Hg] [facility] 02-11-2024 13:37-0400 Body height 177.8 cm [facility] 02-11-2024 13:37-0400 Body mass index (BMI) [Ratio] 24.7 kg/m2 [facility] 02-11-2024 13:37-0400 Body weight 78.13 kg [facility] 02-11-2024 13:37-0400 Diastolic blood pressure 74 mm[Hg] [facility] 02-11-2024 13:37-0400 Heart rate 66 /min [facility] 02-11-2024 13:37-0400 Respiratory rate 12 /min [facility] 02-11-2024 13:37-0400 Systolic blood pressure 120 mm[Hg] [facility] 11-21-2023 08:47-0500 Body height 177.8 cm [facility] 11-21-2023 08:47-0500 Body mass index (BMI) [Ratio] 24.8 kg/m2 [facility] 11-21-2023 08:47-0500 Body weight 78.52 kg [facility] 11-21-2023 08:47-0500 Diastolic blood pressure 71 mm[Hg] [facility] 11-21-2023 08:47-0500 Heart rate 60 /min [facility] 11-21-2023 08:47-0500 Respiratory rate 12 /min [facility] 11-21-2023 08:47-0500 Systolic blood pressure 119 mm[Hg] [facility] 08-21-2023 08:30-0500 Body height 177.8 cm Javi Ball Other [facility] Other 08-21-2023 08:30-0500 Body mass index (BMI) [Ratio] 24.82 kg/m2 Javi Ball Other [facility] Other 08-21-2023 08:30-0500 Body weight 78.47 kg Javi Ball Other [facility] Other 08-21-2023 08:30-0500 Diastolic blood pressure 71 mm[Hg] Javi Ball Other [facility] Other 08-21-2023 08:30-0500 Respiratory rate 12 /min Javi Ball Other [facility] Other 08-21-2023 08:30-0500 Systolic blood pressure 116 mm[Hg] Javi Ball Other [facility] Other 06-11-2023 15:30-0400 Body height 177.8 cm Javi Ball Other [facility] Other 06-11-2023 15:30-0400 Body mass index (BMI) [Ratio] 24.96 kg/m2 Javi Ball Other [facility] Other 06-11-2023 15:30-0400 Body weight 78.93 kg Javi Ball Other [facility] Other 06-11-2023 15:30-0400 Diastolic blood pressure 64 mm[Hg] Javi Ball Other [facility] Other 06-11-2023 15:30-0400 Respiratory rate 12 /min Javi Ball Other [facility] Other 06-11-2023 15:30-0400 Systolic blood pressure 122 mm[Hg] Javi Ball Other [facility] Other 05-21-2023 08:30-0400 Body height 177.8 cm Javi Ball Other [facility] Other 05-21-2023 08:30-0400 Body mass index (BMI) [Ratio] 24.68 kg/m2 Javi Ball Other [facility] Other 05-21-2023 08:30-0400 Body weight 78.02 kg Javi Ball Other [facility] Other 05-21-2023 08:30-0400 Diastolic blood pressure 78 mm[Hg] Javi Ball Other [facility] Other 05-21-2023 08:30-0400 Respiratory rate 12 /min Javi Ball Other [facility] Other 05-21-2023 08:30-0400 Systolic blood pressure 119 mm[Hg] Javi Ball Other [facility] Other 04-26-2023 09:06-0400 Blood Pressure Location Emeka GRACE [facility] 04-26-2023 09:06-0400 Diastolic blood pressure 78 mm[Hg] Emeka GRACE [facility] 04-26-2023 09:06-0400 Heart rate 74 /min Emeka GRACE [facility] 04-26-2023 09:06-0400 Respiratory rate 16 /min Emeka GRACE [facility] 04-26-2023 09:06-0400 Systolic blood pressure 118 mm[Hg] Emeka GRACE [facility] [place] 02-14-2023 08:30-0400 Body height 177.8 cm Javi Ball Other [facility] Other 02-14-2023 08:30-0400 Body mass index (BMI) [Ratio] 25.28 kg/m2 Javi Ball Other [facility] Other 02-14-2023 08:30-0400 Body weight 79.92 kg Javi Ball Other [facility] Other 02-14-2023 08:30-0400 Diastolic blood pressure 70 mm[Hg] Javi Ball Other [facility] Other 02-14-2023 08:30-0400 Respiratory rate 12 /min Javi Ball Other [facility] Other 02-14-2023 08:30-0400 Systolic blood pressure 115 mm[Hg] Javi Ball Other [facility] Other 11-06-2022 08:30-0500 Body height 177.8 cm Javi Ball Other [facility] Other 11-06-2022 08:30-0500 Body mass index (BMI) [Ratio] 25.51 kg/m2 Javi Ball Other [facility] Other 11-06-2022 08:30-0500 Body weight 80.65 kg Javi Ball Other [facility] Other 11-06-2022 08:30-0500 Diastolic blood pressure 70 mm[Hg] Javi Ball Other [facility] Other 11-06-2022 08:30-0500 Respiratory rate 12 /min Javi Ball Other [facility] Other 11-06-2022 08:30-0500 Systolic blood pressure 102 mm[Hg] Javi Seymour Other [facility] Other 06-15-2022 08:43-0400 Blood Pressure Location Emeka GRACE [facility] 06-15-2022 08:43-0400 Diastolic blood pressure 80 mm[Hg] Emekalauri GRACE [facility] 06-15-2022 08:43-0400 Systolic blood pressure 133 mm[Hg] Emekalauri GRACE [facility] 04-02-2022 10:11-0400 Blood Pressure Location Emeka GRACE [facility] 04-02-2022 10:11-0400 Diastolic blood pressure 78 mm[Hg] Emekalauri GRACE [facility] 04-02-2022 10:11-0400 Heart rate 81 /min Emekalauri GRACE [facility] 04-02-2022 10:11-0400 Respiratory rate 16 /min Emekalauri GRACE [facility] 04-02-2022 10:11-0400 Systolic blood pressure 117 mm[Hg] Emeka GRACE [facility] Encounters Encounter Date Encounter Type Care Provider Facility Start: 06-18-2024 End: 06-18-2024 ambulatory [facility] Work Phone: Start: 06-18-2024 End: 06-18-2024 Patient encounter procedure [facility] Work Phone: Start: 06-11-2024 ambulatory Emeka GRCAE Facili ty:[id number] Start: 06-05-2024 End: 06-05-2024 ambulatory Emeka GRACE Facility:[id number] Start: 05-22-2024 End: 05-22-2024 ambulatory Emeka GRACE Facility:[facility] Start: 05-22-2024 End: 05-22-2024 Patient encounter procedure Emeka GRACE [facility] Start: 05-01-2024 ambulatory Emeka GRACE Facili ty:[facility] Start: 02-27-2024 End: 02-27-2024 ambulatory [facility] Work Phone: Start: 02-27-2024 End: 02-27-2024 Patient encounter procedure [facility] Work Phone: Start: 02-11-2024 End: 02-11-2024 ambulatory [facility] Work Phone: Start: 02-11-2024 End: 02-11-2024 Patient encounter procedure [facility] Work Phone: Start: 02-06-2024 End: 02-06-2024 ambulatory Emekalauri GRACE Facility:[id number] Start: 11-21-2023 End: 11-21-2023 Patient encounter procedure [facility] Work Phone: Start: 11-19-2023 End: 11-19-2023 ambulatory Javi Seymour Other [facility] Other Start: 11-19-2023 Telephone encounter Javi Ball [facility] Start: 09-20-2023 End: 09-20-2023 ambulatory Javi Ball Other [facility] Other Start: 09-20-2023 Telephone encounter Javi Ball [facility] Start: 08-21-2023 End: 08-21-2023 ambulatory Javi Ball Other [facility] Other Start: 08-21-2023 Office outpatient vi sit 15 minutes Javi Ball [facility] Start: 08-19-2023 End: 08-19-2023 ambulatory Javi Ball Other [facility] Other Start: 08-19-2023 Telephone encounter Javi Ball [facility] Start: 08-02-2023 End: 08-02-2023 ambulatory Javi Ball Other [facility] Other Start: 08-02-2023 Telephone encounter Javi Ball [facility] Start: 06-28-2023 End: 06-28-2023 ambulatory Javi Ball Other [facility] Other Start: 06-28-2023 Telephone encounter Javi Ball [facility] Start: 06-11-2023 End: 06-11-2023 ambulatory Javi Ball Other [facility] Other Start: 06-11-2023 Office outpatient vi sit 15 minutes Javi Ball [facility] Start: 05-21-2023 End: 05-21-2023 ambulatory Javi Ball Other [facility] Other Start: 05-21-2023 Office outpatient vi sit 15 minutes Javi Ball [facility] Start: 05-14-2023 End: 05-14-2023 ambulatory Javi Ball Other [facility] Other Start: 05-14-2023 Telephone encounter Javi Ball [facility] Start: 04-26-2023 End: 04-26-2023 Patient encounter procedure Emeka GRACE [facility] [place] Start: 03-08-2023 End: 03-08-2023 ambulatory Javi Ball Other [facility] Other Start: 03-08-2023 Telephone encounter Javi Ball [facility] Start: 02-19-2023 End: 02-19-2023 ambulatory Javi Ball Other [facility] Other Start: 02-19-2023 Telephone encounter Javi Ball [facility] Start: 02-14-2023 End: 02-14-2023 ambulatory Javi Ball Other [facility] Other Start: 02-14-2023 Office outpatient vi sit 15 minutes Javi Ball [facility] Start: 02-12-2023 End: 02-12-2023 ambulatory Javi Ball Other [facility] Other Start: 02-12-2023 Telephone encounter Javi Ball [facility] Start: 01-19-2023 End: 01-19-2023 ambulatory Javi Ball Other [facility] Other Start: 01-19-2023 Telephone encounter Javi Ball [facility] Start: 01-08-2023 End: 01-08-2023 ambulatory Javi Ball Other [facility] Other Start: 01-08-2023 Telephone encounter Javi Ball [facility] Start: 12-19-2022 End: 12-19-2022 ambulatory Javi Ball Other [facility] Other Start: 12-19-2022 Telephone encounter Javi Ball [facility] Start: 11-06-2022 End: 11-06-2022 ambulatory Javi Ball Other [facility] Other Start: 11-06-2022 Patient encounter procedure Javi Seymour [facility] Start: 10-21-2022 End: 10-21-2022 ambulatory Javi Seymour Other [facility] Other Start: 10-21-2022 Telephone encounter Javi ABARCA Alonso [facility] Start: 10-10-2022 End: 10-10-2022 ambulatory Javi Seymour Other [facility] Other Start: 10-10-2022 Telephone encounter Javi ABARCA [facility] Start: 09-28-2022 End: 09-28-2022 ambulatory Javi Seymour Other [facility] Other Start: 09-28-2022 Telephone encounter Javi ABARCA [...] encounter procedure Emeka GRACE [facility] Start: 08-02-2022 End: 08-02-[address] EMEKA GRACE Facility:[facility] Start: 07-30-2022 End: 07-31-[address] JAVI SEYMOUR Facility:[facility] Start: 07-28-2022 Encounter for preprocedural cardiovascular examination DR EMEKA GRACE [facility] Start: 07-24-2022 Pre-procedure evalua tion check Javi Seymour Other [facility] Other Start: 07-23-2022 End: 07-24-[address] JAVI SEYMOUR Facility:[facility] Start: 07-06-2022 End: 07-07-[address] JAVI SEYMOUR Facility:[facility] Start: 06-15-2022 End: 06-16-[address] JAVI SEYMOUR Facility:[facility] Start: 06-15-2022 End: 06-15-2022 Patient encounter procedure Emeka GRACE [facility] Start: 04-25-2022 End: 04-26-[address] JAVI SEYMOUR Facility:[facility] Start: 04-02-2022 End: 04-02-2022 Patient encounter procedure Emeka GRACE [facility] Start: 12-01-2021 End: 12-02-[address] BAL LISTED REQUEST Facility:[facility] Start: 11-02-2021 Adult health examination Joseph citlaly Lion Other [facility] Other Procedures Date Procedure Procedure Detail Performing Clinician Start: 02-06-2024 Extracorporeal shock wave lithotripsy of ureter Emekalauri GRACE Start: 01-10-2021 Transrectal biopsy o f prostate using ultrasound guidance Emeka GRACE Start: 01-06-2019 Screening for malign ant neoplasm of colon Javi Seymour Other Start: 06-02-2014 General examination of patient Javi Seymour Other Appendectomy Emeka FARA Arthroplasty of knee Emeka FARA Arthroscopic repair of rotator cuff Emeka GRACE Colonoscopy Emeka FARA Depression screening Herminio Seymour Other Screening for malign ant neoplasm of prostate Javi Seymour Other Plan of Treatment Date Care Activity Detail Author [facility] Immunizations Immunization Date Immunization Notes Care Provider Soha mcintosh 07-24-2022 influenza virus vaccine, split virus (incl. purified surface antigen) Javi Seymour Other [facility] Other 07-24-2022 influenza virus vaccine, unspecified formulation [facility] 07-24-2022 influenza, high dose seasonal, preservative-free Javi Seymour Other [facility] Other 2021 COVID-19 Vaccine Moderna - Documentation Purposes Only Javi Seymour Other [facility] 12-12-2020 SARS-CoV-2 (COVID-19 ) mRNA-1273 vaccine Emeka GRACE [facility] 11-22-2020 COVID-19 Vaccine Moderna - Documentation Purposes Only Javi Seymour Other [facility] 11-14-2020 SARS-CoV-2 (COVID-19 ) mRNA-1273 vaccine Emeka GRACE [facility] 10-24-2020 COVID-19 Vaccine Moderna - Documentation Purposes Only Javi Seymour Other [facility] 07-05-2020 influenza virus vaccine, split virus (incl. purified surface antigen) Javi Seymour Other [facility] Other 07-05-2020 influenza virus vaccine, unspecified formulation [facility] 07-05-2020 pneumococcal polysaccharide vaccine, 23 valent Javi Seymour Other [facility] 07-05-2020 Prevnar 20 Javi Seymour Other [facility] 01-06-2019 pneumococcal conjuga te vaccine, 13 valent Javi Lion Other [facility] 01-06-2019 pneumococcal Conjuga te, unspecified formulation; 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: [Need for prophylactic vaccination against Streptococcus pneumoniae (pneumococcus)] Javi Lion Other [facility] Other Payers Date Payer Category Payer Medicare [id number] 1961 Self-pay [id number] 1961 Unknown [id number] 1955 Unknown [id number] 2.16.84 [id number] 1953 Unknown [id number] 2.16.84 [id number] 1953 Unknown [id number] 2.16.84 [id number] 1953 Unknown [id number] 2.16.84 [id number] 1953 Unknown [id number] 2.16.84 0.1.118594.3.579.2.593 1953 Unknown [id number] 2.16.84 0.1.662383.3.579.2.593 1953 Unknown [id number] 2.16.84 0.1.029170.3.579.2.593 1953 Unknown [id number] 2.16.84 0.1.918497.3.579.2.593 1953 Unknown [id number] 2.16.84 0.1.177397.3.579.2.593 1953 Unknown [id number] 2.16.84 0.1.101219.3.579.2.593 1953 Unknown [id number] 2.16.8 40.1.861622.3.579.2.727 1953 Unknown [id number] 2.16.8 40.1.223882.3.579.2.727 1953 Unknown [id number] 2.16.8 40.1.976555.3.579.2.727 1953 Unknown [id number] 2.16.8 [id number] Unknown [id number] 2.16.84 [id number] Social History Date Type Detail Facility Start: 04-02-2022 End: 06-15-2022 Tobacco smoking status Ex-smoker (finding) [facility] Sex Assigned At Male [facility] Start: 1955 Sex Assigned At Male F [facility] Functional Status Date Assessment Result Facility 05-22-2024 Functional Status N/A [facility] 04-26-2023 Functional Status N/A [facility] 06-15-2022 Functional Status N/A [facility] 04-02-2022 Functional Status N/A [facility] Clinical Notes 04-02-2022 to 05-22-2024 Note [...] Follow these instructions at home: Medicines Take uirv-eis-pyictyz and prescription medicines only as told by [...] provider. Document Revised: 12/12/2022 Document Reviewed: 12/12/2022 [employer] Patient Education 2023 [employer]. Follow Up Care 02/11/2024 16:06:25 With:FARA SANDHU, LAURI Baron Address: [facility] [address], [place] [address] [phone] When: Unknown [facility] [place] 05-22-2024 Note Patient Education Urology Kidney Stones [...] these instructions at home: Medicines ? Take uiwc-lkz-zwpqrcg and prescription medicines only as told by [...] diet. Follow r (more content not included)... [facility] 11-19-2023 Evaluation note Encounter Date Diagnosis Assessment Notes Nov, Cervical spondylosis (ICD-10 - M47.812) [facility] Other 01-05-2024 Evaluation note* Encounter Date Diagnosis Assessment Notes Treatment Notes Treatment Clinical Notes Sep, Cervical spondylosis (ICD-10 - M47.812) [facility] Other 12-06-2023 Evaluation note* Encounter Date Diagnosis [...] medical therapy Aug, Nocturia (ICD-10 - R35.1) [facility] Other 12-04-2023 Evaluation note* Encounter Date Diagnosis Assessment Notes Treatment Notes Treatment Clinical Notes Aug, Lumbar spondylitis (ICD-10 - M46.96) [facility] Other 11-17-2023 Evaluation note* Encounter Date Diagnosis Assessment Notes Treatment Notes Treatment Clinical Notes Jul, Lumbar spondylitis (ICD-10 - M46.96) [facility] Other 10-13-2023 Evaluation note* Encounter Date Diagnosis Assessment Notes Treatment Notes Treatment Clinical Notes Jun, Lumbar spondylitis (ICD-10 - M46.96) [facility] Other 09-26-2023 Evaluation note* Encounter Date Diagnosis Assessment Notes Treatment Notes Treatment Clinical Notes May, Bee sting, accidental or unintentional, initial encounter (ICD-10 - T63.441A) Cool compresses and elevation. Monitor for s/s increased pain, swelling May, Cellulitis of right upper extremity (ICD-10 - L03.113) Elevate and begin antibiotics. Monitor for increased swelling, pain or fever [facility] Other 09-05-2023 Evaluation note* Encounter Date Diagnosis [...] prescribed Has Orthopedic appt later this month [facility] Other 08-29-2023 Evaluation note* Encounter Date Diagnosis Assessment Notes Treatment Notes Treatment Clinical Notes Apr, Lumbar spondylitis (ICD-10 - M46.96) [facility] Other 08-11-2023 Hospital Discharge instructions Patient Education [...] treatment? Where to find more information [employer] [place] [employer]: www.cancer.org [place] [employer]: www.auanet.org Contact a health care [...] provider. Document Revised: 02/26/2022 Document Reviewed: 02/26/2022 [employer] Patient Education 2022 [employer]. Follow Up Care 04/02/2022 10:42:42 With:FARA SANDHU, Emeka Woods, URL Address: [facility] [address], [place] [address]- When:Within 1 Year(s) Comments:w/PSA and KUB [facility] [place] 06-23-2023 Evaluation note* Encounter Date Diagnosis Assessment Notes Treatment Notes Treatment Clinical Notes Feb, Lumbar spondylitis (ICD-10 - M46.96) [facility] Other 06-01-2023 Evaluation note* Encounter Date Diagnosis [...] medical treatment Feb, Nocturia (ICD-10 - R35.1) [facility] Other 04-25-2023 Evaluation note* Encounter Date Diagnosis Assessment Notes Treatment Notes Treatment Clinical Notes Dec, Benign prostatic hyperplasia with lower urinary tract symptoms (ICD-10 - N40.1) [facility] Other 04-05-2023 Evaluation note* Encounter Date Diagnosis Assessment Notes Treatment Notes Treatment Clinical Notes Dec, Lumbar spondylitis (ICD-10 - M46.96) [facility] Other 02-21-2023 Evaluation note* Encounter Date Diagnosis [...] Screening for colon cancer (ICD-10 - Z12.11) [facility] Other 01-13-2023 Evaluation note* Encounter Date Diagnosis Assessment Notes Treatment Notes Treatment Clinical Notes Sep, Cervical spondylosis (ICD-10 - M47.812) [facility] Other 11-17-2022 NoteOP Note OPERATION DATE: 08/02/2022 [...] retrograde pyelogram. 9. Placement of right sided 6-Uzbek variable length stent. 10. Cystolitholapaxy of 2 [...] usual fashion. I started by passing a 22-Uzbek Olympus cystoscope per urethra and I arrived at a significant sequential stricture at the bulb. I passed a wire through the scope and was able to cannulate the strictured area and get it into the bladder. The scope was removed. I then used Padilla sounds and dilated the stricture from 20-Uzbek up to 30-Uzbek. The wire was removed and I then passed the cystoscope and was able to get it through the bulb and into the bladder. The bladder calculus was identified on the floor. I then passed a Glidewire through the scope and cannulated the right ureter. The wire was unable to pass up the tight J-hooking. I used an 8-Uzbek dilator to help, but I could not [...] was then removed. I then used the 10-Uzbek dilator to dilate the distal ureter. I [...] into the bladder and then slid a 6-Uzbek variable length stent over the wire, up [...] and plucked out the remaining pieces. The Wisair evacuator was used to get blood clots out of the bladder. The nephroscope was removed and the 22-Uzbek cystoscope was passed back in the bladder. The bladder looked fine. There were no pieces remaining in the bladder. The scope was then removed. The previously strictured area in the urethra was evaluated and it looked fine. I then placed a 20-Uzbek 2-way Almeida catheter in the bladder. It was irrigated manually and it irrigated clear. 10 cc of fluid was placed in the balloon. He was then transferred to a rsan diego bed and wheeled to PACU in stable condition. He will be discharged to home with a script for (more content not included)...[id number] Discharge instructions Patient Education 06/15/2022 09:27:58 [...] Follow these instructions at home: Medicines Take vyoj-udi-ijhdtsy and prescription medicines only as told by [...] or the blood stops without treatment. Take thua-uek-agfzbcu and prescription medicines only as told by your health care provider. Drink enough fluid to keep your urine clear or pale yellow. This information is not intended to replace advice given to you by your health care provider. Make sure you discuss any questions you have with your health care provider. Document Released: 09/02/2006 Document Revised: 01/27/2020 Document Reviewed: 10/05/2017 [employer] Patient Education 2019 [employer]. Follow Up Care 05/10/2022 10:28:16 With:FARA SANDHU, Emeka Woods, URL Address: [address] [place] [id number]- When: Unknown [facility] 07-18-2022 Hospital Discharge instructions Patient Education [...] urethra. Follow these instructions at home: Take ljmv-yyn-wogtifu and prescription medicines only as told by [...] 09/02/2006 Document Revised: 07/28/2019 Document Reviewed: 10/07/2017 [employer] Patient Education 2020 [employer]. Follow Up Care 09/29/2021 08:39:40 With:Emeka GRACE MD, URL Address: [facility] [address], [place] [address] [phone] When:Within 1 Year(s) Comments:1 year f/u with PSA [facility] evaluation + Plan note Future Appointments Appointment Date:04/12/2023 08:00:00 AM Scheduled Provider:Emeka GRACE MD Location:[facility] Appointment Type:URO Office Visit Diagnostic Tests Pending * PSA Total 04/02/22 [facility] evaluation + Plan note Future Appointments Appointment Date:04/12/2023 08:00:00 AM Scheduled Provider:Emeka GRACE MD Location:[facility] Appointment Type:URO Office Visit Diagnostic Tests Pending * Urine Cytology ([facility]) 06/15/22 [facility] evalcaybcl + Plan note Future Appointments Appointment Date:04/12/2023 08:00:00 AM Scheduled Provider:Emeka GRACE MD Location:[facility] Appointment Type:URO Office Visit [facility] evaluation + Plan note Future Appointments Appointment Date:05/01/2024 08:15:00 AM Scheduled Provider[facility] Office Visit Diagnostic Tests Pending * PSA Total 04/26/23 [facility] evaluation noteNo [address] + [employer] Other Evaluation note* Diagnosis Onset Date Resolution Status Benign prostatic hyperplasia with lower urinary tract symptoms acute Cervical spondylosis acute Elevated PSA acute Lumbar spondylosis acute Medicare annual wellness visit, subsequent noneactive Screening PSA (prostate specific antigen) noneactive Cervical spondylosis acute Elevated PSA acute Lumbar spondylosis acute [facility] Work Phone: Evaluation note* Diagnosis Onset Date Resolution Status Cervical spondylosis acute Left ureteral calculus acute Lumbar spondylosis acute Benign prostatic hyperplasia with lower urinary tract symptoms acute Cervical spondylosis acute Lumbar spondylosis acute [facility] Work Phone: Evaluation note* Diagnosis Onset Date Resolution Status Benign prostatic hyperplasia with lower urinary tract symptoms acute Cervical spondylosis acute Cervical spondylosis with myelopathy acute Lumbar spondylosis acute Opiate analgesic use agreement exists acute [facility] Work Phone: History general Narrative - [...] 01-10-2021 Surgical History fasciotomy right thigh 03-06-20 17 Surgical History left shoulder arthroscopy 10-05 Hospitalization History see surgical history [facility] Other Hospital course Narrative No data available for this section [facility] Hospital Discharge instructions No data available for this section [facility] progress note No data available for this section [facility] Summary Purpose Family History No Family History Records Found No data available for this section No Family History Records Found Advance Directives Advance Directive Response Recorded Date/ Time Advance [...] urinary tract symptoms Cervical spondylosis Lumbar spondylosis Chief Complaint 3 month f/u Reason for Visit Benign prostatic hyp erplasia with lower urinary tract symptoms Cervical spondylosis Cervical spondylosis with myelopathy Lumbar spondylosis Opiate analgesic use agreement exists Additional Source Comments Care Team (unrecognized sect [...] February 27, 2024 End: February 27, 2024 Team Status: Inactive Member Role Status Dates Javi Seymour DO Primary Care Provide r, Attending Provider Active Start: June 18, 2024 End: June 18, 2024 (unrecognized sect ion and content) No Status Records FoundNo Status Records Found INFORMATION SOURCE (unrecogn ized section and content) DATE CREATED AUTHOR 09/13/2022 [facility] DATE CREATED AUTHOR 'S ORGANIZ ATION 06/11/2024 [facility] REASON FOR VISIT (unrecogniz ed section [...] BE BASED ON THE PRIMARY CLINICAL RECORDS. [facility] [employer] [facility]. provides no warranty or guarantee of the accuracy or completeness of information in this document.
[2024-12-09 07:35] LABS: Basophils Percent Auto 0.4 % (0.2-2.0); Eosinophils Absolute Auto 0.3 10^3/uL (0.0-0.7); Eosinophils Percent Auto 6.3 % (0.9-7.0); Hematocrit 45.3 % (42.0-54.0); Hemoglobin 15.9 g/dL (14.0-18.0); Immature Granulocytes Abs Auto 0.01 10^3/uL (0.00-0.03); Immature Granulocytes Pct Auto 0.2 % (0.0-0.5); Lymphocytes Absolute Auto 1.9 10^3/uL (1.2-3.8); Lymphocytes Percent Auto 34.7 % (20.5-60.0); Mean Corpuscular HGB Conc 35.1 g/dL (29.9-35.2); Mean Corpuscular Hemoglobin 33.7 pg (25.9-34.0); Mean Platelet Volume 9.4 fL (9.5-13.5); Monocytes Absolute Auto 0.6 10^3/uL (0.3-0.8); Monocytes Percent Auto 10.3 % (1.7-12.0); Neutrophils Absolute Auto 2.6 10^3/uL (1.4-6.5); Neutrophils Percent Auto 48.1 % (43.0-75.0); Platelet Count 240 10^3/uL (150-450); Red Blood Count 4.72 10^6/uL (4.70-6.10); Red Cell Distribution Width 12.8 % (11.0-15.0); White Blood Count 5.4 10^3/uL (4.0-11.0)
[2024-12-09 08:11] LABS: Alanine Aminotransferase 26 U/L (16-63); Albumin Globulin Ratio 1.1; Albumin Level 3.6 g/dL (3.4-5.0); Alkaline Phosphatase 88 U/L (46-116); Anion Gap 11.2; Aspartate Amino Transferase 21 U/L (15-37); BUN Creatinine Ratio 15.2; Bilirubin Total 0.5 mg/dL (0.2-1.0); Calcium 8.6 mg/dL (8.5-10.1); Chloride 107 mmol/L (98-107); Chol HDL Ratio 3.6; Cholesterol 197 mg/dL (<=200); Estimated GFR (African America >60 (>=60 mL/min/1.73m^2); Estimated GFR (Non-African Ame >60 (>=60 mL/min/1.73m^2); Globulin 3.4 g/dL; Glucose 97 mg/dL (74-106); HDL Cholesterol 55 mg/dL (40-60); LDL Cholesterol Calculated 126.4 mg/dL; Potassium 4.2 mmol/L (3.5-5.1); Sodium 141 mmol/L (136-145); Triglycerides 78 mg/dL (<=150); VLDL CHOLESTEROL 15.6 mg/dL
== END 2024-12-09 07:03 | disposition home or self-care (01) ==
LOC: LAB 07:05
PROVIDERS: PCP Internal Medicine; Visit Provider Internal Medicine
DX: N20.1 Calculus of ureter (principal); Z12.5 Encounter for screening for malignant neoplasm of prostate; E78.00 Pure hypercholesterolemia, unspecified; N40.1 Benign prostatic hyperplasia with lower urinary tract symptoms; R35.1 Nocturia; R53.83 Other fatigue; Z79.899 Other long term (current) drug therapy
CPT/HCPCS: 36415; 80053; 80061; 85025; G0103

== ENCOUNTER 2025-01-01 07:47 | Outpatient (OUT) | payer MEDICARE, OTHER, SELFPAY ==
--- NOTE | 2025-01-01 08:00 | CA_ITS ---
Patient Name: RADHAMES MARQUEZ MR#: [id number] : 1955 Exam Date: 01/01/2025 Ordering Doctor: DR Javi Seymour D.O. ECHOCARDIOGRAM REPORT PROCEDURE: CA ECHO DOPPLER COMPLETE INDICATIONS: Heart murmur COMPARISON: None. DESCRIPTION: COMPLETE ECHOCARDIOGRAM Real-time transthoracic echocardiography with 2D, M-mode, spectral and color flow Doppler performed. QUALITY: Technical quality was good. LEFT VENTRICLE: Normal chamber size. Thickened septal wall. Mild concentric hypertrophy. Normal systolic function. LV EF: Normal left ventricular ejection fraction, (>55%). Normal systolic function. DIASTOLIC: Normal diastolic function. ATRIAL SEPTUM: Visually appears intact. LEFT ATRIUM: Normal chamber size. RIGHT ATRIUM: Normal chamber size. RIGHT VENTRICLE: Normal chamber size. Normal right ventricular systolic function. TRICUSPID VALVE: Normal mobility and thickness. No stenosis with trivial regurgitation. No evidence of pulmonary hypertension. RVSP 27 mmHg MITRAL VALVE: Normal mobility and thickness. No evidence of mitral valve stenosis. There is no mitral annular calcification. No mitral regurgitation. AORTIC VALVE: Normal trileaflet appearance. Mildly calcified aortic valve. Normal leaflet mobility. No evidence of aortic valve stenosis. No aortic regurgitation. AORTIC ROOT: Normal diameter and appearance measuring 3.4 cm. Ascending aorta is normal in size, measuring 2.9 cm. PULMONIC VALVE: Not well visualized. No stenosis. No regurgitation. PERICARDIUM: No evidence of pericardial effusion. IVC: Collapses with inspirations. PLEURA: CONCLUSION: 1. Mild concentric left ventricular hypertrophy with normal systolic function. Estimated LVEF is 60 to 65%. 2. Normal right ventricular size and systolic function. 3. Mildly calcified aortic valve without stenosis or regurgitation. 4. No significant valvular dysfunction. 5. Normal diastolic function. 6. Normal right-sided pressures. Adult Echocardiography Procedure Report Left Ventricle LVEDD (3.7 - 5.6 cm): 4.22 cm LVESD (2.2 - 4.0 cm): 2.66 cm LVIVS thickness (0.6 - 1.2 cm): 1.49 cm LVPW thickness (0.5 - 1.0 cm): 0.98 cm e': 0.10 m/s E - e': 7.20 LVOT Max Gradient: 5.56 mm[Hg] LVOT Area (cm2): 1.18 m/s Peak Velocity (LVOT): 1.18 m/s Mean Velocity (LVOT): 0.77 m/s LVOT Diameter 2.40 cm Left Atrium LA Volume Index (2D A2C): 29.85 ml/m2 Left Atrium Systolic Dimension: 3.80 cm Mitral Valve MV E to A Ratio: 0.94 Mitral Valve A-Wave Peak Velocity: 0.75 m/s Mitral Valve E-Wave Peak Velocity: 0.70 m/s Right Ventricle Aorta AO Root Diam: 3.36 cm Ascending Ao Diam: 2.94 cm Aortic Valve AoV Area (Peak [place]): 3.69 cm2, 3.69 cm2 AoV Area (VTI): 3.12 cm2, 3.12 cm2 Peak Velocity(Antegrade Flow): 1.45 m/s Peak Gradient(Antegrade Flow): 8.40 mm[Hg] Mean Velocity(Antegrade Flow): 1.00 m/s Mean Gradient(Antegrade Flow): 4.64 mm[Hg] Velocity Time Integral: 35.76 cm Tricuspid Valve Peak Velocity (Regurgitant Flow): 2.44 m/s Pulmonic Valve Mean Gradient: 4.69 mm[Hg] Mean Velocity: 1.01 m/s Peak Velocity: 1.53 m/s, 1.78 m/s Peak Gradient: 12.61 mm[Hg], 9.39 mm[Hg] Right Atrium Right Atrium Systolic Pressure: 60.07 ml, 60.07 ml Dictated by: Rik Gonsalez M.D. on 01/01/2025 at 12:36 Approved by: Rik Gonsalez M.D. on 01/01/2025 at 12:40
--- OUTSIDE RECORDS SUMMARY | 2025-01-01 08:06 | XMS_ITS | CCD ---
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 Name Role Phone JAVI SEYMOUR Primary Care [...] DR HALL Primary Care Unavailable GRACE, DR COLNÓ Attending Unavailable GRACE, DR COLÓN Consulting Unavailable [...] ZIEBER, DR TITUS Woods Consulting DR JAVI Clark Primary Care Unavailable GRACE, DR COLÓN Attending Unavailable FARA, DR COLÓN Consulting Unavailable FARA, DR COÓLN Admitting Javi Clark Unavailable Emeka GRACE Attending Emeka Guallpa Attending Emeka Guallpa Attending Unavailable Emeka GRACE Referring Emeka Guallpa Attending Emeka Guallpa Attending Unavailable Allergies Allergy Classification Reported Allergen(s) Allergy Type Date of Onset Reaction(s) Facility (1 source) patient allergy list reviewed by nurse or physicia Propensity to adverse reactions 4 Comment:Done USEREADY Other Medications Current Medications Medication Drug Class(es) Dates Sig (Normalized) Sig (Original) acetaminophen 325 mg / HYDROcodone bitartrate 5 mg oral tablet (20 sources) Opioid Agonist Start: 12-11-2024 take 1 tablet by mouth once daily at bedtime as needed for pain Hydrocodone-Aceta minophen 5-325 mg tablet Active 1 TAB PO Daily at bedtime as needed for pain December 11, 2024 Start: 06-18-2024 End: 12-11-2024 take 0.5 tablet by mouth once daily at bedtime Hydrocodone-Acetaminophen 5-325 mg table t Discontinued 0.5 TAB PO Daily at bedtime June 18, 2024 December 11, 2024 9:38am Start: 11-12-2023 End: 12-11-2024 take 1 tablet by mouth once daily at bedtime Hydrocodone-Acetaminophen 5-325 mg table t Discontinued 1 TAB PO Daily at bedtime [...] 1 tablet by mouth twice daily Nabumetone 750 mg tablet Active 0 .ROUTE .COMPLEX 180 November 19, 2023 5:48pm take 1 tablet by mouth twice a day Start: 10-10-2022 End: 11-19-2023 take 1 tablet by mouth twice daily Nabumetone 750 mg tablet Discontinued 750 MG PO Twice daily November 19, 2023 1:00am November 19, 2023 5:57pm Start: 12-26-2020 Relafen DS mg, Daily, Refills(s) 0 Start Date: 12/26/20 Status: Ordered simvastatin 40 mg oral tablet (20 sources) HMG-CoA Reductase Inhibitor Start: 04-10-2024 End: 09-01-2024 take 1 tablet by mouth once daily in the evening Simvastatin 40 mg tablet Active 0 .ROUTE .COMPLEX 90 September 01, 2024 6:30pm take 1 tablet by mouth every evening Start: 12-26-2020 End: 04-10-2024 take 1 tablet by mouth once daily in the evening Simvastatin 40 mg tablet Discontinued 40 MG PO Every evening November 19, 2023 1:00am April 10, 2024 11:20am tamsulosin hydrochloride 0.4 mg oral capsule (20 sources) alpha-Adrenergic Amanda Start: 12-25-2023 End: 11-29-2024 take 1 capsule by mouth once daily at mealtime Tamsulosin 0.4 mg capsule Active 0 .ROUTE .COMPLEX 180 November 29, 2024 4:44pm TAKE 1 CAPSULE BY MOUTH EVERY EVENING WITH a meal Start: 12-13-2021 End: 12-25-2023 take 1 capsule by mouth once daily at bedtime Tamsulosin 0.4 mg capsule Discontinued 0.4 MG PO Daily at bedtime December 25, 2023 12:00am December 25, 2023 1:26pm Completed/Discontinued Medications Medication Drug Class(es) Dates Sig (Normalized) Sig (Original) cephalexin 500 mg oral capsule (12 sources) Cephalosporin Antibacterial Start: 06-11-2023 End: 11-21-2023 take 1 capsule by mouth twice daily Cephalexin 500 mg capsule Discontinued 500 MG PO Twice daily November [...] # 2 tab(s), Refills(s) 0, [facility]: [id number], 175, cm, 06/15/22 8:46:00 EDT, Height/Length Dosing, 75.1, kg, 0... Start Date: 06/15/22 Status: Ordered predniSONE 20 mg oral tablet (11 sources) Start: 06-11-2023 End: 11-21-2023 take 1 tablet by mouth twice daily Prednisone 20 mg tablet Discontinued 20 MG PO Twice daily November 19, 2023 1:00am November 21, 2023 9:45am traMADol hydrochloride 50 mg oral tablet (20 sources) Opioid Agonist Start: 08-19-2023 End: 11-23-2024 take 1 tablet by mouth once daily Tramadol 50 mg tablet Discontinued 50 MG PO Daily November 19, [...] [Retention of urine, unspecified] Onset: 04-17-2018 Episodic Heart valve disorders (1 source) Heart murmur; 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: [Cardiac murmur, unspecified] 12-11-2024 Episodic Hyperplasia of prostate (20 sources) Benign [...] 06-02-2014 11-19-2023 Chronic Other aftercare (1 source) halfway (current) use of anticoagulants; 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: [USP CURRNT USE ANTICOAGULANTS] Onset: 08-16-2022 Episodic Other aftercare (1 source) 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; 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: [OTH USP CURRENT DRUG THERAPY] Onset: 08-16-2022 Episodic Other aftercare (4 sources) 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; 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: [Long-term (current) use of other medications] Episodic Other aftercare (1 source) High risk drug monitoring status; 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: [halfway (current) use of opiate analgesic] Episodic Other aftercare (1 source) Long-term current use of drug therapy; 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: [Other chcf (current) drug therapy] Episodic Other aftercare (4 sources) Drug therapy finding; 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: [halfway (current) use of opiate analgesic] 02-27-2024 Episodic [...] antigen [PSA]] Onset: 06-26-2015 Resolved: 08-11-2021 Episodic Comment on above: PSA: 4.56 - 11/2023, 4.37 - 04/2024, 4.70 - 11/2024 Poisoning by nonmedicinal substances (1 source) Toxic [...] Test Name Value Interpretation Reference Range Facility Basophils Auto (Bld) [#/Vol] on 12-09-2024 Basophils (Bld) [#/Vol] Automated basophil count 0.0-0.1 [facility] Basophils/100 WBC Auto (Bld) on 12-09-2024 Basophils/100 WBC (Bld) Automated basophil % 0.2-2.0 [facility] Cholesterol in LDL Calc [Mas s/Vol]on 12-09-2024 Cholesterol in LDL [Mass/Vol] Cholesterol in LDL [Mass/volume] in Serum or Plasma by calculation [facility] Comment on above: <100 mg/dl [id number] 0-129 mg/dl NEAR OR ABOVE [id number] mg/dl BORDERLINE [id number] mg/dl HIGH>190 mg/dl VERY HIGH Cholesterol in VLDL Calc [Ma ss/Vol]on 12-09-2024 Cholesterol in VLDL [Mass/Vol] Cholesterol in VLDL [Mass/volume] in Serum or Plasma by calculation [facility] Eosinophils/100 WBC Auto (Bl d)on 12-09-2024 Eosinophils/100 WBC (Bld) Automated eosinophil % 0.9-7.0 [facility] Erythrocyte distribution wid th Auto (RBC) [Ratio]on 12-09-2024 Erythrocyte distribution width (RBC) [Ratio] Erythrocyte distribution width [Ratio] by Automated count 11.0-15.0 [facility] Estimated glomerular filtrat ion rate (GFR) non- Americanon 12-09-2024 GFR/1.73 sq M.predicted among non-blacks MDRD (S/P/Bld) [Vol rate/Area] Estimated glomerular filtration rate (GFR) non- >=60 mL/min/1.73m 2 [facility] Globulin Calc (S) [Mass/Vol] on 12-09-2024 Globulin (S) [Mass/Vol] Serum globulin measurement by calculation (mass/volume) [facility] Hematocrit Auto (Bld) [Volum e fraction]on 12-09-2024 Hematocrit (Bld) [Volume fraction] Hematocrit [Volume Fraction] of Blood by Automated count 42.0-54.0 [facility] Hemoglobin [Mass/volume] in Bloodon 12-09-2024 Hemoglobin (Bld) [Mass/Vol] Hemoglobin [Mass/volume] in Blood 14.0-18.0 [facility] Laboratory - Chemistry and C hemistry - challengeon 12-09-2024 Albumin [Mass/Vol] 3.6 g/dL 3.4-5.0 [facility] ALP [Catalytic activity/Vol] 88 U/L 46-116 [facility] ALT [Catalytic activity/Vol] 26 U/L 16-63 [facility] AST [Catalytic activity/Vol] 21 U/L 15-37 [facility] Bilirubin [Mass/Vol] 0.5 mg/dL 0.2-1.0 [facility] Calcium [Mass/Vol] 8.6 mg/dL 8.5-10.1 [facility] Chloride [Moles/Vol] 107 mmol/L 98-107 [facility] Cholesterol [Mass/Vol] 197 mg/dL <=200 [facility] Cholesterol in HDL [Mass/Vol] 55 mg/dL 40-60 [facility] Comment on above: > or =60 mg/dl - LOW CARDIOVASCULAR RISK<40 mg/dl - HIGH CARDIOVASCULAR RISK CO2 [Moles/Vol] 27.0 mmol/L 21.0-32.0 [facility] Creatinine [Mass/Vol] 1.12 mg/dL 0.70-1.30 [facility] GFR/1.73 sq M.predicted MDRD (S/P/Bld) [Vol rate/Area] mL/min/{1.73_m2} >=60 mL/min/1.73m 2 [facility] Glucose [Mass/Vol] 97 mg/dL 74-106 [facility] Potassium [Moles/Vol] 4.2 mmol/L 3.5-5.1 [facility] Protein [Mass/Vol] 7.0 g/dL 6.4-8.2 [facility] Sodium [Moles/Vol] 141 mmol/L 136-145 [facility] Triglyceride [Mass/Vol] 78 mg/dL <=150 [facility] Urea nitrogen [Mass/Vol] 17.0 mg/dL 7.0-18.0 [facility] Urea nitrogen/Creatinine [Mass ratio] 15.2 mg/mg [facility] Laboratory - Hematology and Cell countson 12-09-2024 Immature granulocytes/100 WBC (Bld) 0.2 % 0.0-0.5 [facility] Leukocytes [#/volume] correc chrissy for nucleated erythrocytes in Blood by Automated counon 12-09-2024 WBC corrected for nucl RBC Auto (Bld) [#/Vol] Leukocytes [#/volume] corrected for nucleated erythrocytes in Blood by Automated coun 4.0-11.0 [facility] Lymphocytes Auto (Bld) [#/Vo l]on 12-09-2024 Lymphocytes (Bld) [#/Vol] Lymphocytes [#/volume] in Blood by Automated count 1.2-3.8 [facility] Lymphocytes/100 WBC Auto (Bl d)on 12-09-2024 Lymphocytes/100 WBC (Bld) Lymphocytes/100 leukocytes in Blood by Automated count 20.5-60.0 [facility] MCH Auto (RBC) [Entitic mass ]on 12-09-2024 MCH (RBC) [Entitic mass] MCH [Entitic mass] by Automated count 25.9-34.0 [facility] MCHC Auto (RBC) [Mass/Vol]on 12-09-2024 MCHC (RBC) [Mass/Vol] MCHC [Mass/volume] by Automated count 29.9-35.2 [facility] MCV Auto (RBC) [Entitic vol] on 12-09-2024 MCV (RBC) [Entitic vol] MCV [Entitic volume] by Automated count High 80.0-94.0 [facility] Monocytes Auto (Bld) [#/Vol] on 12-09-2024 Monocytes (Bld) [#/Vol] Automated blood monocyte count 0.3-0.8 [facility] Monocytes/100 WBC Auto (Bld) on 12-09-2024 Monocytes/100 WBC (Bld) Automated monocyte % 1.7-12.0 [facility] Neutrophils Auto (Bld) [#/Vo l]on 12-09-2024 Neutrophils (Bld) [#/Vol] Neutrophils [#/volume] in Blood by Automated count 1.4-6.5 [facility] Neutrophils/100 WBC Auto (Bl d)on 12-09-2024 Neutrophils/100 WBC (Bld) Automated neutrophil % 43.0-75.0 [facility] No Panel Informationon 12-09 Eosinophils # (Auto) 0.3 10 3/uL 0.0-0.7 [facility] Immature Granulocyte # (Auto) 0.01 10 3/uL 0.00-0.03 [facility] Prostate Specific Antigen Screen 4.70 ng/mL High <=4.00 [facility] Platelet mean volume Auto (B ld) [Entitic vol]on 12-09-2024 Platelet mean volume (Bld) [Entitic vol] Platelet mean volume [Entitic volume] in Blood by Automated count Low 9.5-13.5 [facility] Platelets Auto (Bld) [#/Vol] on 12-09-2024 Platelets (Bld) [#/Vol] Platelets [#/volume] in Blood by Automated count 150-450 [facility] RBC Auto (Bld) [#/Vol]on RBC (Bld) [#/Vol] Erythrocytes [#/volume] in Blood by Automated count 4.70-6.10 [facility] Serum or plasma albumin/glob ulin mass ratioon 12-09-2024 Albumin/Globulin [Mass ratio] Serum or plasma albumin/globulin mass ratio [facility] Serum or plasma anion gap de terminationon 12-09-2024 Anion gap [Moles/Vol] Serum or plasma anion gap determination [facility] Serum or plasma total choles terol/high density lipoprotein (HDL) cholesterol mass raoul 12-09-2024 Cholesterol.total/Cho lesterol in HDL [Mass ratio] Serum or plasma total cholesterol/high density lipoprotein (HDL) cholesterol mass rat [facility] Comment on above: 3.3 - 4.4 LOW RISK4. 4 - 7.1 AVERAGE RISK7.1 - 11.0 MODERATE RISK>11.0 HIGH RISK Ambulatory Visit Summaryon 0 05-22-2024 Ambulatory Visit [...] Schedule the Following Appointments Follow Up with Emeka GRACE MD, URL When: Where: [facility] [address] [place] [address]- [phone] Medications What How Much When Instructions Unchanged [...] body thro (more content not included)... Normal [facility] Urology Office/Clinic Noteon 05-22-2024 Urology Office/Clinic Note [...] abdominal pain) (more content not included)... Normal [facility] Comment on above: Result Comment: Elec tronically Signed By: Emeka GRACE MD\.br\Date and Time Signed: 05/22/24 09:36 EDT\.br\Electronically Co-Signed By: Divine Monae.br\Date and Time Co-Signed: 05/22/24 09:34 EDT ECG 12-Leadon 02-07-2024 ECG 12-Lead [id number]# 1.00TIFF Normal [facility] Lab Reportson 02-07-2024 Lab Reports [id number]# 1.00TIFF Normal [facility] Operative Reporton Operative Report [id number] #1.00TIFF Normal [facility] Consent for Procedure/Surger yon 02-06-2024 Consent for Procedure/Surgery [id number]# 1.00TIFF Normal [facility] ED Note-Physicianon 02-06-20 ED Note-Physician [id number] #1.00TIFF Normal [facility] Lab Reportson 02-06-2024 Lab Reports [id number]# 1.00TIFF Normal [facility] RAD - CT Reporton 02-06-2024 RAD - [address] Report [id number] #1.00TIFF Normal [facility] RAD - MISCon 02-06-2024 RAD - MISC [id number] #1.00TIFF Normal [facility] XR KUB 1 VIEWon 09-13-2022 XR KUB [...] by: QUINCY TOVAR Date: 2022-09-13 11:13 Normal [facility] Covid-19 PCR (CVDTBH)on 08-17 SARS-CoV-2 (COVID-19) RNA MARY+probe Ql (Unsp spec) Not detected Normal NOT DETECTED [facility] Comment on above: Result Comment: This test is not yet approved or cleared by the [place] FDA. When there are no FDA-approved or cleared tests available, and other criteria are met, FDA can make tests available under an emergency access mechanism called an Emergency Use Authorization (EUA). The EUA for this test is supported by the Data Control Clerk of Health and Human Service's (HHS's) declaration [...] consistent with SARS-CoV-2. Performed By: #### C VDTBH #### [facility] [address] [place] [address] Dr. Paramjit Cheng CBC AUTO DIFFon 08-30-2022 BASO # 0.0 103/ul Normal 0.0-0.1 [facility] Comment on above: Performed By: #### C BC #### [facility] [address] [place] [address] Dr. Paramjit Cheng Basophils/100 WBC (Bld) 0.6 % Normal 0.2-2.0 [facility] Comment on above: Performed By: #### C BC #### [facility] [address] [place] [address] Dr. Paramjit Cheng EO # 0.2 103/ul Normal 0.0-0.7 [facility] Comment on above: Performed By: #### C BC #### [facility] [address] [place] [address] Dr. Paramjit Cheng Eosinophils/100 WBC (Bld) 3.7 % Normal 0.9-7.0 [facility] Comment on above: Performed By: #### C BC #### [facility] [address] [place] [address] Dr. Paramjit Cheng Erythrocyte distribution width (RBC) [Ratio] 13.2 % Normal 11.0-15.0 [facility] Comment on above: Performed By: #### C BC #### [facility] [address] [place] [address] Dr. Paramjit Cheng Hematocrit (Bld) [Volume fraction] 43.2 % Normal 42.0-54.0 [facility] Comment on above: Performed By: #### C BC #### [facility] [address] [place] [address] Dr. Paramjit Cheng Hemoglobin (Bld) [Mass/Vol] 14.7 g/dL Normal 14.0-18.0 [facility] Comment on above: Performed By: #### C BC #### [facility] [address] [place] [address] Dr. Paramjit Cheng IG # 0.01 10e3/ul Normal 0.00-0.03 [facility] Comment on above: Performed By: #### C BC #### [facility] [address] [place] [address] Dr. Paramjit Cheng IG % 0.2 % Normal 0.0-0.5 [facility] Comment on above: Performed By: #### C BC #### [facility] [address] [place] [address] Dr. Paramjit Cheng LYMPH # 1.7 103/ul Normal 1.2-3.8 [facility] Comment on above: Performed By: #### C BC #### [facility] [address] [place] [address] Dr. Paramjit Cheng Lymphocytes/100 WBC (Bld) 34.9 % Normal 20.5-60.0 [facility] Comment on above: Performed By: #### C BC #### [facility] [address] [place] [address] Dr. Paramjit Cheng MANUAL DIFF REQ NO Normal [facility] Comment on above: Performed By: #### C BC #### [facility] [address] [address] [address] Paramjit Cheng MCH (RBC) [Entitic mass] 32.3 pg Normal 25.9-34.0 [facility] Comment on above: Performed By: #### C BC #### [facility] [address] [place] [address] Dr. Paramjit Cheng MCHC (RBC) [Mass/Vol] 34.0 g/dL Normal 29.9-35.2 [facility] Comment on above: Performed By: #### C BC #### [facility] [address] [place] [address] Dr. Paramjit Cheng MCV (RBC) [Entitic vol] 94.9 fL Critically high 80.0-94.0 [facility] Comment on above: Performed By: #### C BC #### [facility] [address] [place] [address] Dr. Paramjit Cheng MONO # 0.5 103/ul Normal 0.3-0.8 [facility] Comment on above: Performed By: #### C BC #### [facility] [address] [place] [address] Dr. Paramjit Cheng Monocytes/100 WBC (Bld) 9.3 % Normal 1.7-12.0 [facility] Comment on above: Performed By: #### C BC #### [facility] [address] [place] [address] Dr. Paramjit Cheng NEUT # 2.5 103/ul Normal 1.4-6.5 [facility] Comment on above: Performed By: #### C BC #### [facility] [address] [place] [address] Dr. Paramjit Cheng Neutrophils/100 WBC (Bld) 51.3 % Normal 43.0-75.0 [facility] Comment on above: Performed By: #### C BC #### [facility] [address] [place] [address] Dr. Paramjit Cheng Platelet mean volume (Bld) [Entitic vol] 9.2 fL Critically low 9.5-13.5 [facility] Comment on above: Performed By: #### C BC #### [facility] [address] [address] [address] Paramjit Cheng PLT 251 103/ul Normal 150-450 [facility] Comment on above: Performed By: #### C BC #### [facility] [address] [address] [address] Paramjit Cheng RBC 4.55 106/ul Critically low 4.70-6.10 [facility] Comment on above: Performed By: #### C BC #### [facility] [address] [address] [address] Paramjit Cheng WBC 4.8 103/ul Normal 4.0-11.0 [facility] Comment on above: Performed By: #### C BC #### [facility] [address] [place] [address] Dr. Paramjit Cheng PROF CHEM 8 (BAS METB)on Anion gap [Moles/Vol] 13.7 mmol/L Normal [facility] Comment on above: Performed By: #### B MP #### [facility] [address] [address] [address] Paramjit Cheng Calcium [Mass/Vol] 8.9 mg/dL Normal 8.5-10.1 [facility] Comment on above: Performed By: #### B MP #### [facility] [address] [address] [address] Paramjit Cheng Chloride [Moles/Vol] 106 mmol/L Normal 98-107 [facility] Comment on above: Performed By: #### B MP #### [facility] [address] [address] [address] Paramjit Cheng CO2 [Moles/Vol] 27.2 mmol/L Normal 21.0-32.0 [facility] Comment on above: Performed By: #### B MP #### [facility] [address] [address] [address] Paramjit Cheng Creatinine [Mass/Vol] 0.89 mg/dL Normal 0.70-1.30 [facility] Comment on above: Performed By: #### B MP #### [facility] [address] [address] [address] Paramjit Cheng EGFR-AF ZAMBIAN >60 Normal >=60 [facility] Comment on above: Performed By: #### B MP #### [facility] [address] [address] [address] Paramjit Cheng EGFR-NON AF ZAMBIAN >60 Normal >=60 [facility] Comment on above: Performed By: #### B MP #### [facility] [address] [address] [address] Paramjit Cheng Glucose [Mass/Vol] 87 mg/dL Normal 74-106 [facility] Comment on above: Performed By: #### B MP #### [facility] [address] [place] [address] Dr. Paramjit Cheng Potassium [Moles/Vol] 3.9 mmol/L Normal 3.5-5.1 [facility] Comment on above: Performed By: #### B MP #### [facility] [address] [place] [address] Dr. Paramjit Cheng Sodium [Moles/Vol] 143 mmol/L Normal 136-145 [facility] Comment on above: Performed By: #### B MP #### [facility] [address] [place] [address] Dr. Paramjit Cheng Urea nitrogen [Mass/Vol] 12.0 mg/dL Normal 7.0-18.0 [facility] Comment on above: Performed By: #### B MP #### [facility] [address] [place] [address] Dr. Paramjit Cheng Urea nitrogen/Creatinine [Mass ratio] 13.5 mg/mg Normal [facility] Comment on above: Performed By: #### B MP #### [facility] [address] [place] [address] Dr. Paramjit Cheng PROTIMEon 08-30-2022 INR Coag (PPP) [Relative time] 0.97 {INR} Normal [facility] Comment on above: Performed By: #### P TT, PT #### [facility] [address] [place] [address] Dr. Paramjit Cheng INR GUIDELINES SEE BELOW Normal [facility] Comment on above: Result Comment: ROSE RED INR: 2.0 - 3.0 CONDITIONS NOT LISTED BELOW 2.5 - 3.5 FOR PROSTHETIC HEART VALVE REPLACEMENT 2.5 - 3.5 RECURRENT THROMBOSIS Performed By: #### P TT, PT #### [facility] [address] [place] [address] Dr. Paramjit Cheng PT Coag (PPP) [Time] 10.5 s Normal 9.0-11.6 [facility] Comment on above: Performed By: #### P TT, PT #### [facility] [address] [place] [address] Dr. Paramjit Cheng PTTon 08-30-2022 aPTT Coag (Bld) [Time] 25.6 s Normal 22.3-36.2 [facility] Comment on above: Performed By: #### P TT, PT #### [facility] [address] [place] [address] Dr. Paramjit Cheng CALCULI, URINARYon 2,8 Dihydroxyadenine Normal [facility] Comment on above: Performed By: #### C ALCULI #### [facility] [address] [place] [address] Dr. Paramjit Cheng Ammonium Acid Urate Normal [facility] [facility] Comment on above: Performed By: #### C ALCULI #### [facility] [address] [place] [address] Dr. Paramjit Cheng Bilirubin Ql (U) Normal [facility] Comment on above: Performed By: #### C ALCULI #### [facility] [address] [place] [address] Dr. Paramjit Cheng Ca Oxalate Dihydrate 20 % Normal [facility] Comment on above: Performed By: #### C ALCULI #### [facility] [address] [place] [address] Dr. Paramjit Cheng Ca Oxalate Dihydrate 30 % Normal [facility] Comment on above: Performed By: #### C ALCULI #### [facility] [address] [address] [address] Paramjit Cheng CaHPO4 (Brushite) Normal [facility] Comment on above: Performed By: #### C ALCULI #### [facility] [address] [address] [address] Paramjit Cheng Calcium Bilirubinate Normal [facility] Comment on above: Performed By: #### C ALCULI #### [facility] [address] [address] [address] Paramjit Cheng Calcium Carbonate Normal [facility] Comment on above: Performed By: #### C ALCULI #### [facility] [address] [address] [address] Paramjit Cheng Calcium Oxalate Monohydrate 80 % [facility] Comment on above: Performed By: #### C ALCULI #### [facility] [address] [place] [address] Dr. Paramjit Cheng Calcium Oxalate Monohydrate 70 % [facility] Comment on above: Performed By: #### C ALCULI #### [facility] [address] [address] [address] Paramjit Cheng Calcium Palmitate [facility] Comment on above: Performed By: #### C ALCULI #### [facility] [address] [address] [address] Paramjit Cheng Calcium Phosphate Normal [facility] Comment on above: Performed By: #### C ALCULI #### [facility] [address] [address] [address] Paramjit Cheng Calcium Stearate Normal [facility] Comment on above: Performed By: #### C ALCULI #### [facility] [address] [address] [address] Paramjit Cheng Carbonate Apatite Normal [facility] Comment on above: Performed By: #### C ALCULI #### [facility] [address] [place] [address] Dr. Paramjit Cheng Cellular Material [place] [facility] Comment on above: Performed By: #### C ALCULI #### [facility] [address] [address] [address] Paramjit Cheng Cholesterol [facility] Comment on above: Performed By: #### C ALCULI #### [facility] [address] [address] [address] Paramjit Cheng Color (U) Brown Normal [facility] Comment on above: Performed By: #### C ALCULI #### [facility] [address] [address] [address] Paramjit Cheng Comment Normal [facility] Comment on above: Performed By: #### C ALCULI #### [facility] [address] [address] [address] Paramjit Cheng Comment Comment [facility] Comment on above: Result Comment: Calc ulus received wet. Wet calculi must be dried before analysis, which delays reporting of results. Leaving calculi wet (such as water, saline, blood, urine) may lead to changes in composition. Performed By: #### C ALCULI #### [facility] [address] [place] [address] Dr. Paramjit Cheng Result Comment: Sour ce provided- right [facility] Comment: Comment Normal [facility] Comment on above: Result Comment: Phys mary joan questions regarding Calculi Analysis contact [employer] at: [phone]. Performed By: #### C ALCULI #### [facility] [address] [place] [address] Dr. Paramjit Cheng Composition Comment [facility] Comment on above: Result Comment: Perc entage (Represents the % composition) Performed By: #### C ALCULI #### [facility] [address] [place] [address] Dr. Paramjit Cheng Cystine [facility] Comment on above: Performed By: #### C ALCULI #### [facility] [address] [place] [address] Dr. Paramjit Cheng Disclaimer: Comment [facility] Comment on above: Result Comment: This test was developed and its performance characteristics determined by [facility]. It has not been cleared or approved by the Food and Drug Administration. Performed By: #### C ALCULI #### [facility] [address] [place] [address] Dr. Paramjit Cheng Dried Blood Normal [facility] Comment on above: Performed By: #### C ALCULI #### [facility] [address] [address] [address] Paramjit Cheng Drug or Metabolite Normal [facility] Comment on above: Performed By: #### C ALCULI #### [facility] [address] [address] [address] Paramjit Cheng Hydroxyapatite Normal [facility] Comment on above: Performed By: #### C ALCULI #### [facility] [address] [address] [address] Paramjit Cheng Mg NH4 PO4 (Struvite) [facility] Comment on above: Performed By: #### C ALCULI #### [facility] [address] [place] [address] Dr. Paramjit Cheng MgHPO4 (Newberyite) Normal [facility] Comment on above: Performed By: #### C ALCULI #### [facility] [address] [address] [address] Paramjit Cheng Other component(s) Normal [facility] Comment on above: Performed By: #### C ALCULI #### [facility] [address] [address] [address] Paramjit Cheng PDF . Normal [facility] Comment on above: Performed By: #### C ALCULI #### [facility] [address] [address] [address] Paramjit Cheng Photo Comment Normal [facility] Comment on above: Result Comment: Phot ograph will follow under a separate cover Performed By: #### C ALCULI #### [facility] [address] [address] [address] Paramjit Cheng Please note: Comment Normal [facility] Comment on above: Result Comment: Calc diana report will follow via computer, mail or coverage specialist rn delivery. Performed By: #### C ALCULI #### [facility] [address] [place] [address] Dr. Paramjit Cheng Size 6x4 Normal [facility] Comment on above: Result Comment: Mult iple pieces received. Dimensions of the largest piece reported. Performed By: #### C ALCULI #### [facility] [address] [address] [address] Paramjit Cheng Size 3x2 Normal [facility] Comment on above: Result Comment: Mult iple pieces received. Dimensions of the largest piece reported. Performed By: #### C ALCULI #### [facility] [address] [address] [address] Paramjit Cheng Sodium Acid Urate Normal [facility] Comment on above: Performed By: #### C ALCULI #### [facility] [address] [address] [address] Paramjit Cheng Source Comment [facility] Comment on above: Result Comment: Urin savage Bladder Performed By: #### C ALCULI #### [facility] [address] [address] [address] Paramjit Cheng Result Comment: Not provided [facility] Comment on above: Performed By: #### C ALCULI #### [facility] [address] [address] [address] Paramjit Cheng Uric Acid [facility] Comment on above: Performed By: #### C ALCULI #### [facility] [address] [address] [address] Paramjit Cheng Uric Acid Dihydrate Normal [facility] Comment on above: Performed By: #### C ALCULI #### [facility] [address] [address] [address] Paramjit Cheng Weight 636 mg [facility] Comment on above: Performed By: #### C ALCULI #### [facility] [address] [address] [address] Paramjit Cheng Weight 18 mg Normal [facility] Comment on above: Performed By: #### C ALCULI #### [facility] [address] [address] [address] Paramjit Cheng Xanthine [facility] Comment on above: Performed By: #### C ALCULI #### [facility] [address] [address] [address] Paramjit Cheng XR KUB 1 VIEWon [...] TITUS TELLEZ Date: 2022 06:37 Normal [facility] Covid-19 PCR (CVDTB)on 07-17 SARS-CoV-2 (COVID-19) RNA MARY+probe Ql (Unsp spec) Not detected Normal NOT DETECTED [facility] Comment on above: Result Comment: This test is not yet approved or cleared by the [place] FDA. When there are no FDA-approved or cleared tests available, and other criteria are met, FDA can make tests available under an emergency access mechanism called an Emergency Use Authorization (EUA). The EUA for this test is supported by the [place] of Health and Human Service's (HHS's) declaration [...] Performed By: #### P TT, PT #### [facility] [address] [address] [address] Paramjit Cheng CBC AUTO DIFFon 07-23-2022 BASO # 0.0 103/ul Normal 0.0-0.1 [facility] Comment on above: Performed By: #### P TT, PT #### [facility] [address] [place] [address] Dr. Paramjit Cheng Basophils/100 WBC (Bld) 0.4 % Normal 0.2-2.0 [facility] Comment on above: Performed By: #### P TT, PT #### [facility] [address] [place] [address] Dr. Paramjit Cheng EO # 0.1 103/ul Normal 0.0-0.7 [facility] Comment on above: Performed By: #### P TT, PT #### [facility] [address] [place] [address] Dr. Paramjit Cheng Eosinophils/100 WBC (Bld) 2.5 % Normal 0.9-7.0 [facility] Comment on above: Performed By: #### P TT, PT #### [facility] [address] [place] [address] Dr. Paramjit Cheng Erythrocyte distribution width (RBC) [Ratio] 13.0 % Normal 11.0-15.0 [facility] Comment on above: Performed By: #### P TT, PT #### [facility] [address] [place] [address] Dr. Paramjit Cheng Hematocrit (Bld) [Volume fraction] 41.7 % Critically low 42.0-54.0 [facility] Comment on above: Performed By: #### P TT, PT #### [facility] [address] [place] [address] Dr. Paramjit Cheng Hemoglobin (Bld) [Mass/Vol] 14.5 g/dL Normal 14.0-18.0 [facility] Comment on above: Performed By: #### P TT, PT #### [facility] [address] [place] [address] Dr. Paramjit Cheng IG # 0.01 10e3/ul Normal 0.00-0.03 [facility] Comment on above: Performed By: #### P TT, PT #### [facility] [address] [address] [address] Paramjit Cheng IG % 0.2 % Normal 0.0-0.5 [facility] Comment on above: Performed By: #### P TT, PT #### [facility] [address] [address] [address] Paramjit Cheng LYMPH # 1.6 103/ul Normal 1.2-3.8 [facility] Comment on above: Performed By: #### P TT, PT #### [facility] [address] [address] [address] Paramjit Cheng Lymphocytes/100 WBC (Bld) 27.6 % Normal 20.5-60.0 [facility] Comment on above: Performed By: #### P TT, PT #### [facility] [address] [place] [address] Dr. Paramjit Cheng MANUAL DIFF REQ NO Normal [facility] Comment on above: Performed By: #### P TT, PT #### [facility] [address] [place] [address] Dr. Paramjit Cheng MCH (RBC) [Entitic mass] 32.8 pg Normal 25.9-34.0 [facility] Comment on above: Performed By: #### P TT, PT #### [facility] [address] [place] [address] Dr. Paramjit Cheng MCHC (RBC) [Mass/Vol] 34.8 g/dL Normal 29.9-35.2 [facility] Comment on above: Performed By: #### P TT, PT #### [facility] [address] [place] [address] Dr. Paramjit Cheng MCV (RBC) [Entitic vol] 94.3 fL Critically high 80.0-94.0 [facility] Comment on above: Performed By: #### P TT, PT #### [facility] [address] [place] [address] Dr. Paramjit Cheng MONO # 0.5 103/ul Normal 0.3-0.8 [facility] Comment on above: Performed By: #### P TT, PT #### [facility] [address] [place] [address] Dr. Paramjit Cheng Monocytes/100 WBC (Bld) 8.0 % Normal 1.7-12.0 [facility] Comment on above: Performed By: #### P TT, PT #### [facility] [address] [place] [address] Dr. Paramjit Cheng NEUT # 3.5 103/ul Normal 1.4-6.5 [facility] Comment on above: Performed By: #### P TT, PT #### [facility] [address] [place] [address] Dr. Paramjit Cheng Neutrophils/100 WBC (Bld) 61.3 % Normal 43.0-75.0 [facility] Comment on above: Performed By: #### P TT, PT #### [facility] [address] [place] [address] Dr. Paramjit Cheng Platelet mean volume (Bld) [Entitic vol] 9.5 fL Normal 9.5-13.5 [facility] Comment on above: Performed By: #### P TT, PT #### [facility] [address] [place] [address] Dr. Paramjit Cheng PLT 252 103/ul Normal 150-450 [facility] Comment on above: Performed By: #### P TT, PT #### [facility] [address] [place] [address] Dr. Paramjit Cheng RBC 4.42 106/ul Critically low 4.70-6.10 [facility] Comment on above: Performed By: #### P TT, PT #### [facility] [address] [place] [address] Dr. Paramjit Cheng WBC 5.6 103/ul Normal 4.0-11.0 [facility] Comment on above: Performed By: #### P TT, PT #### [facility] [address] [place] [address] Dr. Paramjit Cheng PROF CHEM 8 (BAS METB)on Anion gap [Moles/Vol] 9.6 mmol/L Normal [facility] Comment on above: Performed By: #### D ATCBC #### [facility] [address] [address] [address] Paramjit Cheng Calcium [Mass/Vol] 8.6 mg/dL Normal 8.5-10.1 [facility] Comment on above: Performed By: #### D ATCBC #### [facility] [address] [address] [address] Paramjit Cheng Chloride [Moles/Vol] 107 mmol/L Normal 98-107 [facility] Comment on above: Performed By: #### D ATCBC #### [facility] [address] [address] [address] Paramjit Cheng CO2 [Moles/Vol] 28.0 mmol/L Normal 21.0-32.0 [facility] Comment on above: Performed By: #### D ATCBC #### [facility] [address] [place] [address] Dr. Paramjit Cheng Creatinine [Mass/Vol] 0.98 mg/dL Normal 0.70-1.30 [facility] Comment on above: Performed By: #### D ATCBC #### [facility] [address] [address] [address] Paramjit Cheng EGFR-AF ZAMBIAN >60 Normal >=60 [facility] Comment on above: Performed By: #### D ATCBC #### [facility] [address] [address] [address] Paramjit Cheng EGFR-NON AF ZAMBIAN >60 Normal >=60 [facility] Comment on above: Performed By: #### D ATCBC #### [facility] [address] [address] [address] Paramjit Cheng Glucose [Mass/Vol] 90 mg/dL Normal 74-106 [facility] Comment on above: Performed By: #### D ATCBC #### [facility] [address] [address] [address] Paramjit Cheng Potassium [Moles/Vol] 3.6 mmol/L Normal 3.5-5.1 [facility] Comment on above: Performed By: #### D ATCBC #### [facility] [address] [place] [address] Dr. Paarmjit Cheng Sodium [Moles/Vol] 141 mmol/L Normal 136-145 [facility] Comment on above: Performed By: #### D ATCBC #### [facility] [address] [place] [address] Dr. aPramjit Cheng Urea nitrogen [Mass/Vol] 12.0 mg/dL Normal 7.0-18.0 [facility] Comment on above: Performed By: #### D ATCBC #### [facility] [address] [place] [address] Dr. Paramjit Cheng Urea nitrogen/Creatinine [Mass ratio] 12.2 mg/mg Normal [facility] Comment on above: Performed By: #### D ATCBC #### [facility] [address] [place] [address] Dr. Paramjit Cheng PROTIMEon 07-23-2022 INR Coag (PPP) [Relative time] 1.04 {INR} Normal [facility] Comment on above: Performed By: #### P TT, PT #### [facility] [address] [place] [address] Dr. Paramjit Cheng INR GUIDELINES SEE BELOW Normal [facility] Comment on above: Result Comment: ROSE RED INR: 2.0 - 3.0 CONDITIONS NOT LISTED BELOW 2.5 - 3.5 FOR PROSTHETIC HEART VALVE REPLACEMENT 2.5 - 3.5 RECURRENT THROMBOSIS Performed By: #### P TT, PT #### [facility] [address] [place] [address] Dr. Paramjit Cheng PT Coag (PPP) [Time] 11.2 s Normal 9.0-11.6 [facility] Comment on above: Performed By: #### P TT, PT #### [facility] [address] [place] [address] Dr. Paramjit Cheng PTTon 07-23-2022 aPTT Coag (Bld) [Time] 25.1 s Normal 22.3-36.2 [facility] Comment on above: Performed By: #### P TT, PT #### [facility] [address] [address] [address] ABD/PELVIS WO CONon [...] by: QUINCY TOVAR Date: 2022-07-06 08:48 Normal [facility] XR KUB 1 VIEWon 06-17-2022 XR KUB [...] by: QUINCY TOVAR Date: 2022-06-17 11:24 Normal [facility] CREATININEon 04-25-2022 Creatinine [Mass/Vol] 0.99 mg/dL Normal 0.70-1.30 [facility] Comment on above: Performed By: #### C APRIL #### [facility] [address] [address] [address] Paramjit Cheng EGFR-AF ZAMBIAN >60 Normal >=60 [facility] Comment on above: Performed By: #### C APRIL #### [facility] [address] [address] [address] Paramjit Cheng EGFR-NON AF ZAMBIAN >60 Normal >=60 [facility] Comment on above: Performed By: #### C APRIL #### [facility] [address] [place] [address] ABD/PELV WO W [...] QUINCY TOVAR Date: 2022-04-25 12:01 Normal [facility] CBC AUTO DIFFon 12-01-2021 BASO # 0.0 103/ul Normal 0.0-0.1 [facility] Comment on above: Performed By: #### D ATCBC #### [facility] [address] [place] [address] Dr. Paramjit Cheng Basophils/100 WBC (Bld) 0.4 % Normal 0.2-2.0 [facility] Comment on above: Performed By: #### D ATCBC #### [facility] [address] [place] [address] Dr. Paramjit Cheng EO # 0.2 103/ul Normal 0.0-0.7 [facility] Comment on above: Performed By: #### D ATCBC #### [facility] [address] [place] [address] Dr. Paramjit Cheng Eosinophils/100 WBC (Bld) 3.8 % Normal 0.9-7.0 [facility] Comment on above: Performed By: #### D ATCBC #### [facility] [address] [place] [address] Dr. Paramjit Cheng Erythrocyte distribution width (RBC) [Ratio] 13.7 % Normal 11.0-15.0 [facility] Comment on above: Performed By: #### D ATCBC #### [facility] [address] [place] [address] Dr. Paramjit Cheng Hematocrit (Bld) [Volume fraction] 44.1 % Normal 42.0-54.0 [facility] Comment on above: Performed By: #### D ATCBC #### [facility] [address] [place] [address] Dr. Paramjit Cheng Hemoglobin (Bld) [Mass/Vol] 14.9 g/dL Normal 14.0-18.0 [facility] Comment on above: Performed By: #### D ATCBC #### [facility] [address] [place] [address] Dr. Paramjit Cheng IG # 0.01 10e3/ul Normal 0.00-0.03 [facility] Comment on above: Performed By: #### D ATCBC #### [facility] [address] [place] [address] Dr. Paramjit Cheng IG % 0.2 % Normal 0.0-0.5 [facility] Comment on above: Performed By: #### D ATCBC #### [facility] [address] [place] [address] Dr. Paramjit Cheng LYMPH # 2.1 103/ul Normal 1.2-3.8 [facility] Comment on above: Performed By: #### D ATCBC #### [facility] [address] [place] [address] Dr. Paramjit Cheng Lymphocytes/100 WBC (Bld) 37.9 % Normal 20.5-60.0 [facility] Comment on above: Performed By: #### D ATCBC #### [facility] [facility] [address] [place] [address] Dr. Paramjit Cheng MCH (RBC) [Entitic mass] 31.9 pg Normal 25.9-34.0 [facility] Comment on above: Performed By: #### D ATCBC #### [facility] [address] [place] [address] Dr. Paramjit Cheng MCHC (RBC) [Mass/Vol] 33.8 g/dL Normal 29.9-35.2 [facility] Comment on above: Performed By: #### D ATCBC #### [facility] [address] [place] [address] Dr. Paramjit Cheng MCV (RBC) [Entitic vol] 94.4 fL Critically high 80.0-94.0 [facility] Comment on above: Performed By: #### D ATCBC #### [facility] [address] [place] [address] Dr. Paramjit Cheng MONO # 0.5 103/ul Normal 0.3-0.8 [facility] Comment on above: Performed By: #### D ATCBC #### [facility] [address] [place] [address] Dr. Paramjit Cheng Monocytes/100 WBC (Bld) 9.7 % Normal 1.7-12.0 [facility] Comment on above: Performed By: #### D ATCBC #### [facility] [address] [place] [address] Dr. Paramjit Cheng NEUT # 2.6 103/ul Normal 1.4-6.5 [facility] Comment on above: Performed By: #### D ATCBC #### [facility] [address] [place] [address] Dr. Paramjit Cheng Neutrophils/100 WBC (Bld) 48.0 % Normal 43.0-75.0 [facility] Comment on above: Performed By: #### D ATCBC #### [facility] [address] [place] [address] Dr. Paramjit Cheng Platelet mean volume (Bld) [Entitic vol] 9.6 fL Normal 9.5-13.5 [facility] Comment on above: Performed By: #### D ATCBC #### [facility] [address] [place] [address] Dr. Paramjit Cheng PLT 254 103/ul Normal 150-450 [facility] Comment on above: Performed By: #### D ATCBC #### [facility] [address] [place] [address] Dr. Paramjit Cheng RBC 4.67 106/ul Critically low 4.70-6.10 [facility] Comment on above: Performed By: #### D ATCBC #### [facility] [address] [place] [address] Dr. Paramjit Cheng WBC 5.5 103/ul Normal 4.0-11.0 [facility] Comment on above: Performed By: #### D ATCBC #### [facility] [address] [place] [address] Dr. Paramjit Cheng FLORENTIN- BMP WITH LIPIDon 2021 Anion gap [Moles/Vol] 12.5 mmol/L Normal [facility] Comment on above: Performed By: #### P TT, PT #### [facility] [address] [place] [address] Dr. Paramjit Cheng Calcium [Mass/Vol] 8.8 mg/dL Normal 8.5-10.1 [facility] Comment on above: Performed By: #### P TT, PT #### [facility] [address] [address] [address] Paramjit Cheng Chloride [Moles/Vol] 104 mmol/L Normal 98-107 [facility] Comment on above: Performed By: #### P TT, PT #### [facility] [address] [address] [address] Paramjit Cheng Cholesterol [Mass/Vol] 220 mg/dL Critically high <=200 [facility] Comment on above: Performed By: #### P TT, PT #### [facility] [address] [address] [address] Paramjit Cheng Cholesterol in HDL [Mass/Vol] 65 mg/dL Critically high 40-60 [facility] Comment on above: Performed By: #### P TT, PT #### [facility] [address] [address] [address] Paramjit Cheng Cholesterol in LDL [Mass/Vol] 133.0 mg/dL Normal [facility] Comment on above: Performed By: #### P TT, PT #### [facility] [address] [address] [address] Paramjit Cheng CO2 [Moles/Vol] 27.6 mmol/L Normal 22.0-30.0 [facility] Comment on above: Performed By: #### P TT, PT #### [facility] [address] [address] [address] Paramjit Cheng Creatinine [Mass/Vol] 0.97 mg/dL Normal 0.66-1.25 [facility] Comment on above: Performed By: #### P TT, PT #### [facility] [address] [address] [address] Paramjit Cheng EGFR-AF ZAMBIAN >60 Normal >=60 [facility] Comment on above: Performed By: #### P TT, PT #### [facility] [address] [address] [address] Paramjit Cheng EGFR-NON AF ZAMBIAN >60 Normal >=60 [facility] Comment on above: Performed By: #### P TT, PT #### [facility] [address] [address] [address] Paramjit Cheng Glucose [Mass/Vol] 98 mg/dL Normal 74-106 [facility] Comment on above: Performed By: #### P TT, PT #### [facility] [address] [address] [address] Paramjit Cheng HDL NORMAL > or = 60 mg/dl - LOW CARDIOVASCULAR RISK <40 mg/dl - HIGH CARDIOVASCULAR RISK Normal [facility] Comment on above: Performed By: #### P TT, PT #### [facility] [address] [place] [address] Dr. Paramjit Cheng LDL CALC NORMAL SEE BELOW Normal [facility] Comment on above: Result Comment: <100 mg/dl OPTIMAL 100 - 129 mg/dl NEAR OR ABOVE OPTIMAL 130 - 159 mg/dl BORDERLINE HIGH 160 - 189 mg/dl HIGH >190 mg/dl VERY HIGH Performed By: #### P TT, PT #### [facility] [address] [address] [address] Paramjit Cheng Potassium [Moles/Vol] 4.1 mmol/L Normal 3.4-5.0 [facility] Comment on above: Performed By: #### P TT, PT #### [facility] [address] [place] [address] Dr. Paramjit Cheng Sodium [Moles/Vol] 140 mmol/L Normal 137-145 [facility] Comment on above: Performed By: #### P TT, PT #### [facility] [address] [address] [address] Paramjit Cheng Triglyceride [Mass/Vol] 110 mg/dL Normal <=150 [facility] Comment on above: Performed By: #### P TT, PT #### [facility] [address] [address] [address] Paramjit Cheng Urea nitrogen [Mass/Vol] 13.0 mg/dL Normal 7.0-18.0 [facility] Comment on above: Performed By: #### P TT, PT #### [facility] [address] [address] [address] Paramjit Cheng Urea nitrogen/Creatinine [Mass ratio] 13.4 mg/mg Normal [facility] Comment on above: Performed By: #### P TT, PT #### [facility] [address] [address] [address] Paramjit Cheng VLDL CALC 22.0 mg/dL Normal [facility] Comment on above: Performed By: #### P TT, PT #### [facility] [address] [place], [place] [address] Dr. Paramjit Cheng Vital Signs Date Time Vital Sign Value Performing Clinician Facility 12-11-2024 09:43-0400 Body height 177.8 cm [facility] 12-11-2024 09:43-0400 Body mass index (BMI) [Ratio] 25.4 kg/m2 [facility] 12-11-2024 09:43-0400 Body weight 80.51 kg [facility] 12-11-2024 09:43-0400 Diastolic blood pressure 72 mm[Hg] [facility] 12-11-2024 09:43-0400 Heart rate 64 /min [facility] 12-11-2024 09:43-0400 Respiratory rate 12 /min [facility] 12-11-2024 09:43-0400 Systolic blood pressure 128 mm[Hg] [facility] 06-18-2024 09:27-0400 Body height 177.8 cm [facility] 06-18-2024 09:27-0400 Body mass index (BMI) [Ratio] 24.4 kg/m2 [facility] 06-18-2024 09:27-0400 Body weight 77.16 kg [facility] 06-18-2024 09:27-0400 Diastolic blood pressure 67 mm[Hg] [facility] 06-18-2024 09:27-0400 Heart rate 64 /min [facility] 06-18-2024 09:27-0400 Respiratory rate 12 /min [facility] 06-18-2024 09:27-0400 Systolic blood pressure 105 mm[Hg] [facility] 05-22-2024 08:47-0400 Blood Pressure Location Emeka GRACE [facility] 05-22-2024 08:47-0400 Diastolic blood pressure 80 mm[Hg] Emeka GRACE [facility] 05-22-2024 08:47-0400 Heart rate 61 /min Emekalauri GRACE [facility] 05-22-2024 08:47-0400 Respiratory rate 18 /min Emeka GRACE [facility] 05-22-2024 08:47-0400 Systolic blood pressure 116 mm[Hg] Emeka GRACE [facility] 02-27-2024 14:30-0400 Body height 177.8 cm [facility] 02-27-2024 14:30-0400 Body mass index (BMI) [Ratio] 24.7 kg/m2 [facility] 02-27-2024 14:30-0400 Body weight 78.18 kg [facility] 02-27-2024 14:30-0400 Diastolic blood pressure 60 mm[Hg] [facility] 02-27-2024 14:30-0400 Heart rate 70 /min [facility] 02-27-2024 14:30-0400 Respiratory rate 12 /min [facility] 02-27-2024 14:30-0400 Systolic blood pressure 100 mm[Hg] [facility] 02-11-2024 13:37-0400 Body height 177.8 cm [facility] 02-11-2024 13:37-0400 Body mass index (BMI) [Ratio] 24.7 kg/m2 [facility] 02-11-2024 13:37-0400 Body weight 78.13 kg [facility] 02-11-2024 13:37-0400 Diastolic blood pressure 74 mm[Hg] [facility] 02-11-2024 13:37-0400 Heart rate 66 /min [facility] 02-11-2024 13:37-0400 Respiratory rate 12 /min [facility] 02-11-2024 13:37-0400 Systolic blood pressure 120 mm[Hg] [facility] 11-21-2023 08:47-0500 Body height 177.8 cm [facility] 11-21-2023 08:47-0500 Body mass index (BMI) [Ratio] 24.8 kg/m2 [facility] 11-21-2023 08:47-0500 Body weight 78.52 kg [facility] 11-21-2023 08:47-0500 Diastolic blood pressure 71 mm[Hg] [facility] 11-21-2023 08:47-0500 Heart rate 60 /min [facility] 11-21-2023 08:47-0500 Respiratory rate 12 /min [facility] 11-21-2023 08:47-0500 Systolic blood pressure 119 mm[Hg] [facility] 08-21-2023 08:30-0500 Body height 177.8 cm Javi Ball Other [facility] [employer] Other 08-21-2023 08:30-0500 Body mass index (BMI) [Ratio] 24.82 kg/m2 Javi Ball Other [facility] Other 08-21-2023 08:30-0500 Body weight 78.47 kg Javi Ball Other [facility] Other 08-21-2023 08:30-0500 Diastolic blood pressure 71 mm[Hg] Javi Ball Other [facility] [employer] Other 08-21-2023 08:30-0500 Respiratory rate 12 /min Javi Ball Other [facility] [employer] Other 08-21-2023 08:30-0500 Systolic blood pressure 116 mm[Hg] Javi Ball Other [facility] Other 06-11-2023 15:30-0400 Body height 177.8 cm Javi Ball Other [facility] Other 06-11-2023 15:30-0400 Body mass index (BMI) [Ratio] 24.96 kg/m2 Javi Ball Other [facility] Other 06-11-2023 15:30-0400 Body weight 78.93 kg Javi Ball Other [facility] Other 06-11-2023 15:30-0400 Diastolic blood pressure 64 mm[Hg] Javi Ball Other [facility] Other 06-11-2023 15:30-0400 Respiratory rate 12 /min Javi Ball Other [facility] Other 06-11-2023 15:30-0400 Systolic blood pressure 122 mm[Hg] Javi Ball Other [facility] Other 05-21-2023 08:30-0400 Body height 177.8 cm Javi Ball Other [facility] Other 05-21-2023 08:30-0400 Body mass index (BMI) [Ratio] 24.68 kg/m2 Javi Ball Other [facility] Other 05-21-2023 08:30-0400 Body weight 78.02 kg Javi Ball Other [facility] Other 05-21-2023 08:30-0400 Diastolic blood pressure 78 mm[Hg] Javi Ball Other [facility] Other 05-21-2023 08:30-0400 Respiratory rate 12 /min Javi Ball Other [employer] [facility] [employer] Other 05-21-2023 08:30-0400 Systolic blood pressure 119 mm[Hg] Javi Ball Other [facility] [employer] Other 04-26-2023 09:06-0400 Blood Pressure Location Emeka GRACE [facility] 04-26-2023 09:06-0400 Diastolic blood pressure 78 mm[Hg] Emeka GRACE [facility] 04-26-2023 09:06-0400 Heart rate 74 /min Emeka GRACE [facility] 04-26-2023 09:06-0400 Respiratory rate 16 /min Emeka GRACE [facility] 04-26-2023 09:06-0400 Systolic blood pressure 118 mm[Hg] Emeka GRACE [facility] 02-14-2023 08:30-0400 Body height 177.8 cm Javi Ball Other [facility] [employer] Other 02-14-2023 08:30-0400 Body mass index (BMI) [Ratio] 25.28 kg/m2 Javi Ball Other [facility] [facility] [employer] Other 02-14-2023 08:30-0400 Body weight 79.92 kg Javi Ball Other [facility] [employer] Other 02-14-2023 08:30-0400 Diastolic blood pressure 70 mm[Hg] Javi Ball Other [facility] Other 02-14-2023 08:30-0400 Respiratory rate 12 /min Javi Ball Other [facility] Other 02-14-2023 08:30-0400 Systolic blood pressure 115 mm[Hg] Javi Ball Other [facility] Other 11-06-2022 08:30-0500 Body height 177.8 cm Javi Ball Other [facility] Other 11-06-2022 08:30-0500 Body mass index (BMI) [Ratio] 25.51 kg/m2 Javi Ball Other [facility] Other 11-06-2022 08:30-0500 Body weight 80.65 kg Javi Ball Other [facility] Other 11-06-2022 08:30-0500 Diastolic blood pressure 70 mm[Hg] Javi Ball Other [facility] Other 11-06-2022 08:30-0500 Respiratory rate 12 /min Javi Ball Other [facility] Other 11-06-2022 08:30-0500 Systolic blood pressure 102 mm[Hg] Javi Ball Other [facility] Other 06-15-2022 08:43-0400 Blood Pressure Location Emeka GRACE [facility] 06-15-2022 08:43-0400 Diastolic blood pressure 80 mm[Hg] Emeka GRACE [facility] 06-15-2022 08:43-0400 Systolic blood pressure 133 mm[Hg] Emeka GRACE [facility] 04-02-2022 10:11-0400 Blood Pressure Location Emeka GRACE [facility] 04-02-2022 10:11-0400 Diastolic blood pressure 78 mm[Hg] Emeka GRACE [facility] 04-02-2022 10:11-0400 Heart rate 81 /min Emeka GRACE [facility] 04-02-2022 10:11-0400 Respiratory rate 16 /min Emeka GRACE [facility] 04-02-2022 10:11-0400 Systolic blood pressure 117 mm[Hg] Emeka GRACE [facility] Encounters Encounter Date Encounter Type Care Provider Facility Start: 12-11-2024 End: 12-11-2024 ambulatory [facility] Work Phone: Start: 12-11-2024 End: 12-11-2024 Patient encounter procedure [facility] Physician [facility] Work Phone: Start: 12-09-2024 Non-patient / Non-visit [facility] Physician [facility] Work Phone: Start: 06-18-2024 End: 06-18-2024 ambulatory [facility] Work Phone: Start: 06-18-2024 End: 06-18-2024 Patient encounter procedure [facility] Physician [facility] Work Phone: Start: 06-11-2024 ambulatory Emeka Wilkinson ty:[id number] Start: 06-05-2024 End: 06-05-2024 ambulatory Emeka GRACE Facility:[id number] Start: 05-22-2024 End: 05-22-2024 ambulatory Emeka GRACE Facility:[facility] Start: 05-22-2024 End: 05-22-2024 Patient encounter procedure Emeka GRACE [facility] Start: 05-01-2024 ambulatory Emekalauri GRACE Facili ty:[facility] Start: 02-27-2024 End: 02-27-2024 ambulatory [facility] Work Phone: Start: 02-27-2024 End: 02-27-2024 Patient encounter procedure [facility] Work Phone: Start: 02-11-2024 End: 02-11-2024 ambulatory [facility] Work Phone: Start: 02-11-2024 End: 02-11-2024 Patient encounter procedure [facility] Work Phone: Start: 02-06-2024 End: 02-06-2024 ambulatory Emeka GRACE Facility:[id number] Start: 11-21-2023 End: 11-21-2023 Patient encounter procedure [facility] Physician [facility] Work Phone: Start: 11-19-2023 End: 11-19-2023 ambulatory Javi Lion Other [facility] Other Start: 11-19-2023 Telephone encounter Javi Seymour [facility] Start: 09-20-2023 End: 09-20-2023 ambulatory Javi Ball Other [facility] Other Start: 09-20-2023 Telephone encounter Javi Seymour [facility] Start: 08-21-2023 End: 08-21-2023 ambulatory Javi Ball Other [facility] Other Start: 08-21-2023 Office outpatient vi sit 15 minutes Javi Ball [facility] Start: 08-19-2023 End: 08-19-2023 ambulatory Javi Seymour Other [facility] Other Start: 08-19-2023 Telephone encounter Javi Ball [facility] Start: 08-02-2023 End: 08-02-2023 ambulatory Javi Lion Other [facility] Other Start: 08-02-2023 Telephone encounter Javi Ball [facility] Start: 06-28-2023 End: 06-28-2023 ambulatory Javi Lion Other [facility] Other Start: 06-28-2023 Telephone encounter Javi Ball [facility] Start: 06-11-2023 End: 06-11-2023 ambulatory Javi Lion Other [facility] Other Start: 06-11-2023 Office outpatient vi sit 15 minutes Javi Ball [facility] Start: 05-21-2023 End: 05-21-2023 ambulatory Javi Lion Other [facility] Other Start: 05-21-2023 Office outpatient vi sit 15 minutes Javi Ball [facility] Start: 05-14-2023 End: 05-14-2023 ambulatory Javi Lion Other [facility] Other Start: 05-14-2023 Telephone encounter Javi Ball [facility] Start: 04-26-2023 End: 04-26-2023 Patient encounter procedure Emeka GRACE [facility] Start: 03-08-2023 End: 03-08-2023 ambulatory Javi Ball Other [facility] Other Start: 03-08-2023 Telephone encounter Javi Ball [facility] Start: 02-19-2023 End: 02-19-2023 ambulatory Javi Ball Other [facility] Other Start: 02-19-2023 Telephone encounter Javi Ball [facility] Start: 02-14-2023 End: 02-14-2023 ambulatory Javi Ball Other [facility] Other Start: 02-14-2023 Office outpatient vi sit 15 minutes Javi Ball [facility] Start: 02-12-2023 End: 02-12-2023 ambulatory Javi Ball Other [facility] Other Start: 02-12-2023 Telephone encounter Javi Ball [facility] Start: 01-19-2023 End: 01-19-2023 ambulatory Javi Ball Other [facility] Other Start: 01-19-2023 Telephone encounter Javi Ball [facility] Start: 01-08-2023 End: 01-08-2023 ambulatory Javi Ball Other [facility] Other Start: 01-08-2023 Telephone encounter Javi Ball [facility] Start: 12-19-2022 End: 12-19-2022 ambulatory Javi Ball Other [facility] Other Start: 12-19-2022 Telephone encounter Javi Ball [facility] Start: 11-06-2022 End: 11-06-2022 ambulatory Javi Ball Other [facility] Other Start: 11-06-2022 Patient encounter procedure Javi Ball [facility] Start: 10-21-2022 End: 10-21-2022 ambulatory Javi Ball Other [facility] Other Start: 10-21-2022 Telephone encounter Javi Ball [facility] Start: 10-10-2022 End: 10-10-2022 ambulatory Javi Seymour Other [facility] Other Start: 10-10-2022 Telephone encounter [facility]avi [facility]CA [facility] Start: 09-28-2022 End: 09-28-2022 ambulatory Javi Seymour Other [facility] Other Start: 09-28-2022 Telephone encounter Javi ABARCA [facility] Start: 09-13-2022 Encounter for preprocedural laboratory examination DR EMEKA GRACE [facility] Start: 09-13-2022 End: 09-13-[address] JAVI SEYMOUR Facility:[facility] Start: 09-10-2022 End: 09-11-[address] JAVI SEYMOUR Facility:[facility] Start: 09-10-2022 End: 09-11-2022 Encounter for preprocedural laboratory examination DR JAVI SEYMOUR Facility:[facility] Start: 08-30-2022 End: 08-31-[address] JAVI SEYMOUR Facility:[facility] Start: 08-07-2022 End: [address] JAVI SEYMOUR Facility:[facility] Start: 08-06-2022 End: 08-06-2022 Patient encounter procedure Emeka GRACE [facility] Start: 08-02-2022 End: 08-02-[address] EMEKA GRACE Facility:[facility] Start: 07-30-2022 End: 07-31-[address] JAVI SEYMOUR Facility:[facility] Start: 07-28-2022 Encounter for preprocedural cardiovascular examination DR EMEKA GRACE [facility] Start: 07-24-2022 Pre-procedure evalua tion check Javi Seymour Other [facility] Other Start: 07-23-2022 End: 07-24-[address] JAVI SEYMOUR Facility:[facility] Start: 07-06-2022 End: 07-07-[address] JAVI SEYMOUR Facility:[facility] Start: 06-15-2022 End: 06-16-[address] JAVI SEYMOUR Facility:[facility] Start: 06-15-2022 End: 06-15-2022 Patient encounter procedure Emeka GRACE [facility] Start: 04-25-2022 End: 04-26-[address] JAVI SEYMOUR Facility:[facility] Start: 04-02-2022 End: 04-02-2022 Patient encounter procedure Emeka GRACE [facility] Start: 12-01-2021 End: 12-02-[address] BAL LISTED REQUEST Facility:[facility] Start: 11-02-2021 Adult health examination Joseph Seymour Other [facility] [employer] Other Procedures Date Procedure Procedure Detail Performing [...] of Treatment Date Care Activity Detail Author US Heart Transthoracic [facility] XR Chest 2 Views [facility] Immunizations Immunization Date Immunization Notes Care Provider Fa cility 07-24-2022 influenza virus vaccine, split virus (incl. purified surface antigen) Javi Seymour Other [facility] [employer] Other 07-24-2022 influenza virus vaccine, unspecified formulation [facility] 07-24-2022 influenza, high dose seasonal, preservative-free Javi Seymour Other [facility] Other 2021 COVID-19 Vaccine Moderna - Documentation Purposes Only Javi Seymour Other [facility] 12-12-2020 SARS-CoV-2 (COVID-19 ) mRNA-1273 vaccine Emeka GRACE [facility] 11-22-2020 COVID-19 Vaccine Moderna - Documentation Purposes Only Javi Seymour Other [facility] 11-14-2020 SARS-CoV-2 (COVID-19 ) mRNA-1273 vaccine Emekalauri GRACE [facility] 10-24-2020 COVID-19 Vaccine Moderna - Documentation Purposes Only Javi Seymour Other [facility] 07-05-2020 influenza virus vaccine, split virus (incl. purified surface antigen) Javi Seymour Other [employer] [facility] [employer] Other 07-05-2020 influenza virus vaccine, unspecified formulation [facility] 07-05-2020 pneumococcal polysaccharide vaccine, 23 valent Javi Seymour Other [facility] 07-05-2020 Prevnar [address] [facility] 01-06-2019 pneumococcal conjuga te vaccine, 13 valent Javi Seymour Other [facility] 01-06-2019 pneumococcal Conjuga te, unspecified formulation; 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: [Need for prophylactic vaccination against Streptococcus pneumoniae (pneumococcus)] Javi Seymour Other [facility] [employer] Other Payers Date Payer Category Payer Medicare [id number] 1961 Self-pay [id number] 1961 Unknown [id number] 1955 Unknown [id number] 1955 Unknown [id number] 1953 Unknown [id number] 1955 Unknown [id number] 2.16.84 [id number] 1955 Unknown [id number] 2.16.84 0.1.399180.3.579.2.593 1955 Unknown [id number] 2.16.84 0.1.608653.3.579.2.593 1955 Unknown [id number] 2.16.84 0.1.893427.3.579.2.593 1955 Unknown [id number] 2.16.84 0.1.465489.3.579.2.593 1955 Unknown [id number] 2.16.84 0.1.554143.3.579.2.593 1955 Unknown [id number] 2.16.84 0.1.306964.3.579.2.593 1955 Unknown [id number] 2.16.8 40.1.023429.3.579.2.727 1955 Unknown [id number] 2.16.8 40.1.430041.3.579.2.727 1955 Unknown [id number] 2.16.8 40.1.195789.3.579.2.727 1955 Unknown [id number] 2.16.8 40.1.741166.3.579.2.727 Unknown [id number] 2.16.84 0.1.639566.3.579.2.593 Social History Date Type Detail Facility Start: 04-02-2022 End: 06-15-2022 Tobacco smoking status Ex-smoker (finding) [facility] Sex Assigned At Male [facility] Start: 1955 Sex Assigned At Male F [facility] Work Phone: Start: 12-11-2024 Sex Male (finding) [facility] Functional Status Date Assessment Result Facility 05-22-2024 Functional Status N/A [facility] 04-26-2023 Functional Status N/A [facility] 06-15-2022 Functional Status N/A [facility] 04-02-2022 Functional Status N/A [facility] Clinical Notes 04-02-2022 to 05-22-2024 Note [...] Follow these instructions at home: Medicines Take vhnq-dio-kvhdlmw and prescription medicines only as told by [...] provider. Document Revised: 12/12/2022 Document Reviewed: 12/12/2022 [employer] Patient Education [address] Follow Up Care 02/11/2024 16:06:25 With:FARA SANDHU, LAURI Baron Address: [facility] [address], [place] [address] [phone] When: Unknown [facility] 05-22-2024 Note Patient Education Urology Kidney [...] these instructions at home: Medicines ? Take yduj-jux-qmsmhah and prescription medicines only as told by [...] diet. Follow r (more content not included)... [facility] 11-19-2023 Evaluation note Encounter Date Diagnosis Assessment Notes Nov, Cervical spondylosis (ICD-10 - M47.812) [facility] Other 01-05-2024 Evaluation note* Encounter Date Diagnosis Assessment Notes Treatment Notes Treatment Clinical Notes Sep, Cervical spondylosis (ICD-10 - M47.812) [facility] Other 12-06-2023 Evaluation note* Encounter Date Diagnosis [...] medical therapy Aug, Nocturia (ICD-10 - R35.1) [facility] Other 12-04-2023 Evaluation note* Encounter Date Diagnosis Assessment Notes Treatment Notes Treatment Clinical Notes Aug, Lumbar spondylitis (ICD-10 - M46.96) [facility] Other 11-17-2023 Evaluation note* Encounter Date Diagnosis Assessment Notes Treatment Notes Treatment Clinical Notes Jul, Lumbar spondylitis (ICD-10 - M46.96) [facility] Other 10-13-2023 Evaluation note* Encounter Date Diagnosis Assessment Notes Treatment Notes Treatment Clinical Notes Jun, Lumbar spondylitis (ICD-10 - M46.96) [facility] Other 09-26-2023 Evaluation note* Encounter Date Diagnosis Assessment Notes Treatment Notes Treatment Clinical Notes May, Bee sting, accidental or unintentional, initial encounter (ICD-10 - T63.441A) Cool compresses and elevation. Monitor for s/s increased pain, swelling May, Cellulitis of right upper extremity (ICD-10 - L03.113) Elevate and begin antibiotics. Monitor for increased swelling, pain or fever [facility] Other 09-05-2023 Evaluation note* Encounter Date Diagnosis [...] prescribed Has Orthopedic appt later this month [facility] Other 08-29-2023 Evaluation note* Encounter Date Diagnosis Assessment Notes Treatment Notes Treatment Clinical Notes Apr, Lumbar spondylitis (ICD-10 - M46.96) [facility] Other 08-11-2023 Hospital Discharge instructions Patient Education [...] treatment? Where to find more information [employer]: www.cancer.org [employer]: www.auanet.org Contact a health care [...] provider. Document Revised: 02/26/2022 Document Reviewed: 02/26/2022 [employer] Patient Education [address] Follow Up Care 04/02/2022 10:42:42 With:FARA SANDHU, Emeka Woods, URL Address: [facility] [address] , [place] [address]- When:Within 1 Year(s) Comments:w/PSA and KUB [facility] 06-23-2023 Evaluation note* Encounter Date Diagnosis Assessment Notes Treatment Notes Treatment Clinical Notes Feb, Lumbar spondylitis (ICD-10 - M46.96) [facility] Other 06-01-2023 Evaluation note* Encounter Date Diagnosis [...] medical treatment Feb, Nocturia (ICD-10 - R35.1) [facility] Other 04-25-2023 Evaluation note* Encounter Date Diagnosis Assessment Notes Treatment Notes Treatment Clinical Notes Dec, Benign prostatic hyperplasia with lower urinary tract symptoms (ICD-10 - N40.1) [facility] Other 04-05-2023 Evaluation note* Encounter Date Diagnosis Assessment Notes Treatment Notes Treatment Clinical Notes Dec, Lumbar spondylitis (ICD-10 - M46.96) [facility] Other 02-21-2023 Evaluation note* Encounter Date Diagnosis [...] Screening for colon cancer (ICD-10 - Z12.11) [facility] Other 01-13-2023 Evaluation note* Encounter Date Diagnosis Assessment Notes Treatment Notes Treatment Clinical Notes Sep, Cervical spondylosis (ICD-10 - M47.812) [facility] Other 11-17-2022 NoteOP Note OPERATION DATE: 08/02/2022 [...] retrograde pyelogram. 9. Placement of right sided 6-Kyrgyz variable length stent. 10. Cystolitholapaxy of 2 [...] usual fashion. I started by passing a 22-Kyrgyz Olympus cystoscope per urethra and I arrived at a significant sequential stricture at the bulb. I passed a wire through the scope and was able to cannulate the strictured area and get it into the bladder. The scope was removed. I then used Padilla sounds and dilated the stricture from 20-Kyrgyz up to 30-Kyrgyz. The wire was removed and I then passed the cystoscope and was able to get it through the bulb and into the bladder. The bladder calculus was identified on the floor. I then passed a Glidewire through the scope and cannulated the right ureter. The wire was unable to pass up the tight J-hooking. I used an 8-Kyrgyz dilator to help, but I could not [...] was then removed. I then used the 10-Kyrgyz dilator to dilate the distal ureter. I [...] into the bladder and then slid a 6-Kyrgyz variable length stent over the wire, up [...] and plucked out the remaining pieces. The Asteel evacuator was used to get blood clots out of the bladder. The nephroscope was removed and the 22-Kyrgyz cystoscope was passed back in the bladder. The bladder looked fine. There were no pieces remaining in the bladder. The scope was then removed. The previously strictured area in the urethra was evaluated and it looked fine. I then placed a 20-Kyrgyz 2-way Almeida catheter in the bladder. It was irrigated manually and it irrigated clear. 10 cc of fluid was placed in the balloon. He was then transferred to a gurney bed and wheeled to PACU in stable condition. He will be discharged to home with a script for (more content not included)...[id number] Discharge instructions Patient Education 06/15/2022 09:27:58 [...] Follow these instructions at home: Medicines Take cpzx-oyf-mqhexxq and prescription medicines only as told by [...] or the blood stops without treatment. Take ywfy-rar-jasgzwu and prescription medicines only as told by your health care provider. Drink enough fluid to keep your urine clear or pale yellow. This information is not intended to replace advice given to you by your health care provider. Make sure you discuss any questions you have with your health care provider. Document Released: 09/02/2006 Document Revised: 01/27/2020 Document Reviewed: 10/05/2017 [employer] Patient Education [address] Follow Up Care 05/10/2022 10:28:16 With:FARA SANDHU, Emeka Woods, URL Address: [address] [place] [address]- When: Unknown [facility] 07-18-2022 Hospital Discharge instructions Patient Education [...] urethra. Follow these instructions at home: Take fdhq-rut-dgrdasg and prescription medicines only as told by [...] 09/02/2006 Document Revised: 07/28/2019 Document Reviewed: 10/07/2017 [employer] Patient Education 2020 [employer] Follow Up Care 09/29/2021 08:39:40 With:Emeka GRACE MD, URL Address: [facility] [address], [place] [address] [phone] When:Within 1 Year(s) Comments:1 year f/u with PSA [facility] evaluation + Plan note Future Appointments Appointment Date:04/12/2023 08:00:00 AM Scheduled Provider:Emeka GRACE MD Location:[facility] Appointment Type:URO Office Visit Diagnostic Tests Pending * PSA Total 04/02/22 [facility] evaluation + Plan note Future Appointments Appointment Date:04/12/2023 08:00:00 AM Scheduled Provider:Emeka GRACE MD Location:[facility] Appointment Type:URO Office Visit Diagnostic Tests Pending * Urine Cytology ([facility]) 06/15/22 [facility] evaluation + Plan note Future Appointments Appointment Date:04/12/2023 08:00:00 AM Scheduled Provider:Emeka GRACE MD Location:[facility] Appointment Type:URO Office Visit [facility] evaluation + Plan note Future Appointments Appointment Date:05/01/2024 08:15:00 AM Scheduled Provider:Emeka GRACE MD Location:[facility] Appointment Type:URO Office Visit Diagnostic Tests Pending * PSA Total 04/26/23 [facility] evaluation noteNo [facility] Other evaluation note* Diagnosis Onset Date Resolution Status Benign prostatic hyperplasia with lower urinary tract symptoms acute Cervical spondylosis acute Elevated PSA acute Lumbar spondylosis acute Medicare annual wellness visit, subsequent noneactive Screening PSA (prostate specific antigen) noneactive Cervical spondylosis acute Elevated PSA acute Lumbar spondylosis acute [facility] Work Phone: Evaluation note* Diagnosis Onset Date Resolution Status Cervical spondylosis acute Left ureteral calculus acute Lumbar spondylosis acute Benign prostatic hyperplasia with lower urinary tract symptoms acute Cervical spondylosis acute Lumbar spondylosis acute [facility] Work Phone: Evaluation note* Diagnosis Onset Date Resolution Status Benign prostatic hyperplasia with lower urinary tract symptoms acute Cervical spondylosis acute Cervical spondylosis with myelopathy acute Lumbar spondylosis acute Opiate analgesic use agreement exists acute [facility] Work Phone: Evaluation note* Diagnosis Onset Date Resolution Status Admit Date Cervical spondylosis with myelopathy acute December 11, 2024 9:23am Elevated PSA acute December 11, 2024 9:23am Hypercholesterolemia acute Oren h 2024 9:23am Nephrolithiasis acute November 9:23am Opiate analgesic use agreeme nt exists acute December 11, 2024 9:23am Medicare annual wellness vis it, subsequent noneactive December 11, 2024 9:23am Screening PSA (prostate spec ific antigen) noneactive December 11, 2024 9:23am [facility] Work Phone: History general Narrative - Reported* Type Description Date Medical History Overweight (BMI 25.0-29.9) Medical History Hyperlipidemia type II Medical History Nicotine dependence, cigarettes, in remission Medical History Traumatic arthropathy, unspecifi ed shoulder Medical History Primary osteoarthritis of right knee Medical History Primary osteoarthritis of left s formerly named [facility] Medical History Cervical spondylosis with myelop athy Surgical History ESWL, cystoscopy, removal of ri ght ureteral stent 09/13/22 Surgical History TOTAL KNEE ARTHROPLASTY right 1 10-30-2020 Surgical History US TRANSRECTAL 01-10-2021 Surgical History fasciotomy right thigh 03-06-20 Surgical History left shoulder arthroscopy 10-05 Hospitalization History see surgical history [facility] Other Hospital course Narrative No data available for this section [facility] Hospital Discharge instructions No data available for this section [facility] progress note No data available for this section [facility] Summary Purpose Family History No Family History [...] Lumbar spondylosis Opiate analgesic use agreement exists Chief Complaint Admit Date wellness December 11, 2024 9:2 3am Reason for Visit Admit Date Cervical spondylosis with myelopathy [facility] 2024 9:23am Elevated PSA December 11, 2024 9:2 3am Hypercholesterolemia December 11, 2024 9: 23am Nephrolithiasis December 11, 2024 9:2 3am Opiate analgesic use agreement exists [facility] 2024 9:23am Medicare annual wellness visit, subseque nt December 11, 2024 9:23am Screening PSA (prostate specific antigen ) December 11, 2024 9:23am Additional Source Comments Care Team (unrecognized sect ion and content) Team Status: Active Member Role Status Dates Javi Seymour DO Primary Care Provider Active Team Status: Active Member Role Status Cori Seymour DO Primary Care Provide r, Attending Provider Active Start: December 09, 2024 Team Status: Inactive Member Role Status Cori Seymour DO Primary Care Provide r, Attending Provider Active Start: December 11, 2024 End: December 11, 2024 Team Status: Active Member Role Status Dates [...] Member Role Status Dates Javi Seymour , DO Primary Care Provide r, Attending Provider Active Start: June 18, 2024 End: June 18, 2024 Team Status: Active Member Role Status Dates Javi Seymour DO Primary Care Provide r, Attending Provider Active Start: December 09, 2024 Team Status: Inactive Member Role Status Dates Javi Seymour , DO Primary Care Provide r, Attending Provider Active Start: December 11, 2024 End: December 11, 2024 (unrecognized sect ion and content) No Status Records FoundNo Status Records Found INFORMATION SOURCE (unrecogn ized section and content) DATE CREATED AUTHOR 09/13/2022 [facility] DATE CREATED AUTHOR AUTHOR'S ORGANIZ ATION 06/11/2024 [facility] REASON FOR VISIT (unrecogniz ed [...] BE BASED ON THE PRIMARY CLINICAL RECORDS. [employer] provides no warranty or guarantee of the accuracy or completeness of information in this document.
--- NOTE | 2025-01-01 08:32 | XR_ITS ---
[facility] [place] [id number] Patient Name: RADHAMES MARQUEZ MRN: [id number] date: 1955 Sex: M Assigned Patient Location: CARD Current Patient Location: CARD Accession/Order Number: [id number] Exam Date: 01/01/2025 09:07 Report Date: 01/01/2025 09:08 At the request of: ISABEL TORRES DO Procedure: XR chest 2V PA AND LATERAL CHEST: CLINICAL HISTORY: Heart Murmur, Cough COMPARISON: 10/28/2019 There is no focal parenchymal consolidation, effusion or pneumothorax. The cardiac, hilar and mediastinal silhouettes are within normal limits. There is no vascular congestion. The visualized bony thorax is intact. There is dextroscoliotic curvature and endplate spurring. XR/XR chest 2V IMPRESSION: NO ACUTE CARDIOPULMONARY ABNORMALITY. Impression dictated by: Farrah Cardenas M.D.01/01/2025 9:08 AM Dictation Location: [place] [address] Electronically authenticated by: [id number] Y Date: 01/01/2025 09:08
== END 2025-01-01 07:48 | disposition home or self-care (01) ==
LOC: CARD 07:49
PROVIDERS: PCP Internal Medicine; Visit Provider Internal Medicine
DX: R01.1 Cardiac murmur, unspecified (principal); R05.9 Cough, unspecified
CPT/HCPCS: 71046; 93306

== ENCOUNTER 2025-02-09 15:42 | Emergency (ER) | payer MEDICARE, OTHER, SELFPAY ==
[2025-02-09] VITALS (23 sets, daily range): BP systolic 105–121; BP diastolic 69–77; PULSE 47–67; TEMP 36.8; O2SAT 93–97; BMI 24.4
--- OUTSIDE RECORDS SUMMARY | 2025-02-09 15:48 | XMS_ITS | Encounter Summary ---
Author Organization [facility] Address [address] [place] [address] Care Team Providers Care Process Safety Engineer Name Role Phone Javi Seymour DO Primary Care Provider [phone] Encounter Details Date Type Department Care Team (Late st Contact Info) Description 04/17/2023 Abstract [facility] [address] [place] [address] Parth Teague, AMILCAR [address] [place], [place] [id number] Social History Tobacco Use Types Packs/Day Years Used Date Smoking Tobacco: Former Cigarettes Alcohol Use Standard Drinks/Week Comments Not Currently 0 (1 standard drink = 0.6 oz pur e alcohol) Sex and Gender Information Value Date Recorded Sex Assigned at Not on file Legal Sex Male 6:35 PM EDT Gender Identity Not on file Sexual Orientation Not on file documented as of this encounter Plan of Treatment Not on file documented as of this encounter Visit Diagnoses Not on filedocumented in this encounter Care Teams Process Safety Engineer Relationship Specialty Start Date End Date Javi Seymour DO PCP - General Internal Medicine 04/16/23 documented as of this encounter
--- OUTSIDE RECORDS SUMMARY | 2025-02-09 15:48 | XMS_ITS | Clinical Summary ---
Author Organization [facility] Address [address] [place] [address] Care Team Providers Care Setup Operator Name Role Phone Javi Seymour DO Primary Care Provider [phone] Allergies No known active allergies Medications traMADol (Ultram) 50 MG tablet Take 50 mg by mouth in the morning. 3 Active tamsulosin (Flomax) 0.4 MG 24 hr capsule take 1 capsule by mouth once daily after EVENING MEAL Active simvastatin (Zocor) 40 MG tablet Take 40 mg by mouth at bedtime. Active ondansetron ODT (Zofran-ODT) 4 MG disintegrating tablet take 1 tablet by mouth every 6 hours if needed for nausea and vomiting 3 Active HYDROcodone-acetami nophen ([place]) 5-325 MG tablet Take 1 tablet by mouth every 6 (six) hours if needed. 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 04/17/2023 Elevated PSA 04/17/2023 Gross hematuria 04/17/2023 Hyperlipidemia 04/17/2023 Incomplete bladder emptying 04/17/2023 Kidney stone 04/17/2023 Nocturia 04/17/2023 Post-void dribbling 04/17/2023 Urinary hesitancy 04/17/2023 Acute pain of right knee 08/29/2021 History of total right knee replacement 08/28/20 21 Cervical spondylosis without myelopathy 12/01/19 10 Immunizations Immunization Administration Dates Next Due Influenza, High Dose Seasonal, Preservative Free 07/05/2020 Influenza, Seasonal, Quadrivalent, Adjuvanted Moderna SARS-CoV-2 Vaccination 11/22/2020 Pneumococcal Conjugate PCV 13 01/06/2019 Pneumococcal Polysaccharide PPSV23 07/05/2020 Family History Relation Name Status Comments Father Alive Mother Alive Social History Tobacco Use Types Packs/Day Years Used Date Smoking Tobacco: Former Cigarettes Tobacco Cessation:Counseling Given: Not Answered Alcohol Use Standard Drinks/Week Comments Not Currently 0 (1 standard drink = 0.6 oz pur e alcohol) Sex and Gender Information Value Date Recorded Sex Assigned at Not on file Legal Sex Male 6:35 PM EDT Gender Identity Not on file Sexual Orientation Not on file Last Filed Vital Signs Vital Sign Reading Time Taken Comments Blood Pressure - - Pulse - - Temperature - - Respiratory Rate - - Oxygen Saturation - - Inhaled Oxygen Concentration - - Weight 76.3 kg (168 lb 3.2 oz) 08/16/2021 12:00 PM EST Height 177.8 cm (5' 10 ) 08/16/2021 12:00 PM EST Body Mass Index 24.13 08/16/2021 12:00 PM EST Plan of Treatment Health Maintenance Due Date Last Done Comments CT Colonography 1955 Colonoscopy 1955 FIT 1955 FOBT 1955 Sigmoidoscopy 1955 Influenza Vaccine (Season Ended) 2025 07/24/20 22, 07/05/2020 Colorectal Cancer Screening 11/14/2025 FIT-DNA 11/14/2025 11/14/2022, 02/10/2019 Pneumococcal Vaccine: 65+ Years Completed 0, 01/06/2019 Insurance MEDICARE [employer] Care Teams Setup Operator Relationship Specialty Start Date End Date Javi Seymour DO PCP - General Internal Medicine 04/16/23
--- OUTSIDE RECORDS SUMMARY | 2025-02-09 15:48 | XMS_ITS | Clinical Summary ---
Author Organization [facility] tem Address [id number] [address] [place] [address] Care Team Providers Care Business English Instructor Name Role Phone Javi Seymour DO Primary Care Provider [phone] Allergies No known active allergies Medications vit A/C/E ac/ZnOx/cupric oxide (EYE VITAMIN AND MINERALS ORAL) Take by mouth. Active omega 9-dkp-hsb-fish oil (Fish OiL) 300-1,000 mg capsule Take by mouth. Active simvastatin (ZOCOR) 40 mg tablet Take 40 mg by mouth nightly. Active tamsulosin (FLOMAX) 0.4 mg capsule Take 0.4 mg by mouth nightly. Active suhbneeh-aamu-OG -calcium &mins (THERAGRAN-M) 9 mg iron-400 mcg tablet Take 1 tablet by mouth daily. Active Active Problems Problem Noted Date Diagnosed Date Acute pain of right knee 08/29/2021 History of total right knee replacement 08/28/20 21 Social History Tobacco Use Types Packs/Day Years Used Date Smoking Tobacco: Former Smokeless Tobacco: Never Alcohol Use Standard Drinks/Week Comments Never 0 (1 standard drink = 0.6 oz pur e alcohol) Childcare Answer Date Recorded Childcare Unknown 02/25/2019 Employment Answer Date Recorded Employment Unknown 02/25/2019 Purpose - Life Answer Date Recorded Purpose and direction in life Unknown Sex and Gender Information Value Date Recorded Sex Assigned at Not on file Legal Sex Male 11:39 AM EDT Gender Identity Not on file Sexual Orientation Not on file Last Filed Vital Signs Vital Sign Reading Time Taken Comments Blood Pressure 87/60 08/29/2021 12:18 PM EST Pulse 68 08/29/2021 12:18 PM EST Temperature 36.5 C (97.7 F) 08/29/2021 12:18 PM EST Respiratory Rate 14 08/29/2021 12:18 PM EST Oxygen Saturation 94% 08/29/2021 12:18 PM EST Inhaled Oxygen Concentration - - Weight 78.9 kg (174 lb) 08/29/2021 6:42 AM EST Height 177.8 cm (5' 10 ) 08/29/2021 6:42 AM EST Body Mass Index 24.97 08/29/2021 6:42 AM EST Plan of Treatment Health Maintenance Due Date Last Done Comments Depression Screening 1965 Tobacco Screening 1965 Adult BMI Screening 1971 DTaP,Tdap and Td Vaccines (1 - Tdap) 1972 Zoster (Shingles) Vaccine (1 of 2) 2003 Fall Risk Screening 2018 COVID-19 Vaccine (4 2023-2 5 season) 2024 2021, 11/22/2020, 10/24/2020 Influenza Vaccine 05/17/2025 07/05/2020, 06/06/2020 Medical Devices Implanted Type Area Electric Drill Operator Device Identifier Shelf Expiration Date Model / Serial / Lot Cement Bn Bio 40gm Rpl [id number] - Sna - [id number] Implanted:Qt y: 3 on 08/29/2021 by Rik Smith Jr., DO at [facility] Cement Right: Knee [employer] 06/15/2025 [id number] / NA / [id number] Component Ptlr 35mm Persona Alply Kn Strl Lf - Sna - [id number] Implanted:Qt y: 1 on 08/29/2021 by Rik Smith Jr., DO at [facility] Orthopedic Implant Right: Knee [employer] 06/06/2029 [id number] / NA / [id number] Insert Artc 10-12 Gh 10mm Kn Rt Post Stab Pe Persona - Sna - [id number] Implanted:Qt y: 1 on 08/29/2021 by Rik Smith Jr., DO at [facility] Orthopedic Implant Right: Knee [employer] 08/30/2028 [id number] / NA / [id number] Component Fem 10 Std Kn Rt Post Stab Cmnt Persona Cocr Strl - Sna - [id number] Implanted:Qt y: 1 on 08/29/2021 by Rik Smith Jr., DO at [facility] Orthopedic Implant Right: Knee [employer] 09/19/2030 [id number] / NA / [id number] Baseplate Tib 5d H Kn Rt Cmnt Stm Persona Tiv Strl - Sna - [id number] Implanted:Qt y: 1 on 08/29/2021 by Rik Smith Jr., DO at [facility] Plate Right: Knee [employer] 07/16/2028 [id number] / NA / [id number] Explanted Type Area Electric Drill Operator Device Identifier Shelf Expiration Date Model / Serial / Lot Screw Bn 25mm 2.5mm F Hex Kn Persona - Sna - [id number] Explanted:Qty: 1 on 08/29/2021 by Rik Smith Jr., DO at [facility] Screw Right: Knee [employer] 09/29/2030 [id number] / NA / [id number] Insurance MEDICARE [facility] Advance Directives * Full Code (Latest Code Status on File) Date Activated Date Inactivated Comments 08/29/2021 12:07 PM 08/29/2021 7:59 PM Care Teams Business English Instructor Relationship Specialty Start Date End Date Javi Seymour DO [address] [place] [address] PCP - General Internal Medicine 08/01/21
--- NOTE | 2025-02-09 16:19 | XR_ITS ---
The [address] [address] Patient Name: RADHAMES MARQUEZ MRN: [id number] date: 1955 Sex: M Assigned Patient Location: ER Current Patient Location: ER Accession/Order Number: [id number] Exam Date: 02/09/2025 16:39 Report Date: 02/09/2025 16:42 At the request of: SYD NIETO MD Procedure: XR chest 1V XR chest 1V 02/09/2025 4:34 PM SIGNS AND SYMPTOMS: ^Dizziness ^Y PROTOCOL: Frontal radiographs of the chest COMPARISON: 01/01/2025 FINDINGS: The trachea is midline. The heart and mediastinal structures are within normal limits. The lung parenchyma is clear. The bony thorax is intact. Degenerative changes are noted in the shoulders and thoracic spine. There is a remote healed fracture of the left clavicle. XR/XR chest 1V IMPRESSION: No acute cardiopulmonary pathology. Impression dictated by: Rashad Dubose M.D. 02/09/2025 4:42 PM Dictation Location: [employer] ([employer]) Electronically authenticated by: [id number] Y Date: 02/09/2025 16:42
--- NOTE | 2025-02-09 16:19 | ECG_ITS ---
The [facility] Test Date: 2025-02-09 Pat Name: RADHAMES MARQUEZ Department: Room: - Gender: Male [employer] Worker: : 1955 Requested By: 1030 Order Number: [id number] Reading MD: JOHN BAÑUELOS M.D. Measurements Intervals [place] Rate: 54 P: 62 IA: 208 QRS: -63 QRSD: 114 T: 29 QT: 420 QTc: 407 Interpretive Statements 1100 Sinus rhythm 2630 Left anterior fascicular block 8003 Consistent with pulmonary disease 9150 abnormal ECG Compared to ECG 02/06/2024 10:09:03 Left anterior fascicular block now present Intraventricular conduction delay no longer present Electronically Signed On 02-09-2025 19:38:55 EDT by JOHN BAÑUELOS M.D.
--- NOTE | 2025-02-09 16:20 | ED_ITS ---
HPI HPI - General Adult General Chief complaint: Dizziness Stated complaint: DIZZINESS Time Seen by Provider: 02/09/25 15:46 Source: patient Mode of arrival: walk-in Limitations: no limitations History of Present Illness HPI narrative: 69-year-old male presents to the emergency department for dizziness. He has been this way since yesterday morning. He states when he is lying on the cart he feels just a little bit dizzy but if he stands up he gets much more dizzy. He does not have vertigo type sensation and does not have a headache or any localized weakness. His states that he is acting normally and his speech is normal. The patient has no complaints of any localized weakness. Related Data Home Medications ?Medication ?Instructions ?Recorded ?Confirmed nabumetone 750 mg tablet 750 mg PO BID 04/15/2302/09 simvastatin 40 mg tablet 40 mg PO DAILY 04/15/2301/15 tamsulosin 0.4 mg capsule 0.4 mg PO Q24H 04/15/2301/15 tramadol 50 mg tablet 50 mg PO DAILY 06/04/2401/15 Previous Rx's ?Medication ?Instructions ?Recorded meclizine 25 mg tablet 25 mg PO QID PRN dizziness # 20 tabs 02/09/25 Allergies Allergy/AdvReac Type Severity Reaction Status Date / Time No Known Drug Allergies Allergy Verified 02/09/25 16:02 Opioid HPI Opioid Management Most Recent Opioid Data: Last Pain Scale 2 06/05/24, 12:27 Review of Systems ROS Narrative A ten point review of systems is negative except as noted above. PFSH PFSH Medical History (Updated 02/09/25 @ 19:00 by Mane Lee MD) Nocturia ?R35.1 - Nocturia (ICD-10) Hematuria ?R31.9 - Hematuria, unspecified (ICD-10) BPH with obstruction/lower urinary tract symptoms ?N40.1 - Benign prostatic hyperplasia with lower urinary tract symptoms (ICD- 10) ?N13.8 - Other obstructive and reflux uropathy (ICD-10) Back pain ?M54.9 - Dorsalgia, unspecified (ICD-10) Arthritis ?M19.90 - Unspecified osteoarthritis, unspecified site (ICD-10) Kidney stones ?N20.0 - Calculus of kidney (ICD-10) High cholesterol ?E78.00 - Pure hypercholesterolemia, unspecified (ICD-10) S/P extracorporeal shock wave therapy (02/06/24) ?Z98.890 - Other specified postprocedural states (ICD-10) Hyperlipemia ?E78.5 - Hyperlipidemia, unspecified (ICD-10) Elevated PSA ?R97.20 - Elevated prostate specific antigen [PSA] (ICD-10) Open fracture of distal phalanx of left little finger ?S62.637B - Displaced fracture of distal phalanx of left little finger, initial encounter for open fracture (ICD-10) Laceration of left little finger ?S61.217A - Laceration without foreign body of left little finger without damage to nail, initial encounter (ICD-10) Flank pain ?R10.9 - Unspecified abdominal pain (ICD-10) Left ureteral stone ?N20.1 - Calculus of ureter (ICD-10) Surgical History (Updated 02/06/24 @ 10:19 by Luly Villalba) History of arthroplasty of right knee ?Z96.651 - Presence of right artificial knee joint (ICD-10) H/O colonoscopy ?Z98.890 - Other specified postprocedural states (ICD-10) History of repair of rotator cuff ?Z98.890 - Other specified postprocedural states (ICD-10) History of appendectomy ?Z90.49 - Acquired absence of other specified parts of digestive tract (ICD- 10) H/O prostate biopsy ?Z98.890 - Other specified postprocedural states (ICD-10) Family History (Updated 02/06/24 @ 10:21 by Luly Villalba) Sister Family history of diabetes mellitus Father High cholesterol Hyperlipidemia Kidney stones Social History (Updated 06/05/24 @ 12:35 by Stephanie Quintero RN) Within the past year, how often did you have a drink containing alcohol: never Score interpretation: A score less than 4 is consistent with normal alcohol consumption. 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 General: The patient appears well and in no apparent distress. Patient is resting comfortably on cart. Skin: Warm, dry, no pallor noted. There is no rash noted. Head: Normocephalic, atraumatic Eye: Normal conjunctiva, no drainage, EOMI. PERRL Ears, Nose, Mouth, and Throat: oral mucosa is moist. Nares patent. Cardiovascular: Regular Rate and Rhythm Respiratory: Patient is in no distress, no accessory muscle use, lungs are clear to auscultation, no wheezing, rales or rhonchi Back: non-tender GI: Soft and nontender Musculoskeletal: The patient has no evidence of calf tenderness, no pitting edema, symmetrical pulses noted bilaterally Neurological: A&O x4, normal speech; upper and lower extremity strength 5 out of 5 and symmetric. Cranial nerves II through XII intact Psychiatric: Cooperative Constitutional Vital Signs, click to edit/add: Last Vital Signs Temp 98.3 F 02/09/25 16:03 Pulse 63 02/09/25 16:24 Resp 20 02/09/25 16:03 BP 112/71 02/09/25 16:24 Pulse Ox 95 02/09/25 16:03 O2 Del Method Room Air 02/09/25 16:03 Course Vital Signs Vital signs: Vital Signs Temperature 98.3 F 02/09/25 16:03 Pulse Rate 55 L 02/09/25 16:03 Respiratory Rate 20 02/09/25 16:03 Blood Pressure 120/69 02/09/25 16:03 Pulse Oximetry 95 02/09/25 16:03 Oxygen Delivery Method Room Air 02/09/25 16:03 Temperature 98.3 F 02/09/25 16:03 Pulse Rate 63 02/09/25 16:24 Respiratory Rate 20 02/09/25 16:03 Blood Pressure 112/71 02/09/25 16:24 Pulse Oximetry 95 02/09/25 16:03 Oxygen Delivery Method Room Air 02/09/25 16:03 Medical Decision Making MDM Narrative Medical decision making narrative: His workup including CTA head and neck as well as plain CT of the head is negative. We discussed treatment options. He was offered admission to the hospital but does not feel that it is needed. He will be discharged home on Antivert but will call his family doctor in the morning for follow-up. He may need to have an MRI as an outpatient. He states he is under a lot of stress and is wondering if stress is not causing this. Treatment diagnosis and follow-up were discussed with the patient. Differential Diagnosis Differential Diagnosis: Intracranial hemorrhage, stroke, anxiety Lab Data Lab results reviewed: Yes I reviewed the patient's lab results Labs: Lab Results 02/09/25 Range/Units 16:12 WBC 7.2 (4.0-11.0) 10^3/uL RBC 4.54 L (4.70-6.10) 10^6/uL Hgb 15.2 (14.0-18.0) g/dL Hct 43.4 (42.0-54.0) % MCV 95.6 H (80.0-94.0) fL MCH 33.5 (25.9-34.0) pg MCHC 35.0 (29.9-35.2) g/dL RDW 13.3 (11.0-15.0) % Plt Count 245 (150-450) 10^3/uL MPV 9.7 (9.5-13.5) fL Neut % (Auto) 59.0 (43.0-75.0) % Lymph % (Auto) 25.5 (20.5-60.0) % [place] % (Auto) 10.2 (1.7-12.0) % Eos % (Auto) 4.8 (0.9-7.0) % Baso % (Auto) 0.4 (0.2-2.0) % Neut # (Auto) 4.2 (1.4-6.5) 10^3/uL Lymph # (Auto) 1.8 (1.2-3.8) 10^3/uL [place] # (Auto) 0.7 (0.3-0.8) 10^3/uL Eos # (Auto) 0.3 (0.0-0.7) 10^3/uL Baso # (Auto) 0.0 (0.0-0.1) 10^3/uL Abs Immat Gran (auto) 0.01 (0.00-0.03) 10^3/uL Imm/Tot Granulo (auto) 0.1 (0.0-0.5) % Sodium 141 (136-145) mmol/L Potassium 3.9 (3.5-5.1) mmol/L Chloride 106 (98-107) mmol/L Carbon Dioxide 25.9 (21.0-32.0) mmol/L Anion Gap 13.0 BUN 13.0 (7.0-18.0) mg/dL Creatinine 1.06 (0.70-1.30) mg/dL Est GFR ( Amer) >60 (>=60 mL/min/1.73m^2) Est GFR (Non-Af Amer) >60 (>=60 mL/min/1.73m^2) BUN/Creatinine Ratio 12.3 Glucose 103 (74-106) mg/dL Calcium 8.8 (8.5-10.1) mg/dL Troponin I High Sens 5.9 (4.0-76.1) pg/mL Imaging Data CT scan - head: Radiologist's impression: ITS Impressions Chest X-Ray 02/09/25 16:19 IMPRESSION: No acute cardiopulmonary pathology. Impression dictated by: Rashad Dubose M.D. 02/09/2025 4:42 PM Dictation Location: [facility] Electronically authenticated by: [id number] Y Date: 02/09/2025 16:[address] 02/09/25 16:20 IMPRESSION: No acute intracranial pathology. There is age-related cortical atrophy. Impression dictated by: Rashad Dubose M.D. 02/09/2025 4:47 PM Dictation Location: [facility] Electronically authenticated by: [id number] Y Date: 02/09/2025 16:47 Head CTA 02/09/25 17:01 IMPRESSION: Calcified plaque is noted in the carotid bifurcations with approximately 20% stenosis bilaterally. No evidence of focal stenosis, aneurysmal dilatation, dissection or occlusion. Impression dictated by: Rashad Dubose M.D. 02/09/2025 6:46 PM Dictation Location: [facility] Electronically authenticated by: [id number] Y Date: 02/09/2025 18:46 Neck CTA 02/09/25 17:01 IMPRESSION: Calcified plaque is noted in the carotid bifurcations with approximately 20% stenosis bilaterally. No evidence of focal stenosis, aneurysmal dilatation, dissection or occlusion. Impression dictated by: Rashad Dubose M.D. 02/09/2025 6:46 PM Dictation Location: [place] [address] Electronically authenticated by: [id number] Y Date: 02/09/2025 18:46 ECG Data Attestation: I personally reviewed and interpreted this ECG as follows: (EKG on my interpretation shows sinus rhythm with a rate of 54 no acute change) Discharge Plan Discharge Chief Complaint: Dizziness Clinical Impression: Dizziness Patient Disposition: Home, Self-Care Time of Disposition Decision: 19:00 Condition: Good Mode of Transportation: Private Vehicle Prescriptions / Home Meds: New meclizine 25 mg tablet 25 mg PO QID PRN (Reason: dizziness) Qty: 20 0RF No Action simvastatin 40 mg tablet 40 mg PO DAILY tamsulosin 0.4 mg capsule 0.4 mg PO Q24H nabumetone 750 mg tablet 750 mg PO BID tramadol 50 mg tablet 50 mg PO DAILY Print Language: Angolan Instructions: Dizziness (ED) Referrals: Javi Seymour DO [Primary Care Provider, Internal Medicine] - 1 week
--- NOTE | 2025-02-09 16:20 | CT_ITS ---
The [place] [id number] Patient Name: RADHAMES MARQUEZ MRN: [id number] date: 1955 Sex: M Assigned Patient Location: ER Current Patient Location: Accession/Order Number: [id number] Exam Date: 02/09/2025 16:44 Report Date: 02/09/2025 16:47 At the request of: SYD NIETO MD Procedure: CT head/brain wo con CT head/brain wo con 02/09/2025 4:36 PM SIGNS AND SYMPTOMS: ^Dizziness TECHNIQUE:Multi-detector CT axial slices of the brain were obtained without IV contrast. CT was performed with one or more of the following dose reduction techniques: Automated exposure control, adjustment of the mA and/or kV according to patient size, or use of iterative reconstruction technique. COMPARISON: None. FINDINGS: There is no shift of the midline structures, acute intracranial bleeding, mass effects, or evidence of acute ischemia. There is age-related cortical atrophy. The ventricular system is normal in size. The brainstem and the cerebellum are unremarkable. Mucosal thickening is noted in the ethmoid air cells and sphenoid sinuses. The visualized intraorbital contents and the infratemporal soft tissues show no acute abnormality. The osseous structures in the skull base and the calvarium show no abnormality. CT/CT head/brain wo con IMPRESSION: No acute intracranial pathology. There is age-related cortical atrophy. Impression dictated by: Rashad Dubose M.D. 02/09/2025 4:47 PM Dictation Location: [place] [address] Electronically authenticated by: [id number] Y Date: 02/09/2025 16:47
[2025-02-09 16:36] LABS: Basophils Percent Auto 0.4 % (0.2-2.0); Eosinophils Absolute Auto 0.3 10^3/uL (0.0-0.7); Eosinophils Percent Auto 4.8 % (0.9-7.0); Hematocrit 43.4 % (42.0-54.0); Hemoglobin 15.2 g/dL (14.0-18.0); Immature Granulocytes Abs Auto 0.01 10^3/uL (0.00-0.03); Immature Granulocytes Pct Auto 0.1 % (0.0-0.5); Lymphocytes Absolute Auto 1.8 10^3/uL (1.2-3.8); Lymphocytes Percent Auto 25.5 % (20.5-60.0); Mean Corpuscular Hemoglobin 33.5 pg (25.9-34.0); Mean Corpuscular Volume 95.6 fL (80.0-94.0); Mean Platelet Volume 9.7 fL (9.5-13.5); Monocytes Absolute Auto 0.7 10^3/uL (0.3-0.8); Monocytes Percent Auto 10.2 % (1.7-12.0); Neutrophils Absolute Auto 4.2 10^3/uL (1.4-6.5); Platelet Count 245 10^3/uL (150-450); Red Blood Count 4.54 10^6/uL (4.70-6.10); Red Cell Distribution Width 13.3 % (11.0-15.0); White Blood Count 7.2 10^3/uL (4.0-11.0)
[2025-02-09 16:51] LABS: BUN Creatinine Ratio 12.3; Calcium 8.8 mg/dL (8.5-10.1); Carbon Dioxide 25.9 mmol/L (21.0-32.0); Chloride 106 mmol/L (98-107); Estimated GFR (African America >60 (>=60 mL/min/1.73m^2); Estimated GFR (Non-African Ame >60 (>=60 mL/min/1.73m^2); Glucose 103 mg/dL (74-106); Potassium 3.9 mmol/L (3.5-5.1); Sodium 141 mmol/L (136-145); Troponin I High Sensitivity 5.9 pg/mL (4.0-76.1)
--- NOTE | 2025-02-09 17:01 | CT_ITS ---
[address] [address] Patient Name: RADHAMES MARQUEZ MRN: [id number] date: 1955 Sex: M Assigned Patient Location: ER Current Patient Location: Accession/Order Number: [id number] Exam Date: 02/09/2025 18:37 Report Date: 02/09/2025 18:46 At the request of: SYD NIETO MD Procedure: CT angio neck CT angio head, CT angio neck 02/09/2025 5:27 PM SIGNS AND SYMPTOMS: ^Dizziness CONTRAST: 100 ml of intravenous omnipaque 350 TECHNIQUE: Multi-detector CT angiography axial slices of the head and neck were obtained during intravenous administration of IV contrast material. Sagittal, coronal, and 3-D reconstructions were performed and viewed on a separate workstation. CT was performed with one or more of the following dose reduction techniques: Automated exposure control, adjustment of the mA and/or kV according to patient size, or use of iterative reconstruction technique. Stenoses were measured using the NASCET criteria. COMPARISON: None. FINDINGS: CTA HEAD: The superior cerebellar arteries, posterior inferior cerebellar arteries, and the basilar artery are within normal limits. The posterior cerebral arteries are unremarkable. The intracranial segments of the internal carotid arteries are within normal limits. There are normal anterior and middle cerebral arteries. Anterior communicating artery is patent. Posterior communicating arteries are present. The deep venous system and dural venous systems appear to be patent. No bony abnormalities are appreciated. Mucosal thickening is noted in the maxillary sinuses and sphenoid sinuses. CTA NECK: There is a normal three-vessel arch. The subclavian arteries are within normal limits. The vertebral arteries arise from the subclavian arteries and are normal in course and caliber up to the skull base. Calcified plaque is noted in the carotid bifurcations with approximately 20% stenosis bilaterally. Visualized lung parenchyma is clear. Degenerative changes are noted in the cervical spine. No acute bony abnormalities are identified. The paraspinous soft tissues are within normal limits. CT/CT angio head IMPRESSION: Calcified plaque is noted in the carotid bifurcations with approximately 20% stenosis bilaterally. No evidence of focal stenosis, aneurysmal dilatation, dissection or occlusion. Impression dictated by: Rashad Dubose M.D. 02/09/2025 6:46 PM Dictation Location: [place] [address] Electronically authenticated by: [id number] Y Date: 02/09/2025 18:46
--- NOTE | 2025-02-09 17:01 | CT_ITS ---
[address] [address] Patient Name: RADHAMES MARQUEZ MRN: [id number] date: 1955 Sex: M Assigned Patient Location: ER Current Patient Location: Accession/Order Number: [id number] Exam Date: 02/09/2025 18:37 Report Date: 02/09/2025 18:46 At the request of: SYD NIETO MD Procedure: CT angio neck CT angio head, CT angio neck 02/09/2025 5:27 PM SIGNS AND SYMPTOMS: ^Dizziness CONTRAST: 100 ml of intravenous omnipaque 350 TECHNIQUE: Multi-detector CT angiography axial slices of the head and neck were obtained during intravenous administration of IV contrast material. Sagittal, coronal, and 3-D reconstructions were performed and viewed on a separate workstation. CT was performed with one or more of the following dose reduction techniques: Automated exposure control, adjustment of the mA and/or kV according to patient size, or use of iterative reconstruction technique. Stenoses were measured using the NASCET criteria. COMPARISON: None. FINDINGS: CTA HEAD: The superior cerebellar arteries, posterior inferior cerebellar arteries, and the basilar artery are within normal limits. The posterior cerebral arteries are unremarkable. The intracranial segments of the internal carotid arteries are within normal limits. There are normal anterior and middle cerebral arteries. Anterior communicating artery is patent. Posterior communicating arteries are present. The deep venous system and dural venous systems appear to be patent. No bony abnormalities are appreciated. Mucosal thickening is noted in the maxillary sinuses and sphenoid sinuses. CTA NECK: There is a normal three-vessel arch. The subclavian arteries are within normal limits. The vertebral arteries arise from the subclavian arteries and are normal in course and caliber up to the skull base. Calcified plaque is noted in the carotid bifurcations with approximately 20% stenosis bilaterally. Visualized lung parenchyma is clear. Degenerative changes are noted in the cervical spine. No acute bony abnormalities are identified. The paraspinous soft tissues are within normal limits. CT/CT angio neck IMPRESSION: Calcified plaque is noted in the carotid bifurcations with approximately 20% stenosis bilaterally. No evidence of focal stenosis, aneurysmal dilatation, dissection or occlusion. Impression dictated by: Rashad Dubose M.D. 02/09/2025 6:46 PM Dictation Location: [place] [address] Electronically authenticated by: [id number] Y Date: 02/09/2025 18:46
--- OUTSIDE RECORDS SUMMARY | 2025-02-09 18:45 | XMS_ITS | CCD ---
Author Organization [facility] CliniSyvt Care Team Providers Care Can Inspector Name Role Phone JAVI SEYMOUR Primary Care [...] BAL LISTED Admitting Unavaila ble BALL, DR AHLL Primary Care Unavailable GRACE, DR COLÓN Admitting Unavailable BALL, DR HALL Primary Care Unavailable GRCAE, DR COLÓN Attending Unavailable GRACE, DR COLÓN [...] GRACE, DR COLÓN Admitting Unavailable WEST, DR QUINYC Serrato Consulting Unavailable BALL, DR HALL Primary [...] physicia Propensity to adverse reactions 4 Comment:Done Degree Controls Other Medications Current Medications Medication Drug Class(es) [...] # 2 tab(s), Refills(s) 0, Pharmacy: [facility] #[id number], 175, cm, 06/15/22 8:46:00 EDT, Height/Length Dosing, [...] 06-02-2014 11-19-2023 Chronic Other aftercare (1 source) terminal gauger (current) use of anticoagulants; 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: [HALFWAY CURRNT USE ANTICOAGULANTS] Onset: 08-16-2022 Episodic Other aftercare (1 source) Other oil heaterman (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) drug therapy; 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: [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 THERAPY] Onset: 08-16-2022 Episodic Other aftercare (4 sources) terminal gauger (current) use of opiate analgesic; 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: [Long-term (current) use of other medications] Episodic Other aftercare (1 source) High risk drug monitoring status; 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: [penitentiary (current) use of opiate analgesic] Episodic Other aftercare (1 source) Long-term current use of drug therapy; 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: [Other penitentiary (current) drug therapy] Episodic Other aftercare (4 sources) Drug therapy finding; 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: [terminal gauger (current) use of opiate analgesic] 02-27-2024 Episodic [...] Basophils (Bld) [#/Vol] Automated basophil count 0.0-0.1 [facility] Basophils/100 WBC Auto (Bld) on 12-09-2024 Basophils/100 WBC (Bld) Automated basophil % 0.2-2.0 [facility] Cholesterol in LDL Calc [Mas s/Vol]on 12-09-2024 Cholesterol in LDL [Mass/Vol] Cholesterol in LDL [Mass/volume] in Serum or Plasma by calculation [facility] Comment on above: <100 mg/dl [id number] 0-129 mg/dl NEAR OR ABOVE [id number] mg/dl BORDERLINE [id number] mg/dl HIGH>190 mg/dl VERY HIGH Cholesterol in VLDL Calc [Ma ss/Vol]on 12-09-2024 Cholesterol in VLDL [Mass/Vol] Cholesterol in VLDL [Mass/volume] in Serum or Plasma by calculation [facility] Eosinophils/100 WBC Auto (Bl d)on 12-09-2024 Eosinophils/100 WBC (Bld) Automated eosinophil % 0.9-7.0 [facility] Erythrocyte distribution wid th Auto (RBC) [Ratio]on 12-09-2024 Erythrocyte distribution width (RBC) [Ratio] Erythrocyte distribution width [Ratio] by Automated count 11.0-15.0 [facility] Estimated glomerular filtrat ion rate (GFR) non- Americanon 12-09-2024 GFR/1.73 sq M.predicted among non-blacks MDRD (S/P/Bld) [Vol rate/Area] Estimated glomerular filtration rate (GFR) non- >=60 mL/min/1.73m 2 [facility] Globulin Calc (S) [Mass/Vol] on 12-09-2024 Globulin (S) [Mass/Vol] Serum globulin measurement by calculation (mass/volume) [facility] Hematocrit Auto (Bld) [Volum e fraction]on 12-09-2024 Hematocrit (Bld) [Volume fraction] Hematocrit [Volume Fraction] of Blood by Automated count 42.0-54.0 [facility] Hemoglobin [Mass/volume] in Bloodon 12-09-2024 Hemoglobin (Bld) [Mass/Vol] Hemoglobin [Mass/volume] in Blood 14.0-18.0 [facility] Laboratory - Chemistry and C hemistry - challengeon 12-09-2024 Albumin [Mass/Vol] 3.6 g/dL 3.4-5.0 [facility] ALP [Catalytic activity/Vol] 88 U/L 46-116 [facility] ALT [Catalytic activity/Vol] 26 U/L 16-63 [facility] AST [Catalytic activity/Vol] 21 U/L 15-37 [facility] Bilirubin [Mass/Vol] 0.5 mg/dL 0.2-1.0 [facility] Calcium [Mass/Vol] 8.6 mg/dL 8.5-10.1 [facility] Chloride [Moles/Vol] 107 mmol/L 98-107 [facility] Cholesterol [Mass/Vol] 197 mg/dL <=200 [facility] Cholesterol in HDL [Mass/Vol] 55 mg/dL 40-60 [facility] Comment on above: > or =60 mg/dl - LOW CARDIOVASCULAR RISK<40 mg/dl - HIGH CARDIOVASCULAR RISK CO2 [Moles/Vol] 27.0 mmol/L 21.0-32.0 [facility] Creatinine [Mass/Vol] 1.12 mg/dL 0.70-1.30 [facility] GFR/1.73 sq M.predicted MDRD (S/P/Bld) [Vol rate/Area] mL/min/{1.73_m2} >=60 mL/min/1.73m 2 [facility] Glucose [Mass/Vol] 97 mg/dL 74-106 [facility] Potassium [Moles/Vol] 4.2 mmol/L 3.5-5.1 [facility] Protein [Mass/Vol] 7.0 g/dL 6.4-8.2 [facility] Sodium [Moles/Vol] 141 mmol/L 136-145 [facility] Triglyceride [Mass/Vol] 78 mg/dL <=150 [facility] Urea nitrogen [Mass/Vol] 17.0 mg/dL 7.0-18.0 [facility] Urea nitrogen/Creatinine [Mass ratio] 15.2 mg/mg [facility] Laboratory - Hematology and Cell countson 12-09-2024 Immature granulocytes/100 WBC (Bld) 0.2 % 0.0-0.5 [facility] Leukocytes [#/volume] correc chrissy for nucleated erythrocytes in Blood by Automated counon 12-09-2024 WBC corrected for nucl RBC Auto (Bld) [#/Vol] Leukocytes [#/volume] corrected for nucleated erythrocytes in Blood by Automated coun 4.0-11.0 [facility] Lymphocytes Auto (Bld) [#/Vo l]on 12-09-2024 Lymphocytes (Bld) [#/Vol] Lymphocytes [#/volume] in Blood by Automated count 1.2-3.8 [facility] Lymphocytes/100 WBC Auto (Bl d)on 12-09-2024 Lymphocytes/100 WBC (Bld) Lymphocytes/100 leukocytes in Blood by Automated count 20.5-60.0 [facility] MCH Auto (RBC) [Entitic mass ]on 12-09-2024 MCH (RBC) [Entitic mass] MCH [Entitic mass] by Automated count 25.9-34.0 [facility] MCHC Auto (RBC) [Mass/Vol]on 12-09-2024 MCHC (RBC) [Mass/Vol] MCHC [Mass/volume] by Automated count 29.9-35.2 [facility] MCV Auto (RBC) [Entitic vol] on 12-09-2024 MCV (RBC) [Entitic vol] MCV [Entitic volume] by Automated count High 80.0-94.0 [facility] Monocytes Auto (Bld) [#/Vol] on 12-09-2024 Monocytes (Bld) [#/Vol] Automated blood monocyte count 0.3-0.8 [facility] Monocytes/100 WBC Auto (Bld) on 12-09-2024 Monocytes/100 WBC (Bld) Automated monocyte % 1.7-12.0 [facility] Neutrophils Auto (Bld) [#/Vo l]on 12-09-2024 Neutrophils (Bld) [#/Vol] Neutrophils [#/volume] in Blood by Automated count 1.4-6.5 [facility] Neutrophils/100 WBC Auto (Bl d)on 12-09-2024 Neutrophils/100 WBC (Bld) Automated neutrophil % 43.0-75.0 [facility] No Panel Informationon 12-09 Eosinophils # (Auto) 0.3 10 3/uL 0.0-0.7 [facility] Immature Granulocyte # (Auto) 0.01 10 3/uL 0.00-0.03 [facility] Prostate Specific Antigen Screen 4.70 ng/mL High <=4.00 [facility] Platelet mean volume Auto (B ld) [Entitic vol]on 12-09-2024 Platelet mean volume (Bld) [Entitic vol] Platelet mean volume [Entitic volume] in Blood by Automated count Low 9.5-13.5 [facility] Platelets Auto (Bld) [#/Vol] on 12-09-2024 Platelets (Bld) [#/Vol] Platelets [#/volume] in Blood by Automated count 150-450 [facility] RBC Auto (Bld) [#/Vol]on RBC (Bld) [#/Vol] Erythrocytes [#/volume] in Blood by Automated count 4.70-6.10 [facility] Serum or plasma albumin/glob ulin mass ratioon 12-09-2024 Albumin/Globulin [Mass ratio] Serum or plasma albumin/globulin mass ratio [facility] Serum or plasma anion gap de terminationon 12-09-2024 Anion gap [Moles/Vol] Serum or plasma anion gap determination [facility] Serum or plasma total choles terol/high density lipoprotein (HDL) cholesterol mass raoul 12-09-2024 Cholesterol.total/Cho lesterol in HDL [Mass ratio] Serum or plasma total cholesterol/high density lipoprotein (HDL) cholesterol mass rat [facility] Comment on above: 3.3 - 4.4 [...] Where: [facility] [address] [place] [id number]- [id number] Medications What How Much When Instructions Unchanged [...] body thro (more content not included)... Normal [facility] Urology Office/Clinic Noteon 05-22-2024 Urology Office/Clinic Note [...] abdominal pain) (more content not included)... Normal [facility] Comment on above: Result Comment: Elec tronically Signed By: Emeka GRACE MD\.br\Date and Time Signed: 05/22/24 09:36 EDT\.br\Electronically Co-Signed By: Divine Monae.br\Date and Time Co-Signed: 05/22/24 09:34 EDT ECG 12-Leadon 02-07-2024 ECG 12-Lead [id number]# 1.00TIFF Normal [facility] Lab Reportson 02-07-2024 Lab Reports [id number]# 1.00TIFF Normal [facility] Operative Reporton Operative Report [id number] #1.00TIFF Normal [facility] Consent for Procedure/Surger yon 02-06-2024 Consent for Procedure/Surgery [id number]# 1.00TIFF Normal [facility] ED Note-Physicianon 02-06-20 ED Note-Physician [id number] #1.00TIFF Normal [facility] Lab Reportson 02-06-2024 Lab Reports [id number]# 1.00TIFF Normal [facility] RAD - CT Reporton 02-06-2024 RAD - CT Report [id number] #1.00TIFF Normal [facility] RAD - MISCon 02-06-2024 RAD - MISC [id number] #1.00TIFF Normal [facility] XR KUB 1 VIEWon 09-13-2022 XR KUB [...] by: QUINCY TOVAR Date: 2022-09-13 11:13 Normal [facility] Covid-19 PCR (CVDTBH)on 08-17 SARS-CoV-2 (COVID-19) RNA MARY+probe Ql (Unsp spec) Not detected Normal NOT DETECTED [facility] Comment on above: Result Comment: This test is not yet approved or cleared by the [place] FDA. When there are no FDA-approved or cleared tests available, and other criteria are met, FDA can make tests available under an emergency access mechanism called an Emergency Use Authorization (EUA). The EUA for this test is supported by the [employer] of Health and Human Service's (HHS's) declaration [...] SARS-CoV-2. Performed By: #### C VDTBH #### [facility] [address] [place] [address] Dr. Paramjit Cheng CBC AUTO DIFFon 08-30-2022 BASO # 0.0 103/ul Normal 0.0-0.1 [facility] Comment on above: Performed By: #### C BC #### [facility] [address] [place] [address] Dr. Paramjit Cheng Basophils/100 WBC (Bld) 0.6 % Normal 0.2-2.0 [facility] Comment on above: Performed By: #### C BC #### [facility] [address] [place] [address] Dr. Paramjit Cheng EO # 0.2 103/ul Normal 0.0-0.7 [facility] Comment on above: Performed By: #### C BC #### [facility] [address] [place] [address] Dr. Paramjit Cheng Eosinophils/100 WBC (Bld) 3.7 % Normal 0.9-7.0 [facility] Comment on above: Performed By: #### C BC #### [facility] [address] [place] [address] Dr. Paramjit Cheng Erythrocyte distribution width (RBC) [Ratio] 13.2 % Normal 11.0-15.0 [facility] Comment on above: Performed By: #### C BC #### [facility] [address] [place] [address] Dr. Paramjit Cheng Hematocrit (Bld) [Volume fraction] 43.2 % Normal 42.0-54.0 [facility] Comment on above: Performed By: #### C BC #### [facility] [address] [place] [address] Dr. Paramjit Cheng Hemoglobin (Bld) [Mass/Vol] 14.7 g/dL Normal 14.0-18.0 [facility] Comment on above: Performed By: #### C BC #### [facility] [address] [place] [address] Dr. Paramjit Cheng IG # 0.01 10e3/ul Normal 0.00-0.03 [facility] Comment on above: Performed By: #### C BC #### [facility] [address] [place] [address] Dr. Paramjit Cheng IG % 0.2 % Normal 0.0-0.5 [facility] Comment on above: Performed By: #### C BC #### [facility] [address] [place] [address] Dr. Paramjit Cheng LYMPH # 1.7 103/ul Normal 1.2-3.8 [facility] Comment on above: Performed By: #### C BC #### [facility] [address] [place] [address] Dr. Paramjit Cheng Lymphocytes/100 WBC (Bld) 34.9 % Normal 20.5-60.0 [facility] Comment on above: Performed By: #### C BC #### [facility] [address] [place] [address] Dr. Paramjit Cheng MANUAL DIFF REQ NO Normal [facility] Comment on above: Performed By: #### C BC #### [facility] [address] [address] [address] Paramjit Cheng MCH (RBC) [Entitic mass] 32.3 pg Normal 25.9-34.0 [facility] Comment on above: Performed By: #### C BC #### [facility] [address] [place] [address] Dr. Paramjit Cheng MCHC (RBC) [Mass/Vol] 34.0 g/dL Normal 29.9-35.2 [facility] Comment on above: Performed By: #### C BC #### [facility] [address] [place] [address] Dr. Paramjit Cheng MCV (RBC) [Entitic vol] 94.9 fL Critically high 80.0-94.0 [facility] Comment on above: Performed By: #### C BC #### [facility] [address] [place] [address] Dr. Paramjit Cheng MONO # 0.5 103/ul Normal 0.3-0.8 [facility] Comment on above: Performed By: #### C BC #### [facility] [address] [place] [address] Dr. Paramjit Cheng Monocytes/100 WBC (Bld) 9.3 % Normal 1.7-12.0 [facility] Comment on above: Performed By: #### C BC #### [facility] [address] [place] [address] Dr. Paramjit Cheng NEUT # 2.5 103/ul Normal 1.4-6.5 [facility] Comment on above: Performed By: #### C BC #### [facility] [address] [place] [address] Dr. Paramjit Cheng Neutrophils/100 WBC (Bld) 51.3 % Normal 43.0-75.0 [facility] Comment on above: Performed By: #### C BC #### [facility] [address] [place] [address] Dr. Paramjit Cheng Platelet mean volume (Bld) [Entitic vol] 9.2 fL Critically low 9.5-13.5 [facility] Comment on above: Performed By: #### C BC #### [facility] [address] [address] [address] Paramjit Cheng PLT 251 103/ul Normal 150-450 [facility] Comment on above: Performed By: #### C BC #### [facility] [address] [address] [address] Paramjit Cheng RBC 4.55 106/ul Critically low 4.70-6.10 [facility] Comment on above: Performed By: #### C BC #### [facility] [address] [address] [address] Paramjit Cheng WBC 4.8 103/ul Normal 4.0-11.0 [facility] Comment on above: Performed By: #### C BC #### [facility] [address] [place] [address] Dr. Paramjit Cheng PROF CHEM 8 (BAS METB)on Anion gap [Moles/Vol] 13.7 mmol/L Normal [facility] Comment on above: Performed By: #### B MP #### [facility] [address] [address] [address] Paramjit Cheng Calcium [Mass/Vol] 8.9 mg/dL Normal 8.5-10.1 [facility] Comment on above: Performed By: #### B MP #### [facility] [address] [address] [address] Paramjit Cheng Chloride [Moles/Vol] 106 mmol/L Normal 98-107 [facility] Comment on above: Performed By: #### B MP #### [facility] [address] [address] [address] Paramjit Cheng CO2 [Moles/Vol] 27.2 mmol/L Normal 21.0-32.0 [facility] Comment on above: Performed By: #### B MP #### [facility] [address] [address] [address] Paramjit Cheng Creatinine [Mass/Vol] 0.89 mg/dL Normal 0.70-1.30 [facility] Comment on above: Performed By: #### B MP #### [facility] [address] [address] [address] Paramjit Cheng EGFR-AF KOSOVAN >60 Normal >=60 [facility] Comment on above: Performed By: #### B MP #### [facility] [address] [address] [address] Paramjit Cheng EGFR-NON AF KOSOVAN >60 Normal >=60 [facility] Comment on above: Performed By: #### B MP #### [facility] [address] [address] [address] Paramjit Cheng Glucose [Mass/Vol] 87 mg/dL Normal 74-106 [facility] Comment on above: Performed By: #### B MP #### [facility] [address] [place] [address] Dr. Paramjit Cheng Potassium [Moles/Vol] 3.9 mmol/L Normal 3.5-5.1 [facility] Comment on above: Performed By: #### B MP #### [facility] [address] [place] [address] Dr. Paramjit Cheng Sodium [Moles/Vol] 143 mmol/L Normal 136-145 [facility] Comment on above: Performed By: #### B MP #### [facility] [address] [place] [address] Dr. Paramjit Cheng Urea nitrogen [Mass/Vol] 12.0 mg/dL Normal 7.0-18.0 [facility] Comment on above: Performed By: #### B MP #### [facility] [address] [place] [address] Dr. Paramjit Cheng Urea nitrogen/Creatinine [Mass ratio] 13.5 mg/mg Normal [facility] Comment on above: Performed By: #### B MP #### [facility] [address] [place] [address] Dr. Paramjit Cheng PROTIMEon 08-30-2022 INR Coag (PPP) [Relative time] 0.97 {INR} Normal [facility] Comment on above: Performed By: #### P TT, PT #### [facility] [address] [place] [address] Dr. Paramjit Cheng INR GUIDELINES SEE BELOW Normal [facility] Comment on above: Result Comment: ROSE RED INR: 2.0 - 3.0 CONDITIONS NOT LISTED BELOW 2.5 - 3.5 FOR PROSTHETIC HEART VALVE REPLACEMENT 2.5 - 3.5 RECURRENT THROMBOSIS Performed By: #### P TT, PT #### [facility] [address] [place] [address] Dr. Paramjit Cheng PT Coag (PPP) [Time] 10.5 s Normal 9.0-11.6 [facility] Comment on above: Performed By: #### P TT, PT #### [facility] [address] [place] [address] Dr. Paramjit Cheng PTTon 08-30-2022 aPTT Coag (Bld) [Time] 25.6 s Normal 22.3-36.2 [facility] Comment on above: Performed By: #### P TT, PT #### [facility] [address] [place] [address] Dr. Paramjit Cheng CALCULI, URINARYon 2,8 Dihydroxyadenine Normal [facility] Comment on above: Performed By: #### C ALCULI #### [facility] [address] [place] [address] Dr. Paramjit Cheng Ammonium Acid Urate Normal [facility] Comment on above: Performed By: #### C ALCULI #### [facility] [address] [place] [address] Dr. Paramjit Cheng Bilirubin Ql (U) Normal [facility] Comment on above: Performed By: #### C ALCULI #### [facility] [address] [place] [address] Dr. Paramjit Cheng Ca Oxalate Dihydrate 20 % Normal [facility] Comment on above: Performed By: #### C ALCULI #### [facility] [address] [place] [address] Dr. Paramjit Cheng Ca Oxalate Dihydrate 30 % Normal [facility] Comment on above: Performed By: #### C ALCULI #### [facility] [address] [address] [address] Paramjit Cheng CaHPO4 (Brushite) Normal [facility] Comment on above: Performed By: #### C ALCULI #### [facility] [address] [address] [address] Paramjit Cheng Calcium Bilirubinate Normal [facility] Comment on above: Performed By: #### C ALCULI #### [facility] [address] [address] [address] Paramjit Cheng Calcium Carbonate Normal [facility] Comment on above: Performed By: #### C ALCULI #### [facility] [address] [address] [address] Paramjit Cheng Calcium Oxalate Monohydrate 80 % [facility] Comment on above: Performed By: #### C ALCULI #### [facility] [address] [place] [address] Dr. Paramjit Cheng Calcium Oxalate Monohydrate 70 % [facility] Comment on above: Performed By: #### C ALCULI #### [facility] [address] [address] [address] Paramjit Cheng Calcium Palmitate [facility] Comment on above: Performed By: #### C ALCULI #### [facility] [address] [address] [address] Paramjit Cheng Calcium Phosphate Normal [facility] Comment on above: Performed By: #### C ALCULI #### [facility] [address] [address] [address] Paramjit Cheng Calcium Stearate Normal [facility] Comment on above: Performed By: #### C ALCULI #### [facility] [address] [address] [address] Paramjit Cheng Carbonate Apatite Normal [facility] Comment on above: Performed By: #### C ALCULI #### [facility] [address] [place] [address] Dr. Paramjit Cheng Cellular Material Momence [facility] Comment on above: Performed By: #### C ALCULI #### [facility] [address] [address] [address] Paramjit Cheng Cholesterol [facility] Comment on above: Performed By: #### C ALCULI #### [facility] [address] [address] [address] Paramjit Cheng Color (U) Brown Normal [facility] Comment on above: Performed By: #### C ALCULI #### [facility] [address] [address] [address] Paramjit Cheng Comment Normal [facility] Comment on above: Performed By: #### C ALCULI #### [facility] [address] [address] [address] Paramjit Cheng Comment Comment [facility] Comment on above: Result Comment: Calc ulus received wet. Wet calculi must be dried before analysis, which delays reporting of results. Leaving calculi wet (such as water, saline, blood, urine) may lead to changes in composition. Performed By: #### C ALCULI #### [facility] [address] [place] [address] Dr. Paramjit Cheng Result Comment: Sour ce provided- right [facility] Comment: Comment Normal [facility] Comment on above: Result Comment: Phys mary joan questions regarding Calculi Analysis contact [facility] at: [phone]. Performed By: #### C ALCULI #### [facility] [address] [place] [address] Dr. Paramjit Cheng Composition Comment [facility] Comment on above: Result Comment: Perc entage (Represents the % composition) Performed By: #### C ALCULI #### [facility] [address] [place] [address] Dr. Par[address] Cystine [facility] Comment on above: Performed By: #### C ALCULI #### [facility] [address] [place] [address] Dr. Paramjit Cheng Disclaimer: Comment [facility] Comment on above: Result Comment: This test was developed and its performance characteristics determined by [facility]. It has not been cleared or approved by the Food and Drug Administration. Performed By: #### C ALCULI #### [facility] [address] [place] [address] Dr. Paramjit Cheng Dried Blood Normal [facility] Comment on above: Performed By: #### C ALCULI #### [facility] [address] [address] [address] Paramjit Cheng Drug or Metabolite Normal [facility] Comment on above: Performed By: #### C ALCULI #### [facility] [address] [address] [address] Paramjit Cheng Hydroxyapatite Normal [facility] Comment on above: Performed By: #### C ALCULI #### [facility] [address] [address] [address] Paramjit Cheng Mg NH4 PO4 (Struvite) [facility] Comment on above: Performed By: #### C ALCULI #### [facility] [address] [place] [address] Dr. Paramjit Cheng MgHPO4 (Newberyite) Normal [facility] Comment on above: Performed By: #### C ALCULI #### [facility] [address] [address] [address] Paramjit Cheng Other component(s) Normal [facility] Comment on above: Performed By: #### C ALCULI #### [facility] [address] [address] [address] Paramjit Cheng PDF . Normal [facility] Comment on above: Performed By: #### C ALCULI #### [facility] [address] [address] [address] Paramjit Cheng Photo Comment Normal [facility] Comment on above: Result Comment: Phot ograph will follow under a separate cover Performed By: #### C ALCULI #### [facility] [address] [address] [address] Paramjit Cheng Please note: Comment Normal [facility] Comment on above: Result Comment: Calc diana report will follow via computer, mail or sander machine delivery. Performed By: #### C ALCULI #### [facility] [address] [place] [address] Dr. Paramjit Cheng Size 6x4 Normal [facility] Comment on above: Result Comment: Mult iple pieces received. Dimensions of the largest piece reported. Performed By: #### C ALCULI #### [facility] [address] [address] [address] Paramjit Cheng Size 3x2 Normal [facility] Comment on above: Result Comment: Mult iple pieces received. Dimensions of the largest piece reported. Performed By: #### C ALCULI #### [facility] [address] [address] [address] Paramjit Cheng Sodium Acid Urate Normal [facility] Comment on above: Performed By: #### C ALCULI #### [facility] [address] [address] [address] Paramjit Cheng Source Comment [facility] Comment on above: Result Comment: Urin savage Bladder Performed By: #### C ALCULI #### [facility] [address] [address] [address] Paramjit Cheng Result Comment: Not provided [facility] Comment on above: Performed By: #### C ALCULI #### [facility] [address] [address] [address] Paramjit Cheng Uric Acid [facility] Comment on above: Performed By: #### C ALCULI #### [facility] [address] [address] [address] Paramjit Cheng Uric Acid Dihydrate Normal [facility] Comment on above: Performed By: #### C ALCULI #### [facility] [address] [address] [address] Paramjit Cheng Weight [address] [facility] Comment on above: Performed By: #### C ALCULI #### [facility] [address] [address] [address] Paramjit Cheng Weight 18 mg Normal [facility] Comment on above: Performed By: #### C ALCULI #### [facility] [address] [address] [address] Paramjit Cheng Xanthine [facility] Comment on above: Performed By: #### C ALCULI #### [facility] [address] [address] [address] Paramjit Cheng XR KUB 1 VIEWon [...] TITUS TELLEZ Date: 2022 06:37 Normal [facility] Covid-19 PCR (CVDTB)on 07-17 SARS-CoV-2 (COVID-19) RNA MARY+probe Ql (Unsp spec) Not detected Normal NOT DETECTED [facility] Comment on above: Result Comment: This test is not yet approved or cleared by the [place] FDA. When there are no FDA-approved or cleared tests available, and other criteria are met, FDA can make tests available under an emergency access mechanism called an Emergency Use Authorization (EUA). The EUA for this test is supported by the [employer] of Health and Human Service's (HHS's) declaration [...] #### P TT, PT #### [facility] [address] [address] [address] Paramjit Cheng CBC AUTO DIFFon 07-23-2022 BASO # 0.0 103/ul Normal 0.0-0.1 [facility] Comment on above: Performed By: #### P TT, PT #### [facility] [address] [place] [address] Dr. Paramjit Cheng Basophils/100 WBC (Bld) 0.4 % Normal 0.2-2.0 [facility] Comment on above: Performed By: #### P TT, PT #### [facility] [address] [place] [address] Dr. Paramjit Cheng EO # 0.1 103/ul Normal 0.0-0.7 [facility] Comment on above: Performed By: #### P TT, PT #### [facility] [address] [place] [address] Dr. Paramjit Cheng Eosinophils/100 WBC (Bld) 2.5 % Normal 0.9-7.0 [facility] Comment on above: Performed By: #### P TT, PT #### [facility] [address] [place] [address] Dr. Paramjit Cheng Erythrocyte distribution width (RBC) [Ratio] 13.0 % Normal 11.0-15.0 [facility] Comment on above: Performed By: #### P TT, PT #### [facility] [address] [place] [address] Dr. Paramjit Cheng Hematocrit (Bld) [Volume fraction] 41.7 % Critically low 42.0-54.0 [facility] Comment on above: Performed By: #### P TT, PT #### [facility] [address] [place] [address] Dr. Paramjit Cheng Hemoglobin (Bld) [Mass/Vol] 14.5 g/dL Normal 14.0-18.0 [facility] Comment on above: Performed By: #### P TT, PT #### [facility] [address] [place] [address] Dr. Paramjit Cheng IG # 0.01 10e3/ul Normal 0.00-0.03 [facility] Comment on above: Performed By: #### P TT, PT #### [facility] [address] [address] [address] Paramjit Cheng IG % 0.2 % Normal 0.0-0.5 [facility] Comment on above: Performed By: #### P TT, PT #### [facility] [address] [address] [address] Paramjit Cheng LYMPH # 1.6 103/ul Normal 1.2-3.8 [facility] Comment on above: Performed By: #### P TT, PT #### [facility] [address] [address] [address] Paramjit Cheng Lymphocytes/100 WBC (Bld) 27.6 % Normal 20.5-60.0 [facility] Comment on above: Performed By: #### P TT, PT #### [facility] [address] [place] [address] Dr. Paramjit Cheng MANUAL DIFF REQ NO Normal [facility] Comment on above: Performed By: #### P TT, PT #### [facility] [address] [place] [address] Dr. Paramjit Cheng MCH (RBC) [Entitic mass] 32.8 pg Normal 25.9-34.0 [facility] Comment on above: Performed By: #### P TT, PT #### [facility] [address] [place] [address] Dr. Paramjit Cheng MCHC (RBC) [Mass/Vol] 34.8 g/dL Normal 29.9-35.2 [facility] Comment on above: Performed By: #### P TT, PT #### [facility] [address] [place] [address] Dr. Paramjit Cheng MCV (RBC) [Entitic vol] 94.3 fL Critically high 80.0-94.0 [facility] Comment on above: Performed By: #### P TT, PT #### [facility] [address] [place] [address] Dr. Paramjit Cheng MONO # 0.5 103/ul Normal 0.3-0.8 [facility] Comment on above: Performed By: #### P TT, PT #### [facility] [address] [place] [address] Dr. Paramjit Cheng Monocytes/100 WBC (Bld) 8.0 % Normal 1.7-12.0 [facility] Comment on above: Performed By: #### P TT, PT #### [facility] [address] [place] [address] Dr. Paramjit Cheng NEUT # 3.5 103/ul Normal 1.4-6.5 [facility] Comment on above: Performed By: #### P TT, PT #### [facility] [address] [place] [address] Dr. Paramjit Cheng Neutrophils/100 WBC (Bld) 61.3 % Normal 43.0-75.0 [facility] Comment on above: Performed By: #### P TT, PT #### [facility] [address] [place] [address] Dr. Paramjit Cheng Platelet mean volume (Bld) [Entitic vol] 9.5 fL Normal 9.5-13.5 [facility] Comment on above: Performed By: #### P TT, PT #### [facility] [address] [place] [address] Dr. Paramjit Cheng PLT 252 103/ul Normal 150-450 [facility] Comment on above: Performed By: #### P TT, PT #### [facility] [address] [place] [address] Dr. Paramjit Cheng RBC 4.42 106/ul Critically low 4.70-6.10 [facility] Comment on above: Performed By: #### P TT, PT #### [facility] [address] [place] [address] Dr. Paramjit Cheng WBC 5.6 103/ul Normal 4.0-11.0 [facility] Comment on above: Performed By: #### P TT, PT #### [facility] [address] [place] [address] Dr. Paramjit Cheng PROF CHEM 8 (BAS METB)on Anion gap [Moles/Vol] 9.6 mmol/L Normal [facility] Comment on above: Performed By: #### D ATCBC #### [facility] [address] [address] [address] Paramjit Cheng Calcium [Mass/Vol] 8.6 mg/dL Normal 8.5-10.1 [facility] Comment on above: Performed By: #### D ATCBC #### [facility] [address] [address] [address] Paramjit Cheng Chloride [Moles/Vol] 107 mmol/L Normal 98-107 [facility] Comment on above: Performed By: #### D ATCBC #### [facility] [address] [address] [address] Paramjit Cheng CO2 [Moles/Vol] 28.0 mmol/L Normal 21.0-32.0 [facility] Comment on above: Performed By: #### D ATCBC #### [facility] [address] [place] [address] Dr. Paramjit Cheng Creatinine [Mass/Vol] 0.98 mg/dL Normal 0.70-1.30 [facility] Comment on above: Performed By: #### D ATCBC #### [facility] [address] [address] [address] Paramjit Cheng EGFR-AF KOSOVAN >60 Normal >=60 [facility] Comment on above: Performed By: #### D ATCBC #### [facility] [address] [address] [address] Paramjit Cheng EGFR-NON AF KOSOVAN >60 Normal >=60 [facility] Comment on above: Performed By: #### D ATCBC #### [facility] [address] [address] [address] Paramjit Cheng Glucose [Mass/Vol] 90 mg/dL Normal 74-106 [facility] Comment on above: Performed By: #### D ATCBC #### [facility] [address] [address] [address] Paramjit Cheng Potassium [Moles/Vol] 3.6 mmol/L Normal 3.5-5.1 [facility] Comment on above: Performed By: #### D ATCBC #### [facility] [address] [place] [address] Dr. Paramjit Cheng Sodium [Moles/Vol] 141 mmol/L Normal 136-145 [facility] Comment on above: Performed By: #### D ATCBC #### [facility] [address] [place] [address] Dr. Paramjit Cheng Urea nitrogen [Mass/Vol] 12.0 mg/dL Normal 7.0-18.0 [facility] Comment on above: Performed By: #### D ATCBC #### [facility] [address] [place] [address] Dr. Paramjit Cheng Urea nitrogen/Creatinine [Mass ratio] 12.2 mg/mg Normal [facility] Comment on above: Performed By: #### D ATCBC #### [facility] [address] [place] [address] Dr. Paramjit Cheng PROTIMEon 07-23-2022 INR Coag (PPP) [Relative time] 1.04 {INR} Normal [facility] Comment on above: Performed By: #### P TT, PT #### [facility] [address] [place] [address] Dr. Paramjit Cheng INR GUIDELINES SEE BELOW Normal [facility] Comment on above: Result Comment: ROSE RED INR: 2.0 - 3.0 CONDITIONS NOT LISTED BELOW 2.5 - 3.5 FOR PROSTHETIC HEART VALVE REPLACEMENT 2.5 - 3.5 RECURRENT THROMBOSIS Performed By: #### P TT, PT #### [facility] [address] [place] [address] Dr. Paramjit Cheng PT Coag (PPP) [Time] 11.2 s Normal 9.0-11.6 [facility] Comment on above: Performed By: #### P TT, PT #### [facility] [address] [place] [address] Dr. Paramjit Cheng PTTon 07-23-2022 aPTT Coag (Bld) [Time] 25.1 s Normal 22.3-36.2 [facility] Comment on above: Performed By: #### P TT, PT #### [facility] [address] [address] [address] ABD/PELVIS WO CONon [...] by: QUINCY TOVAR Date: 2022-07-06 08:48 Normal [facility] XR KUB 1 VIEWon 06-17-2022 XR [...] QUINCY TOVAR Date: 2022-06-17 11:24 Normal [facility] CREATININEon 04-25-2022 Creatinine [Mass/Vol] 0.99 mg/dL Normal 0.70-1.30 [facility] Comment on above: Performed By: #### C APRIL #### [facility] [address] [address] [address] Paramjit Cheng EGFR-AF KOSOVAN >60 Normal >=60 [facility] Comment on above: Performed By: #### C APRIL #### [facility] [address] [address] [address] Paramjit Cheng EGFR-NON AF KOSOVAN >60 Normal >=60 [facility] Comment on above: Performed By: #### C APRIL #### [facility] [address] [place] [address] ABD/PELV WO W [...] Date: 2022-04-25 12:01 Normal [facility] CBC AUTO DIFFon 12-01-2021 BASO # 0.0 103/ul Normal 0.0-0.1 [facility] Comment on above: Performed By: #### D ATCBC #### [facility] [address] [place] [address] Dr. Paramjit Cheng Basophils/100 WBC (Bld) 0.4 % Normal 0.2-2.0 [facility] Comment on above: Performed By: #### D ATCBC #### [facility] [address] [place] [address] Dr. Paramjit Cheng EO # 0.2 103/ul Normal 0.0-0.7 [facility] Comment on above: Performed By: #### D ATCBC #### [facility] [address] [place] [address] Dr. Paramjit Cheng Eosinophils/100 WBC (Bld) 3.8 % Normal 0.9-7.0 [facility] Comment on above: Performed By: #### D ATCBC #### [facility] [address] [place] [address] Dr. Paramjit Cheng Erythrocyte distribution width (RBC) [Ratio] 13.7 % Normal 11.0-15.0 [facility] Comment on above: Performed By: #### D ATCBC #### [facility] [address] [place] [address] Dr. Paramjit hCeng Hematocrit (Bld) [Volume fraction] 44.1 % Normal 42.0-54.0 [facility] Comment on above: Performed By: #### D ATCBC #### [facility] [address] [place] [address] Dr. Paramjit Cheng Hemoglobin (Bld) [Mass/Vol] 14.9 g/dL Normal 14.0-18.0 [facility] Comment on above: Performed By: #### D ATCBC #### [facility] [address] [place] [address] Dr. Paramjit Cheng IG # 0.01 10e3/ul Normal 0.00-0.03 [facility] Comment on above: Performed By: #### D ATCBC #### [facility] [address] [place] [address] Dr. Paramjit Cheng IG % 0.2 % Normal 0.0-0.5 [facility] Comment on above: Performed By: #### D ATCBC #### [facility] [address] [place] [address] Dr. Paramjit Cheng LYMPH # 2.1 103/ul Normal 1.2-3.8 [facility] Comment on above: Performed By: #### D ATCBC #### [facility] [address] [place] [address] Dr. Paramjit Cheng Lymphocytes/100 WBC (Bld) 37.9 % Normal 20.5-60.0 [facility] Comment on above: Performed By: #### D ATCBC #### [facility] [address] [place] [address] Dr. Paramjit Cehng MCH (RBC) [Entitic mass] 31.9 pg Normal 25.9-34.0 [facility] Comment on above: Performed By: #### D ATCBC #### [facility] [address] [place] [address] Dr. Paramjit Cheng MCHC (RBC) [Mass/Vol] 33.8 g/dL Normal 29.9-35.2 [facility] Comment on above: Performed By: #### D ATCBC #### [facility] [address] [place] [address] Dr. Paramjit Cheng MCV (RBC) [Entitic vol] 94.4 fL Critically high 80.0-94.0 [facility] Comment on above: Performed By: #### D ATCBC #### [facility] [address] [place] [address] Dr. Paramjit Cheng MONO # 0.5 103/ul Normal 0.3-0.8 [facility] Comment on above: Performed By: #### D ATCBC #### [facility] [address] [place] [address] Dr. Paramjit Cheng Monocytes/100 WBC (Bld) 9.7 % Normal 1.7-12.0 [facility] Comment on above: Performed By: #### D ATCBC #### [facility] [address] [place] [address] Dr. Paramjit Cheng NEUT # 2.6 103/ul Normal 1.4-6.5 [facility] Comment on above: Performed By: #### D ATCBC #### [facility] [address] [place] [address] Dr. Paramjit Cheng Neutrophils/100 WBC (Bld) 48.0 % Normal 43.0-75.0 [facility] Comment on above: Performed By: #### D ATCBC #### [facility] [address] [place] [address] Dr. Paramjit Cheng Platelet mean volume (Bld) [Entitic vol] 9.6 fL Normal 9.5-13.5 [facility] Comment on above: Performed By: #### D ATCBC #### [facility] [address] [place] [address] Dr. Paramjit Cheng PLT 254 103/ul Normal 150-450 [facility] Comment on above: Performed By: #### D ATCBC #### [facility] [address] [place] [address] Dr. Paramjit Cheng RBC 4.67 106/ul Critically low 4.70-6.10 [facility] Comment on above: Performed By: #### D ATCBC #### [facility] [address] [place] [address] Dr. Paramjit Cheng WBC 5.5 103/ul Normal 4.0-11.0 [facility] Comment on above: Performed By: #### D ATCBC #### [facility] [address] [place] [address] Dr. Paramjit Cheng FLORENTIN- BMP WITH LIPIDon 2021 Anion gap [Moles/Vol] 12.5 mmol/L Normal [facility] Comment on above: Performed By: #### P TT, PT #### [facility] [address] [place] [address] Dr. Paramjit Cheng Calcium [Mass/Vol] 8.8 mg/dL Normal 8.5-10.1 [facility] Comment on above: Performed By: #### P TT, PT #### [facility] [address] [address] [address] Paramjit Cheng Chloride [Moles/Vol] 104 mmol/L Normal 98-107 [facility] Comment on above: Performed By: #### P TT, PT #### [facility] [address] [address] [address] Paramjit Cheng Cholesterol [Mass/Vol] 220 mg/dL Critically high <=200 [facility] Comment on above: Performed By: #### P TT, PT #### [facility] [address] [address] [address] Paramjit Cheng Cholesterol in HDL [Mass/Vol] 65 mg/dL Critically high 40-60 [facility] Comment on above: Performed By: #### P TT, PT #### [facility] [address] [address] [address] Paramjit Cheng Cholesterol in LDL [Mass/Vol] 133.0 mg/dL Normal [facility] Comment on above: Performed By: #### P TT, PT #### [facility] [address] [address] [address] Paramjit Cheng CO2 [Moles/Vol] 27.6 mmol/L Normal 22.0-30.0 [facility] Comment on above: Performed By: #### P TT, PT #### [facility] [address] [address] [address] Paramjit Cheng Creatinine [Mass/Vol] 0.97 mg/dL Normal 0.66-1.25 [facility] Comment on above: Performed By: #### P TT, PT #### [facility] [address] [address] [address] Paramjit Cheng EGFR-AF KOSOVAN >60 Normal >=60 [facility] Comment on above: Performed By: #### P TT, PT #### [facility] [address] [address] [address] Paramjit Cheng EGFR-NON AF KOSOVAN >60 Normal >=60 [facility] Comment on above: Performed By: #### P TT, PT #### [facility] [address] [address] [address] Paramjit Cheng Glucose [Mass/Vol] 98 mg/dL Normal 74-106 [facility] Comment on above: Performed By: #### P TT, PT #### [facility] [address] [address] [address] Paramjit Cheng HDL NORMAL > or = 60 mg/dl - LOW CARDIOVASCULAR RISK <40 mg/dl - HIGH CARDIOVASCULAR RISK Normal [facility] Comment on above: Performed By: #### P TT, PT #### [facility] [address] [place] [address] Dr. Paramjit Cheng LDL CALC NORMAL SEE BELOW Normal [facility] Comment on above: Result Comment: <100 mg/dl OPTIMAL 100 - 129 mg/dl NEAR OR ABOVE OPTIMAL 130 - 159 mg/dl BORDERLINE HIGH 160 - 189 mg/dl HIGH >190 mg/dl VERY HIGH Performed By: #### P TT, PT #### [facility] [address] [address] [address] Paramjit Cheng Potassium [Moles/Vol] 4.1 mmol/L Normal 3.4-5.0 [facility] Comment on above: Performed By: #### P TT, PT #### [facility] [address] [place] [address] Dr. Paramjit Cheng Sodium [Moles/Vol] 140 mmol/L Normal 137-145 [facility] Comment on above: Performed By: #### P TT, PT #### [facility] [address] [address] [address] Paramjit Cheng Triglyceride [Mass/Vol] 110 mg/dL Normal <=150 [facility] Comment on above: Performed By: #### P TT, PT #### [facility] [address] [address] [address] Paramjit Cheng Urea nitrogen [Mass/Vol] 13.0 mg/dL Normal 7.0-18.0 [facility] Comment on above: Performed By: #### P TT, PT #### [facility] [address] [address] [address] Paramjit Cheng Urea nitrogen/Creatinine [Mass ratio] 13.4 mg/mg Normal [facility] Comment on above: Performed By: #### P TT, PT #### [facility] [address] [address] [address] Paramjit Cheng VLDL CALC 22.0 mg/dL Normal [facility] Comment on above: Performed By: #### P TT, PT #### [facility] [address] [place], [place] [address] Dr. Paramjit Cheng Vital Signs Date Time Vital Sign Value Performing Clinician Facility 12-11-2024 09:43-0400 Body height 177.8 cm [facility] 12-11-2024 09:43-0400 Body mass index (BMI) [Ratio] 25.4 kg/m2 [facility] 12-11-2024 09:43-0400 Body weight 80.51 kg [facility] 12-11-2024 09:43-0400 Diastolic blood pressure 72 mm[Hg] [facility] 12-11-2024 09:43-0400 Heart rate 64 /min [facility] 12-11-2024 09:43-0400 Respiratory rate 12 /min [facility] 12-11-2024 09:43-0400 Systolic blood pressure 128 mm[Hg] [facility] 06-18-2024 09:27-0400 Body height 177.8 cm [facility] 06-18-2024 09:27-0400 Body mass index (BMI) [Ratio] 24.4 kg/m2 [facility] 06-18-2024 09:27-0400 Body weight 77.16 kg [facility] 06-18-2024 09:27-0400 Diastolic blood pressure 67 mm[Hg] [facility] 06-18-2024 09:27-0400 Heart rate 64 /min [facility] 06-18-2024 09:27-0400 Respiratory rate 12 /min [facility] 06-18-2024 09:27-0400 Systolic blood pressure 105 mm[Hg] [facility] 05-22-2024 08:47-0400 Blood Pressure Location Emeka GRACE [facility] 05-22-2024 08:47-0400 Diastolic blood pressure 80 mm[Hg] Emeka GRACE [facility] 05-22-2024 08:47-0400 Heart rate 61 /min Emekalauri GRACE [facility] 05-22-2024 08:47-0400 Respiratory rate 18 /min Emeka GRACE [facility] 05-22-2024 08:47-0400 Systolic blood pressure 116 mm[Hg] Emeka GRACE [facility] 02-27-2024 14:30-0400 Body height 177.8 cm [facility] 02-27-2024 14:30-0400 Body mass index (BMI) [Ratio] 24.7 kg/m2 [facility] 02-27-2024 14:30-0400 Body weight 78.18 kg [facility] 02-27-2024 14:30-0400 Diastolic blood pressure 60 mm[Hg] [facility] 02-27-2024 14:30-0400 Heart rate 70 /min [facility] 02-27-2024 14:30-0400 Respiratory rate 12 /min [facility] 02-27-2024 14:30-0400 Systolic blood pressure 100 mm[Hg] [facility] 02-11-2024 13:37-0400 Body height 177.8 cm [facility] 02-11-2024 13:37-0400 Body mass index (BMI) [Ratio] 24.7 kg/m2 [facility] 02-11-2024 13:37-0400 Body weight 78.13 kg [facility] 02-11-2024 13:37-0400 Diastolic blood pressure 74 mm[Hg] [facility] 02-11-2024 13:37-0400 Heart rate 66 /min [facility] 02-11-2024 13:37-0400 Respiratory rate 12 /min [facility] 02-11-2024 13:37-0400 Systolic blood pressure 120 mm[Hg] [facility] 11-21-2023 08:47-0500 Body height 177.8 cm [facility] 11-21-2023 08:47-0500 Body mass index (BMI) [Ratio] 24.8 kg/m2 [facility] 11-21-2023 08:47-0500 Body weight 78.52 kg [facility] 11-21-2023 08:47-0500 Diastolic blood pressure 71 mm[Hg] [facility] 11-21-2023 08:47-0500 Heart rate 60 /min [facility] 11-21-2023 08:47-0500 Respiratory rate 12 /min [facility] 11-21-2023 08:47-0500 Systolic blood pressure 119 mm[Hg] [facility] 08-21-2023 08:30-0500 Body height 177.8 cm Javi Ball Other [facility] [employer] Other 08-21-2023 08:30-0500 Body mass index (BMI) [Ratio] 24.82 kg/m2 Javi Ball Other [facility] [employer] Other 08-21-2023 08:30-0500 Body weight 78.47 kg Javi Ball Other [facility] [employer] Other 08-21-2023 08:30-0500 Diastolic blood pressure 71 mm[Hg] Javi Ball Other [facility] [employer] Other 08-21-2023 08:30-0500 Respiratory rate 12 /min Javi Ball Other [facility] [employer] Other 08-21-2023 08:30-0500 Systolic blood pressure 116 mm[Hg] Javi Ball Other [employer] Other 06-11-2023 15:30-0400 Body height 177.8 cm Javi Ball Other [employer] Other 06-11-2023 15:30-0400 Body mass index (BMI) [Ratio] 24.96 kg/m2 Javi Ball Other [employer] Other 06-11-2023 15:30-0400 Body weight 78.93 kg Javi Ball Other [employer] Other 06-11-2023 15:30-0400 Diastolic blood pressure 64 mm[Hg] Javi Ball Other [employer] Other 06-11-2023 15:30-0400 Respiratory rate 12 /min Javi Ball Other [employer] Other 06-11-2023 15:30-0400 Systolic blood pressure 122 mm[Hg] Javi Ball Other [employer] Other 05-21-2023 08:30-0400 Body height 177.8 cm Javi Ball Other [employer] Other 05-21-2023 08:30-0400 Body mass index (BMI) [Ratio] 24.68 kg/m2 Javi Ball Other [employer] Other 05-21-2023 08:30-0400 Body weight 78.02 kg Javi Ball Other [employer] Other 05-21-2023 08:30-0400 Diastolic blood pressure 78 mm[Hg] Javi Ball Other [employer] Other 05-21-2023 08:30-0400 Respiratory rate 12 /min Javi Ball Other [facility] [employer] Other 05-21-2023 08:30-0400 Systolic blood pressure 119 mm[Hg] Javi Ball Other [facility] [employer] Other 04-26-2023 09:06-0400 Blood Pressure Location Emeka GRACE [facility] 04-26-2023 09:06-0400 Diastolic blood pressure 78 mm[Hg] Emeka GRACE [facility] 04-26-2023 09:06-0400 Heart rate 74 /min Emeka GRACE [facility] 04-26-2023 09:06-0400 Respiratory rate 16 /min Emeka GRACE [facility] 04-26-2023 09:06-0400 Systolic blood pressure 118 mm[Hg] Emeka GRACE [facility] 02-14-2023 08:30-0400 Body height 177.8 cm Javi Ball Other [facility] [employer] Other 02-14-2023 08:30-0400 Body mass index (BMI) [Ratio] 25.28 kg/m2 Javi Ball Other [facility] [employer] Other 02-14-2023 08:30-0400 Body weight 79.92 kg Javi Ball Other [facility] [employer] Other 02-14-2023 08:30-0400 Diastolic blood pressure 70 mm[Hg] Javi Ball Other [employer] Other 02-14-2023 08:30-0400 Respiratory rate 12 /min Javi Ball Other [employer] Other 02-14-2023 08:30-0400 Systolic blood pressure 115 mm[Hg] Javi Ball Other [employer] Other 11-06-2022 08:30-0500 Body height 177.8 cm Javi Ball Other [employer] Other 11-06-2022 08:30-0500 Body mass index (BMI) [Ratio] 25.51 kg/m2 Javi Ball Other [employer] Other 11-06-2022 08:30-0500 Body weight 80.65 kg Javi Ball Other [employer] Other 11-06-2022 08:30-0500 Diastolic blood pressure 70 mm[Hg] Javi Ball Other [employer] Other 11-06-2022 08:30-0500 Respiratory rate 12 /min Javi Ball Other [employer] Other 11-06-2022 08:30-0500 Systolic blood pressure 102 mm[Hg] Javi Ball Other [facility] [employer] Other 06-15-2022 08:43-0400 Blood Pressure Location Emeka GRACE [facility] 06-15-2022 08:43-0400 Diastolic blood pressure 80 mm[Hg] Emeka GRACE [facility] 06-15-2022 08:43-0400 Systolic blood pressure 133 mm[Hg] Emeka GRACE [facility] 04-02-2022 10:11-0400 Blood Pressure Location Emeka GRACE [facility] 04-02-2022 10:11-0400 Diastolic blood pressure 78 mm[Hg] Emeka GRACE [facility] 04-02-2022 10:11-0400 Heart rate 81 /min Emeka GRACE [facility] 04-02-2022 10:11-0400 Respiratory rate 16 /min Emeka GRACE [facility] 04-02-2022 10:11-0400 Systolic blood pressure 117 mm[Hg] Emeka GRACE [facility] Encounters Encounter Date Encounter Type Care Provider Facility Start: 12-11-2024 End: 12-11-2024 ambulatory [facility] Work Phone: Start: 12-11-2024 End: 12-11-2024 Patient encounter procedure [facility] Work Phone: Start: 12-09-2024 Non-patient / Non-visit [facility] Work Phone: Start: 06-18-2024 End: 06-18-2024 ambulatory [facility] Work Phone: Start: 06-18-2024 End: 06-18-2024 Patient encounter procedure [facility] Work Phone: Start: 06-11-2024 ambulatory Emeka Wilkinson ty:[id number] Start: 06-05-2024 End: 06-05-2024 ambulatory Emeka GRACE Facility:[id number] Start: 05-22-2024 End: 05-22-2024 ambulatory Emeka GRACE Facility:[facility] [place] Start: 05-22-2024 End: 05-22-2024 Patient encounter procedure Emeka GRACE [facility] Start: 05-01-2024 ambulatory Emekalauri GRACE Facili ty:[facility] [place] Start: 02-27-2024 End: 02-27-2024 ambulatory [facility] Work Phone: Start: 02-27-2024 End: 02-27-2024 Patient encounter procedure [facility] Work Phone: Start: 02-11-2024 End: 02-11-2024 ambulatory [facility] Work Phone: Start: 02-11-2024 End: 02-11-2024 Patient encounter procedure [facility] Work Phone: Start: 02-06-2024 End: 02-06-2024 ambulatory Emeka GRACE Facility:[id number] Start: 11-21-2023 End: 11-21-2023 Patient encounter procedure [facility] Work Phone: Start: 11-19-2023 End: 11-19-2023 ambulatory Javi Lion Other [employer] Other Start: 11-19-2023 Telephone encounter Javi Seymour [facility] Start: 09-20-2023 End: 09-20-2023 ambulatory Javi Ball Other [employer] Other Start: 09-20-2023 Telephone encounter Javi Seymour [facility] Start: 08-21-2023 End: 08-21-2023 ambulatory Javi Ball Other [employer] Other Start: 08-21-2023 Office outpatient vi sit 15 minutes Javi Ball [facility] Start: 08-19-2023 End: 08-19-2023 ambulatory Javi Seymour Other [employer] Other Start: 08-19-2023 Telephone encounter Javi Ball [facility] Start: 08-02-2023 End: 08-02-2023 ambulatory Javi Lion Other [employer] Other Start: 08-02-2023 Telephone encounter Javi Ball [facility] Start: 06-28-2023 End: 06-28-2023 ambulatory Javi Lion Other [employer] Other Start: 06-28-2023 Telephone encounter Javi Ball [facility] Start: 06-11-2023 End: 06-11-2023 ambulatory Javi Lion Other [employer] Other Start: 06-11-2023 Office outpatient vi sit 15 minutes Javi Ball [facility] Start: 05-21-2023 End: 05-21-2023 ambulatory Javi Lion Other [employer] Other Start: 05-21-2023 Office outpatient vi sit 15 minutes Javi Ball [facility] Start: 05-14-2023 End: 05-14-2023 ambulatory Javi Lion Other [employer] Other Start: 05-14-2023 Telephone encounter Javi Ball [facility] Start: 04-26-2023 End: 04-26-2023 Patient encounter procedure Emeka GRACE [facility] Start: 03-08-2023 End: 03-08-2023 ambulatory Javi Ball Other [employer] Other Start: 03-08-2023 Telephone encounter Javi Ball [facility] Start: 02-19-2023 End: 02-19-2023 ambulatory Javi Ball Other [employer] Other Start: 02-19-2023 Telephone encounter Javi Ball [facility] Start: 02-14-2023 End: 02-14-2023 ambulatory Javi Ball Other [employer] Other Start: 02-14-2023 Office outpatient vi sit 15 minutes Javi Ball [facility] Start: 02-12-2023 End: 02-12-2023 ambulatory Javi Ball Other [employer] Other Start: 02-12-2023 Telephone encounter Javi Ball [facility] Start: 01-19-2023 End: 01-19-2023 ambulatory Javi Ball Other [employer] Other Start: 01-19-2023 Telephone encounter Javi Ball [facility] Start: 01-08-2023 End: 01-08-2023 ambulatory Javi Ball Other [employer] Other Start: 01-08-2023 Telephone encounter Javi Ball [facility] Start: 12-19-2022 End: 12-19-2022 ambulatory Javi Ball Other [employer] Other Start: 12-19-2022 Telephone encounter Javi Ball [facility] Start: 11-06-2022 End: 11-06-2022 ambulatory Javi Ball Other [employer] Other Start: 11-06-2022 Patient encounter procedure Javi Ball [facility] Start: 10-21-2022 End: 10-21-2022 ambulatory Javi Ball Other [employer] Other Start: 10-21-2022 Telephone encounter Javi Ball [facility] Start: 10-10-2022 End: 10-10-2022 ambulatory Javi Seymour Other [employer] Other Start: 10-10-2022 Telephone encounter [facility]CA [facility] Start: 09-28-2022 End: 09-28-2022 ambulatory Javi Seymour Other [employer] Other Start: 09-28-2022 Telephone encounter Javi ABARCA [facility] Start: 09-13-2022 Encounter for preprocedural laboratory examination [facility] EMEKA GR[facility] Start: 09-13-2022 End: 09-13-[address] JAVI SEYMOUR Facility:[facility] Start: 09-10-2022 End: 09-11-[address] JAVI SEYMOUR Facility:[facility] Start: 09-10-2022 End: 09-11-2022 Encounter for preprocedural laboratory examination DR JAVI SEYMOUR Facility:[facility] Start: 08-30-2022 End: 08-31-[address] JAVI SEYMOUR Facility:[facility] Start: 08-07-2022 End: [address] JAVI SEYMOUR Facility:[facility] Start: 08-06-2022 End: 08-06-2022 Patient encounter procedure Emeka GRACE [facility] Start: 08-02-2022 End: 08-02-[address] EMEKA GRACE Facility:[facility] Start: 07-30-2022 End: 07-31-[address] JAVI SEYMOUR Facility:[facility] Start: 07-28-2022 Encounter for preprocedural cardiovascular examination DR EMEKA GRACE [facility] Start: 07-24-2022 Pre-procedure evalua tion check Javi Seymour Other [employer] Other Start: 07-23-2022 End: 07-24-[address] JAVI SEYMOUR Facility:[facility] Start: 07-06-2022 End: 07-07-[address] JAVI SEYMOUR Facility:[facility] Start: 06-15-2022 End: 06-16-[address] JAVI SEYMOUR Facility:[facility] Start: 06-15-2022 End: 06-15-2022 Patient encounter procedure Emeka GRACE [facility] Start: 04-25-2022 End: 04-26-[address] JAVI SEYMOUR Facility:[facility] Start: 04-02-2022 End: 04-02-2022 Patient encounter procedure Emeka GRACE [facility] Start: 12-01-2021 End: 12-02-[address] BAL LISTED REQUEST Facility:[facility] Start: 11-02-2021 Adult health examination Joseph Seymour Other [facility] [employer] Other Procedures Date Procedure Procedure Detail Performing [...] Screening for malign ant neoplasm of prostate Jaiv Seymour Other Plan of Treatment Date Care Activity Detail Author US Heart Transthoracic [facility] XR Chest 2 Views [facility] Immunizations Immunization Date Immunization Notes Care Provider Fa cility 07-24-2022 influenza virus vaccine, split virus (incl. purified surface antigen) Javi Seymour Other [facility] [employer] Other 07-24-2022 influenza virus vaccine, unspecified formulation [facility] 07-24-2022 influenza, high dose seasonal, preservative-free Javi Seymour Other [employer] Other 2021 COVID-19 Vaccine Moderna - Documentation Purposes Only Javi Seymour Other [facility] 12-12-2020 SARS-CoV-2 (COVID-19 ) mRNA-1273 vaccine Emeka GRACE [facility] 11-22-2020 COVID-19 Vaccine Moderna - Documentation Purposes Only Javi Seymour Other [facility] 11-14-2020 SARS-CoV-2 (COVID-19 ) mRNA-1273 vaccine Emekalauri GRACE [facility] 10-24-2020 COVID-19 Vaccine Moderna - Documentation Purposes Only Javi Seymour Other [facility] 07-05-2020 influenza virus vaccine, split virus (incl. purified surface antigen) Javi Seymour Other [facility] [employer] Other 07-05-2020 influenza virus vaccine, unspecified formulation [facility] 07-05-2020 pneumococcal polysaccharide vaccine, 23 valent Javi Seymour Other [facility] 07-05-2020 Prevnar 20 Javi Seymour Other [facility] 01-06-2019 pneumococcal conjuga te vaccine, 13 valent Javi Seymour Other [facility] 01-06-2019 pneumococcal Conjuga te, unspecified formulation; 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: [Need for prophylactic vaccination against Streptococcus pneumoniae (pneumococcus)] Javi Seymour Other [facility] [employer] Other Payers Date Payer Category Payer Medicare [id number] 1961 Self-pay [id number] 1961 Unknown [id number] 1955 Unknown [id number] 2.16.84 [id number] 1953 Unknown [id number] 2.16.84 [id number] 1953 Unknown [id number] 2.16.84 [id number] 1953 Unknown [id number] 2.16.84 [id number] 1953 Unknown [id number] 2.16.84 [id number] 1953 Unknown [id number] 2.16.84 [id number] 1953 Unknown [id number] 2.16.84 0.1.408802.3.579.2.593 1953 Unknown [id number] 2.16.84 0.1.141536.3.579.2.593 1953 Unknown [id number] 2.16.84 [id number] 1953 Unknown [id number] 2.16.84 0.1.854629.3.579.2.593 1953 Unknown [id number] 2.16.8 [id number] 1953 Unknown [id number] 2.16.8 40.1.430141.3.579.2.727 1953 Unknown [id number] 2.16.8 40.1.247079.3.579.2.727 1953 Unknown [id number] 2.16.8 [id number] Unknown [id number] 2.16.84 [id number] Social History Date Type Detail Facility Start: 04-02-2022 End: 06-15-2022 Tobacco smoking status Ex-smoker (finding) [facility] Sex Assigned At Male [facility] Start: 1955 Sex Assigned At Male F [facility] Work Phone: Start: 12-11-2024 Sex Male (finding) [facility] Functional Status Date Assessment Result Facility 05-22-2024 Functional Status N/A [facility] 04-26-2023 Functional Status N/A [facility] 06-15-2022 Functional Status N/A [facility] 04-02-2022 Functional Status N/A [facility] Clinical Notes 04-02-2022 to 05-22-2024 Note Date [...] Follow these instructions at home: Medicines Take gsje-xbz-tjpatpt and prescription medicines only as told by [...] provider. Document Revised: 12/12/2022 Document Reviewed: 12/12/2022 [employer] Patient Education 2023 [employer]. Follow Up Care 02/11/2024 16:06:25 With:FARA SANDHU, LAURI Baron Address: [facility] [address], [place] [address]- [phone] When: Unknown [facility] 05-22-2024 Note Patient Education Urology Kidney [...] these instructions at home: Medicines ? Take mkzq-gfy-byngfau and prescription medicines only as told by [...] diet. Follow r (more content not included)... [facility] 11-19-2023 Evaluation note Encounter Date Diagnosis Assessment Notes Nov, Cervical spondylosis (ICD-10 - M47.812) [facility] [employer] Other 01-05-2024 Evaluation note* Encounter Date Diagnosis Assessment Notes Treatment Notes Treatment Clinical Notes Sep, Cervical spondylosis (ICD-10 - M47.812) [facility] [employer] Other 12-06-2023 Evaluation note* Encounter Date Diagnosis [...] medical therapy Aug, Nocturia (ICD-10 - R35.1) [facility] Other 12-04-2023 Evaluation note* Encounter Date Diagnosis Assessment Notes Treatment Notes Treatment Clinical Notes Aug, Lumbar spondylitis (ICD-10 - M46.96) [facility] Other 11-17-2023 Evaluation note* Encounter Date Diagnosis Assessment Notes Treatment Notes Treatment Clinical Notes Jul, Lumbar spondylitis (ICD-10 - M46.96) [facility] Other 10-13-2023 Evaluation note* Encounter Date Diagnosis Assessment Notes Treatment Notes Treatment Clinical Notes Jun, Lumbar spondylitis (ICD-10 - M46.96) [facility] Other 09-26-2023 Evaluation note* Encounter Date Diagnosis Assessment Notes Treatment Notes Treatment Clinical Notes May, Bee sting, accidental or unintentional, initial encounter (ICD-10 - T63.441A) Cool compresses and elevation. Monitor for s/s increased pain, swelling May, Cellulitis of right upper extremity (ICD-10 - L03.113) Elevate and begin antibiotics. Monitor for increased swelling, pain or fever [facility] Other 09-05-2023 Evaluation note* Encounter Date Diagnosis [...] prescribed Has Orthopedic appt later this month [facility] Other 08-29-2023 Evaluation note* Encounter Date Diagnosis Assessment Notes Treatment Notes Treatment Clinical Notes Apr, Lumbar spondylitis (ICD-10 - M46.96) [facility] Other 08-11-2023 Hospital Discharge instructions Patient Education [...] treatment? Where to find more information [employer]: www.cancer.org [employer]: www.auanet.org Contact a health care [...] provider. Document Revised: 02/26/2022 Document Reviewed: 02/26/2022 [employer] Patient Education 2022 [employer]. Follow Up Care 04/02/2022 10:42:42 With:FARA SANDHU, Emeka Woods, URL Address: [facility] [address] , [place] [address]- When:Within 1 Year(s) Comments:w/PSA and KUB [facility] 06-23-2023 Evaluation note* Encounter Date Diagnosis Assessment Notes Treatment Notes Treatment Clinical Notes Feb, Lumbar spondylitis (ICD-10 - M46.96) [facility] Other 06-01-2023 Evaluation note* Encounter Date Diagnosis [...] medical treatment Feb, Nocturia (ICD-10 - R35.1) [facility] Other 04-25-2023 Evaluation note* Encounter Date Diagnosis Assessment Notes Treatment Notes Treatment Clinical Notes Dec, Benign prostatic hyperplasia with lower urinary tract symptoms (ICD-10 - N40.1) [facility] Other 04-05-2023 Evaluation note* Encounter Date Diagnosis Assessment Notes Treatment Notes Treatment Clinical Notes Dec, Lumbar spondylitis (ICD-10 - M46.96) [facility] Other 02-21-2023 Evaluation note* Encounter Date Diagnosis [...] Screening for colon cancer (ICD-10 - Z12.11) [facility] Other 01-13-2023 Evaluation note* Encounter Date Diagnosis Assessment Notes Treatment Notes Treatment Clinical Notes Sep, Cervical spondylosis (ICD-10 - M47.812) [facility] Other 11-17-2022 NoteOP Note OPERATION DATE: 08/02/2022 [...] retrograde pyelogram. 9. Placement of right sided 6-Panamanian variable length stent. 10. Cystolitholapaxy of 2 [...] usual fashion. I started by passing a 22-Panamanian Olympus cystoscope per urethra and I arrived at a significant sequential stricture at the bulb. I passed a wire through the scope and was able to cannulate the strictured area and get it into the bladder. The scope was removed. I then used Padilla sounds and dilated the stricture from 20-Panamanian up to 30-Panamanian. The wire was removed and I then passed the cystoscope and was able to get it through the bulb and into the bladder. The bladder calculus was identified on the floor. I then passed a Glidewire through the scope and cannulated the right ureter. The wire was unable to pass up the tight J-hooking. I used an 8-Panamanian dilator to help, but I could not [...] was then removed. I then used the 10-Panamanian dilator to dilate the distal ureter. I [...] into the bladder and then slid a 6-Panamanian variable length stent over the wire, up [...] and plucked out the remaining pieces. The Skyn [place] evacuator was used to get blood clots out of the bladder. The nephroscope was removed and the 22-Panamanian cystoscope was passed back in the bladder. The bladder looked fine. There were no pieces remaining in the bladder. The scope was then removed. The previously strictured area in the urethra was evaluated and it looked fine. I then placed a 20-Panamanian 2-way Almeida catheter in the bladder. It was irrigated manually and it irrigated clear. 10 cc of fluid was placed in the balloon. He was then transferred to a gurney bed and wheeled to PACU in stable condition. He will be discharged to home with a script for (more content not included)...[id number] Discharge instructions Patient Education 06/15/2022 09:27:58 [...] Follow these instructions at home: Medicines Take afgi-sww-ylmsszj and prescription medicines only as told by [...] or the blood stops without treatment. Take kjro-ibj-pzepcev and prescription medicines only as told by your health care provider. Drink enough fluid to keep your urine clear or pale yellow. This information is not intended to replace advice given to you by your health care provider. Make sure you discuss any questions you have with your health care provider. Document Released: 09/02/2006 Document Revised: 01/27/2020 Document Reviewed: 10/05/2017 [employer] Patient Education 2019 [employer]. Follow Up Care 05/10/2022 10:28:16 With:FARA SANDHU, Emeka Woods, URL Address: [address] [place] [address]- When: Unknown [facility] 07-18-2022 Hospital Discharge instructions Patient Education [...] urethra. Follow these instructions at home: Take [id number] and prescription medicines only as told by [...] 09/02/2006 Document Revised: 07/28/2019 Document Reviewed: 10/07/2017 [employer] Patient Education 2020 [employer] Follow Up Care 09/29/2021 08:39:40 With:Emeka GRACE MD, URL Address: [facility] [address], [place] [address]- [phone] When:Within 1 Year(s) Comments:1 year f/u with PSA [facility] evaluation + Plan note Future Appointments Appointment Date:04/12/2023 08:00:00 AM Scheduled Provider:Emeka GRACE MD Location:[facility] Appointment Type:URO Office Visit Diagnostic Tests Pending * PSA Total 04/02/22 [facility] evaluation + Plan note Future Appointments Appointment Date:04/12/2023 08:00:00 AM Scheduled Provider:Emeka GRACE MD Location:[facility] Appointment Type:URO Office Visit Diagnostic Tests Pending * Urine Cytology ([facility]) 06/15/22 [facility] evaluation + Plan note Future Appointments Appointment Date:04/12/2023 08:00:00 AM Scheduled Provider:Emeka GRACE MD Location:[facility] Appointment Type:URO Office Visit [facility] evaluation + Plan note Future Appointments Appointment Date:05/01/2024 08:15:00 AM Scheduled Provider:Emeka GRACE MD Location:[facility] Appointment Type:URO Office Visit Diagnostic Tests Pending * PSA Total 04/26/23 [facility] evaluation noteNo [employer] Other evaluation note* Diagnosis Onset Date Resolution Status Benign prostatic hyperplasia with lower urinary tract symptoms acute Cervical spondylosis acute Elevated PSA acute Lumbar spondylosis acute Medicare annual wellness visit, subsequent noneactive Screening PSA (prostate specific antigen) noneactive Cervical spondylosis acute Elevated PSA acute Lumbar spondylosis acute [facility] Work Phone: Evaluation note* Diagnosis Onset Date Resolution Status Cervical spondylosis acute Left ureteral calculus acute Lumbar spondylosis acute Benign prostatic hyperplasia with lower urinary tract symptoms acute Cervical spondylosis acute Lumbar spondylosis acute [facility] Work Phone: Evaluation note* Diagnosis Onset Date Resolution Status Benign prostatic hyperplasia with lower urinary tract symptoms acute Cervical spondylosis acute Cervical spondylosis with myelopathy acute Lumbar spondylosis acute Opiate analgesic use agreement exists acute [facility] Work Phone: Evaluation note* Diagnosis Onset [...] ific antigen) noneactive December 11, 2024 9:23am [facility] Work Phone: History general Narrative - Reported* Type Description Date Medical History Overweight (BMI 25.0-29.9) Medical History Hyperlipidemia type II Medical History Nicotine dependence, cigarettes, in remission Medical History Traumatic arthropathy, unspecifi ed shoulder Medical History Primary osteoarthritis of right knee Medical History Primary osteoarthritis of left s [facility] Medical History Cervical spondylosis with myelop athy Surgical History ESWL, cystoscopy, removal of ri ght ureteral stent 09/13/22 Surgical History TOTAL KNEE ARTHROPLASTY right 1 10-30-2020 Surgical History US TRANSRECTAL 01-10-2021 Surgical History fasciotomy right thigh 03-06-20 Surgical History left shoulder arthroscopy 10-05 Hospitalization History see surgical history [employer] Other Hospital course Narrative No data available for this section [facility] Hospital Discharge instructions No data available for this section [facility] progress note No data available for this section [facility] Purpose Family History No Family History [...] Visit Admit Date Cervical spondylosis with myelopathy [facility] 2024 9:23am Elevated PSA December 11, 2024 9:2 3am Hypercholesterolemia December 11, 2024 9: 23am Nephrolithiasis December 11, 2024 9:2 3am Opiate analgesic use agreement exists [facility] 2024 9:23am Medicare annual wellness visit, [...] DATE CREATED AUTHOR AUTHOR'S ORGANIZ ATION 06/11/2024 [facility] REASON FOR VISIT (unrecogniz ed section [...] BE BASED ON THE PRIMARY CLINICAL RECORDS. [employer] provides no warranty or guarantee of the accuracy or completeness of information in this document.
== END 2025-02-09 19:05 | disposition home or self-care (01) ==
PROVIDERS: Emergency Provider Emergency Medicine; PCP Internal Medicine
DX: R42 Dizziness and giddiness (principal); Z96.651 Presence of right artificial knee joint; Z90.49 Acquired absence of other specified parts of digestive tract; Z87.891 Personal history of nicotine dependence
CPT/HCPCS: 36415; 70450; 70496; 70498; 71045; 80048; 84484; 85025; 93005; 99285; Q9967

== ENCOUNTER 2025-02-15 06:43 | Outpatient (OUT) | payer MEDICARE, OTHER, SELFPAY ==
--- OUTSIDE RECORDS SUMMARY | 2025-02-15 06:45 | XMS_ITS | CCD ---
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 USE ANTICOAGULANTS] Onset: 08-16-2022 Episodic Other aftercare (1 source) 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; 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: [OTH POUND KEEPER CURRENT DRUG THERAPY] Onset: 08-16-2022 Episodic Other aftercare (4 sources) 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; 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: [Long-term (current) use of other medications] Episodic Other aftercare (1 source) High risk drug monitoring status; 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: [MCFP (current) use of opiate analgesic] Episodic Other aftercare (1 source) Long-term current use of drug therapy; 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: [Other jail (current) drug therapy] Episodic Other aftercare (4 sources) Drug therapy finding; 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: [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] 02-27-2024 Episodic [...] Basophils (Bld) [#/Vol] Automated basophil count 0.0-0.1 [facility] Basophils/100 WBC Auto (Bld) on 12-09-2024 Basophils/100 WBC (Bld) Automated basophil % 0.2-2.0 [facility] Cholesterol in LDL Calc [Mas s/Vol]on 12-09-2024 Cholesterol in LDL [Mass/Vol] Cholesterol in LDL [Mass/volume] in Serum or Plasma by calculation [facility] Comment on above: <100 mg/dl [id number] 0-129 mg/dl NEAR OR ABOVE [id number] mg/dl BORDERLINE RAIJ794-445 mg/dl HIGH>190 mg/dl VERY HIGH Cholesterol in VLDL Calc [Ma ss/Vol]on 12-09-2024 Cholesterol in VLDL [Mass/Vol] Cholesterol in VLDL [Mass/volume] in Serum or Plasma by calculation [facility] Eosinophils/100 WBC Auto (Bl d)on 12-09-2024 Eosinophils/100 WBC (Bld) Automated eosinophil % 0.9-7.0 [facility] Erythrocyte distribution wid th Auto (RBC) [Ratio]on 12-09-2024 Erythrocyte distribution width (RBC) [Ratio] Erythrocyte distribution width [Ratio] by Automated count 11.0-15.0 [facility] Estimated glomerular filtrat ion rate (GFR) non- Americanon 12-09-2024 GFR/1.73 sq M.predicted among non-blacks MDRD (S/P/Bld) [Vol rate/Area] Estimated glomerular filtration rate (GFR) non- >=60 mL/min/1.73m 2 [facility] Globulin Calc (S) [Mass/Vol] on 12-09-2024 Globulin (S) [Mass/Vol] Serum globulin measurement by calculation (mass/volume) [facility] Hematocrit Auto (Bld) [Volum e fraction]on 12-09-2024 Hematocrit (Bld) [Volume fraction] Hematocrit [Volume Fraction] of Blood by Automated count 42.0-54.0 [facility] Hemoglobin [Mass/volume] in Bloodon 12-09-2024 Hemoglobin (Bld) [Mass/Vol] Hemoglobin [Mass/volume] in Blood 14.0-18.0 [facility] Laboratory - Chemistry and C hemistry - challengeon 12-09-2024 Albumin [Mass/Vol] 3.6 g/dL 3.4-5.0 [facility] ALP [Catalytic activity/Vol] 88 U/L 46-116 [facility] ALT [Catalytic activity/Vol] 26 U/L 16-63 [facility] AST [Catalytic activity/Vol] 21 U/L 15-37 [facility] Bilirubin [Mass/Vol] 0.5 mg/dL 0.2-1.[address] [facility] Calcium [Mass/Vol] 8.6 mg/dL 8.5-10.1 [facility] Chloride [Moles/Vol] 107 mmol/L 98-[address] [facility] Cholesterol [Mass/Vol] 197 mg/dL <=200 [facility] Cholesterol in HDL [Mass/Vol] 55 mg/dL 40-60 [facility] Comment on above: > or =60 mg/dl - LOW CARDIOVASCULAR RISK<40 mg/dl - HIGH CARDIOVASCULAR RISK CO2 [Moles/Vol] 27.0 mmol/L 21.0-32.0 [facility] Creatinine [Mass/Vol] 1.12 mg/dL 0.70-1.30 [facility] GFR/1.73 sq M.predicted MDRD (S/P/Bld) [Vol rate/Area] mL/min/{1.73_m2} >=60 mL/min/1.73m 2 [facility] Glucose [Mass/Vol] 97 mg/dL 74-106 [facility] Potassium [Moles/Vol] 4.2 mmol/L 3.5-5.1 [facility] Protein [Mass/Vol] 7.0 g/dL 6.4-8.2 [facility] Sodium [Moles/Vol] 141 mmol/L 136-145 [facility] Triglyceride [Mass/Vol] 78 mg/dL <=150 [facility] Urea nitrogen [Mass/Vol] 17.0 mg/dL 7.0-18.0 [facility] Urea nitrogen/Creatinine [Mass ratio] 15.2 mg/mg [facility] Laboratory - Hematology and Cell countson 12-09-2024 Immature granulocytes/100 WBC (Bld) 0.2 % 0.0-0.5 [facility] Leukocytes [#/volume] correc chrissy for nucleated erythrocytes in Blood by Automated counon 12-09-2024 WBC corrected for nucl RBC Auto (Bld) [#/Vol] Leukocytes [#/volume] corrected for nucleated erythrocytes in Blood by Automated coun 4.0-11.0 [facility] Lymphocytes Auto (Bld) [#/Vo l]on 12-09-2024 Lymphocytes (Bld) [#/Vol] Lymphocytes [#/volume] in Blood by Automated count 1.2-3.8 [facility] Lymphocytes/100 WBC Auto (Bl d)on 12-09-2024 Lymphocytes/100 WBC (Bld) Lymphocytes/100 leukocytes in Blood by Automated count 20.5-60.0 [facility] MCH Auto (RBC) [Entitic mass ]on 12-09-2024 MCH (RBC) [Entitic mass] MCH [Entitic mass] by Automated count 25.9-34.0 [facility] MCHC Auto (RBC) [Mass/Vol]on 12-09-2024 MCHC (RBC) [Mass/Vol] MCHC [Mass/volume] by Automated count 29.9-35.2 [facility] MCV Auto (RBC) [Entitic vol] on 12-09-2024 MCV (RBC) [Entitic vol] MCV [Entitic volume] by Automated count High 80.0-94.0 [facility] Monocytes Auto (Bld) [#/Vol] on 12-09-2024 Monocytes (Bld) [#/Vol] Automated blood monocyte count 0.3-0.8 [facility] Monocytes/100 WBC Auto (Bld) on 12-09-2024 Monocytes/100 WBC (Bld) Automated monocyte % 1.7-12.0 [facility] Neutrophils Auto (Bld) [#/Vo l]on 12-09-2024 Neutrophils (Bld) [#/Vol] Neutrophils [#/volume] in Blood by Automated count 1.4-6.5 [facility] Neutrophils/100 WBC Auto (Bl d)on 12-09-2024 Neutrophils/100 WBC (Bld) Automated neutrophil % 43.0-75.0 [facility] No Panel Informationon 12-09 Eosinophils # (Auto) 0.3 10 3/uL 0.0-0.7 [facility] Immature Granulocyte # (Auto) 0.01 10 3/uL 0.00-0.03 [facility] Prostate Specific Antigen Screen 4.70 ng/mL High <=4.00 [facility] Platelet mean volume Auto (B ld) [Entitic vol]on 12-09-2024 Platelet mean volume (Bld) [Entitic vol] Platelet mean volume [Entitic volume] in Blood by Automated count Low 9.5-13.5 [facility] Platelets Auto (Bld) [#/Vol] on 12-09-2024 Platelets (Bld) [#/Vol] Platelets [#/volume] in Blood by Automated count 150-450 [facility] RBC Auto (Bld) [#/Vol]on RBC (Bld) [#/Vol] Erythrocytes [#/volume] in Blood by Automated count 4.70-6.10 [facility] Serum or plasma albumin/glob ulin mass ratioon 12-09-2024 Albumin/Globulin [Mass ratio] Serum or plasma albumin/globulin mass ratio [facility] Serum or plasma anion gap de terminationon 12-09-2024 Anion gap [Moles/Vol] Serum or plasma anion gap determination [facility] Serum or plasma total choles terol/high density lipoprotein (HDL) cholesterol mass raoul 12-09-2024 Cholesterol.total/Cho lesterol in HDL [Mass ratio] Serum or plasma total cholesterol/high density lipoprotein (HDL) cholesterol mass rat [facility] Comment on above: 3.3 - 4.4 LOW [...] Where: [facility] [address] [place] [address]- [id number] Medications What How Much When Instructions Unchanged [...] body thro (more content not included)... Normal [facility] Urology Office/Clinic Noteon 05-22-2024 Urology Office/Clinic Note [...] abdominal pain) (more content not included)... Normal [facility] Comment on above: Result Comment: Elec tronically Signed By: Emeka GRACE MD\.br\Date and Time Signed: 05/22/24 09:36 EDT\.br\Electronically Co-Signed By: Divine Monae.br\Date and Time Co-Signed: 05/22/24 09:34 EDT ECG 12-Leadon 02-07-2024 ECG 12-Lead [id number]# 1.00TIFF Normal [facility] Lab Reportson 02-07-2024 Lab Reports [id number]# 1.00TIFF Normal [facility] Operative Reporton Operative Report [id number] #1.00TIFF Normal [facility] Consent for Procedure/Surger yon 02-06-2024 Consent for Procedure/Surgery [id number]# 1.00TIFF Normal [facility] ED Note-Physicianon 02-06-20 ED Note-Physician [id number] #1.00TIFF Normal [facility] Lab Reportson 02-06-2024 Lab Reports [id number]# 1.00TIFF Normal [facility] RAD - CT Reporton 02-06-2024 RAD - CT Report [id number] #1.00TIFF Normal [facility] RAD - MISCon 02-06-2024 RAD - MISC [id number] #1.00TIFF Normal [facility] XR KUB 1 VIEWon 09-13-2022 XR [...] by: QUINCY TOVAR Date: 2022-09-13 11:13 Normal [facility] Covid-19 PCR (CVDTBH)on 08-17 SARS-CoV-2 (COVID-19) RNA MARY+probe Ql (Unsp spec) Not detected Normal NOT DETECTED [facility] Comment on above: Result Comment: This test is not yet approved or cleared by the [place] FDA. When there are no FDA-approved or cleared tests available, and other criteria are met, FDA can make tests available under an emergency access mechanism called an Emergency Use Authorization (EUA). The EUA for this test is supported by the [employer] of Health and Human Service's (HHS's) declaration [...] SARS-CoV-2. Performed By: #### C VDTBH #### [facility] [address] [place] [address] Dr. Paramjit Cheng CBC AUTO DIFFon 08-30-2022 BASO # 0.0 103/ul Normal 0.0-0.1 [facility] Comment on above: Performed By: #### C BC #### [facility] [address] [place] [address] Dr. Paramjit Cheng Basophils/100 WBC (Bld) 0.6 % Normal 0.2-2.0 [facility] Comment on above: Performed By: #### C BC #### [facility] [address] [place] [address] Dr. Paramjit Cheng EO # 0.2 103/ul Normal 0.0-0.7 [facility] Comment on above: Performed By: #### C BC #### [facility] [address] [place] [address] Dr. Paramjit Cheng Eosinophils/100 WBC (Bld) 3.7 % Normal 0.9-7.0 [facility] Comment on above: Performed By: #### C BC #### [facility] [address] [place] [address] Dr. Paramjit Cheng Erythrocyte distribution width (RBC) [Ratio] 13.2 % Normal 11.0-15.0 [facility] Comment on above: Performed By: #### C BC #### [facility] [address] [place] [address] Dr. Paramjit Cheng Hematocrit (Bld) [Volume fraction] 43.2 % Normal 42.0-54.0 [facility] Comment on above: Performed By: #### C BC #### [facility] [address] [place] [address] Dr. Paramjit Cheng Hemoglobin (Bld) [Mass/Vol] 14.7 g/dL Normal 14.0-18.0 [facility] Comment on above: Performed By: #### C BC #### [facility] [address] [place] [address] Dr. Paramjit Cheng IG # 0.01 10e3/ul Normal 0.00-0.03 [facility] Comment on above: Performed By: #### C BC #### [facility] [address] [place] [address] Dr. Paramjit Cheng IG % 0.2 % Normal 0.0-0.5 [facility] Comment on above: Performed By: #### C BC #### [facility] [address] [place] [address] Dr. Paramjit Cheng LYMPH # 1.7 103/ul Normal 1.2-3.8 [facility] Comment on above: Performed By: #### C BC #### [facility] [address] [place] [address] Dr. Paramjit Cheng Lymphocytes/100 WBC (Bld) 34.9 % Normal 20.5-60.0 [facility] Comment on above: Performed By: #### C BC #### [facility] [address] [place] [address] Dr. Paramjit Cheng MANUAL DIFF REQ NO Normal [facility] Comment on above: Performed By: #### C BC #### [facility] [address] [address] [address] Paramjit Cheng MCH (RBC) [Entitic mass] 32.3 pg Normal 25.9-34.0 [facility] Comment on above: Performed By: #### C BC #### [facility] [address] [place] [address] Dr. Paramjit Cheng MCHC (RBC) [Mass/Vol] 34.0 g/dL Normal 29.9-35.2 [facility] Comment on above: Performed By: #### C BC #### [facility] [address] [place] [address] Dr. Paramjit Cheng MCV (RBC) [Entitic vol] 94.9 fL Critically high 80.0-94.0 [facility] Comment on above: Performed By: #### C BC #### [facility] [address] [place] [address] Dr. Paramjit Cheng MONO # 0.5 103/ul Normal 0.3-0.8 [facility] Comment on above: Performed By: #### C BC #### [facility] [address] [place] [address] Dr. Paramjit Cheng Monocytes/100 WBC (Bld) 9.3 % Normal 1.7-12.0 [facility] Comment on above: Performed By: #### C BC #### [facility] [address] [place] [address] Dr. Paramjit Cheng NEUT # 2.5 103/ul Normal 1.4-6.5 [facility] Comment on above: Performed By: #### C BC #### [facility] [address] [place] [address] Dr. Paramjit Cheng Neutrophils/100 WBC (Bld) 51.3 % Normal 43.0-75.0 [facility] Comment on above: Performed By: #### C BC #### [facility] [address] [place] [address] Dr. Paramjit Cheng Platelet mean volume (Bld) [Entitic vol] 9.2 fL Critically low 9.5-13.5 [facility] Comment on above: Performed By: #### C BC #### [facility] [address] [address] [address] Paramjit Cheng PLT 251 103/ul Normal 150-450 [facility] Comment on above: Performed By: #### C BC #### [facility] [address] [address] [address] Paramjit Cheng RBC 4.55 106/ul Critically low 4.70-6.[address] [facility] Comment on above: Performed By: #### C BC #### [facility] [address] [address] [address] Paramjit Cheng WBC 4.8 103/ul Normal 4.0-11.0 [facility] Comment on above: Performed By: #### C BC #### [facility] [address] [place] [address] Dr. Paramjit Cheng PROF CHEM 8 (BAS METB)on Anion gap [Moles/Vol] 13.7 mmol/L Normal [facility] Comment on above: Performed By: #### B MP #### [facility] [address] [address] [address] Paramjit Cheng Calcium [Mass/Vol] 8.9 mg/dL Normal 8.5-10.1 [facility] Comment on above: Performed By: #### B MP #### [facility] [address] [address] [address] Paramjit Cheng Chloride [Moles/Vol] 106 mmol/L Normal 98-107 [facility] Comment on above: Performed By: #### B MP #### [facility] [address] [address] [address] Paramjit Cheng CO2 [Moles/Vol] 27.2 mmol/L Normal 21.0-32.0 [facility] Comment on above: Performed By: #### B MP #### [facility] [address] [address] [address] Paramjit Cheng Creatinine [Mass/Vol] 0.89 mg/dL Normal 0.70-1.30 [facility] Comment on above: Performed By: #### B MP #### [facility] [address] [address] [address] Paramjit Cheng EGFR-AF ECUADOREAN >60 Normal >=60 [facility] Comment on above: Performed By: #### B MP #### [facility] [address] [address] [address] Paramjit Cheng EGFR-NON AF ECUADOREAN >60 Normal >=60 [facility] Comment on above: Performed By: #### B MP #### [facility] [address] [address] [address] Paramjit Cheng Glucose [Mass/Vol] 87 mg/dL Normal 74-106 [facility] Comment on above: Performed By: #### B MP #### [facility] [address] [place] [address] Dr. Paramjit Cheng Potassium [Moles/Vol] 3.9 mmol/L Normal 3.5-5.1 [facility] Comment on above: Performed By: #### B MP #### [facility] [address] [place] [address] Dr. Paramjit Cheng Sodium [Moles/Vol] 143 mmol/L Normal 136-145 [facility] Comment on above: Performed By: #### B MP #### [facility] [address] [place] [address] Dr. Paramjit Cheng Urea nitrogen [Mass/Vol] 12.0 mg/dL Normal 7.0-18.0 [facility] Comment on above: Performed By: #### B MP #### [facility] [address] [place] [address] Dr. Paramjit Cheng Urea nitrogen/Creatinine [Mass ratio] 13.5 mg/mg Normal [facility] Comment on above: Performed By: #### B MP #### [facility] [address] [place] [address] Dr. Paramjit Cheng PROTIMEon 08-30-2022 INR Coag (PPP) [Relative time] 0.97 {INR} Normal [facility] Comment on above: Performed By: #### P TT, PT #### [facility] [address] [place] [address] Dr. Paramjit Cheng INR GUIDELINES SEE BELOW Normal [facility] Comment on above: Result Comment: ROSE RED INR: 2.0 - 3.0 CONDITIONS NOT LISTED BELOW 2.5 - 3.5 FOR PROSTHETIC HEART VALVE REPLACEMENT 2.5 - 3.5 RECURRENT THROMBOSIS Performed By: #### P TT, PT #### [facility] [address] [place] [address] Dr. Paramijt Cheng PT Coag (PPP) [Time] 10.5 s Normal 9.0-11.6 [facility] Comment on above: Performed By: #### P TT, PT #### [facility] [address] [place] [address] Dr. Paramjit Cheng PTTon 08-30-2022 aPTT Coag (Bld) [Time] 25.6 s Normal 22.3-36.2 [facility] Comment on above: Performed By: #### P TT, PT #### [facility] [address] [place] [address] Dr. Paramjit Cheng CALCULI, URINARYon 2,8 Dihydroxyadenine Normal [facility] Comment on above: Performed By: #### C ALCULI #### [facility] [address] [place] [address] Dr. Paramjit Cheng Ammonium Acid Urate Normal [facility] Comment on above: Performed By: #### C ALCULI #### [facility] [address] [place] [address] Dr. Paramjit Cheng Bilirubin Ql (U) Normal [facility] Comment on above: Performed By: #### C ALCULI #### [facility] [address] [place] [address] Dr. Paramjit Cheng Ca Oxalate Dihydrate 20 % Normal [facility] Comment on above: Performed By: #### C ALCULI #### [facility] [address] [place] [address] Dr. Paramjit Cheng Ca Oxalate Dihydrate 30 % Normal [facility] Comment on above: Performed By: #### C ALCULI #### [facility] [address] [address] [address] Paramjit Cheng CaHPO4 (Brushite) Normal [facility] Comment on above: Performed By: #### C ALCULI #### [facility] [address] [address] [address] Paramjit Cheng Calcium Bilirubinate Normal [facility] Comment on above: Performed By: #### C ALCULI #### [facility] [address] [address] [address] Paramjit Cheng Calcium Carbonate Normal [facility] Comment on above: Performed By: #### C ALCULI #### [facility] [address] [address] [address] Paramjit Cheng Calcium Oxalate Monohydrate 80 % [facility] Comment on above: Performed By: #### C ALCULI #### [facility] [address] [place] [address] Dr. Paramjit Cheng Calcium Oxalate Monohydrate 70 % [facility] Comment on above: Performed By: #### C ALCULI #### [facility] [address] [address] [address] Paramjit Cheng Calcium Palmitate [facility] Comment on above: Performed By: #### C ALCULI #### [facility] [address] [address] [address] Paramjit Cheng Calcium Phosphate Normal [facility] Comment on above: Performed By: #### C ALCULI #### [facility] [address] [address] [address] Paramjit Cheng Calcium Stearate Normal [facility] Comment on above: Performed By: #### C ALCULI #### [facility] [address] [address] [address] Paramjit Cheng Carbonate Apatite Normal [facility] Comment on above: Performed By: #### C ALCULI #### [facility] [address] [place] [address] Dr. Paramjit Cheng Cellular Material [place] [facility] Comment on above: Performed By: #### C ALCULI #### [facility] [address] [address] [address] Paramjit Cheng Cholesterol [facility] Comment on above: Performed By: #### C ALCULI #### [facility] [address] [address] [address] Paramjit Cheng Color (U) Brown Normal [facility] Comment on above: Performed By: #### C ALCULI #### [facility] [address] [address] [address] Paramjit Cheng Comment Normal [facility] Comment on above: Performed By: #### C ALCULI #### [facility] [address] [address] [address] Paramjit Cheng Comment Comment [facility] Comment on above: Result Comment: Calc ulus received wet. Wet calculi must be dried before analysis, which delays reporting of results. Leaving calculi wet (such as water, saline, blood, urine) may lead to changes in composition. Performed By: #### C ALCULI #### [facility] [address] [place] [address] Dr. Paramjit Cheng Result Comment: Sour ce provided- right [facility] Comment: Comment Normal [facility] Comment on above: Result Comment: Phys mary joan questions regarding Calculi Analysis contact [facility] at: [phone]. Performed By: #### C ALCULI #### [facility] [address] [place] [address] Dr. Paramjit Cheng Composition Comment [facility] Comment on above: Result Comment: Perc entage (Represents the % composition) Performed By: #### C ALCULI #### [facility] [address] [place] [address] Dr. Paramjit Cheng Cystine [facility] Comment on above: Performed By: #### C ALCULI #### [facility] [address] [place] [address] Dr. Paramjit Chegn Disclaimer: Comment [facility] Comment on above: Result Comment: This test was developed and its performance characteristics determined by [facility]. It has not been cleared or approved by the Food and Drug Administration. Performed By: #### C ALCULI #### [facility] [facility] [address] [place] [address] Dr. Paramjit Cheng Dried Blood Normal [facility] Comment on above: Performed By: #### C ALCULI #### [facility] [address] [address] [address] Paramjit Cheng Drug or Metabolite Normal [facility] Comment on above: Performed By: #### C ALCULI #### [facility] [address] [address] [address] Paramjit Cheng Hydroxyapatite Normal [facility] Comment on above: Performed By: #### C ALCULI #### [facility] [address] [address] [address] Paramjit Cheng Mg NH4 PO4 (Struvite) [facility] Comment on above: Performed By: #### C ALCULI #### [facility] [address] [place] [address] Dr. Paramjit Cheng MgHPO4 (Newberyite) Normal [facility] Comment on above: Performed By: #### C ALCULI #### [facility] [address] [address] [address] Paramjit Cheng Other component(s) Normal [facility] Comment on above: Performed By: #### C ALCULI #### [facility] [address] [address] [address] Paramjit Cheng PDF . Normal [facility] Comment on above: Performed By: #### C ALCULI #### [facility] [address] [address] [address] Paramjit Cheng Photo Comment Normal [facility] Comment on above: Result Comment: Phot ograph will follow under a separate cover Performed By: #### C ALCULI #### [facility] [address] [address] [address] Paramjit Cheng Please note: Comment Normal [facility] Comment on above: Result Comment: Calc diana report will follow via computer, mail or puncher and fastener delivery. Performed By: #### C ALCULI #### [facility] [address] [place] [address] Dr. Paramjit Cheng Size 6x4 Normal [facility] Comment on above: Result Comment: Mult iple pieces received. Dimensions of the largest piece reported. Performed By: #### C ALCULI #### [facility] [address] [address] [address] Paramjit Cheng Size 3x2 Normal [facility] Comment on above: Result Comment: Mult iple pieces received. Dimensions of the largest piece reported. Performed By: #### C ALCULI #### [facility] [address] [address] [address] Paramjit Cheng Sodium Acid Urate Normal [facility] Comment on above: Performed By: #### C ALCULI #### [facility] [address] [address] [address] Paramjit Cheng Source Comment [facility] Comment on above: Result Comment: Urin savage Bladder Performed By: #### C ALCULI #### [facility] [address] [address] [address] Paramjit Cheng Result Comment: Not provided [employer]am[employer] [facility] Comment on above: Performed By: #### C ALCULI #### [facility] [address] [address] [address] Paramjit Cheng Uric Acid [facility] Comment on above: Performed By: #### C ALCULI #### [facility] [address] [address] [address] Paramjit Cheng Uric Acid Dihydrate Normal [facility] Comment on above: Performed By: #### C ALCULI #### [facility] [address] [address] [address] Paramjit Cheng Weight 636 mg [facility] Comment on above: Performed By: #### C ALCULI #### [facility] [address] [address] [address] Paramjit Cheng Weight 18 mg Normal [facility] Comment on above: Performed By: #### C ALCULI #### [facility] [address] [address] [address] Paramjit Cheng Xanthine [facility] Comment on above: Performed By: #### C ALCULI #### [facility] [address] [address] [address] Paramjit Cheng XR KUB 1 VIEWon [...] TITUS TELLEZ Date: 2022 06:37 Normal [facility] Covid-19 PCR (CVDTB)on 07-17 SARS-CoV-2 (COVID-19) RNA MARY+probe Ql (Unsp spec) Not detected Normal NOT DETECTED [facility] Comment on above: Result Comment: This test is not yet approved or cleared by the [place] FDA. When there are no FDA-approved or cleared tests available, and other criteria are met, FDA can make tests available under an emergency access mechanism called an Emergency Use Authorization (EUA). The EUA for this test is supported by the [place] of Health and Human Service's (HHS's) declaration [...] Performed By: #### P TT, PT #### [facility] [address] [address] [address] Paramjit Cheng CBC AUTO DIFFon 07-23-2022 BASO # 0.0 103/ul Normal 0.0-0.1 [facility] Comment on above: Performed By: #### P TT, PT #### [facility] [address] [place] [address] Dr. Paramjit Cheng Basophils/100 WBC (Bld) 0.4 % Normal 0.2-2.0 [facility] Comment on above: Performed By: #### P TT, PT #### [facility] [address] [place] [address] Dr. Paramjit Cheng EO # 0.1 103/ul Normal 0.0-0.7 [facility] Comment on above: Performed By: #### P TT, PT #### [facility] [address] [place] [address] Dr. Paramjit Cheng Eosinophils/100 WBC (Bld) 2.5 % Normal 0.9-7.0 [facility] Comment on above: Performed By: #### P TT, PT #### [facility] [address] [place] [address] Dr. Paramjit Cheng Erythrocyte distribution width (RBC) [Ratio] 13.0 % Normal 11.0-15.0 [facility] Comment on above: Performed By: #### P TT, PT #### [facility] [address] [place] [address] Dr. Paramjit Cheng Hematocrit (Bld) [Volume fraction] 41.7 % Critically low 42.0-54.0 [facility] Comment on above: Performed By: #### P TT, PT #### [facility] [address] [place] [address] Dr. Paramjit Cheng Hemoglobin (Bld) [Mass/Vol] 14.5 g/dL Normal 14.0-18.0 [facility] Comment on above: Performed By: #### P TT, PT #### [facility] [address] [place] [address] Dr. Paramjit Cheng IG # 0.01 10e3/ul Normal 0.00-0.03 [facility] Comment on above: Performed By: #### P TT, PT #### [facility] [address] [address] [address] Paramjit Cheng IG % 0.2 % Normal 0.0-0.5 [facility] Comment on above: Performed By: #### P TT, PT #### [facility] [address] [address] [address] Paramjit Cheng LYMPH # 1.6 103/ul Normal 1.2-3.8 [facility] Comment on above: Performed By: #### P TT, PT #### [facility] [address] [address] [address] Paramjit Cheng Lymphocytes/100 WBC (Bld) 27.6 % Normal 20.5-60.0 [facility] Comment on above: Performed By: #### P TT, PT #### [facility] [address] [place] [address] Dr. Paramjit Cheng MANUAL DIFF REQ NO Normal [facility] Comment on above: Performed By: #### P TT, PT #### [facility] [address] [place] [address] Dr. Paramjit Cheng MCH (RBC) [Entitic mass] 32.8 pg Normal 25.9-34.0 [facility] Comment on above: Performed By: #### P TT, PT #### [facility] [address] [place] [address] Dr. Paramjit Cheng MCHC (RBC) [Mass/Vol] 34.8 g/dL Normal 29.9-35.2 [facility] Comment on above: Performed By: #### P TT, PT #### [facility] [address] [place] [address] Dr. Paramjit Cheng MCV (RBC) [Entitic vol] 94.3 fL Critically high 80.0-94.0 [facility] Comment on above: Performed By: #### P TT, PT #### [facility] [address] [place] [address] Dr. Paramjit Cheng MONO # 0.5 103/ul Normal 0.3-0.8 [facility] Comment on above: Performed By: #### P TT, PT #### [facility] [address] [place] [address] Dr. Paramjit Cheng Monocytes/100 WBC (Bld) 8.0 % Normal 1.7-12.0 [facility] Comment on above: Performed By: #### P TT, PT #### [facility] [address] [place] [address] Dr. Paramjit Cheng NEUT # 3.5 103/ul Normal 1.4-6.5 [facility] Comment on above: Performed By: #### P TT, PT #### [facility] [address] [place] [address] Dr. Paramjit Cheng Neutrophils/100 WBC (Bld) 61.3 % Normal 43.0-75.0 [facility] Comment on above: Performed By: #### P TT, PT #### [facility] [address] [place] [address] Dr. Paramjit Cheng Platelet mean volume (Bld) [Entitic vol] 9.5 fL Normal 9.5-13.5 [facility] Comment on above: Performed By: #### P TT, PT #### [facility] [address] [place] [address] Dr. Paramjit Cheng PLT 252 103/ul Normal 150-450 [facility] Comment on above: Performed By: #### P TT, PT #### [facility] [address] [place] [address] Dr. Paramjit Cheng RBC 4.42 106/ul Critically low 4.70-6.10 [facility] Comment on above: Performed By: #### P TT, PT #### [facility] [address] [place] [address] Dr. Paramjit Cheng WBC 5.6 103/ul Normal 4.0-11.0 [facility] Comment on above: Performed By: #### P TT, PT #### [facility] [address] [place] [address] Dr. Paramjit Cheng PROF CHEM 8 (BAS METB)on Anion gap [Moles/Vol] 9.6 mmol/L Normal [facility] Comment on above: Performed By: #### D ATCBC #### [facility] [address] [address] [address] Paramjit Cheng Calcium [Mass/Vol] 8.6 mg/dL Normal 8.5-10.1 [facility] Comment on above: Performed By: #### D ATCBC #### [facility] [address] [address] [address] Paramjit Cheng Chloride [Moles/Vol] 107 mmol/L Normal 98-107 [facility] Comment on above: Performed By: #### D ATCBC #### [facility] [address] [address] [address] Paramjit Cheng CO2 [Moles/Vol] 28.0 mmol/L Normal 21.0-32.0 [facility] Comment on above: Performed By: #### D ATCBC #### [facility] [address] [place] [address] Dr. Paramjit Cheng Creatinine [Mass/Vol] 0.98 mg/dL Normal 0.70-1.30 [facility] Comment on above: Performed By: #### D ATCBC #### [facility] [address] [address] [address] Paramjit Cheng EGFR-AF ECUADOREAN >60 Normal >=60 [facility] Comment on above: Performed By: #### D ATCBC #### [facility] [address] [address] [address] Paramjit Cheng EGFR-NON AF ECUADOREAN >60 Normal >=60 [facility] Comment on above: Performed By: #### D ATCBC #### [facility] [address] [address] [address] Paramjit Cheng Glucose [Mass/Vol] 90 mg/dL Normal 74-106 [facility] Comment on above: Performed By: #### D ATCBC #### [facility] [address] [address] [address] Paramjit Cheng Potassium [Moles/Vol] 3.6 mmol/L Normal 3.5-5.1 [facility] Comment on above: Performed By: #### D ATCBC #### [facility] [address] [place] [address] Dr. Paramjit Cheng Sodium [Moles/Vol] 141 mmol/L Normal 136-145 [facility] Comment on above: Performed By: #### D ATCBC #### [facility] [address] [place] [address] Dr. Paramjit Cheng Urea nitrogen [Mass/Vol] 12.0 mg/dL Normal 7.0-18.0 [facility] Comment on above: Performed By: #### D ATCBC #### [facility] [address] [place] [address] Dr. Paramjit Cheng Urea nitrogen/Creatinine [Mass ratio] 12.2 mg/mg Normal [facility] Comment on above: Performed By: #### D ATCBC #### [facility] [address] [place] [address] Dr. Paramjit Cheng PROTIMEon 07-23-2022 INR Coag (PPP) [Relative time] 1.04 {INR} Normal [facility] Comment on above: Performed By: #### P TT, PT #### [facility] [address] [place] [address] Dr. Paramjit Cheng INR GUIDELINES SEE BELOW Normal [facility] Comment on above: Result Comment: ROSE RED INR: 2.0 - 3.0 CONDITIONS NOT LISTED BELOW 2.5 - 3.5 FOR PROSTHETIC HEART VALVE REPLACEMENT 2.5 - 3.5 RECURRENT THROMBOSIS Performed By: #### P TT, PT #### [facility] [address] [place] [address] Dr. Paramjit Cheng PT Coag (PPP) [Time] 11.2 s Normal 9.0-11.6 [facility] Comment on above: Performed By: #### P TT, PT #### [facility] [address] [place] [address] Dr. Paramjit Cheng PTTon 07-23-2022 aPTT Coag (Bld) [Time] 25.1 s Normal 22.3-36.2 [facility] Comment on above: Performed By: #### P TT, PT #### [facility] [address] [address] [address] ABD/PELVIS WO CONon [...] by: QUINCY TOVAR Date: 2022-07-06 08:48 Normal [facility] XR KUB 1 VIEWon 06-17-2022 XR [...] QUINCY TOVAR Date: 2022-06-17 11:24 Normal [facility] CREATININEon 04-25-2022 Creatinine [Mass/Vol] 0.99 mg/dL Normal 0.70-1.30 [facility] Comment on above: Performed By: #### C APRIL #### [facility] [address] [address] [address] Paramjit Cheng EGFR-AF ECUADOREAN >60 Normal >=60 [facility] Comment on above: Performed By: #### C APRIL #### [facility] [address] [address] [address] Paramjit Cheng EGFR-NON AF ECUADOREAN >60 Normal >=60 [facility] Comment on above: Performed By: #### C APRIL #### [facility] [address] [place] [address] ABD/PELV WO W [...] QUINCY TOVAR Date: 2022-04-25 12:01 Normal [facility] CBC AUTO DIFFon 12-01-2021 BASO # 0.0 103/ul Normal 0.0-0.1 [facility] Comment on above: Performed By: #### D ATCBC #### [facility] [address] [place] [address] Dr. Paramjit Cheng Basophils/100 WBC (Bld) 0.4 % Normal 0.2-2.0 [facility] Comment on above: Performed By: #### D ATCBC #### [facility] [address] [place] [address] Dr. Paramjit Cheng EO # 0.2 103/ul Normal 0.0-0.7 [facility] Comment on above: Performed By: #### D ATCBC #### [facility] [address] [place] [address] Dr. Paramjit Cheng Eosinophils/100 WBC (Bld) 3.8 % Normal 0.9-7.0 [facility] Comment on above: Performed By: #### D ATCBC #### [facility] [address] [place] [address] Dr. Paramijt Cheng Erythrocyte distribution width (RBC) [Ratio] 13.7 % Normal 11.0-15.0 [facility] Comment on above: Performed By: #### D ATCBC #### [facility] [address] [place] [address] Dr. Paramjit Cheng Hematocrit (Bld) [Volume fraction] 44.1 % Normal 42.0-54.0 [facility] Comment on above: Performed By: #### D ATCBC #### [facility] [address] [place] [address] Dr. Paramjit Cheng Hemoglobin (Bld) [Mass/Vol] 14.9 g/dL Normal 14.0-18.0 [facility] Comment on above: Performed By: #### D ATCBC #### [facility] [address] [place] [address] Dr. Paramjit Cheng IG # 0.01 10e3/ul Normal 0.00-0.03 [facility] Comment on above: Performed By: #### D ATCBC #### [facility] [address] [place] [address] Dr. Paramjit Cheng IG % 0.2 % Normal 0.0-0.5 [facility] Comment on above: Performed By: #### D ATCBC #### [facility] [address] [place] [address] Dr. Paramjit Cheng LYMPH # 2.1 103/ul Normal 1.2-3.8 [facility] Comment on above: Performed By: #### D ATCBC #### [facility] [address] [place] [address] Dr. Paramjit Cheng Lymphocytes/100 WBC (Bld) 37.9 % Normal 20.5-60.0 [facility] Comment on above: Performed By: #### D ATCBC #### [facility] [address] [place] [address] Dr. Paramjit Cheng MCH (RBC) [Entitic mass] 31.9 pg Normal 25.9-34.0 [facility] Comment on above: Performed By: #### D ATCBC #### [facility] [address] [place] [address] Dr. Paramjit Cheng MCHC (RBC) [Mass/Vol] 33.8 g/dL Normal 29.9-35.2 [facility] Comment on above: Performed By: #### D ATCBC #### [facility] [address] [place] [address] Dr. Paramjit Cheng MCV (RBC) [Entitic vol] 94.4 fL Critically high 80.0-94.0 [facility] Comment on above: Performed By: #### D ATCBC #### [facility] [address] [place] [address] Dr. Paramjit Cheng MONO # 0.5 103/ul Normal 0.3-0.8 [facility] Comment on above: Performed By: #### D ATCBC #### [facility] [address] [place] [address] Dr. Paramjit Cheng Monocytes/100 WBC (Bld) 9.7 % Normal 1.7-12.0 [facility] Comment on above: Performed By: #### D ATCBC #### [facility] [address] [place] [address] Dr. Paramjit Cheng NEUT # 2.6 103/ul Normal 1.4-6.5 [facility] Comment on above: Performed By: #### D ATCBC #### [facility] [address] [place] [address] Dr. Paramjit Cheng Neutrophils/100 WBC (Bld) 48.0 % Normal 43.0-75.0 [facility] Comment on above: Performed By: #### D ATCBC #### [facility] [address] [place] [address] Dr. Paramjit Cheng Platelet mean volume (Bld) [Entitic vol] 9.6 fL Normal 9.5-13.5 [facility] Comment on above: Performed By: #### D ATCBC #### [facility] [address] [place] [address] Dr. Paramjit Cheng PLT 254 103/ul Normal 150-450 [facility] Comment on above: Performed By: #### D ATCBC #### [facility] [address] [place] [address] Dr. Paramjit Cheng RBC 4.67 106/ul Critically low 4.70-6.10 [facility] Comment on above: Performed By: #### D ATCBC #### [facility] [address] [place] [address] Dr. Paramjit Cheng WBC 5.5 103/ul Normal 4.0-11.0 [facility] Comment on above: Performed By: #### D ATCBC #### [facility] [address] [place] [address] Dr. Paramjit Cheng FLORENTIN- BMP WITH LIPIDon 2021 Anion gap [Moles/Vol] 12.5 mmol/L Normal [facility] Comment on above: Performed By: #### P TT, PT #### [facility] [address] [place] [address] Dr. Paramjit Cheng Calcium [Mass/Vol] 8.8 mg/dL Normal 8.5-10.1 [facility] Comment on above: Performed By: #### P TT, PT #### [facility] [address] [address] [address] Paramjit Cheng Chloride [Moles/Vol] 104 mmol/L Normal 98-107 [facility] Comment on above: Performed By: #### P TT, PT #### [facility] [address] [address] [address] Paramjit Cheng Cholesterol [Mass/Vol] 220 mg/dL Critically high <=200 [facility] Comment on above: Performed By: #### P TT, PT #### [facility] [address] [address] [address] Paramjit Cheng Cholesterol in HDL [Mass/Vol] 65 mg/dL Critically high 40-60 [facility] Comment on above: Performed By: #### P TT, PT #### [facility] [address] [address] [address] Paramjit Cheng Cholesterol in LDL [Mass/Vol] 133.0 mg/dL Normal [facility] Comment on above: Performed By: #### P TT, PT #### [facility] [address] [address] [address] Paramjit Cheng CO2 [Moles/Vol] 27.6 mmol/L Normal 22.0-30.0 [facility] Comment on above: Performed By: #### P TT, PT #### [facility] [address] [address] [address] Paramjit Cheng Creatinine [Mass/Vol] 0.97 mg/dL Normal 0.66-1.25 [facility] Comment on above: Performed By: #### P TT, PT #### [facility] [address] [address] [address] Paramjit Cheng EGFR-AF ECUADOREAN >60 Normal >=60 [facility] Comment on above: Performed By: #### P TT, PT #### [facility] [address] [address] [address] Paramjit Cheng EGFR-NON AF ECUADOREAN >60 Normal >=60 [facility] Comment on above: Performed By: #### P TT, PT #### [facility] [address] [address] [address] Paramjit Cheng Glucose [Mass/Vol] 98 mg/dL Normal 74-106 [facility] Comment on above: Performed By: #### P TT, PT #### [facility] [address] [address] [address] Paramjit Cheng HDL NORMAL > or = 60 mg/dl - LOW CARDIOVASCULAR RISK <40 mg/dl - HIGH CARDIOVASCULAR RISK Normal [facility] Comment on above: Performed By: #### P TT, PT #### [facility] [address] [place] [address] Dr. Paramjit Cheng LDL CALC NORMAL SEE BELOW Normal [facility] Comment on above: Result Comment: <100 mg/dl OPTIMAL 100 - 129 mg/dl NEAR OR ABOVE OPTIMAL 130 - 159 mg/dl BORDERLINE HIGH 160 - 189 mg/dl HIGH >190 mg/dl VERY HIGH Performed By: #### P TT, PT #### [facility] [address] [address] [address] Paramjit Cheng Potassium [Moles/Vol] 4.1 mmol/L Normal 3.4-5.0 [facility] Comment on above: Performed By: #### P TT, PT #### [facility] [address] [place] [address] Dr. Paramjit Cheng Sodium [Moles/Vol] 140 mmol/L Normal 137-145 [facility] Comment on above: Performed By: #### P TT, PT #### [facility] [address] [address] [address] Paramjit Cheng Triglyceride [Mass/Vol] 110 mg/dL Normal <=150 [facility] Comment on above: Performed By: #### P TT, PT #### [facility] [address] [address] [address] Paramjit Cheng Urea nitrogen [Mass/Vol] 13.0 mg/dL Normal 7.0-18.0 [facility] Comment on above: Performed By: #### P TT, PT #### [facility] [address] [address] [address] Paramjit Cheng Urea nitrogen/Creatinine [Mass ratio] 13.4 mg/mg Normal [facility] Comment on above: Performed By: #### P TT, PT #### [facility] [address] [address] [address] Paramjit Cheng VLDL CALC 22.0 mg/dL Normal [facility] Comment on above: Performed By: #### P TT, PT #### [facility] [address] [place], [place] [address] Dr. Paramjit Cheng Vital Signs Date Time Vital Sign Value Performing Clinician Facility 12-11-2024 09:43-0400 Body height 177.8 cm [facility] 12-11-2024 09:43-0400 Body mass index (BMI) [Ratio] 25.4 kg/m2 [facility] 12-11-2024 09:43-0400 Body weight 80.51 kg [facility] 12-11-2024 09:43-0400 Diastolic blood pressure 72 mm[Hg] [facility] 12-11-2024 09:43-0400 Heart rate 64 /min [facility] 12-11-2024 09:43-0400 Respiratory rate 12 /min [facility] 12-11-2024 09:43-0400 Systolic blood pressure 128 mm[Hg] [facility] 06-18-2024 09:27-0400 Body height 177.8 cm [facility] 06-18-2024 09:27-0400 Body mass index (BMI) [Ratio] 24.4 kg/m2 [facility] 06-18-2024 09:27-0400 Body weight 77.16 kg [facility] 06-18-2024 09:27-0400 Diastolic blood pressure 67 mm[Hg] [facility] 06-18-2024 09:27-0400 Heart rate 64 /min [facility] 06-18-2024 09:27-0400 Respiratory rate 12 /min [facility] 06-18-2024 09:27-0400 Systolic blood pressure 105 mm[Hg] [facility] 05-22-2024 08:47-0400 Blood Pressure Location Emeka GRACE [facility] 05-22-2024 08:47-0400 Diastolic blood pressure 80 mm[Hg] Emeka GRACE [facility] 05-22-2024 08:47-0400 Heart rate 61 /min Emekalauri GRACE [facility] 05-22-2024 08:47-0400 Respiratory rate 18 /min Emeka GRACE [facility] 05-22-2024 08:47-0400 Systolic blood pressure 116 mm[Hg] Emeka GRACE [facility] 02-27-2024 14:30-0400 Body height 177.8 cm [facility] 02-27-2024 14:30-0400 Body mass index (BMI) [Ratio] 24.7 kg/m2 [facility] 02-27-2024 14:30-0400 Body weight 78.18 kg [facility] 02-27-2024 14:30-0400 Diastolic blood pressure 60 mm[Hg] [facility] 02-27-2024 14:30-0400 Heart rate 70 /min [facility] 02-27-2024 14:30-0400 Respiratory rate 12 /min [facility] 02-27-2024 14:30-0400 Systolic blood pressure 100 mm[Hg] [facility] 02-11-2024 13:37-0400 Body height 177.8 cm [facility] 02-11-2024 13:37-0400 Body mass index (BMI) [Ratio] 24.7 kg/m2 [facility] 02-11-2024 13:37-0400 Body weight 78.13 kg [facility] 02-11-2024 13:37-0400 Diastolic blood pressure 74 mm[Hg] [facility] 02-11-2024 13:37-0400 Heart rate 66 /min [facility] 02-11-2024 13:37-0400 Respiratory rate 12 /min [facility] 02-11-2024 13:37-0400 Systolic blood pressure 120 mm[Hg] [facility] 11-21-2023 08:47-0500 Body height 177.8 cm [facility] 11-21-2023 08:47-0500 Body mass index (BMI) [Ratio] 24.8 kg/m2 [facility] 11-21-2023 08:47-0500 Body weight 78.52 kg [facility] 11-21-2023 08:47-0500 Diastolic blood pressure 71 mm[Hg] [facility] 11-21-2023 08:47-0500 Heart rate 60 /min [facility] 11-21-2023 08:47-0500 Respiratory rate 12 /min [facility] 11-21-2023 08:47-0500 Systolic blood pressure 119 mm[Hg] [facility] 08-21-2023 08:30-0500 Body height 177.8 cm Javi Ball Other [facility] Other 08-21-2023 08:30-0500 Body mass index (BMI) [Ratio] 24.82 kg/m2 Javi Ball Other [facility] Other 08-21-2023 08:30-0500 Body weight 78.47 kg Javi Ball Other [facility] Other 08-21-2023 08:30-0500 Diastolic blood pressure 71 mm[Hg] Javi Ball Other [facility] Other 08-21-2023 08:30-0500 Respiratory rate 12 /min Javi Ball Other [facility] Other 08-21-2023 08:30-0500 Systolic blood pressure 116 mm[Hg] Javi Ball Other [facility] Other 06-11-2023 15:30-0400 Body height 177.8 cm Javi Ball Other [facility] Other 06-11-2023 15:30-0400 Body mass index (BMI) [Ratio] 24.96 kg/m2 Javi Ball Other [facility] Other 06-11-2023 15:30-0400 Body weight 78.93 kg Javi Ball Other [facility] Other 06-11-2023 15:30-0400 Diastolic blood pressure 64 mm[Hg] Javi Ball Other [facility] Other 06-11-2023 15:30-0400 Respiratory rate 12 /min Javi Ball Other [facility] Other 06-11-2023 15:30-0400 Systolic blood pressure 122 mm[Hg] Javi Ball Other [facility] Other 05-21-2023 08:30-0400 Body height 177.8 cm Javi Ball Other [facility] Other 05-21-2023 08:30-0400 Body mass index (BMI) [Ratio] 24.68 kg/m2 Javi Ball Other [facility] Other 05-21-2023 08:30-0400 Body weight 78.02 kg Javi Ball Other [facility] Other 05-21-2023 08:30-0400 Diastolic blood pressure 78 mm[Hg] Javi Ball Other [facility] Other 05-21-2023 08:30-0400 Respiratory rate 12 /min Javi Ball Other [facility] Other 05-21-2023 08:30-0400 Systolic blood pressure 119 mm[Hg] Javi Ball Other [facility] Other 04-26-2023 09:06-0400 Blood Pressure Location Emeka GRACE [facility] 04-26-2023 09:06-0400 Diastolic blood pressure 78 mm[Hg] Emeka GRACE [facility] 04-26-2023 09:06-0400 Heart rate 74 /min Emeka GRACE [facility] 04-26-2023 09:06-0400 Respiratory rate 16 /min Emeka GRACE [facility] 04-26-2023 09:06-0400 Systolic blood pressure 118 mm[Hg] Emeka GRACE [facility] 02-14-2023 08:30-0400 Body height 177.8 cm Javi Ball Other [facility] Other 02-14-2023 08:30-0400 Body mass index (BMI) [Ratio] 25.28 kg/m2 Javi Ball Other [facility] Other 02-14-2023 08:30-0400 Body weight 79.92 kg Javi Ball Other [facility] Other 02-14-2023 08:30-0400 Diastolic blood pressure 70 mm[Hg] Javi Ball Other [facility] Other 02-14-2023 08:30-0400 Respiratory rate 12 /min Javi Ball Other [facility] Other 02-14-2023 08:30-0400 Systolic blood pressure 115 mm[Hg] Javi Ball Other [facility] Other 11-06-2022 08:30-0500 Body height 177.8 cm Javi Ball Other [facility] Other 11-06-2022 08:30-0500 Body mass index (BMI) [Ratio] 25.51 kg/m2 Javi Ball Other [facility] Other 11-06-2022 08:30-0500 Body weight 80.65 kg Javi Ball Other [facility] Other 11-06-2022 08:30-0500 Diastolic blood pressure 70 mm[Hg] Javi Ball Other [facility] Other 11-06-2022 08:30-0500 Respiratory rate 12 /min Javi Ball Other [facility] Other 11-06-2022 08:30-0500 Systolic blood pressure 102 mm[Hg] Javi Ball Other [facility] Other 06-15-2022 08:43-0400 Blood Pressure Location Emeka GRACE [facility] 06-15-2022 08:43-0400 Diastolic blood pressure 80 mm[Hg] Emeka GRACE [facility] 06-15-2022 08:43-0400 Systolic blood pressure 133 mm[Hg] Emeka GRACE [facility] 04-02-2022 10:11-0400 Blood Pressure Location Emeka GRACE [facility] 04-02-2022 10:11-0400 Diastolic blood pressure 78 mm[Hg] Emeka GARCE [facility] 04-02-2022 10:11-0400 Heart rate 81 /min Emeka GRACE [facility] 04-02-2022 10:11-0400 Respiratory rate 16 /min Emeka GRACE [facility] 04-02-2022 10:11-0400 Systolic blood pressure 117 mm[Hg] Emeka GRACE [facility] Encounters Encounter Date Encounter Type Care Provider Facility Start: 12-11-2024 End: 12-11-2024 ambulatory [facility] Work Phone: Start: 12-11-2024 End: 12-11-2024 Patient encounter procedure [facility] Physician [facility] Work Phone: Start: 12-09-2024 Non-patient / Non-visit [facility] Physician [facility] [place] [facility] Work Phone: Start: 06-18-2024 End: 06-18-2024 ambulatory [facility] Work Phone: Start: 06-18-2024 End: 06-18-2024 Patient encounter procedure [facility] Physician [facility] Work Phone: Start: 06-11-2024 ambulatory Emeka Wilkinson ty:[id number] Start: 06-05-2024 End: 06-05-2024 ambulatory Emeka GRACE Facility:[id number] Start: 05-22-2024 End: 05-22-2024 ambulatory Emeka GRACE Facility:[facility] [place] Start: 05-22-2024 End: 05-22-2024 Patient encounter procedure Emeka GRACE [facility] Start: 05-01-2024 ambulatory Emekalauri GRACE Facili ty:[facility] [place] Start: 02-27-2024 End: 02-27-2024 ambulatory [facility] Work Phone: Start: 02-27-2024 End: 02-27-2024 Patient encounter procedure [facility] Work Phone: Start: 02-11-2024 End: 02-11-2024 ambulatory [facility] Work Phone: Start: 02-11-2024 End: 02-11-2024 Patient encounter procedure [facility] Work Phone: Start: 02-06-2024 End: 02-06-2024 ambulatory Emeka GRACE Facility:[id number] Start: 11-21-2023 End: 11-21-2023 Patient encounter procedure [facility] Physician [facility] Work Phone: Start: 11-19-2023 End: 11-19-2023 ambulatory Javi Lion Other [facility] Other Start: 11-19-2023 Telephone encounter Javi Seymour [facility] Start: 09-20-2023 End: 09-20-2023 ambulatory Javi Ball Other [facility] Other Start: 09-20-2023 Telephone encounter Javi Seymour [facility] Start: 08-21-2023 End: 08-21-2023 ambulatory Javi Ball Other [facility] Other Start: 08-21-2023 Office outpatient vi sit 15 minutes Javi Ball [facility] Start: 08-19-2023 End: 08-19-2023 ambulatory Javi Seymour Other [facility] Other Start: 08-19-2023 Telephone encounter Javi Ball [facility] Start: 08-02-2023 End: 08-02-2023 ambulatory Javi Lion Other [facility] Other Start: 08-02-2023 Telephone encounter Javi Ball [facility] Start: 06-28-2023 End: 06-28-2023 ambulatory Javi Lion Other [facility] Other Start: 06-28-2023 Telephone encounter Javi Ball [facility] Start: 06-11-2023 End: 06-11-2023 ambulatory Javi Lion Other [facility] Other Start: 06-11-2023 Office outpatient vi sit 15 minutes Javi Ball [facility] Start: 05-21-2023 End: 05-21-2023 ambulatory Javi Lion Other [facility] Other Start: 05-21-2023 Office outpatient vi sit 15 minutes Javi Ball [facility] Start: 05-14-2023 End: 05-14-2023 ambulatory Javi Lion Other [facility] Other Start: 05-14-2023 Telephone encounter Javi Ball [facility] Start: 04-26-2023 End: 04-26-2023 Patient encounter procedure Emeka GRACE [facility] Start: 03-08-2023 End: 03-08-2023 ambulatory Javi Ball Other [facility] Other Start: 03-08-2023 Telephone encounter Javi Ball [facility] Start: 02-19-2023 End: 02-19-2023 ambulatory Javi Ball Other [facility] Other Start: 02-19-2023 Telephone encounter Javi Ball [facility] Start: 02-14-2023 End: 02-14-2023 ambulatory Javi Ball Other [facility] Other Start: 02-14-2023 Office outpatient vi sit 15 minutes Javi Ball [facility] Start: 02-12-2023 End: 02-12-2023 ambulatory Javi Ball Other [facility] Other Start: 02-12-2023 Telephone encounter Javi Ball [facility] Start: 01-19-2023 End: 01-19-2023 ambulatory Javi Ball Other [facility] Other Start: 01-19-2023 Telephone encounter Javi Ball [facility] Start: 01-08-2023 End: 01-08-2023 ambulatory Javi Ball Other [facility] Other Start: 01-08-2023 Telephone encounter Javi Ball [facility] Start: 12-19-2022 End: 12-19-2022 ambulatory Javi Ball Other [facility] Other Start: 12-19-2022 Telephone encounter Javi Ball [facility] Start: 11-06-2022 End: 11-06-2022 ambulatory Javi Ball Other [facility] Other Start: 11-06-2022 Patient encounter procedure Javi Ball [facility] Start: 10-21-2022 End: 10-21-2022 ambulatory Javi Ball Other [facility] Other Start: 10-21-2022 Telephone encounter Javi Ball [facility] Start: 10-10-2022 End: 10-10-2022 ambulatory Javi Seymour Other [facility] Other Start: 10-10-2022 Telephone encounter [facility]avi [facility]CA [facility] Start: 09-28-2022 End: 09-28-2022 ambulatory Javi Seymour Other [facility] Other Start: 09-28-2022 Telephone encounter Javi ABARCA [facility] Start: 09-13-2022 Encounter for preprocedural laboratory examination DR EMEKA GRACE [facility] Start: 09-13-2022 End: 09-13-[address] JAVI SEYMOUR Facility:[facility] Start: 09-10-2022 End: 09-11-[address] JAVI SEYMOUR Facility:[facility] Start: 09-10-2022 End: 09-11-2022 Encounter for preprocedural laboratory examination DR JAVI SEYMOUR Facility:[facility] Start: 08-30-2022 End: 08-31-[address] JAVI SEYMOUR Facility:[facility] Start: 08-07-2022 End: [address] JAVI SEYMOUR Facility:[facility] Start: 08-06-2022 End: 08-06-2022 Patient encounter procedure Emeka GRACE [facility] Start: 08-02-2022 End: 08-02-[address] EMEKA GRACE Facility:[facility] Start: 07-30-2022 End: 07-31-[address] JAVI SEYMOUR Facility:[facility] Start: 07-28-2022 Encounter for preprocedural cardiovascular examination DR EMEKA GRACE [facility] Start: 07-24-2022 Pre-procedure evalua tion check Javi Seymour Other [facility] Other Start: 07-23-2022 End: 07-24-[address] JAVI SEYMOUR Facility:[facility] Start: 07-06-2022 End: 07-07-[address] JAVI SEYMOUR Facility:[facility] Start: 06-15-2022 End: 06-16-[address] JAVI SEYMOUR Facility:[facility] Start: 06-15-2022 End: 06-15-2022 Patient encounter procedure Emeka GRACE [facility] Start: 04-25-2022 End: 04-26-[address] JAVI SEYMOUR Facility:[facility] Start: 04-02-2022 End: 04-02-2022 Patient encounter procedure Emeka GRACE [facility] Start: 12-01-2021 End: 12-02-[address] BAL LISTED REQUEST Facility:[facility] Start: 11-02-2021 Adult health examination Joseph Seymour Other [facility] Other Procedures Date Procedure Procedure Detail Performing [...] Care Activity Detail Author US Heart Transthoracic [facility] XR Chest 2 Views [facility] Immunizations Immunization Date Immunization Notes Care Provider Fa cility 07-24-2022 influenza virus vaccine, split virus (incl. purified surface antigen) Javi Seymour Other [facility] Other 07-24-2022 influenza virus vaccine, unspecified formulation [facility] 07-24-2022 influenza, high dose seasonal, preservative-free Javi Seymour Other [facility] Other 2021 COVID-19 Vaccine Moderna - Documentation Purposes Only Javi Seymour Other [facility] 12-12-2020 SARS-CoV-2 (COVID-19 ) mRNA-1273 vaccine Emeka GRACE [facility] 11-22-2020 COVID-19 Vaccine Moderna - Documentation Purposes Only Javi Seymour Other [facility] 11-14-2020 SARS-CoV-2 (COVID-19 ) mRNA-1273 vaccine Emekalauri GRACE [facility] 10-24-2020 COVID-19 Vaccine Moderna - Documentation Purposes Only Javi Seymour Other [facility] 07-05-2020 influenza virus vaccine, split virus (incl. purified surface antigen) Javi Seymour Other [facility] Other 07-05-2020 influenza virus vaccine, unspecified formulation [facility] 07-05-2020 pneumococcal polysaccharide vaccine, 23 valent Javi Seymour Other [facility] 07-05-2020 Prevnar 20 Javi Seymour Other [facility] 01-06-2019 pneumococcal conjuga te vaccine, 13 valent Javi Seymour Other [facility] 01-06-2019 pneumococcal Conjuga te, unspecified formulation; 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: [Need for prophylactic vaccination against Streptococcus pneumoniae (pneumococcus)] Javi Seymour Other [facility] Other Payers Date Payer Category Payer Medicare [id number] 1961 Self-pay [id number] 1961 Unknown [id number] 1955 Unknown [id number] 2.16.84 [id number] 1953 Unknown [id number] 2.16.84 [id number] 1953 Unknown [id number] 2.16.84 [id number] 1953 Unknown [id number] 2.16.84 [id number] 1953 Unknown [id number] 2.16.84 [id number] 1953 Unknown [id number] 2.16.84 [id number] 1953 Unknown [id number] 2.16.84 [id number] 1953 Unknown [id number] 2.16.84 [id number] 1953 Unknown [id number] 2.16.84 0.1.872962.3.579.2.593 1953 Unknown [id number] 2.16.84 [id number] 1953 Unknown [id number] 2.16.8 [id number] 1953 Unknown [id number] 2.16.8 40.1.280316.3.579.2.727 1953 Unknown [id number] 2.16.8 [id number] 1953 Unknown [id number] 2.16.8 [id number] Unknown [id number] 2.16.84 [id number] Social History Date Type Detail Facility Start: 04-02-2022 End: 06-15-2022 Tobacco smoking status Ex-smoker (finding) [facility] Sex Assigned At Male [facility] Start: 1955 Sex Assigned At Male F [facility] Work Phone: Start: 12-11-2024 Sex Male (finding) [facility] Functional Status Date Assessment Result Facility 05-22-2024 Functional Status N/A [facility] 04-26-2023 Functional Status N/A [facility] 06-15-2022 Functional Status N/A [facility] 04-02-2022 Functional Status N/A [facility] Clinical Notes 04-02-2022 to 05-22-2024 Note [...] Follow these instructions at home: Medicines Take soma-tqn-lkhrgpv and prescription medicines only as told by [...] provider. Document Revised: 12/12/2022 Document Reviewed: 12/12/2022 [employer] Patient Education 2023 Webcom. Follow Up Care 02/11/2024 16:06:25 With:FARA SANDHU, LAURI Baron Address: [facility] [address], [place] [address]- [phone] When: Unknown [facility] 05-22-2024 Note Patient Education Urology Kidney [...] these instructions at home: Medicines ? Take woeo-ipg-hdyfqrk and prescription medicines only as told by [...] diet. Follow r (more content not included)... [facility] 11-19-2023 Evaluation note Encounter Date Diagnosis Assessment Notes Nov, Cervical spondylosis (ICD-10 - M47.812) [facility] Other 01-05-2024 Evaluation note* Encounter Date Diagnosis Assessment Notes Treatment Notes Treatment Clinical Notes Sep, Cervical spondylosis (ICD-10 - M47.812) [facility] Other 12-06-2023 Evaluation note* Encounter Date Diagnosis [...] medical therapy Aug, Nocturia (ICD-10 - R35.1) [facility] Other 12-04-2023 Evaluation note* Encounter Date Diagnosis Assessment Notes Treatment Notes Treatment Clinical Notes Aug, Lumbar spondylitis (ICD-10 - M46.96) [facility] Other 11-17-2023 Evaluation note* Encounter Date Diagnosis Assessment Notes Treatment Notes Treatment Clinical Notes Jul, Lumbar spondylitis (ICD-10 - M46.96) [facility] Other 10-13-2023 Evaluation note* Encounter Date Diagnosis Assessment Notes Treatment Notes Treatment Clinical Notes Jun, Lumbar spondylitis (ICD-10 - M46.96) [facility] Other 09-26-2023 Evaluation note* Encounter Date Diagnosis Assessment Notes Treatment Notes Treatment Clinical Notes May, Bee sting, accidental or unintentional, initial encounter (ICD-10 - T63.441A) Cool compresses and elevation. Monitor for s/s increased pain, swelling May, Cellulitis of right upper extremity (ICD-10 - L03.113) Elevate and begin antibiotics. Monitor for increased swelling, pain or fever [facility] Other 09-05-2023 Evaluation note* Encounter Date Diagnosis [...] prescribed Has Orthopedic appt later this month [facility] Other 08-29-2023 Evaluation note* Encounter Date Diagnosis Assessment Notes Treatment Notes Treatment Clinical Notes Apr, Lumbar spondylitis (ICD-10 - M46.96) [facility] Other 08-11-2023 Hospital Discharge instructions Patient Education [...] treatment? Where to find more information [employer]: www.cancer.org [employer]: www.auanet.org Contact a health care [...] provider. Document Revised: 02/26/2022 Document Reviewed: 02/26/2022 [employer] Patient Education 2022 Webcom. Follow Up Care 04/02/2022 10:42:42 With:FARA SANDHU, Emeka Woods, URL Address: [facility] [address] , [place] [address]- When:Within 1 Year(s) Comments:w/PSA and KUB [facility] 06-23-2023 Evaluation note* Encounter Date Diagnosis Assessment Notes Treatment Notes Treatment Clinical Notes Feb, Lumbar spondylitis (ICD-10 - M46.96) [facility] Other 06-01-2023 Evaluation note* Encounter Date Diagnosis [...] medical treatment Feb, Nocturia (ICD-10 - R35.1) [facility] Other 04-25-2023 Evaluation note* Encounter Date Diagnosis Assessment Notes Treatment Notes Treatment Clinical Notes Dec, Benign prostatic hyperplasia with lower urinary tract symptoms (ICD-10 - N40.1) [facility] Other 04-05-2023 Evaluation note* Encounter Date Diagnosis Assessment Notes Treatment Notes Treatment Clinical Notes Dec, Lumbar spondylitis (ICD-10 - M46.96) [facility] Other 02-21-2023 Evaluation note* Encounter Date Diagnosis [...] Screening for colon cancer (ICD-10 - Z12.11) [facility] Other 01-13-2023 Evaluation note* Encounter Date Diagnosis Assessment Notes Treatment Notes Treatment Clinical Notes Sep, Cervical spondylosis (ICD-10 - M47.812) [facility] Other 11-17-2022 NoteOP Note OPERATION DATE: 08/02/2022 [...] retrograde pyelogram. 9. Placement of right sided 6-Welsh variable length stent. 10. Cystolitholapaxy of 2 [...] usual fashion. I started by passing a 22-Welsh Olympus cystoscope per urethra and I arrived at a significant sequential stricture at the bulb. I passed a wire through the scope and was able to cannulate the strictured area and get it into the bladder. The scope was removed. I then used Padilla sounds and dilated the stricture from 20-Welsh up to 30-Welsh. The wire was removed and I then passed the cystoscope and was able to get it through the bulb and into the bladder. The bladder calculus was identified on the floor. I then passed a Glidewire through the scope and cannulated the right ureter. The wire was unable to pass up the tight J-hooking. I used an 8-Welsh dilator to help, but I could not [...] was then removed. I then used the 10-Welsh dilator to dilate the distal ureter. I [...] into the bladder and then slid a 6-Welsh variable length stent over the wire, up [...] and plucked out the remaining pieces. The [employer] evacuator was used to get blood clots out of the bladder. The nephroscope was removed and the 22-Welsh cystoscope was passed back in the bladder. The bladder looked fine. There were no pieces remaining in the bladder. The scope was then removed. The previously strictured area in the urethra was evaluated and it looked fine. I then placed a 20-Welsh 2-way Almeida catheter in the bladder. It was irrigated manually and it irrigated clear. 10 cc of fluid was placed in the balloon. He was then transferred to a gurney bed and wheeled to PACU in stable condition. He will be discharged to home with a script for (more content not included)...[id number] Discharge instructions Patient Education 06/15/2022 09:27:58 [...] Follow these instructions at home: Medicines Take thir-osi-hxmuzfd and prescription medicines only as told by [...] or the blood stops without treatment. Take egyv-ekh-jjtzrrc and prescription medicines only as told by your health care provider. Drink enough fluid to keep your urine clear or pale yellow. This information is not intended to replace advice given to you by your health care provider. Make sure you discuss any questions you have with your health care provider. Document Released: 09/02/2006 Document Revised: 01/27/2020 Document Reviewed: 10/05/2017 [employer] Patient Education 2019 [employer]. Follow Up Care 05/10/2022 10:28:16 With:FARA SANDHU, Emeka Woods, URL Address: [address] [place] [address]- When: Unknown [facility] 07-18-2022 Hospital Discharge instructions Patient Education [...] urethra. Follow these instructions at home: Take [id number]-[id number] and prescription medicines only as told by [...] 09/02/2006 Document Revised: 07/28/2019 Document Reviewed: 10/07/2017 [employer] Patient Education 2020 [employer] Follow Up Care 09/29/2021 08:39:40 With:Emeka GRACE MD, URL Address: [facility] [address], [place] [address]- [phone] When:Within 1 Year(s) Comments:1 year f/u with PSA [facility] evaluation + Plan note Future Appointments Appointment Date:04/12/2023 08:00:00 AM Scheduled Provider:Emeka GRACE MD Location:[facility] Appointment Type:URO Office Visit Diagnostic Tests Pending * PSA Total 04/02/22 [facility] evaluation + Plan note Future Appointments Appointment Date:04/12/2023 08:00:00 AM Scheduled Provider:Emeka GRACE MD Location:[facility] Appointment Type:URO Office Visit Diagnostic Tests Pending * Urine Cytology ([facility]) 06/15/22 [facility] evaluation + Plan note Future Appointments Appointment Date:04/12/2023 08:00:00 AM Scheduled Provider:Emeka GRACE MD Location:[facility] Appointment Type:URO Office Visit [facility] evaluation + Plan note Future Appointments Appointment Date:05/01/2024 08:15:00 AM Scheduled Provider:Emeka GRACE MD Location:[facility] Appointment Type:URO Office Visit Diagnostic Tests Pending * PSA Total 04/26/23 [facility] evaluation noteNo [facility] Other evaluation note* Diagnosis Onset Date Resolution Status Benign prostatic hyperplasia with lower urinary tract symptoms acute Cervical spondylosis acute Elevated PSA acute Lumbar spondylosis acute Medicare annual wellness visit, subsequent noneactive Screening PSA (prostate specific antigen) noneactive Cervical spondylosis acute Elevated PSA acute Lumbar spondylosis acute [facility] Work Phone: Evaluation note* Diagnosis Onset Date Resolution Status Cervical spondylosis acute Left ureteral calculus acute Lumbar spondylosis acute Benign prostatic hyperplasia with lower urinary tract symptoms acute Cervical spondylosis acute Lumbar spondylosis acute [facility] Work Phone: Evaluation note* Diagnosis Onset Date Resolution Status Benign prostatic hyperplasia with lower urinary tract symptoms acute Cervical spondylosis acute Cervical spondylosis with myelopathy acute Lumbar spondylosis acute Opiate analgesic use agreement exists acute [facility] Work Phone: Evaluation note* Diagnosis Onset [...] ific antigen) noneactive December 11, 2024 9:23am [facility] Work Phone: History general Narrative - Reported* Type Description Date Medical History Overweight (BMI 25.0-29.9) Medical History Hyperlipidemia type II Medical History Nicotine dependence, cigarettes, in remission Medical History Traumatic arthropathy, unspecifi ed shoulder Medical History Primary osteoarthritis of right knee Medical History Primary osteoarthritis of left s [facility] Medical History Cervical spondylosis with myelop athy Surgical History ESWL, cystoscopy, removal of ri ght ureteral stent 09/13/22 Surgical History TOTAL KNEE ARTHROPLASTY right 1 10-30-2020 Surgical History US TRANSRECTAL 01-10-2021 Surgical History fasciotomy right thigh 03-06-20 Surgical History left shoulder arthroscopy 10-05 Hospitalization History see surgical history BTR Other Hospital course Narrative No data available for this section [facility] Hospital Discharge instructions No data available for this section [facility] progress note No data available for this section [facility] Purpose Family History No Family History [...] Visit Admit Date Cervical spondylosis with myelopathy [facility] 2024 9:23am Elevated PSA December 11, 2024 9:2 3am Hypercholesterolemia December 11, 2024 9: 23am Nephrolithiasis December 11, 2024 9:2 3am Opiate analgesic use agreement exists [facility] 2024 9:23am Medicare annual wellness [...] DATE CREATED AUTHOR AUTHOR'S ORGANIZ ATION 06/11/2024 [facility] REASON FOR VISIT (unrecogniz ed section and [...] BE BASED ON THE PRIMARY CLINICAL RECORDS. [employer] provides no warranty or guarantee of the accuracy or completeness of information in this document.
--- NOTE | 2025-02-15 06:46 | MR_ITS ---
The [address] [address] Patient Name: RADHAMES MARQUEZ MRN: [id number] date: 1955 Sex: M Assigned Patient Location: MRI Current Patient Location: MRI Accession/Order Number: [id number] Exam Date: 02/15/2025 08:33 Report Date: 02/15/2025 08:35 At the request of: ISABEL TORRES DO Procedure: MR head/brain wo con MR head/brain wo con 02/15/2025 7:26 AM SIGN AND SYMPTOMS: ^dizziness , suspected cerebrovascular accident PROTOCOL: Multiplanar multisequence MR images of the brain were obtained without IV contrast COMPARISON: 02/09/2025 FINDINGS: Extra axial spaces: There is mild age-related cortical atrophy. Hemorrhage: None. Ventricular system: Within normal limits. Basal cisterns: Within normal limits and not effaced. Cerebral parenchyma: Normal in signal. Midline shift: None.. Cerebellum: Within normal limits. Brainstem: Nonspecific T2 and T2 FLAIR hyperintense signal is noted in the pontine white matter. OTHER: Calvarium: Normal marrow signal. Vascular system: Satisfactory flow voids within the anterior and posterior circulation. Visualized Paranasal sinuses: Mucosal thickening is noted in the maxillary sinuses. Because thickening in the sphenoid sinuses and ethmoid air cells. Visualized Orbits: Within normal limits. Visualized upper cervical spine: Within normal limits. Sella and skull base: Within normal limits. MR/MR head/brain wo con IMPRESSION: No acute intracranial pathology. Mild chronic age-related neurodegenerative changes are noted as above. Impression dictated by: Rashad Dubose M.D. 02/15/2025 8:35 AM Dictation Location: [facility] Electronically authenticated by: [id number] Y Date: 02/15/2025 08:35
== END 2025-02-15 06:44 | disposition home or self-care (01) ==
LOC: MRI 06:43
PROVIDERS: PCP Internal Medicine; Visit Provider Internal Medicine
DX: R42 Dizziness and giddiness (principal); R09.89 Other specified symptoms and signs involving the circulatory and respiratory systems; E78.00 Pure hypercholesterolemia, unspecified; I35.8 Other nonrheumatic aortic valve disorders
CPT/HCPCS: 70551